=== PATIENT | male | born 1965 | race Caucasian/White ===

== ENCOUNTER → 2017-02-06 | Outpatient (CLI) | payer OTHER ==
--- NOTE | 2017-02-06 08:15 | US ---
EXAMINATION TYPE: US duplex aorta DATE OF EXAM: 02/06/2017 COMPARISON: 2016 ultrasound duplex aorta January 12, 2016. CT abdomen and pelvis June 12, 2016 CLINICAL HISTORY: I71.4 ABD aortic aneurysm without rupture. EXAM MEASUREMENTS: Abdominal Aorta: aneurysm, mid/distal length 8.7 x 2.3 x 4.1 cm calcification, septation, Proximal: 1.8 cm Mid: 2.1cm Distal: 1.2 cm Bifurcation: 1.3 cm shorty, 1.3 cm, carolee 0.9 cm Long segment abdominal aortic aneurysm mid to distal segments is redemonstrated. Aorta measures up to 4.1 cm transversely mid segment level with irregular and linear plaque redemonstrated. No iliac german rial extension is identified. . IMPRESSION: Continued long segment lobulated aneurysm mid to distal abdominal aorta measuring up to 4 .1 cm on this study. No significant change or progression from prior studies.
== END | disposition home or self-care (01) ==
LOC: RADUSWWP 06:55
PROVIDERS: ATTEND Internal Medicine Geriatric Medicine
DX: I71.4 Abdominal aortic aneurysm, without rupture (principal)
CPT/HCPCS: 93979

== ENCOUNTER 2017-03-13 13:59 | Inpatient (IN) | payer OTHER ==
--- NOTE | 2017-03-13 14:32 | ED ---
General Adult HPI - General Chief complaint: Psychiatric Symptoms Stated complaint: Mental Health Time Seen by Provider: 03/13/17 14:14 Source: patient, RN notes reviewed Mode of arrival: ambulatory Limitations: no limitations - History of Present Illness Initial comments: 52-year-old male presents to the emergency department with a chief complaint of suicidal ideation. Patient states that he has been suffering from depression for about 5 years now. Patient states that it's been getting worse over the last year or so and he started to develop some suicidal ideation. Patient states he had multiple different plans. Patient states he's also recovering alcoholic and states he is concerned that he may start drinking again. Patient states just feels as if he needs some help. Patient has been admitted about a year and a half ago for similar-like thoughts and complaints and he states it didn't really help him. Patient states he does not have insurance so he is unable to follow-up with the psychiatrist and he is not currently on any medications. Patient denies any recent fever, chills, shortness of breath, chest pain, back pain, abdominal pain, nausea vomiting, numbness or tingling, dysuria or hematuria, constipation or diarrhea, headaches or visual changes, or any other current symptoms. - Related Data Home Medications Medication Instructions Recorded Confirmed Lisinopril [Zestril] 20 mg PO BID 06/20/15 03/13/17 metFORMIN HCL [Glucophage] 500 mg PO BID 06/20/15 03/13/17 Atorvastatin [Lipitor] 20 mg PO DAILY 03/13/17 03/13/17 DULoxetine HCL [Cymbalta] 30 mg PO DAILY 03/13/17 03/13/17 Gabapentin [Neurontin] 300 mg PO BID 03/13/17 03/13/17 Hydrocodone/Acetaminophen [Catarina 1 tab PO Q6H PRN 03/13/17 03/13/17 7.5-325] LORazepam [Ativan] 1 mg PO TID 03/13/17 03/13/17 Omeprazole [PriLOSEC] 20 mg PO DAILY PRN 03/13/17 03/13/17 glipiZIDE [Glucotrol] 5 mg PO AC-BID 03/13/17 03/13/17 Previous Rx's Medication Instructions Recorded PARoxetine HCL [Paxil] 40 mg PO DAILY #30 tab 06/26/15 Allergies Allergy/AdvReac Type Severity Reaction Status Date / Time No Known Allergies Allergy Verified 03/13/17 14:38 Review of Systems ROS Statement: Those systems with pertinent positive or pertinent negative responses have been documented in the HPI. ROS Other: All systems not noted in ROS Statement are negative. Past Medical History Past Medical History: Diabetes Mellitus, GERD/Reflux, Hyperlipidemia, Hypertension, Sleep Apnea/CPAP/BIPAP Additional Past Medical History / Comment(s): Hiatel Hernia, Aortic aneurysm dx 5 yrs. ago (checked by Dr. Perera 3 mos. ago.) "grew but stable". Admits to using a CPAP machine but it broke 1-2 mos. ago and he hasn't replaced it due to no insurance. History of Any Multi-Drug Resistant Organisms: None Reported Past Surgical History: No Surgical Hx Reported Past Anesthesia/Blood Transfusion Reactions: No Reported Reaction Past Psychological History: Anxiety, Depression Smoking Status: Former smoker Past Alcohol Use History: Abuse Past Drug Use History: None Reported - Past Family History Mother Family Medical History: COPD, Diabetes Mellitus Additional Family Medical History / Comment(s): Mother is alive at age 79 with history of COPD and diabetes. Father Family Medical History: Dementia, Diabetes Mellitus Additional Family Medical History / Comment(s): Father is alive at age 81 with history of diabetes, osteoarthritis, dementia. Sister(s) Family Medical History: Cancer Additional Family Medical History / Comment(s): Patient has 3 sisters. One past 18 years ago from breast cancer, a second sister has recently been diagnosed with breast cancer. He has one sister with depression and anxiety and rheumatoid arthritis. Brother(s) Family Medical History: COPD Additional Family Medical History / Comment(s): Patient has one brother with COPD. General Exam - General Exam Comments Initial Comments: General: The patient is awake and alert, in no distress, and does not appear acutely ill. Eye: Pupils are equal, round and reactive to light, extra-ocular movements are intact; there is normal conjunctiva bilaterally. No signs of icterus. Ears, nose, mouth and throat: There are moist mucous membranes. Neck: The neck is supple, there is no tenderness. Cardiovascular: There is a regular rate and rhythm. No murmur, rub or gallop is appreciated. Respiratory: Lungs are clear to auscultation, respirations are non-labored, breath sounds are equal. No wheezes, stridor, rales, or rhonchi. Neurological: CN II-XII intact, There are no obvious motor or sensory deficits. Coordination appears grossly intact. Speech is normal. Skin: Skin is warm and dry and no rashes or lesions are noted. Psychiatric: Cooperative, depression, suicidal ideation Limitations: no limitations Course Vital Signs 03/13/17 14:10 Temperature 97.6 F Pulse Rate 115 H Respiratory 20 Rate Blood Pressure 138/67 O2 Sat by Pulse 97 Oximetry Medical Decision Making - Medical Decision Making 52-year-old male presents emergency department with a chief complaint of suicidal ideation. At this time the patient does not appear to be septic from acute medical emergencies. This time the patient is cleared to be evaluated by psychiatry.at this time the patient will be admitted for psychiatric inpatient. - Lab Data Lab Results 03/13/17 Range/Units 14:45 Urine Opiates Screen Detected H (NotDetected) Ur Oxycodone Screen Not Detected (NotDetected) Urine Methadone Screen Not Detected (NotDetected) Ur Propoxyphene Screen Not Detected (NotDetected) Ur Barbiturates Screen Not Detected (NotDetected) U Tricyclic Antidepress Not Detected (NotDetected) Ur Phencyclidine Scrn Not Detected (NotDetected) Ur Amphetamines Screen Not Detected (NotDetected) U Methamphetamines Scrn Not Detected (NotDetected) U Benzodiazepines Scrn Detected H (NotDetected) Urine Cocaine Screen Not Detected (NotDetected) U Marijuana (THC) Screen Not Detected (NotDetected) Disposition Clinical Impression: Suicidal ideation, Depression Disposition: TRANSFER TO PSYCH HOSP/UNIT Referrals: Gene Perera MD [Primary Care Provider] - 1-2 days
[2017-03-13 17:14] LABS: Glucose,Whole Blood 89 mg/dL (75-99)
[2017-03-13] MEDS ORDERED: MAGNESIUM HYDROXIDE 2,400 MG/10 ML CUP PO PRN (18:08)
[2017-03-13] MEDS ORDERED: ACETAMINOPHEN TAB 325 MG TAB PO PRN (18:08)
[2017-03-13] MEDS ORDERED: ZIPRASIDONE 20 MG VIAL IM PRN (18:08)
[2017-03-13] MEDS ORDERED: MAG HYDROX/AL HYDROX/SIMETH 30 ML CUP PO PRN (18:08)
[2017-03-13] MEDS ORDERED: LORazepam 2 MG/ML SYRINGE IM PRN (18:21)
[2017-03-13] MEDS ORDERED: PANTOPRAZOLE 40 MG TABLET PO PRN (19:40)
[2017-03-13 20:35] LABS: Glucose,Whole Blood 116 mg/dL (75-99)
[2017-03-13] MEDS: INSULIN LISPRO (humaLOG) 300 UNIT/3 ML VIAL SQ SCH (21:51)
[2017-03-13] MEDS: LISINOPRIL 20 MG TAB PO SCH (21:53)
[2017-03-13] MEDS: GABAPENTIN 300 MG CAP PO SCH (21:54)
[2017-03-13] MEDS: metFORMIN 500 MG TAB PO SCH (21:57)
[2017-03-13] MEDS: HYDROcodone/APAP 5-325MG 1 EACH TAB PO SCH (23:26)
[2017-03-14 07:39] LABS: Glucose,Whole Blood 137 mg/dL (75-99)
[2017-03-14 08:21] LABS: Basophils # (A) 0.1 k/uL (0-0.2); Basophils % (A) 1 %; CH 30.1; CHCM 33.7; Eosinophils # (A) 0.3 k/uL (0-0.7); Eosinophils % (A) 4 %; HCT 46.3 % (39.0-53.0); HDW 2.46; HGB 15.2 gm/dL (13.0-17.5); Luc # (Auto) 0.21; Luc % (Auto) 3; Lymphocytes % (A) 25 %; MCH 29.3 pg (25.0-35.0); MCHC 32.8 g/dL (31.0-37.0); MCV 89.5 fL (80.0-100.0); Mean Platelet Volume 7.3; Monocytes # (A) 0.4 k/uL (0-1.0); Monocytes % (A) 5 %; Neutrophils % (A) 62 %; RBC 5.17 m/uL (4.30-5.90); RDW 13.3 % (11.5-15.5); WBC (Perox) 8.09
[2017-03-14 08:31] LABS: ALT 44 U/L (21-72); AST 27 U/L (17-59); Alkaline Phosphatase 54 U/L (38-126); Anion Gap 11 mmol/L; Blood Urea Nitrogen 10 mg/dL (9-20); Carbon Dioxide 28 mmol/L (22-30); Chloride 100 mmol/L (98-107); Glucose 149 mg/dL (74-99); Non-African American GFR(MDRD) >60 (>60 ml/min/1.73 sqM); Potassium 4.7 mmol/L (3.5-5.1); Sodium 139 mmol/L (137-145); Total Bilirubin 0.7 mg/dL (0.2-1.3); Total Protein 7.8 g/dL (6.3-8.2)
[2017-03-14] MEDS ORDERED: PARoxetine 20 MG TAB PO SCH (09:00)
[2017-03-14] MEDS ORDERED: DULoxetine HCL 30 MG CAPSULE.DR PO SCH (09:00)
[2017-03-14] MEDS: INSULIN LISPRO (humaLOG) 300 UNIT/3 ML VIAL SQ SCH ×4 (09:32→21:15)
[2017-03-14] MEDS: NICOTINE 7MG/24HR PATCH TRANSDERM SCH (09:34)
[2017-03-14] MEDS: GABAPENTIN 300 MG CAP PO SCH ×2 (09:35→20:58)
[2017-03-14] MEDS: glipiZIDE 5 MG TAB PO SCH ×2 (09:36→18:28)
[2017-03-14] MEDS: HYDROcodone/APAP 5-325MG 1 EACH TAB PO SCH ×3 (09:36→21:04)
[2017-03-14] MEDS: ATORVASTATIN 20 MG TAB PO SCH (09:36)
[2017-03-14] MEDS: metFORMIN 500 MG TAB PO SCH ×2 (09:36→20:58)
[2017-03-14] MEDS: LISINOPRIL 20 MG TAB PO SCH ×2 (09:36→20:58)
[2017-03-14] MEDS: LORazepam 1 MG TAB PO PRN ×2 (09:39→21:01)
[2017-03-14 12:01] LABS: Glucose,Whole Blood 158 mg/dL (75-99)
[2017-03-14 12:01] LABS: Hemoglobin A1C 7.3 % (4.2-6.1)
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
[2017-03-14] MEDS: TRIAMCINOLONE 0.1% CREAM 80 GM TUBE TOPICAL SCH ×3 (14:31→21:50)
--- NOTE | 2017-03-14 15:33 | HP ---
DATE OF : 1965 IDENTIFYING DATA: This patient is a 52-year-old single male who was admitted to the mental health unit through the emergency room for acute suicidal ideation. HISTORY OF PRESENT ILLNESS: The patient states that he has been experiencing significant symptoms of depression for many months but worsened since January. He reports he is crying on a daily basis, sleep has been disturbed, energy is low, concentration is impaired. Appetite is decreased with subsequent reported weight loss. He continues to have suicidal thoughts and states "I don't want to live." He has considered overdosing on his insulin or asphyxiating himself with his vehicle in the garage. He reports intermittent symptoms of anxiety. He does have a history of panic attacks in the past but none recently. No hypomanic or manic episodes reported. No symptoms of psychosis reported. No specific delusions reported. He denies having any firearms at home. 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 He states he is also in trouble regarding back taxes. PAST PSYCHIATRIC HISTORY: This is his third inpatient psychiatric admission. His first was at age 12 after an overdose as a suicide attempt. His second admission was in 2014 under the care of Dr. Willis. He sees his primary care physician for management of his psychotropic medications. He states he is on Ativan 1 mg three times daily as needed, Cymbalta 30 mg daily, Paxil 20 mg daily. He states he is also on Neurontin 300 mg twice daily. He has previously tried Adderall, Ritalin, Prozac, Zoloft and Wellbutrin. Out of all of the medicines he has been on, Cymbalta has been the best he reports. PAST MEDICAL HISTORY: Insulin dependent diabetes, history of pancreatitis in the past, hypertension, hyperlipidemia, sleep apnea, chronic pain. He reports chronic pain involving his lower extremities, sacrum and low back. The patient reports a history of an aortic abdominal aneurysm. He states that it was recently measured at 4.1 and it had actually regressed. ALLERGIES: No known drug allergies. CHEMICAL DEPENDENCY HISTORY: He has a history of alcohol use disorder. He most recently has been sober for five years. He reports not use of alcohol, marijuana or other illicit drugs. FAMILY PSYCHIATRIC HISTORY: He reports a history of depression and anxiety on both sides of the family. LEGAL HISTORY: None reported. ABUSE HISTORY: None reported. SOCIAL HISTORY: The patient is 52 years old. He has never been . He has no children. He has three living siblings. He lost one due to breast cancer. He is born and raised from this area. He is currently residing with his parents still. No history of service. He has an 11th grade education. He reports having significant financial concern, issues with back taxes. 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 MENTAL STATUS EXAM: The patient is a male appearing his stated age. He has a disheveled appearance. He is dressed in hospital gowns. Eye contact is appropriate. Speech is fluent. He is verbose. I do need to interrupt him from time to time and he is able to tolerate that. He describes a depressed mood with suicidal ideation and hopeless thinking. He reports no homicidal ideation. He is endorsing no auditory or visual hallucinations. He endorses no specific delusions. There is no evidence of psychosis. He does not appear hypomanic or manic. He does not appear hypomanic or manic. He can be circumstantial at times but he demonstrates no tangential thinking, loose associations or flight of ideas. Insight and judgment limited. He is oriented to person, place and date. He is able to spell world forwards and backwards. He demonstrates no verbal or physical aggressiveness. Affect is constricted to dysphoric in appearance. STRENGTHS: Willingness to receive help, housing. WEAKNESSES: Employment and financial concerns. INTELLECT: Average. IMPRESSION: 1. Major depressive disorder, recurrent, severe without psychosis; anxiety unspecified, alcoholic use disorder in remission. 2. Medical comorbidities include chronic pain, aortic aneurysm, hypertension, hyperlipidemia, sleep apnea, diabetes. 3. Financial concerns. PLAN: The patient has been admitted to the mental health unit. He is here voluntarily. We reviewed his medication options in the context of his presenting symptoms. We decided to discontinue the Cymbalta and we will taper him off of Paxil. We will initiate Effexor XR 37.5 mg daily with the plan of titrating that medication further. He has felt that the Cymbalta was the most helpful so perhaps another SNRI would be beneficial as well. He will use Ativan as needed for acute anxiety symptoms. We will monitor him for safety. Social work will meet with the patient to complete a psychosocial assessment. The patient will be seen by his primary care physician for routine history and physical exam on the mental health unit. He is encouraged to participate in the milieu. NAMAN
[2017-03-14 17:27] LABS: Glucose,Whole Blood 75 mg/dL (75-99)
[2017-03-14 19:58] LABS: Glucose,Whole Blood 137 mg/dL (75-99)
[2017-03-14] MEDS: PARoxetine 10 MG TAB PO SCH (20:58)
[2017-03-15 07:11] LABS: Glucose,Whole Blood 142 mg/dL (75-99)
[2017-03-15] MEDS: INSULIN LISPRO (humaLOG) 300 UNIT/3 ML VIAL SQ SCH ×4 (07:55→20:18)
[2017-03-15] MEDS: NICOTINE 7MG/24HR PATCH TRANSDERM SCH (09:02)
[2017-03-15] MEDS: glipiZIDE 5 MG TAB PO SCH ×3 (09:03→18:59)
[2017-03-15] MEDS: VENLAFAXINE HCL ER 37.5 MG CAP PO SCH (09:03)
[2017-03-15] MEDS: ATORVASTATIN 20 MG TAB PO SCH (09:03)
[2017-03-15] MEDS: metFORMIN 500 MG TAB PO SCH ×2 (09:03→20:19)
[2017-03-15] MEDS: LISINOPRIL 20 MG TAB PO SCH ×2 (09:03→20:19)
[2017-03-15] MEDS: GABAPENTIN 300 MG CAP PO SCH ×2 (09:03→20:20)
[2017-03-15] MEDS: HYDROcodone/APAP 5-325MG 1 EACH TAB PO SCH ×3 (09:03→20:20)
[2017-03-15] MEDS: TRIAMCINOLONE 0.1% CREAM 80 GM TUBE TOPICAL SCH ×2 (09:04→20:22)
[2017-03-15] MEDS: LORazepam 1 MG TAB PO PRN ×3 (10:44→19:04)
[2017-03-15 12:30] LABS: Glucose,Whole Blood 86 mg/dL (75-99)
--- NOTE | 2017-03-15 15:24 | P.PN ---
Progress Note - Text Interval history: Patient is seen in cross coverage today for Dr. Gaona. He reports that his mood is doing better today. He's been initiated on Effexor and Paxil is being tapered. 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 He does not voice any adverse psychotropic medication side effects. Mental status exam: He is alert and cooperative with the interview. Speech is fluent, not rapid or pressured. Thought processes are organized. His mood overall is improved. He denies any thoughts of harm to self or others. He does not verbalize any hallucinations or delusional thoughts. He does not show any agitation. Plan: We'll continue to cover this patient for Dr. Gaona through the weekend. We'll monitor for any medication side effects and monitor his ongoing response.
[2017-03-15 16:41] LABS: Glucose,Whole Blood 94 mg/dL (75-99)
[2017-03-15 17:52] LABS: Glucose,Whole Blood 109 mg/dL (75-99)
[2017-03-15 20:16] LABS: Glucose,Whole Blood 228 mg/dL (75-99)
[2017-03-15] MEDS: PARoxetine 10 MG TAB PO SCH (20:19)
[2017-03-16 06:14] LABS: Glucose,Whole Blood 138 mg/dL (75-99)
[2017-03-16 06:52] VITALS: TEMP 97.5
[2017-03-16] MEDS: INSULIN LISPRO (humaLOG) 300 UNIT/3 ML VIAL SQ SCH ×5 (08:02→20:18)
[2017-03-16] MEDS: glipiZIDE 5 MG TAB PO SCH ×3 (08:03→18:05)
[2017-03-16] MEDS: ATORVASTATIN 20 MG TAB PO SCH (08:05)
[2017-03-16] MEDS: VENLAFAXINE HCL ER 37.5 MG CAP PO SCH (08:05)
[2017-03-16] MEDS: GABAPENTIN 300 MG CAP PO SCH ×2 (08:06→20:54)
[2017-03-16] MEDS: NICOTINE 7MG/24HR PATCH TRANSDERM SCH (08:06)
[2017-03-16] MEDS: metFORMIN 500 MG TAB PO SCH ×3 (08:06→20:19)
[2017-03-16] MEDS: TRIAMCINOLONE 0.1% CREAM 80 GM TUBE TOPICAL SCH ×2 (08:07→20:20)
[2017-03-16] MEDS: LISINOPRIL 20 MG TAB PO SCH ×2 (09:43→20:19)
[2017-03-16] MEDS: HYDROcodone/APAP 5-325MG 1 EACH TAB PO SCH ×3 (09:43→20:20)
[2017-03-16 12:52] LABS: Glucose,Whole Blood 154 mg/dL (75-99)
[2017-03-16] MEDS: LORazepam 1 MG TAB PO PRN ×2 (13:00→22:53)
[2017-03-16 16:14] VITALS: RESP 18
[2017-03-16 16:56] LABS: Glucose,Whole Blood 120 mg/dL (75-99)
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
[2017-03-16 20:01] LABS: Glucose,Whole Blood 148 mg/dL (75-99)
[2017-03-16] MEDS: PARoxetine 10 MG TAB PO SCH (20:19)
[2017-03-17 07:31] LABS: Glucose,Whole Blood 138 mg/dL (75-99)
--- NOTE | 2017-03-17 08:54 | P.PN ---
Progress Note - Text Interval history: The patient is found in the dining room he follows me to an interview room. He reports his mood is improving. He is feeling less hopeful. He is glad to report that his Medicaid has been restarted. We discussed the plan of tapering off of Paxil and titrating the Effexor XR further he is agreeable. We discussed the Neurontin at length regarding his progress and possible dosing. He continues to struggle with chronic pain. He reports having a supportive visit over the weekend. Mental status exam: The patient is alert he is dressed in his own clothing hygiene grooming adequate. He reports his mood is improving he is feeling less hopeless. He is feeling safe in the hospital and describes no acute suicidal or homicidal ideation intent or plan. He is endorsing no auditory or visual hallucinations no specific delusions. There is no evidence of psychosis. Insight and judgment grossly intact. He remains oriented to person place and date. He demonstrates no verbal or physical aggressiveness. Speech is fluent and spontaneous nonpressured. Affect is constricted. Plan: The patient's will continue on Effexor XR we will titrate the dose to 75 mg daily. Paxil will be discontinued. Neurontin will be increased to 300 mg 3 times daily. We will continue to monitor him for safety and encourage his full participation in the milieu. We will consider discharging him in the next 1-2 days if he demonstrates continued improvement and stability.
[2017-03-17] MEDS: NICOTINE 7MG/24HR PATCH TRANSDERM SCH (09:27)
[2017-03-17] MEDS: glipiZIDE 5 MG TAB PO SCH ×2 (09:28→18:08)
[2017-03-17] MEDS: LISINOPRIL 20 MG TAB PO SCH ×2 (09:28→21:49)
[2017-03-17] MEDS: GABAPENTIN 300 MG CAP PO SCH ×3 (09:28→21:49)
[2017-03-17] MEDS: ATORVASTATIN 20 MG TAB PO SCH (09:28)
[2017-03-17] MEDS: metFORMIN 500 MG TAB PO SCH ×2 (09:28→21:50)
[2017-03-17] MEDS: TRIAMCINOLONE 0.1% CREAM 80 GM TUBE TOPICAL SCH ×2 (09:29→21:51)
[2017-03-17] MEDS: HYDROcodone/APAP 5-325MG 1 EACH TAB PO SCH ×3 (09:29→21:50)
[2017-03-17] MEDS: INSULIN LISPRO (humaLOG) 300 UNIT/3 ML VIAL SQ SCH ×4 (09:31→20:29)
[2017-03-17] MEDS: VENLAFAXINE HCL ER 75 MG CAP PO SCH (09:34)
[2017-03-17] MEDS: LORazepam 1 MG TAB PO PRN ×2 (11:00→19:36)
[2017-03-17 12:38] LABS: Glucose,Whole Blood 75 mg/dL (75-99)
[2017-03-17 18:00] LABS: Glucose,Whole Blood 100 mg/dL (75-99)
[2017-03-17 20:38] LABS: Glucose,Whole Blood 137 mg/dL (75-99)
[2017-03-18 07:25] LABS: Glucose,Whole Blood 143 mg/dL (75-99)
[2017-03-18] MEDS: INSULIN LISPRO (humaLOG) 300 UNIT/3 ML VIAL SQ SCH ×3 (08:16→12:37)
[2017-03-18] MEDS: HYDROcodone/APAP 5-325MG 1 EACH TAB PO SCH (08:26)
[2017-03-18] MEDS: glipiZIDE 5 MG TAB PO SCH (08:26)
[2017-03-18] MEDS: VENLAFAXINE HCL ER 75 MG CAP PO SCH (08:27)
[2017-03-18] MEDS: LISINOPRIL 20 MG TAB PO SCH (08:27)
[2017-03-18] MEDS: ATORVASTATIN 20 MG TAB PO SCH (08:27)
[2017-03-18] MEDS: GABAPENTIN 300 MG CAP PO SCH (08:27)
[2017-03-18] MEDS: metFORMIN 500 MG TAB PO SCH (08:27)
[2017-03-18] MEDS: NICOTINE 7MG/24HR PATCH TRANSDERM SCH (08:28)
[2017-03-18 08:41] VITALS: BP 114/77; PULSE 71
[2017-03-18] MEDS: TRIAMCINOLONE 0.1% CREAM 80 GM TUBE TOPICAL SCH (09:13)
--- NOTE | 2017-03-18 09:55 | P.DS ---
Providers Date of admission: 03/13/17 18:00 Expected date of discharge: 03/18/17 Attending physician: Roberto Gaona Consults: 03/13/17 18:08 Consult Physician Routine Consulting Provider: Gene Perera Reason/Comments: H & P and medical management Do you want consulting provider notified?: Yes Primary care physician: Gene Perera - Discharge Diagnosis(es) (1) Major depressive disorder, recurrent severe without psychotic features Current Visit: Yes Status: Acute Priority: High (2) Anxiety Current Visit: Yes Status: Acute Priority: Medium (3) Alcohol use disorder, mild, in sustained remission Current Visit: Yes Status: Acute Priority: Low Hospital Course: Brief summary of admission note: This patient's is a 52-year-old single male who was admitted to the mental health unit through the emergency room for acute suicidal ideation. The patient noted experiencing significant symptoms of depression that seemed to worsen since January. He was experiencing daily tearfulness poor sleep low energy and impaired concentration. He presented with suicidal ideation. 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 Summary of hospital course: The patient was admitted to the mental health unit he signed in voluntarily. We reviewed his presenting symptoms and medication options. He had been taking Paxil and Cymbalta concurrently. We decided to discontinue those medications and initiate Effexor XR. He felt that out of all the medicines he's been on he did best with the Cymbalta or that was no longer working. We did learn that his sister has been on Effexor XR for 15 years with reported success. The patient was evaluated by internal medicine for routine history and physical exam. Social work met with the patient to complete a psychosocial assessment. He plans on residing with his parents again upon discharge. The patient was able to be tapered off of the Paxil and Cymbalta without incident he is endorsing no side effects from the Effexor XR so far. He states that his suicidal thoughts have resolved. 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 He feels supported in those endeavors. He demonstrated no agitated behavior. He has reported a progressive improvement of symptoms while here. Mental status exam: The patient is alert he is dressed in his own clothing hygiene grooming are good. Speech is fluent spontaneous nonpressured. He reports his mood is "better" affect is euthymic and appropriately expressive. He is reporting no suicidal ideation intent or plan no homicidal ideation intent or plan. Thought process is linear he demonstrates no tangential thinking loose associations or flight of ideas. He does not appear hypomanic or manic. He endorses no auditory or visual hallucinations or specific delusions there is no evidence of psychosis. Cognitively he remains grossly intact and is oriented to person place and date. He demonstrates no verbal or physical aggressiveness. Impressions 1. Major depressive disorder recurrent severe without psychosis, anxiety unspecified, alcohol use disorder in remission 2. Medical comorbidities including chronic pain, aortic aneurysm, hypertension , hyperlipidemia, sleep apnea, diabetes 3. Financial concerns Plan: The patient will be discharged from the mental health unit today to return home residing with his parents. He will continue on Effexor XR 75 mg daily this may need to be titrated further. Social work will arrange his outpatient mental health follow-up. He plans on attending AA to continue his sobriety from alcohol. He is reporting no acute suicidal ideation there is no imminent safety risk he is appropriate for transition to outpatient care. He is instructed to return to the hospital with any acute safety concerns. He is encouraged to follow-up with his primary care physician Dr. Perera regarding pain management. We did increase his Neurontin to 300 mg 3 times daily. Patient Condition at Discharge: Stable Plan - Discharge Summary New Discharge Prescriptions: New Gabapentin [Neurontin] 300 mg PO TID #45 cap Nicotine 7Mg/24Hr Patch [Habitrol] 1 patch TRANSDERM DAILY #12 patch Venlafaxine HCl ER [Effexor XR] 75 mg PO DAILY #30 cap Continue metFORMIN HCL [Glucophage] 500 mg PO BID Lisinopril [Zestril] 20 mg PO BID Omeprazole [PriLOSEC] 20 mg PO DAILY PRN PRN Reason: Heartburn glipiZIDE [Glucotrol] 5 mg PO AC-BID Hydrocodone/Acetaminophen [[place] 7.5-325] 1 tab PO Q6H PRN PRN Reason: Pain Atorvastatin [Lipitor] 20 mg PO DAILY Discontinued PARoxetine HCL [Paxil] 40 mg PO DAILY #30 tab Gabapentin [Neurontin] 300 mg PO BID DULoxetine HCL [Cymbalta] 30 mg PO DAILY LORazepam [Ativan] 1 mg PO TID Discharge Medication List Lisinopril [Zestril] 20 mg PO BID 06/20/15 [History] metFORMIN HCL [Glucophage] 500 mg PO BID 06/20/15 [History] Atorvastatin [Lipitor] 20 mg PO DAILY 03/13/17 [History] Hydrocodone/Acetaminophen [[place]non 7.5-325] 1 tab PO Q6H PRN 03/13/17 [History] Omeprazole [PriLOSEC] 20 mg PO DAILY PRN 03/13/17 [History] glipiZIDE [Glucotrol] 5 mg PO AC-BID 03/13/17 [History] Gabapentin [Neurontin] 300 mg PO TID #45 cap 03/18/17 [Rx] Nicotine 7Mg/24Hr Patch [Habitrol] 1 patch TRANSDERM DAILY #12 patch 03/18/17 [ Rx] Venlafaxine HCl ER [Effexor XR] 75 mg PO DAILY #30 cap 03/18/17 [Rx] Follow up Appointment(s)/Referral(s): [facility] [Outside] - 03/20/17 1:00 pm (03/20/17 at 1 [address] ) Gene Perera MD [Primary Care Provider] - 1-2 days
[2017-03-18] MEDS: LORazepam 1 MG TAB PO PRN (10:38)
[2017-03-18 12:36] LABS: Glucose,Whole Blood 121 mg/dL (75-99)
== END 2017-03-18 13:48 | disposition home or self-care (01) | DRG 885 ==
LOC: EC 13:59 → 3MHU 18:00
PROVIDERS: ADMIT Psychiatry & Neurology Psychiatry; ATTEND Psychiatry & Neurology Psychiatry
DX: F33.2 Major depressive disorder, recurrent severe without psychotic features (principal); R45.851 Suicidal ideations; E11.9 Type 2 diabetes mellitus without complications; F10.21 Alcohol dependence, in remission; F41.0 Panic disorder [episodic paroxysmal anxiety]; L25.9 Unspecified contact dermatitis, unspecified cause; I10 Essential (primary) hypertension; G89.29 Other chronic pain; E78.5 Hyperlipidemia, unspecified; G47.30 Sleep apnea, unspecified; K21.9 Gastro-esophageal reflux disease without esophagitis; M54.5 Low back pain; I71.4 Abdominal aortic aneurysm, without rupture; Z79.84 Long term (current) use of oral hypoglycemic drugs; Z79.899 Other long term (current) drug therapy; Z91.5 Personal history of self-harm; Z81.8 Family history of other mental and behavioral disorders; Z87.891 Personal history of nicotine dependence
CPT/HCPCS: 36415; 80053; 80306; 82075; 83036; 84443; 85025; 99285

== ENCOUNTER → 2017-08-25 | Outpatient (CLI) | payer OTHER ==
--- NOTE | 2017-08-25 14:45 | XR ---
EXAMINATION TYPE: XR lumbar spine 2 or 3V DATE OF EXAM: 08/25/2017 COMPARISON: NONE HISTORY: Back pain TECHNIQUE: Three-view lumbar spine FINDINGS: There is a 6.1 cm aneurysm on this examination in the distal abdominal aorta. This is trans verse dimension. The AP dimension on the sacral base view is 6.3 cm. There 5 lumbar-type vertebral bodies. The pedicles are intact. Vertebral body heights are preserved. There is narrowing of the L5-S1 disc height. IMPRESSION: 1. Abdominal aortic aneurysm with an AP diameter of 6.3 cm. 2. Degenerative disc change L5-S1.
== END | disposition home or self-care (01) ==
LOC: RADXRMAIN 12:31
PROVIDERS: ATTEND Internal Medicine Geriatric Medicine
DX: M51.37 Other intervertebral disc degeneration, lumbosacral region (principal)
CPT/HCPCS: 72100

== ENCOUNTER → 2017-08-28 | Outpatient (CLI) | payer OTHER ==
[2017-08-28 06:32] LABS: Blood Urea Nitrogen 14 mg/dL (9-20)
--- NOTE | 2017-08-28 07:53 | MR ---
"EXAMINATION TYPE: MR lumbar spine wo/w con DATE OF EXAM: 08/28/2017 COMPARISON: Lumbar spine x-ray August 25, 2017. CT abdomen and pelvis June 12, 2016. Ultrasound duplex aorta October 07, 2016 HISTORY: Dropped foot for 3 weeks with back pain going into both thighs and buttocks per patient. Ronaldo k pain (754.5) per order. TECHNIQUE: Multiplanar, multisequence images of the lumbar spine is performed without and with IV contrast, util izing 7.5 mL intravenous Gadavist FINDINGS: Sagittal images of the lumbar spine show vertebral body heights and alignment to appear sat isfactory. Multilevel disc desiccation is present. There is moderate disc space narrowing L5-S1 leve l. There are multilevel small posterior disc herniation seen on sagittal images The conus medullaris is normal in position and signal ending at mid L1 level. The bone marrow signal intensity is within normal limits. Mild multilevel anterior spurring is seen. No suspicious postcontrast enhancement is i dentified. Axial images show the T12-L1 level to appear within normal limits. Axial images at L1-L2 level show mild broad disc bulge minimally effacing anterior thecal sac, bilate ral neural foramina are patent. Axial images at L2-L3 level show mild broad disc bulge mildly effacing anterior thecal sac with mild facet degenerative changes bilaterally. Bilateral neural foramina are patent. Axial images at L3-L4 level show mild to moderate broad disc bulge effacing anterior thecal sac. Left -sided neural foramina shows mild inferior anterior narrowing. Right-sided neural foramen is patent. Axial images at L4-L5 level show mild facet degenerative changes bilaterally. There is broad-based po sterior disc protrusion mildly effacing anterior thecal sac. Bilateral neural foramina are patent. Axial images at L5-S1 level show mild facet degenerative changes bilaterally. There is broad disc bul ge minimally effacing anterior thecal sac. Bilateral neural foramina are patent. There is redemonstration of aneurysmal change to the infrarenal abdominal aorta this measures 4.6 x 5 .0 cm transversely axial image 14. This is more prominent than seen on prior CT. This correlates with recent radiograph and is also more prominent versus prior ultrasound. IMPRESSION: 1. Multilevel degenerative changes in lumbar spine as detailed above. 2. Enlarging abdominal aortic aneurysm from prior CT and ultrasound measuring up to 5.0 cm transverse ly on current study, likely not as large as suspected on recent x-ray. Advise endovascular and/or danna gical referral if has not been performed. A Yellow message has been communicated to Gene Perera MD via the [employer] | Critical Result sy stem on 08/28/2017 7:50 AM, Message ID [id number]."
== END | disposition home or self-care (01) ==
LOC: RADMRIMAIN 06:07
PROVIDERS: ATTEND Internal Medicine Geriatric Medicine
DX: M47.817 Spondylosis without myelopathy or radiculopathy, lumbosacral region (principal)
CPT/HCPCS: 82565; 84520; 72158; 36415; A9581

== ENCOUNTER → 2017-09-10 | Outpatient (CLI) | payer OTHER ==
[2017-09-10 18:28] LABS: Blood Urea Nitrogen 12 mg/dL (9-20)
--- NOTE | 2017-09-10 19:41 | CT ---
EXAMINATION TYPE: CT angio abdomen pelvis DATE OF EXAM: 09/10/2017 7:12 PM COMPARISON: 06/12/2016 HISTORY: Follow up AAA per patient CT DLP: 390.3 mGycm Automated exposure control for dose reduction was used. TECHNIQUE: Performed with IV Contrast, patient injected with 100 mL of Omnipaque 350. There are 3-D post processed images.. FINDINGS: There is some patchy fibrotic change and some pleural emphysema at the lung bases. There is no pleura l effusion. Liver spleen pancreas gallbladder appear normal. Bile ducts are not dilated. Kidneys show no hydronep hrosis. There is a fusiform lower abdominal aortic aneurysm. This measures up to 5.5 cm in diameter. There is thrombus in the wall at that measures up to 7 mm. There is no retroperitoneal adenopathy. There is bilateral arterial flow in the common internal and e xternal iliac arteries. There is no evidence of aortic dissection. I see no bony destructive process. There is wide patency of the celiac artery and the superior mesenteric artery. There is bilateral wid e patency of the renal arteries. IMPRESSION: THERE IS 5.5 CM FUSIFORM LOWER ABDOMINAL AORTIC ANEURYSM. THIS HAS INCREASED SLIGHTLY COMPARED TO OLD EXAM THE PREVIOUS MEASUREMENT IS 5.1 CM. FIBROTIC CHANGES NOTED AT THE LUNG BASES.
== END | disposition home or self-care (01) ==
LOC: RADCTMAIN 17:42
PROVIDERS: ATTEND Surgery Vascular Surgery
DX: I71.4 Abdominal aortic aneurysm, without rupture (principal)
CPT/HCPCS: 82565; 84520; 36415; 74174; Q9967

== ENCOUNTER 2018-04-27 11:28 | Emergency (ER) | payer OTHER ==
--- NOTE | 2018-04-27 12:20 | ED ---
General Adult HPI - General Chief complaint: Psychiatric Symptoms Stated complaint: EPS eval Source: patient, RN notes reviewed Mode of arrival: ambulatory Limitations: no limitations - History of Present Illness Initial comments: This is a 53-year-old male who presents to the emergency department complaining that he's been more depressed lately and has been having suicidal thoughts. Patient states these of been building up with all stresses in his life. 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 Patient denies any physical complaints today that are new. Patient states she has no chest pain difficulty breathing shortness of breath per patient denies abdominal pain patient denies nausea vomiting diarrhea. Patient denies any recent fever chills or cough. - Related Data Home Medications Medication Instructions Recorded Confirmed Hydrocodone/Acetaminophen [[place]ar 1 tab PO Q6H PRN 03/13/17 04/27/18 7.5-325] Methylphenidate HCl [Ritalin] 10 mg PO BID 05/11/17 04/27/18 ALPRAZolam [Xanax] 0.25 mg PO BID PRN 04/27/18 04/27/18 Aspirin 325 mg PO DAILY PRN 04/27/18 04/27/18 Baclofen [Lioresal] 5 mg PO BID 04/27/18 04/27/18 Omeprazole 40 mg PO DAILY 04/27/18 04/27/18 Tamsulosin [Flomax] 0.4 mg PO DAILY 04/27/18 04/27/18 Venlafaxine HCl [Effexor XR] 225 mg PO HS 04/27/18 04/27/18 glyBURIDE/METFORMIN HCL 1 tab PO AC-BID 04/27/18 04/27/18 [glyBURIDE/METFORMIN HCL 5-500 mg] Previous Rx's Medication Instructions Recorded Gabapentin [Neurontin] 300 mg PO TID #45 cap 03/18/17 Allergies Allergy/AdvReac Type Severity Reaction Status Date / Time No Known Allergies Allergy Verified 04/27/18 12:25 Review of Systems ROS Statement: Those systems with pertinent positive or pertinent negative responses have been documented in the HPI. ROS Other: All systems not noted in ROS Statement are negative. Past Medical History Past Medical History: Diabetes Mellitus, GERD/Reflux, Hyperlipidemia, Hypertension, Sleep Apnea/CPAP/BIPAP Additional Past Medical History / Comment(s): Hiatel Hernia, abdominal aortic aneurysm had two surgeries-and states he has a leak at this time , CPAP machine , alcoholic induced pancreatitis History of Any Multi-Drug Resistant Organisms: None Reported Past Surgical History: No Surgical Hx Reported Additional Past Surgical History / Comment(s): AAA repair 3-10-18 Past Anesthesia/Blood Transfusion Reactions: No Reported Reaction Past Psychological History: Anxiety, Depression Smoking Status: Current every day smoker Past Alcohol Use History: None Reported Past Drug Use History: None Reported - Past Family History Mother Family Medical History: COPD, Diabetes Mellitus Additional Family Medical History / Comment(s): Mother is alive at age 81 with history of COPD and diabetes. Father Family Medical History: Dementia, Diabetes Mellitus Additional Family Medical History / Comment(s): Father is alive at age 83 with history of diabetes, osteoarthritis, dementia. Sister(s) Family Medical History: Cancer Additional Family Medical History / Comment(s): Patient has 3 sisters. One past 18 years ago from breast cancer, a second sister has recently been diagnosed with breast cancer with history of depression and anxiety and his third sister has history of rheumatoid arthritis. Patient does not have any children. Brother(s) Family Medical History: COPD Additional Family Medical History / Comment(s): Patient has one brother with COPD. General Exam - General Exam Comments Initial Comments: GENERAL: Patient is well-developed and well-nourished. Patient is nontoxic and well- hydrated and is in no acute distress. ENT: Neck is soft and supple. No significant lymphadenopathy is noted. Oropharynx is clear. Moist mucous membranes. Neck has full range of motion without eliciting any pain. EYES: The sclera were anicteric and conjunctiva were pink and moist. Extraocular movements were intact and pupils were equal round and reactive to light. Eyelids were unremarkable. PULMONARY: Unlabored respirations. Good breath sounds bilaterally. No audible rales rhonchi or wheezing was noted. CARDIOVASCULAR: There is a regular rate and rhythm without any murmurs gallops or rubs. ABDOMEN: Soft and nontender with normal bowel sounds. No palpable organomegaly was noted. There is no palpable pulsatile mass. SKIN: Skin is clear with no lesions or rashes and otherwise unremarkable. NEUROLOGIC: Patient is alert and oriented x3. Cranial nerves II through XII are grossly intact. Motor and sensory are also intact. Normal speech, volume and content. Symmetrical smile. MUSCULOSKELETAL: Normal extremities with adequate strength and full range of motion. LYMPHATICS: No significant lymphadenopathy is noted PSYCHIATRIC: Patient states he is depressed and suicidal patient denies having made any attempt. Limitations: no limitations Course Vital Signs 04/27/18 11:33 Temperature 97.8 F Pulse Rate 89 Respiratory 18 Rate Blood Pressure 173/114 O2 Sat by Pulse 98 Oximetry Medical Decision Making - Medical Decision Making EPS evaluated the patient and came up with an outpatient plan that the patient and agreed upon and EPS felt comfortable with an discharge patient home. 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 Service Representative Teacher ID Gracie Gongora Urine Opiates Screen Detected H (NotDetected) Ur Oxycodone Screen Not Detected (NotDetected) Urine Methadone Screen Not Detected (NotDetected) Ur Propoxyphene Screen Not Detected (NotDetected) Ur Barbiturates Screen Not Detected (NotDetected) U Tricyclic Antidepress Not Detected (NotDetected) Ur Phencyclidine Scrn Not Detected (NotDetected) Ur Amphetamines Screen Not Detected (NotDetected) U Methamphetamines Scrn Not Detected (NotDetected) U Benzodiazepines Scrn Detected H (NotDetected) Urine Cocaine Screen Not Detected (NotDetected) U Marijuana (THC) Screen Not Detected (NotDetected) Disposition Clinical Impression: Depression Disposition: HOME SELF-CARE Condition: Good Instructions: Depression (ED) Is patient prescribed a controlled substance at d/c from ED?: No Referrals: Gene Perear MD [Primary Care Provider] - 1-2 days Time of Disposition: 15:30
[2018-04-27 13:06] LABS: Cocaine Screen,Urine Not Detected (NotDetected); Phencyclidine Screen,Urine Not Detected (NotDetected); Urn Cannabinoid Scrn Not Detected (NotDetected)
[2018-04-27 13:07] LABS: Amphetamine Screen,Urine Not Detected (NotDetected); Barbiturate Screen,Urine Not Detected (NotDetected); Benzodiazepines Screen,Urine Detected (NotDetected); Methadone Screen, Urine Not Detected (NotDetected); Opiate Screen,Urine Detected (NotDetected); Oxycodone Screen, Urine Not Detected (NotDetected); Tricyclic Antidepressant,Urine Not Detected (NotDetected)
[2018-04-27 13:17] LABS: Glucose,Whole Blood 100 mg/dL (75-99)
[2018-04-27 15:39] VITALS: BP 135/65; PULSE 72; RESP 20; TEMP 98.2
== END 2018-04-27 15:38 | disposition home or self-care (01) ==
LOC: EC 11:28
DX: F32.9 Major depressive disorder, single episode, unspecified (principal); R45.851 Suicidal ideations; F41.9 Anxiety disorder, unspecified; E11.9 Type 2 diabetes mellitus without complications; K21.9 Gastro-esophageal reflux disease without esophagitis; G47.30 Sleep apnea, unspecified; F17.200 Nicotine dependence, unspecified, uncomplicated; Z99.89 Dependence on other enabling machines and devices; Z79.84 Long term (current) use of oral hypoglycemic drugs; Z79.899 Other long term (current) drug therapy
CPT/HCPCS: 36415; 80306; 99285

== ENCOUNTER 2018-07-07 18:29 | Emergency (ER) | payer OTHER ==
--- NOTE | 2018-07-07 18:45 | ED ---
Back Pain HPI - General Chief Complaint: Headache Stated Complaint: Joint pain Time Seen by Provider: 07/07/18 18:44 Source: patient, RN notes reviewed, old records reviewed Limitations: no limitations - History of Present Illness Initial Comments: This is a 53-year-old male the ER for evaluation, patient presents for evaluation of acute on chronic back pain, chronic SI joint pain, arthritis. Patient is recent trauma, currently without any pain. He states he gets occasional headaches occasionally neurological pain and nerve pain and takes over the body numbness and tingling. Currently asymptomatic MD Complaint: back pain -: year(s) Similar Symptoms Previously: Yes Place: work Radiation: none Severity: mild Severity scale (1-10): 0 Quality: aching, tingling Consistency: constant, now resolved Improves With: none Worsens With: none Context: while lifting, turning/twisting Associated Symptoms: denies other symptoms Treatments Prior to Arrival: other medications - Related Data Home Medications Medication Instructions Recorded Confirmed Hydrocodone/Acetaminophen [[place] 1 tab PO BID PRN 03/13/17 07/07/18 7.5-325] Methylphenidate HCl [Ritalin] 10 mg PO BID 05/11/17 07/07/18 ALPRAZolam [Xanax] 0.25 mg PO BID PRN 04/27/18 07/07/18 Aspirin 325 mg PO DAILY PRN 04/27/18 07/07/18 Baclofen [Lioresal] 5 mg PO BID 04/27/18 07/07/18 Omeprazole 40 mg PO DAILY 04/27/18 07/07/18 Tamsulosin [Flomax] 0.4 mg PO DAILY 04/27/18 07/07/18 glyBURIDE/METFORMIN HCL 1 tab PO AC-BID 04/27/18 07/07/18 [glyBURIDE/METFORMIN HCL 5-500 mg] Gabapentin [Neurontin] 400 mg PO TID 07/07/18 07/07/18 Venlafaxine HCl ER [Effexor Xr] 75 mg PO HS 07/07/18 07/07/18 Venlafaxine HCl [Effexor XR] 150 mg PO HS 07/07/18 07/07/18 Allergies Allergy/AdvReac Type Severity Reaction Status Date / Time No Known Allergies Allergy Verified 07/07/18 19:21 Review of Systems ROS Statement: Those systems with pertinent positive or pertinent negative responses have been documented in the HPI. ROS Other: All systems not noted in ROS Statement are negative. Past Medical History Past Medical History: Diabetes Mellitus, GERD/Reflux, Hyperlipidemia, Hypertension, Sleep Apnea/CPAP/BIPAP Additional Past Medical History / Comment(s): Hiatel Hernia, abdominal aortic aneurysm had two surgeries-and states he has a leak at this time , CPAP machine , alcoholic induced pancreatitis History of Any Multi-Drug Resistant Organisms: None Reported Past Surgical History: No Surgical Hx Reported Additional Past Surgical History / Comment(s): AAA repair 3--18 Past Anesthesia/Blood Transfusion Reactions: No Reported Reaction Past Psychological History: Anxiety, Depression Smoking Status: Current every day smoker Past Alcohol Use History: None Reported Past Drug Use History: None Reported - Past Family History Mother Family Medical History: COPD, Diabetes Mellitus Additional Family Medical History / Comment(s): Mother is alive at age 81 with history of COPD and diabetes. Father Family Medical History: Dementia, Diabetes Mellitus Additional Family Medical History / Comment(s): Father is alive at age 83 with history of diabetes, osteoarthritis, dementia. Sister(s) Family Medical History: Cancer Additional Family Medical History / Comment(s): Patient has 3 sisters. One past 18 years ago from breast cancer, a second sister has recently been diagnosed with breast cancer with history of depression and anxiety and his third sister has history of rheumatoid arthritis. Patient does not have any children. Brother(s) Family Medical History: COPD Additional Family Medical History / Comment(s): Patient has one brother with COPD. General Exam - General Exam Comments Initial Comments: Patient asymptomatic currently Limitations: no limitations General appearance: alert, in no apparent distress Head exam: Present: atraumatic, normocephalic, normal inspection Eye exam: Present: normal appearance, PERRL, EOMI. Absent: scleral icterus, conjunctival injection, periorbital swelling ENT exam: Present: normal exam, mucous membranes moist Neck exam: Present: normal inspection. Absent: tenderness, meningismus, lymphadenopathy Respiratory exam: Present: normal lung sounds bilaterally. Absent: respiratory distress, wheezes, rales, rhonchi, stridor Cardiovascular Exam: Present: regular rate, normal rhythm, normal heart sounds. Absent: systolic murmur, diastolic murmur, rubs, gallop, clicks GI/Abdominal exam: Present: soft, normal bowel sounds. Absent: distended, tenderness, guarding, rebound, rigid Extremities exam: Present: normal inspection, full ROM, normal capillary refill. Absent: tenderness, pedal edema, joint swelling, calf tenderness Back exam: Present: normal inspection Neurological exam: Present: alert, oriented X3, CN II-XII intact Psychiatric exam: Present: normal affect, normal mood Skin exam: Present: warm, dry, intact, normal color. Absent: rash Course Vital Signs 07/07/18 07/07/18 18:33 19:41 Temperature 97.3 F L Pulse Rate 80 67 Respiratory 16 18 Rate Blood Pressure 180/103 168/105 O2 Sat by Pulse 99 98 Oximetry - Reevaluation(s) Reevaluation #1: 07/07/18 21:36 Clinical record is reviewed Reevaluation #2: 07/07/18 21:36 Patient is in no acute pain Medical Decision Making - Medical Decision Making 53 male the ER with acute on chronic back pain, patient's pain is improved currently. Patient's in no acute distress able to ambulate with no neurological deficit. Patient will be discharged home - Radiology Data Radiology results: report reviewed (CT abdomen pelvis is negative), image reviewed Disposition Clinical Impression: Chronic back pain, Chronic SI joint pain Disposition: HOME SELF-CARE Condition: Good Instructions: Low Back Strain (ED), Paresthesia (ED) Is patient prescribed a controlled substance at d/c from ED?: No Referrals: Gene Perera MD [Primary Care Provider] - 1-2 days
[2018-07-07] MEDS ORDERED: DEXAMETHASONE SOD PHOSPHATE 10 MG/ML 1 ML VIAL IM STA (19:13)
--- NOTE | 2018-07-07 20:40 | CT ---
EXAMINATION TYPE: CT abdomen pelvis wo con DATE OF EXAM: 07/07/2018 COMPARISON: 09/10/2017 HISTORY: nerve pain CT DLP: 487 mGycm. Automated exposure control for dose reduction was used. TECHNIQUE: Helical acquisition of images was performed from the lung bases through the pelvis. FINDINGS: Within the limitations of noncontrast CT, the following observations are made: LUNG BASES: The right hemidiaphragm is elevated when compared to the prior study. Coronary calcificat ions noted. LIVER/GB: No significant abnormality is appreciated. PANCREAS: No significant abnormality is seen. SPLEEN: No significant abnormality is seen. ADRENALS: No significant abnormality is seen. KIDNEYS: No significant abnormality is seen. PERITONEAL CAVITY: No pneumoperitoneum or fluid. RETROPERITONEAL ADENOPATHY: None visualized REPRODUCTIVE ORGANS: No significant abnormality is seen URINARY BLADDER: No significant abnormality is seen. PELVIC ADENOPATHY: None visualized. OSSEOUS STRUCTURES: No significant abnormality is seen. BOWEL: No significant abnormality is seen. AORTOILIAC NONCONTRAST ASSESSMENT: Since the prior study the patient has undergone aortoiliac stent g raft placement. There is no evidence of retroperitoneal hemorrhage. The infrarenal aortic diameter re aches 5.3 cm AP, similar to the 5.2 cm AP dimension seen on the 09/10/2017 CT. IMPRESSION: 1. NO DEFINITE ACUTE ABDOMINAL OR PELVIC PROCESS. 2. ELEVATED RIGHT HEMIDIAPHRAGM.
[2018-07-07 21:47] VITALS: PULSE 63; RESP 17; TEMP 98.3
[2018-07-07 22:05] VITALS: BP 167/104
== END 2018-07-07 22:12 | disposition home or self-care (01) ==
LOC: EC 18:29
DX: G89.29 Other chronic pain (principal); M54.9 Dorsalgia, unspecified; M53.3 Sacrococcygeal disorders, not elsewhere classified; E11.9 Type 2 diabetes mellitus without complications; K21.9 Gastro-esophageal reflux disease without esophagitis; F41.9 Anxiety disorder, unspecified; F32.9 Major depressive disorder, single episode, unspecified; F17.200 Nicotine dependence, unspecified, uncomplicated; G47.30 Sleep apnea, unspecified; Z99.89 Dependence on other enabling machines and devices; Z79.84 Long term (current) use of oral hypoglycemic drugs; Z79.899 Other long term (current) drug therapy
CPT/HCPCS: 74176; 99284; 96372; J1100

== ENCOUNTER → 2018-08-17 | Outpatient (CLI) | payer OTHER ==
[2018-08-13 15:12] VITALS: BMI 23.7
[2018-08-17 13:06] VITALS: BP 171/97; PULSE 69; RESP 18
--- NOTE | 2018-08-18 11:45 | P.PAINCN ---
History of Present Illness - Reason for Consult Consult date: 08/17/18 - History of Present Illness This is initial consultation visit for this 53 years old male with a chronic history of severe low back pain, symptoms started 11 years ago after water skiing accident, and from that time on he started complaining of severe low back pain, the pain is constant and increases with any activity and radiated to the lower extremity patient reported that 3 years ago he had severe weakness in his left lower extremity and he was diagnosed with left foot drop, symptoms improved after the surgery and chiropractors, and medical management, patient reported that he continued to have severe low back pain and the is currently on multiple pain medication [place] 7.5/325 every 12 hours and Neurontin 400 mg 3 times a day and baclofen 5 mg twice a day, he gets some relief from the current medication but he is not able to do full activity of daily livings, and he continued to limit his activity because of the pain, patient denies any fever or night sweats he denies any change in the bowel movement or urination and he denies any motor or sensory deficits. Past Medical History Past Medical History: Diabetes Mellitus, GERD/Reflux, Hyperlipidemia, Hypertension, Sleep Apnea/CPAP/BIPAP Additional Past Medical History / Comment(s): Hiatel Hernia, abdominal aortic aneurysm (has had two surgeries-and states he has a leak at this time), hx alcoholic induced pancreatitis, BP ok now. 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-"feels like nerves are vibrating"-vertigo History of Any Multi-Drug Resistant Organisms: None Reported Past Surgical History: No Surgical Hx Reported Additional Past Surgical History / Comment(s): AAA x 2 (09/30/2017, 11/04/17) Past Anesthesia/Blood Transfusion Reactions: Motion Sickness Additional Past Anesthesia/Blood Transfusion Reaction / Comm: vertigo, Aneurysm surgery 10/04/17- "cardiac arrest" at [facility] -pt not sure of cause Smoking Status: Former smoker - Past Family History Mother Family Medical History: COPD, Diabetes Mellitus Additional Family Medical History / Comment(s): diabetes. Father Family Medical History: Deep Vein Thrombosis (DVT) Additional Family Medical History / Comment(s): Father is alive at age 83 with history of diabetes, osteoarthritis, dementia. Sister(s) Family Medical History: Cancer Additional Family Medical History / Comment(s): 2 sisters-breast cancer Brother(s) Family Medical History: COPD Additional Family Medical History / Comment(s): Patient has one brother with COPD. Medications and Allergies Home Medications Medication Instructions Recorded Confirmed Type Hydrocodone/Acetaminophen [[place] 1 tab PO BID PRN 03/13/17 08/13/18 History 7.5-325] ALPRAZolam [Xanax] 0.25 mg PO BID PRN 04/27/18 08/13/18 History Baclofen [Lioresal] 5 mg PO BID 04/27/18 08/13/18 History Omeprazole 40 mg PO DAILY 04/27/18 08/13/18 History glyBURIDE/METFORMIN HCL 1 tab PO AC-BID PRN 04/27/18 08/13/18 History [glyBURIDE/METFORMIN HCL 5-500 mg] Gabapentin [Neurontin] 400 mg PO TID 07/07/18 08/13/18 History Venlafaxine HCl ER [Effexor Xr] 75 mg PO HS 07/07/18 08/13/18 History Venlafaxine HCl [Effexor XR] 150 mg PO HS 07/07/18 08/13/18 History Allergies Allergy/AdvReac Type Severity Reaction Status Date / Time No Known Allergies Allergy Verified 08/13/18 14:58 Physical Exam Vitals: Vital Signs Pulse Resp BP Pulse Ox 08/17/18 12:41 69 18 171/97 98 Social history : not smoker , NO ETOH , NO Illegal drugs use . Review of Systems : 1- Constitutional : no chills , no fever , no night sweats , 2- Ears : no ear discharge , no change in hearing 3-Nose, Mouth ,Throat ; no bleeding gums, no sore throat , no epistaxis , 4-Cardiovascular : Denies chest pain, , no orthopnea , no palpitation 5-Respiratory : Denies cough , no dyspnea , no hemoptysis 6-Gastrointestinal :, no change in bowel habits , no coffee- ground emesis . 7-Genitourinary : No hematuria , no discharge , no incontinence, 8-Musculoskeletal : No gait dysfunction , report low back pain , 9- Neurological : no ataxia , no tremor , no sezure , 10-Psychatric , no suicidal ideation no hallucination 11- Endocrine : no cold intolerence , no polyuria , no polydypsia , 12-Hematologic : no easy bleeding , no easy brusing , 13-Allergic / immunology : no angioedema , no wheezing ,no allergic rhinitis 14-Integumentary : no brttle nails , no change hair / nails , no foot/leg ulcers . Physical Examinations : 1-Constitutional : Cooperative , not in acute distress . 2-HEENT : nech ; supple , no Lymphadenopathy , no Thyromegaly , :eyes , no icterus, no photophobia . ENT : , normal oropharynx , no Thrush 3- Respiratory : Chest clear to auscultations Bilaterally , no wheezing . 4- Cardiovascular : regular rate and rhythem , S1 , S2 , no S3 , no S4. 5- Gastrointestinal: abdomen soft no tenderness , no organomegally . 6- Genitourinary : Defferred . 7-Integumentary : No cellulitis , no ulcers , normal skin turgor , no cyanotic . 8- neurologic : Cranial nerve II to XII intact , no focal neurological deffecit 9-psychatric : alert , oriented X 3 , appropriate affect , intact judgment and insight . 10-Lymphatic : no Lymphadenopathy.ensors normal right side , normal left side . motor stregnth in the triceps muscle . normal Right side , normal Left side deep tendon reflexes normal at the biceps , normal at Brachioradialis , normal at triceps. positive cervical facet loading test . 11- musculoskeltal: normal gait Cervical Spine motor stregnth in the deltoid and biceps, normal right side , normal Left side Lumber spine moter stegnth lower extremities ,thigh and legs 5/5 Right side , 5/5 Left side deep tendon reflexes : normal Knee Jerk , normal ankle Jerk positive lumber facet Loading Test Range of motion of the lumbar spine Flexion 30 degrees, extension 10 degrees strait leg raising test , positive at 30 degree on the right side and its possible to 60 on the left side Fabere test positive RT and positive LT . Sever tenderness over the Sacroiliac joint on the R and L sides Results Comments: MRI of the lumbar spine L3 4 lumbar degenerative disc disease and left-sided foraminal stenosis, L4 5 lumbar facet arthropathy and lumbar degenerative disc disease L5-S1 lumbar facet arthropathy and lumbar bulging disc disease Assessment and Plan Assessment: Assessment and plan assessment and plan severe low back pain secondary to lumbar degenerative disc disease and lumbar spondylosis with lumbar facet arthropathy , the patient currently using the Neurontin and he reported that he had side effects from it and he is planning to stop at a discussed with the patient that he cannot stop the Neurontin suddenly and he has to follow-up with to adjust the dose or possibly changing the Neurontin to a different medication like Lyrica . And patient reported that he will follow up with Dr. Cat regarding this issue. Patient could benefit from lumbar epidural steroid injection procedure risk and benefits discussed with the patient he agreed with proceeding, if patient continues to have severe low back pain after her epidural steroid injection and it will be warranted to talk in the facetogenic component by doing diagnostic medial branch block lumbar area, treatment plan discussed with the patient and he agreed Time with Patient: Greater than 30 PQRS Measure Charge Sheet Measure #130: Documentation of Current Meds in Medical Chart: Patient's medications documented in chart Measure #226: Tobacco Use: Screen & Cessation Intervention: Pt not a tobacco user Measure #111: Pneumonia Vaccination: Pneumococcal vaccine NOT administered or previously given Measure #47: Advance Care Plan: Advance care planning discussed & documented, pt chose/unable to give Measure #412: Opioid Treatment Agreement: No documentation of signed opioid treatment agreement Measure #408: Opioid Therapy Follow-up Evaluation: Patient had NO f/u eval minimum every 3 months during opioid therapy Measure #317: Preventitive Care & Scrn High Bld Press & F/U: Pre-hypertensive or hypertensive BP documented, pt will f/u with PCP Measure #128: Body Mass Index (BMI) Screening & Follow-up: BMI documented within normal parameters Measure #131: Pain Assessment & Follow-up: Pain positive & plan documented, Follow-up scheduled Measure #431: Unhealthy Alcohol Use Preventative Care & Scrn: Patient not identified as an unhealthy alcohol user PQRS Narrative: Smoking Status Former smoker Do You Want the Pneumonia No Vaccine AT THIS TIME? Blood Pressure 171/97 Pain Intensity [Generalized] 3 Scale Used Numeric (1 - 10) Hx Alcohol Use (MH) No Home Medications: Ambulatory Orders Hydrocodone/Acetaminophen [[place] 7.5-325] 1 tab PO BID PRN 03/13/17 ALPRAZolam [Xanax] 0.25 mg PO BID PRN 04/27/18 Baclofen [Lioresal] 5 mg PO BID 04/27/18 Omeprazole 40 mg PO DAILY 04/27/18 glyBURIDE/METFORMIN HCL [glyBURIDE/METFORMIN HCL 5-500 mg] 1 tab PO AC-BID PRN 04/27/18 Gabapentin [Neurontin] 400 mg PO TID 07/07/18 Venlafaxine HCl ER [Effexor Xr] 75 mg PO HS 07/07/18 Venlafaxine HCl [Effexor XR] 150 mg PO HS 07/07/18
== END ==
LOC: PNWHC3 12:34
PROVIDERS: ATTEND Specialist
DX: M51.36 Other intervertebral disc degeneration, lumbar region (principal); M47.816 Spondylosis without myelopathy or radiculopathy, lumbar region; M46.96 Unspecified inflammatory spondylopathy, lumbar region; Z79.891 Long term (current) use of opiate analgesic; Z87.891 Personal history of nicotine dependence; Z79.899 Other long term (current) drug therapy
CPT/HCPCS: 99211

== ENCOUNTER 2018-08-26 09:59 | Day surgery (SDC) | payer OTHER ==
[2018-08-25 10:33] VITALS: BMI 23.7
[~2018-08-26 09:59] MED LIST: SODIUM CHLORIDE 0.9% 500 ML 500 ML IV SCH
[2018-08-26 10:31] VITALS: TEMP 97
[2018-08-26] MEDS ORDERED: LACTATED RINGERS 1,000 ML IV ONE (10:31)
--- NOTE | 2018-08-26 11:21 | P.PCN ---
Date of Procedure: 08/26/18 Procedure(s) Performed: PREOPERATIVE DIAGNOSIS: 1- Lumbar Degenerative Disc Diseases 2-Lumbar spondylosis with Facet arthropathy without myelopathy POSTOPERATIVE DIAGNOSIS: 1-Lumber Degenerative Disc Diseases 2-Lumbar spondylosis with Facet arthropathy without myelopathy PROCEDURE 1. Lumbar epidural steroid injection under fluoroscopic guidance at the L5-S1 level. 2. Lumbar epidurogram. ANESTHESIA: Local with 1% lidocaine 3 ml and , moderate sedation with intravenous Versed 2 mg ,and fentanyle 50 Mcg EBL: Minimal PROCEDURE INDICATION: The patient with low back pain and radiculitis symptoms unresponsive to conservative treatment. Fluoroscopy was used to optimize visualization of the needle placement and to maximize safety. PROCEDURE DESCRIPTION / TECHNIQUE: The patient was seen and identified in the preoperative area. Risks, benefits , complications including but not limited to infections ,bleeding ,allergic reaction to the medications ,nerve damage and not complete pain releife , and alternatives were discussed with the patient. The patient agreed to proceed with the procedure and signed the consent. IV was started, and vital signs were stable. Patient was taken to the OR and time out was completed. The patient was placed in the prone position on procedure table and a pillow was placed under the abdomen to reduce lumbar lordosis. The lumbosacral area was prepped and draped in the usual sterile fashion.ere closely monitored during the procedure. Conscious sedation was used during the procedure to decrease patients anxiety. Vital signs was monitered during the entire procedure. Using anterior-posterior fluoroscopy, the L5-S1 interlaminar space was identified and the skin over this site was marked and then infiltrated with 1% lidocaine subcutaneously. Subsequently, a 20-gauge Tuohy epidural needle was inserted and advanced toward the epidural space using the ``Loss of resistance technique and guided by AP and lateral fluoroscopy. The correct needle position in the epidural space was verified with the injection of 2 mL of the water soluble contrast dye Isovue 200 contrast and observing an excellent epidurogram with the epidural spread of the dye, after negative aspiration for blood and CSF and in the absence of paresthesias. Again after negative aspiration, a 6 ml mixture containing 80 mg of Depo-medrol , and 2 ml of preservative free Normal Saline, and 2 ml of preservative free lidocaine 1% solution was injected and a washout of epidurogram was seen. Needle was withdrawn intact, skin was cleansed, and bandages were applied. COMPLICATIONS: None DISPOSITION / PLANS: The patient was placed in a supine position and transferred to the recovery area in a stable condition for observation. There was no evidence of lower extremity motor or sensory deficit after the procedure. Patient was discharged from the recovery room after meeting discharge criteria. Home discharge instructions were given to the patient by the staff. The patient was reexamined prior to discharge. The patient will schedule a follow up in the clinic in 2-4 weeks.
[2018-08-26 11:28] VITALS: RESP 16
[2018-08-26 11:44] VITALS: BP 169/93; PULSE 56
[2018-08-26] MEDS ORDERED: IV FLUID CONTINUATION 1,000 ML IV ONE (11:45)
--- NOTE | 2018-08-26 13:50 | FL ---
EXAMINATION TYPE: FL guided pain mgmt statistic DATE OF EXAM: 08/26/2018 FLUOROSCOPY Fluoroscopy time of 1 seconds was used during lumbar epidural injection. 1 image/s document/s the pr demian.
== END 2018-08-26 11:47 | disposition home or self-care (01) ==
LOC: ORPAIN 09:59
PROVIDERS: ATTEND Specialist
DX: M47.816 Spondylosis without myelopathy or radiculopathy, lumbar region (principal); E11.9 Type 2 diabetes mellitus without complications; K21.9 Gastro-esophageal reflux disease without esophagitis; E78.5 Hyperlipidemia, unspecified; I10 Essential (primary) hypertension; G47.30 Sleep apnea, unspecified; Z99.89 Dependence on other enabling machines and devices; Z87.891 Personal history of nicotine dependence; Z83.6 Family history of other diseases of the respiratory system; Z84.89 Family history of other specified conditions; Z80.3 Family history of malignant neoplasm of breast; Z79.891 Long term (current) use of opiate analgesic; Z79.899 Other long term (current) drug therapy
CPT/HCPCS: 62323; 99152; J2250; J1030; J3010; Q9966

== ENCOUNTER 2018-09-09 06:55 | Day surgery (SDC) | payer OTHER ==
[2018-09-08 08:20] VITALS: BMI 23.7
[2018-09-09 07:25] VITALS: TEMP 97.6
[2018-09-09 07:26] LABS: Glucose,Whole Blood 185 mg/dL (75-99)
[2018-09-09] MEDS ORDERED: LACTATED RINGERS 1,000 ML IV ONE (07:26)
[2018-09-09] MEDS ORDERED: LIDOCAINE 1% 20 ML VIAL (10MG/ML) FOR IV START SQ ONE (07:26)
--- NOTE | 2018-09-09 08:09 | P.PCN ---
Date of Procedure: 09/09/18 Procedure(s) Performed: PREOPERATIVE DIAGNOSIS: 1- Lumbar Degenerative Disc Diseases 2-Lumbar spondylosis with Facet arthropathy without myelopathy POSTOPERATIVE DIAGNOSIS: 1-Lumber Degenerative Disc Diseases 2-Lumbar spondylosis with Facet arthropathy without myelopathy PROCEDURE 1. Lumbar epidural steroid injection under fluoroscopic guidance at the L5-S1 level. 2. Lumbar epidurogram. ANESTHESIA: Local with 1% lidocaine 3 ml and , moderate sedation with intravenous Versed 2 mg ,and fentanyle 50 Mcg EBL: Minimal PROCEDURE INDICATION: The patient with low back pain and radiculitis symptoms unresponsive to conservative treatment. Fluoroscopy was used to optimize visualization of the needle placement and to maximize safety. PROCEDURE DESCRIPTION / TECHNIQUE: The patient was seen and identified in the preoperative area. Risks, benefits , complications including but not limited to infections ,bleeding ,allergic reaction to the medications ,nerve damage and not complete pain releife , and alternatives were discussed with the patient. The patient agreed to proceed with the procedure and signed the consent. IV was started, and vital signs were stable. Patient was taken to the OR and time out was completed. The patient was placed in the prone position on procedure table and a pillow was placed under the abdomen to reduce lumbar lordosis. The lumbosacral area was prepped and draped in the usual sterile fashion.ere closely monitored during the procedure. Conscious sedation was used during the procedure to decrease patients anxiety. Vital signs was monitered during the entire procedure. Using anterior-posterior fluoroscopy, the L5-S1 interlaminar space was identified and the skin over this site was marked and then infiltrated with 1% lidocaine subcutaneously. Subsequently, a 20-gauge Tuohy epidural needle was inserted and advanced toward the epidural space using the ``Loss of resistance technique and guided by AP and lateral fluoroscopy. The correct needle position in the epidural space was verified with the injection of 2 mL of the water soluble contrast dye Isovue 200 contrast and observing an excellent epidurogram with the epidural spread of the dye, after negative aspiration for blood and CSF and in the absence of paresthesias. Again after negative aspiration, a 6 ml mixture containing 40 mg of Depo-medrol , and 2 ml of preservative free Normal Saline, and 2 ml of preservative free lidocaine 1% solution was injected and a washout of epidurogram was seen. Needle was withdrawn intact, skin was cleansed, and bandages were applied. COMPLICATIONS: None DISPOSITION / PLANS: The patient was placed in a supine position and transferred to the recovery area in a stable condition for observation. There was no evidence of lower extremity motor or sensory deficit after the procedure. Patient was discharged from the recovery room after meeting discharge criteria. Home discharge instructions were given to the patient by the staff. The patient was reexamined prior to discharge. The patient will schedule a follow up in the clinic in 2-4 weeks.
[2018-09-09] MEDS ORDERED: IV FLUID CONTINUATION 1,000 ML IV ONE (08:14)
[2018-09-09 08:16] VITALS: RESP 18
--- NOTE | 2018-09-09 08:25 | FL ---
EXAMINATION TYPE: FL guided pain mgmt statistic DATE OF EXAM: 09/09/2018 HISTORY: Pain 1 sec fl time used during pain mgt. 1 image scanned into pacs
[2018-09-09 08:31] VITALS: BP 178/78; PULSE 67
== END 2018-09-09 08:50 | disposition home or self-care (01) ==
LOC: ORPAIN 06:55
PROVIDERS: ATTEND Specialist
DX: M51.36 Other intervertebral disc degeneration, lumbar region (principal); M47.816 Spondylosis without myelopathy or radiculopathy, lumbar region
CPT/HCPCS: 62323; J2250; J1030; J3010; Q9966; 99152

== ENCOUNTER → 2018-10-01 | Outpatient (CLI) | payer OTHER ==
[2018-10-01 14:11] VITALS: RESP 18
[2018-10-01 15:19] VITALS: BP 190/105; PULSE 77; TEMP 98
--- NOTE | 2018-10-01 15:26 | P.PAINPG ---
Subjective Progress Note Date: 10/01/18 Principal diagnosis: Low back pain This very pleasant 53-year-old gentleman who is undergone 2 previous lumbar epidural steroid injection. He reports significant relief his pain from these procedures. He presents today for reevaluation. He reports very little pain at this time. Objective - Vital Signs Vital signs: Vital Signs Temp 98 F 10/01/18 14:11 Pulse 77 10/01/18 14:11 Resp 18 10/01/18 14:11 BP 190/105 10/01/18 14:11 Pulse Ox 98 10/01/18 14:11 Intake & Output 09/30/18 10/01/18 10/01/18 18:59 06:59 18:59 Weight 79.832 kg - Exam General: The patient is alert and oriented. Patient is not sedated Patient answers all question appropriately. Cardiac: Heart is regular in rate and rhythm Respiratory: Clear to auscultation. No audible wheezes. Abdomen: Soft nontender nondistended. Musculoskeletal: Strength is normal bilaterally. Sensation is normal bilaterally. Straight leg raise is negative bilaterally. Neurological: Reflexes are preserved and symmetric bilaterally. PQRS Measure Charge Sheet Measure #130: Documentation of Current Meds in Medical Chart: Patient not eligible for medications to be documented Measure #226: Tobacco Use: Screen & Cessation Intervention: Pt not a tobacco user Measure #111: Pneumonia Vaccination: Pneumococcal vaccine administered or previously received Measure #47: Advance Care Plan: Advance care planning discussed & documented, pt chose/unable to give Measure #412: Opioid Treatment Agreement: No documentation of signed opioid treatment agreement Measure #408: Opioid Therapy Follow-up Evaluation: Patient had NO f/u eval minimum every 3 months during opioid therapy Measure #317: Preventitive Care & Scrn High Bld Press & F/U: Pre-hypertensive or hypertensive BP documented, pt will f/u with PCP Measure #128: Body Mass Index (BMI) Screening & Follow-up: BMI documented ABOVE normal parameters - f/u documented Measure #131: Pain Assessment & Follow-up: Pain positive & plan documented Measure #431: Unhealthy Alcohol Use Preventative Care & Scrn: Patient not identified as an unhealthy alcohol user (Patient's blood pressure was quite elevated today. He did reported mild headache. He does have blood pressure medications at home. I advised him to go home and take these immediately. I've also advised him to contact his primary care physician for a follow-up in the next couple of days.) PQRS Narrative: Smoking Status Former smoker Blood Pressure 190/105 Pain Intensity [Lower Back] 1 Hx Alcohol Use (MH) No Home Medications: Ambulatory Orders Hydrocodone/Acetaminophen [[place] 7.5-325] 1 tab PO BID PRN 03/13/17 ALPRAZolam [Xanax] 0.25 mg PO BID PRN 04/27/18 Baclofen [Lioresal] 5 mg PO BID 04/27/18 Omeprazole 40 mg PO DAILY 04/27/18 glyBURIDE/METFORMIN HCL [glyBURIDE/METFORMIN HCL 5-500 mg] 1 tab PO AC-BID PRN 04/27/18 Gabapentin [Neurontin] 400 mg PO TID 07/07/18 Venlafaxine HCl ER [Effexor Xr] 75 mg PO HS 07/07/18 Venlafaxine HCl [Effexor XR] 150 mg PO HS 07/07/18 Controlled Substance Measures - Controlled Substance Measures Is patient prescribed a controlled substance at discharge?: No
== END | disposition home or self-care (01) ==
LOC: PNWHC3 13:15
PROVIDERS: ATTEND Pain Medicine Pain Medicine
DX: Z53.9 Procedure and treatment not carried out, unspecified reason (principal)

== ENCOUNTER 2018-12-16 09:45 | Day surgery (SDC) | payer OTHER ==
[2018-12-16] MEDS ORDERED: LACTATED RINGERS 1,000 ML IV ONE ×2 (10:21)
[2018-12-16 10:27] VITALS: TEMP 98.2
[2018-12-16 10:29] LABS: Glucose,Whole Blood 161 mg/dL (75-99)
--- NOTE | 2018-12-16 10:52 | P.PCN ---
Date of Procedure: 12/16/18 Procedure(s) Performed: Currently the right PREOPERATIVE DIAGNOSIS: 1- Lumbar Degenerative Disc Diseases 2-Lumbar spondylosis with Facet arthropathy without myelopathy POSTOPERATIVE DIAGNOSIS: 1-Lumber Degenerative Disc Diseases 2-Lumbar spondylosis with Facet arthropathy without myelopathy PROCEDURE 1. Lumbar epidural steroid injection under fluoroscopic guidance at the L5-S1 level. 2. Lumbar epidurogram. ANESTHESIA: Local with 1% lidocaine 3 ml and , moderate sedation with intravenous Versed 2 mg ,and fentanyle 50 Mcg EBL: Minimal PROCEDURE INDICATION: The patient with low back pain and radiculitis symptoms unresponsive to conservative treatment. Fluoroscopy was used to optimize visualization of the needle placement and to maximize safety. PROCEDURE DESCRIPTION / TECHNIQUE: The patient was seen and identified in the preoperative area. Risks, benefits, complications including but not limited to infections ,bleeding ,allergic reaction to the medications ,nerve damage and not complete pain releife , and alternatives were discussed with the patient. The patient agreed to proceed with the procedure and signed the consent. IV was started, and vital signs were stable. Patient was taken to the OR and time out was completed. The patient was placed in the prone position on procedure table and a pillow was placed under the abdomen to reduce lumbar lordosis. The lumbosacral area was prepped and draped in the usual sterile fashion.ere closely monitored during the procedure. Conscious sedation was used during the procedure to decrease patients anxiety. Vital signs was monitered during the entire procedure. Using anterior-posterior fluoroscopy, the L5-S1 interlaminar space was identified and the skin over this site was marked and then infiltrated with 1% lidocaine subcutaneously. Subsequently, a 20-gauge Tuohy epidural needle was inserted and advanced toward the epidural space using the ``Loss of resistance technique and guided by AP and lateral fluoroscopy. The correct needle position in the epidural space was verified with the injection of 2 mL of the water soluble contrast dye Isovue 200 contrast and observing an excellent epidurogram with the epidural spread of the dye, after negative aspiration for blood and CSF and in the absence of paresthesias. Again after negative aspiration, a 6 ml mixture containing 40 mg of Depo-medrol , and 2 ml of preservative free Normal Saline, and 2 ml of preservative free lidocaine 1% solution was injected and a washout of epidurogram was seen. Needle was withdrawn intact, skin was cleansed, and bandages were applied. COMPLICATIONS: None DISPOSITION / PLANS: The patient was placed in a supine position and transferred to the recovery area in a stable condition for observation. There was no evidence of lower extremity motor or sensory deficit after the procedure. Patient was discharged from the recovery room after meeting discharge criteria. Home discharge instructions were given to the patient by the staff. The patient was reexamined prior to discharge. The patient will schedule a follow up in the clinic in 2-4 weeks.
[2018-12-16] MEDS ORDERED: IV FLUID CONTINUATION 1,000 ML IV ONE ×2 (10:57)
[2018-12-16 11:22] VITALS: BP 140/78; PULSE 74; RESP 18
--- NOTE | 2018-12-16 11:48 | FL ---
Fluoroscopy HISTORY: Pain 1 seconds fluoroscopy time supplied to the referring clinician. 1 intraoperative C-arm images docume nt the procedure. See dictated report from anesthesia.
== END 2018-12-16 11:30 | disposition home or self-care (01) ==
LOC: ORPAIN 09:45
PROVIDERS: ATTEND Specialist
DX: M47.26 Other spondylosis with radiculopathy, lumbar region (principal); M51.16 Intervertebral disc disorders with radiculopathy, lumbar region; E11.9 Type 2 diabetes mellitus without complications
CPT/HCPCS: 62323; J2250; J1030; J3010; Q9966

== ENCOUNTER 2019-07-24 17:14 | Emergency (ER) | payer OTHER ==
[2019-07-24] MEDS ORDERED: SODIUM CHLORIDE 0.9% 500 ML 500 ML IV STA (17:34)
[2019-07-24] MEDS ORDERED: diphenhydrAMINE 50 MG/ML 1 ML VIAL IVP STA (17:34)
[2019-07-24] MEDS ORDERED: DIAZEPAM 5 MG/ML 2 ML INJ IVP STA (17:36)
[2019-07-24] MEDS ORDERED: HYDROmorphone 1 MG/ML 1 ML SYRINGE IVP STA (17:37)
--- NOTE | 2019-07-24 17:55 | XR ---
EXAMINATION TYPE: XR chest 2V DATE OF EXAM: 07/24/2019 COMPARISON: July 31, 2013 HISTORY: Syncope TECHNIQUE: Single view FINDINGS: There is elevated right diaphragm. There is no heart failure. There is a mild infiltrate me dial right lung base. Heart size is normal. IMPRESSION: There is mild atelectasis right lung base that is new compared to old exam. There is dorian ring of the atelectasis left lung base compared to old exam. No heart failure.
[2019-07-24 17:57] LABS: Basophils % (A) 0 %; Eosinophils # (A) 0.2 k/uL (0-0.7); Eosinophils % (A) 3 %; HCT 42.7 % (39.0-53.0); HGB 14.5 gm/dL (13.0-17.5); Lymphocytes # (A) 1.5 k/uL (1.0-4.8); Lymphocytes % (A) 21 %; MCH 29.2 pg (25.0-35.0); MCHC 33.9 g/dL (31.0-37.0); MCV 86.1 fL (80.0-100.0); Mean Platelet Volume 7.6; Monocytes # (A) 0.5 k/uL (0-1.0); Monocytes % (A) 7 %; Neutrophils # (A) 4.8 k/uL (1.3-7.7); Neutrophils % (A) 67 %; Platelet Count 228 k/uL (150-450); RBC 4.96 m/uL (4.30-5.90); RDW 11.8 % (11.5-15.5); WBC 7.1 k/uL (3.8-10.6)
[2019-07-24 18:09] LABS: ALT 27 U/L (4-49); AST 33 U/L (17-59); African American GFR (CKD) >90 (>60 ml/min/1.73 sqM); Alkaline Phosphatase 53 U/L (38-126); Anion Gap 13 mmol/L; Blood Urea Nitrogen 8 mg/dL (9-20); Calcium 9.8 mg/dL (8.4-10.2); Carbon Dioxide 23 mmol/L (22-30); Chloride 98 mmol/L (98-107); Glucose 188 mg/dL (74-99); Magnesium 1.8 mg/dL (1.6-2.3); Non-African American GFR(CKD) >90 (>60 ml/min/1.73 sqM); Potassium 4.4 mmol/L (3.5-5.1); Sodium 134 mmol/L (137-145); Total Bilirubin 0.5 mg/dL (0.2-1.3); Total Protein 7.7 g/dL (6.3-8.2)
[2019-07-24 18:13] LABS: INR 0.9 (<1.2); Partial Thromboplastin Time 28.5 sec (22.0-30.0); Prothrombin Time 10.2 sec (9.0-12.0)
[2019-07-24 18:16] LABS: D-Dimer 1.3 mg/L FEU (<0.60)
[2019-07-24 19:16] VITALS: RESP 18
[2019-07-24 19:17] VITALS: TEMP 98.6
--- NOTE | 2019-07-24 19:17 | ED ---
General Adult HPI - General Chief complaint: Chest Pain Stated complaint: SOB/chest tightness Time Seen by Provider: 07/24/19 17:28 Source: patient, RN notes reviewed, old records reviewed Mode of arrival: ambulatory Limitations: no limitations - History of Present Illness Initial comments: 54-year-old male presents for evaluation of inability to sleep and electrical sensation up and down his spine. He states that he's had this symptom for approximately 10 days and has had multiple times in the past. He states that he has not slept in the past 30 hours secondary to this shooting pain up and down his spine and into his back of his head. He also reports a vague chest discomfort associated with these symptoms. No central chest pain. He reports some mild dyspnea. He had an injury in the remote past by waterskiing that has left him with these chronic issues. He has previous history of abdominal aortic aneurysm status post repair. No history of CAD. He is a diabetic. - Related Data Home Medications Medication Instructions Recorded Confirmed Hydrocodone/Acetaminophen [[place] 1 tab PO BID PRN 03/13/17 12/16/18 7.5-325] ALPRAZolam [Xanax] 0.25 mg PO BID PRN 04/27/18 12/16/18 Baclofen [Lioresal] 5 mg PO BID 04/27/18 12/16/18 Omeprazole 40 mg PO DAILY 04/27/18 12/16/18 glyBURIDE/METFORMIN HCL 1 tab PO AC-BID PRN 04/27/18 12/16/18 [glyBURIDE/METFORMIN HCL 5-500 mg] Gabapentin [Neurontin] 400 mg PO TID 07/07/18 12/16/18 Venlafaxine HCl ER [Effexor Xr] 75 mg PO HS 07/07/18 12/16/18 Venlafaxine HCl [Effexor XR] 150 mg PO HS 07/07/18 12/16/18 Allergies Allergy/AdvReac Type Severity Reaction Status Date / Time No Known Allergies Allergy Verified 07/24/19 17:18 Review of Systems ROS Statement: Those systems with pertinent positive or pertinent negative responses have been documented in the HPI. ROS Other: All systems not noted in ROS Statement are negative. Past Medical History Past Medical History: Diabetes Mellitus, GERD/Reflux, Hyperlipidemia, Hypertension, Sleep Apnea/CPAP/BIPAP Additional Past Medical History / Comment(s): Hiatel Hernia, abdominal aortic aneurysm (has had two surgeries-and states he has a leak at this time), hx alcoholic induced pancreatitis, BP ok now. 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-"feels like nerves are vibrating"-vertigo History of Any Multi-Drug Resistant Organisms: None Reported Past Surgical History: No Surgical Hx Reported Additional Past Surgical History / Comment(s): AAA x 2 (09/30/2017, 11/04/17), pain clinic procedure, colonoscopy Past Anesthesia/Blood Transfusion Reactions: Previous Problems w/ Anesthesia, Motion Sickness Additional Past Anesthesia/Blood Transfusion Reaction / Comment(s): vertigo, Aneurysm surgery 10/04/17- "cardiac arrest" at [facility] -pt not sure of cause Past Psychological History: Anxiety, Depression Smoking Status: Former smoker Past Alcohol Use History: None Reported Past Drug Use History: None Reported - Past Family History Mother Family Medical History: COPD, Diabetes Mellitus Additional Family Medical History / Comment(s): diabetes. Father Family Medical History: Deep Vein Thrombosis (DVT) Additional Family Medical History / Comment(s): Father is alive at age 83 with history of diabetes, osteoarthritis, dementia. Sister(s) Family Medical History: Cancer Additional Family Medical History / Comment(s): 2 sisters-breast cancer Brother(s) Family Medical History: COPD Additional Family Medical History / Comment(s): Patient has one brother with COPD. General Exam Limitations: no limitations General appearance: alert, in no apparent distress Head exam: Present: atraumatic, normocephalic Eye exam: Present: normal appearance, PERRL, EOMI ENT exam: Present: normal exam Neck exam: Present: normal inspection, full ROM. Absent: tenderness, menin gismus Respiratory exam: Present: normal lung sounds bilaterally. Absent: respiratory distress, wheezes, rales Cardiovascular Exam: Present: regular rate, normal rhythm GI/Abdominal exam: Present: soft. Absent: distended, tenderness, guarding, rebound Extremities exam: Present: normal inspection, normal capillary refill, other (Normal pulse exam, 2+ bilaterally). Absent: pedal edema Neurological exam: Present: alert, oriented X3, CN II-XII intact. Absent: motor sensory deficit Psychiatric exam: Present: normal affect, normal mood Skin exam: Present: warm, dry, intact. Absent: cyanosis, diaphoretic Course Vital Signs 07/24/19 07/24/19 07/24/19 17:18 17:35 18:00 Temperature 97.4 F L Pulse Rate 80 88 101 H Respiratory 16 15 20 Rate Blood Pressure 167/89 O2 Sat by Pulse 100 98 95 Oximetry 07/24/19 07/24/19 19:14 19:15 Temperature 98.6 F Pulse Rate 74 74 Respiratory 18 18 Rate Blood Pressure 156/105 O2 Sat by Pulse 99 100 Oximetry EKG Findings - EKG Comments: EKG Findings:: EKG: Normal sinus rhythm, left axis deviation possible anterior and inferior infarction age undetermined, rate is 76, VA interval 148, QRS duration 104, QTC 398. Medical Decision Making - Medical Decision Making 54 male presenting with acute exacerbation of chronic pain. Patient does have pain throughout the torso and he has previous history of stent graft in the abdominal aorta. Workup reveals nonischemic EKG with no ST segment elevation. Chest x-ray negative for acute Marcus pulmonary disease. Normal CBC, normal CMP with the exception of a mildly elevated glucose of 188. Troponin negative. Patient's chest pain complaints are vague and have been present for at least [address] angiography was performed which shows concern for infarction of the right kidney with a patent graft and abdominal aortic aneurysm. I discussed the CT findings with the vascular surgeon Dr. Fairbanks, felt that the decrease contrast flow to the right kidney is likely chronic and does not require any further treatment at this time. Patient can continue his outpatient follow-up with vascular surgery. I did discuss possibility of observation for patient's chest pain complaint. He declines. He is feeling much better. He is eager for discharge. - Lab Data Result diagrams: 07/24/19 17:32 07/24/19 17:32 Lab Results 07/24/19 07/24/19 07/24/19 Range/Units 17:32 17:32 17:32 WBC 7.1 (3.8-10.6) k/uL RBC 4.96 (4.30-5.90) m/uL Hgb 14.5 (13.0-17.5) gm/dL Hct 42.7 (39.0-53.0) % MCV 86.1 (80.0-100.0) fL MCH 29.2 (25.0-35.0) pg MCHC 33.9 (31.0-37.0) g/dL RDW 11.8 (11.5-15.5) % Plt Count 228 (150-450) k/uL Neutrophils % 67 % Lymphocytes % 21 % Monocytes % 7 % Eosinophils % 3 % Basophils % 0 % Neutrophils # 4.8 (1.3-7.7) k/uL Lymphocytes # 1.5 (1.0-4.8) k/uL Monocytes # 0.5 (0-1.0) k/uL Eosinophils # 0.2 (0-0.7) k/uL Basophils # 0.0 (0-0.2) k/uL PT 10.2 (9.0-12.0) sec INR 0.9 (<1.2) APTT 28.5 (22.0-30.0) sec D-Dimer 1.30 H (<0.60) mg/L FEU Sodium 134 L (137-145) mmol/L Potassium 4.4 (3.5-5.1) mmol/L Chloride 98 (98-107) mmol/L Carbon Dioxide 23 (22-30) mmol/L Anion Gap 13 mmol/L BUN 8 L (9-20) mg/dL Creatinine 0.73 (0.66-1.25) mg/dL Est GFR (CKD-EPI)AfAm >90 (>60 ml/min/1.73 sqM) Est GFR (CKD-EPI)NonAf >90 (>60 ml/min/1.73 sqM) Glucose 188 H (74-99) mg/dL Calcium 9.8 (8.4-10.2) mg/dL Magnesium 1.8 (1.6-2.3) mg/dL Total Bilirubin 0.5 (0.2-1.3) mg/dL AST 33 (17-59) U/L ALT 27 (4-49) U/L Alkaline Phosphatase 53 (38-126) U/L Troponin I (0.000-0.034) ng/mL Total Protein 7.7 (6.3-8.2) g/dL Albumin 5.0 (3.5-5.0) g/dL 07/24/19 Range/Units 17:32 WBC (3.8-10.6) k/uL RBC (4.30-5.90) m/uL Hgb (13.0-17.5) gm/dL Hct (39.0-53.0) % MCV (80.0-100.0) fL MCH (25.0-35.0) pg MCHC (31.0-37.0) g/dL RDW (11.5-15.5) % Plt Count (150-450) k/uL Neutrophils % % Lymphocytes % % Monocytes % % Eosinophils % % Basophils % % Neutrophils # (1.3-7.7) k/uL Lymphocytes # (1.0-4.8) k/uL Monocytes # (0-1.0) k/uL Eosinophils # (0-0.7) k/uL Basophils # (0-0.2) k/uL PT (9.0-12.0) sec INR (<1.2) APTT (22.0-30.0) sec D-Dimer (<0.60) mg/L FEU Sodium (137-145) mmol/L Potassium (3.5-5.1) mmol/L Chloride (98-107) mmol/L Carbon Dioxide (22-30) mmol/L Anion Gap mmol/L BUN (9-20) mg/dL Creatinine (0.66-1.25) mg/dL Est GFR (CKD-EPI)AfAm (>60 ml/min/1.73 sqM) Est GFR (CKD-EPI)NonAf (>60 ml/min/1.73 sqM) Glucose (74-99) mg/dL Calcium (8.4-10.2) mg/dL Magnesium (1.6-2.3) mg/dL Total Bilirubin (0.2-1.3) mg/dL AST (17-59) U/L ALT (4-49) U/L Alkaline Phosphatase (38-126) U/L Troponin I <0.012 (0.000-0.034) ng/mL Total Protein (6.3-8.2) g/dL Albumin (3.5-5.0) g/dL Disposition Clinical Impression: Abdominal aortic aneurysm, Chronic pain Disposition: HOME SELF-CARE Condition: Fair Instructions (If sedation given, give patient instructions): Chronic Pain (ED), Chest Pain (ED) Is patient prescribed a controlled substance at d/c from ED?: No Referrals: Gene Perera MD [Primary Care Provider] - 1-2 days Time of Disposition: 20:30
--- NOTE | 2019-07-24 19:40 | CT ---
EXAMINATION TYPE: CT angio thor/abd pel aorta DATE OF EXAM: 07/24/2019 COMPARISON: 09/10/2017 HISTORY: chest pain and tightness. hx of AAA. CT DLP: 1904 mGycm Automated exposure control for dose reduction was used. CONTRAST: Performed with IV Contrast, patient injected with 100 mL of Isovue 370. Exam performed from the thoracic inlet to the floor the pelvis without and with IV contrast. There ar e 3-D post processed images. There is subpleural cystic changes in the posterior right lung. There is pulmonary emphysema. There i s no evidence of a pulmonary mass. There is normal contrast opacification of the thoracic aorta. Ther e is normal contrast opacification of the pulmonary arteries. There are no filling defects. There is no mediastinal adenopathy. There are no hilar masses. Heart size is normal. Liver shows no focal defect. Spleen stomach gallbladder pancreas appear intact. Bile ducts are not di lated. There is no adrenal mass. There is decreased contrast opacification of the lower pole right kidney. Abdominal aorta is atheromatous. There is aneurysm of the lower abdominal aorta. There is stent in th e lower abdominal aorta and common iliac arteries. Aorta measures up to 5.7 cm. There is patency of t he iliac artery stent. Bladder distends smoothly. There is arterial flow in the iliac and femoral art eries bilaterally. There is no free fluid in the pelvis. There is patency of the celiac artery and the superior mesenteric artery. There is arterial flow in b oth renal arteries. There is no retroperitoneal adenopathy. There is no mesenteric edema. There is no ascites or free air . There is no sign of a bowel obstruction. Thoracic and lumbar spine are intact. Bony pelvis is intact. IMPRESSION: 5.7 cm aneurysm of the lower abdominal aorta is increased from 5.2 cm compared to old exam. There is decreased opacification lower pole right kidney consistent with acute ischemia that is a change ana red to old exam. There is apparent decreased arterial flow in the accessory renal artery at the lower pole right kidney compared to old exam. There is bilateral patency of the aortoiliac stent. There is no evidence of pulmonary embolism. Pulmonary emphysema.
[2019-07-24 20:42] VITALS: BP 158/101; PULSE 72
== END 2019-07-24 20:41 | disposition home or self-care (01) ==
LOC: EC 17:14
DX: I71.4 Abdominal aortic aneurysm, without rupture (principal); G89.29 Other chronic pain; R07.89 Other chest pain; R06.02 Shortness of breath; E11.9 Type 2 diabetes mellitus without complications; K21.9 Gastro-esophageal reflux disease without esophagitis; F41.9 Anxiety disorder, unspecified; F32.9 Major depressive disorder, single episode, unspecified; G47.30 Sleep apnea, unspecified; Z99.89 Dependence on other enabling machines and devices; Z98.890 Other specified postprocedural states; Z95.828 Presence of other vascular implants and grafts; Z87.891 Personal history of nicotine dependence; Z83.6 Family history of other diseases of the respiratory system; Z79.84 Long term (current) use of oral hypoglycemic drugs; Z79.899 Other long term (current) drug therapy
CPT/HCPCS: 36415; 93005; 85379; 80053; 83735; 84484; 85025; 85610; 85730; 71046; 71275; 74174; 99285; 96374; 96375 ×2; 96361; J1200; J3360; J1170; Q9967

== ENCOUNTER → 2020-01-25 | Outpatient (CLI) | payer OTHER ==
--- NOTE | 2020-01-25 09:49 | US ---
EXAMINATION TYPE: US duplex aorta DATE OF EXAM: 01/25/2020 COMPARISON: NONE CLINICAL HISTORY: Abdominal Aortic Aneurysm w/o rupture I71.4. Patient has known endoleak. EXAM MEASUREMENTS: Abdominal Aorta: Proximal: 2.4cm Mid: 4.1 (Sac) Distal: 4.5cm (Sac) Bifurcation: 5.0cm (Sac) Length of sac 8.2cm Stent appears patent throughout. IMPRESSION: Abdominal aortic aneurysm as noted above. Patent stents.
== END | disposition home or self-care (01) ==
LOC: RADUSWWP 08:57
PROVIDERS: ATTEND Internal Medicine Geriatric Medicine
DX: I71.4 Abdominal aortic aneurysm, without rupture (principal)
CPT/HCPCS: 93979

== ENCOUNTER 2020-03-12 09:25 | Emergency (ER) | payer OTHER ==
[2020-03-12 09:30] VITALS: RESP 18; TEMP 98
[2020-03-12] MEDS ORDERED: ORPHENADRINE 30 MG/ML 2 ML VIAL IVP STA (09:44)
[2020-03-12] MEDS ORDERED: MORPHINE SULFATE 2 MG/ML SYRINGE IVP STA (09:44)
[2020-03-12] MEDS ORDERED: LABETALOL 5 MG/ML VIAL MDV IVP STA (09:44)
--- NOTE | 2020-03-12 09:47 | ED ---
Back Pain HPI - General Chief Complaint: Back Pain/Injury Stated Complaint: Lower Back Pain Time Seen by Provider: 03/12/20 09:32 Source: patient, RN notes reviewed, old records reviewed Limitations: no limitations - History of Present Illness Initial Comments: Patient is a 55-year-old male who presents for intermittent today with 5 days of lower back spasm, stating that his body feels like it is "vibrating". Patient states he has had a history of chronic lower back pain was exacerbated after riding his bike 5 days ago. Patient reports that he has no abdominal pain. Denies any saddle anesthesias. He states that he has no "pain". He states it just feels like nerve pain and neuropathy from the lower back into the upper buttocks and legs. Patient states that he is taking his gabapentin for pain relief and took a pain pill yesterday. Patient has a known history of AAA with repair and endoleak. He states that he does not take his blood pressure medication because his blood pressure was well controlled. He was found in the next hypertensive upon arrival to the emergency department of 187/118. Did not take his blood pressure medications for many weeks. - Related Data Home Medications Medication Instructions Recorded Confirmed Hydrocodone/Acetaminophen [[place] 1 tab PO BID PRN 03/13/17 12/16/18 7.5-325] ALPRAZolam [Xanax] 0.25 mg PO BID PRN 04/27/18 12/16/18 Baclofen [Lioresal] 5 mg PO BID 04/27/18 12/16/18 Omeprazole 40 mg PO DAILY 04/27/18 12/16/18 glyBURIDE/METFORMIN HCL 1 tab PO AC-BID PRN 04/27/18 12/16/18 [glyBURIDE/METFORMIN HCL 5-500 mg] Gabapentin [Neurontin] 400 mg PO TID 07/07/18 12/16/18 Venlafaxine HCl ER [Effexor Xr] 75 mg PO HS 07/07/18 12/16/18 Venlafaxine HCl [Effexor XR] 150 mg PO HS 07/07/18 12/16/18 Previous Rx's Medication Instructions Recorded dexAMETHasone [Dexamethasone] 0.75 mg PO DAILY #12 tab 03/12/20 Allergies Allergy/AdvReac Type Severity Reaction Status Date / Time No Known Allergies Allergy Verified 03/12/20 09:30 Review of Systems ROS Statement: Those systems with pertinent positive or pertinent negative responses have been documented in the HPI. ROS Other: All systems not noted in ROS Statement are negative. 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-"feels like nerves are vibrating"-vertigo History of Any Multi-Drug Resistant Organisms: None Reported Past Surgical History: No Surgical Hx Reported Additional Past Surgical History / Comment(s): AAA x 2 (09/30/2017, 11/04/17), pain clinic procedure, colonoscopy Past Anesthesia/Blood Transfusion Reactions: Previous Problems w/ Anesthesia, Motion Sickness Additional Past Anesthesia/Blood Transfusion Reaction / Comment(s): vertigo, Aneurysm surgery 10/04/17- "cardiac arrest" at [facility] -pt not sure of cause Past Psychological History: Anxiety, Depression Smoking Status: Vaper Past Alcohol Use History: None Reported Past Drug Use History: None Reported - Past Family History Mother Family Medical History: COPD, Diabetes Mellitus Additional Family Medical History / Comment(s): diabetes. Father Family Medical History: Deep Vein Thrombosis (DVT) Additional Family Medical History / Comment(s): Father is alive at age 83 with history of diabetes, osteoarthritis, dementia. Sister(s) Family Medical History: Cancer Additional Family Medical History / Comment(s): 2 sisters-breast cancer Brother(s) Family Medical History: COPD Additional Family Medical History / Comment(s): Patient has one brother with COPD. General Exam - General Exam Comments Initial Comments: Is a 5-year-old male. Alert and oriented. No distress. Limitations: no limitations General appearance: alert, in no apparent distress Head exam: Present: atraumatic, normocephalic, normal inspection Eye exam: Present: normal appearance, PERRL, EOMI. Absent: scleral icterus, conjunctival injection, periorbital swelling ENT exam: Present: normal exam, mucous membranes moist Neck exam: Present: normal inspection. Absent: tenderness, meningismus, lymphadenopathy Respiratory exam: Present: normal lung sounds bilaterally. Absent: respiratory distress, wheezes, rales, rhonchi, stridor Cardiovascular Exam: Present: regular rate, normal rhythm, normal heart sounds. Absent: systolic murmur, diastolic murmur, rubs, gallop, clicks GI/Abdominal exam: Present: soft, normal bowel sounds. Absent: distended, tenderness, guarding, rebound, rigid Extremities exam: Present: normal inspection, full ROM, normal capillary refill. Absent: tenderness, pedal edema, joint swelling, calf tenderness Back exam: Present: normal inspection Neurological exam: Present: alert, oriented X3, CN II-XII intact Psychiatric exam: Present: normal affect, normal mood Skin exam: Present: warm, dry, intact, normal color. Absent: rash Course Vital Signs 03/12/20 03/12/20 03/12/20 09:27 10:00 11:17 Temperature 98 F Pulse Rate 76 65 Respiratory 18 18 Rate Blood Pressure 187/118 165/96 172/96 O2 Sat by Pulse 99 98 Oximetry Medical Decision Making - Medical Decision Making Patient is a 55-year-old male presents to ED today for concern for tingling sensation in his back and legs. He states he has chronic neuropathy. Patient's pain seems muscle skeletal nature and related to nerve impingement. Patient reports it was after riding a bike 5 days ago. At this time is given IV medication and reports he is feeling better at this time. He is also given Decadron help with information. Patient's lumbar spine x-ray was reviewed to show some degenerative changes. The aortic bypass appears stable and no significant changes as her previous imaging. His blood pressure came down and after lisinopril. He has been noncompliant with his blood pressure medications. Discussed resuming these at this time. - Radiology Data Radiology results: report reviewed Moderate disease L5-S1 with a threatened greatest in lumbar spine. Trace grade retrolisthesis L3 L2 and L3-L4. No vertebral compression class. Aorta and iliac endovascular stent graft. Calcified sac she's when she was 6.4 cm to some ice 6.3 on prior to stenting on 08/25/2017. Disposition Clinical Impression: Neuropathy Disposition: HOME SELF-CARE Condition: Good Instructions (If sedation given, give patient instructions): Acute Low Back Pain (ED) Additional Instructions: Use your at home pain medication and anxiety medication. Have close follow up with PCP and orthopedic back specialist. Prescriptions: dexAMETHasone [Dexamethasone] 0.75 mg PO DAILY #12 tab Is patient prescribed a controlled substance at d/c from ED?: No Referrals: Gene Perera MD [Primary Care Provider] - 1-2 days Time of Disposition: 11:53
[2020-03-12] MEDS ORDERED: DEXAMETHASONE SOD PHOSPHATE 10 MG/ML 1 ML VIAL IV STA (09:48)
[2020-03-12] MEDS ORDERED: HYDROmorphone 1 MG/ML 1 ML SYRINGE IVP STA (09:50)
[2020-03-12] MEDS ORDERED: lisinopriL 10 MG TAB PO STA (09:57)
[2020-03-12] MEDS ORDERED: DIAZEPAM 5 MG/ML 2 ML INJ IVP STA (09:57)
--- NOTE | 2020-03-12 11:06 | XR ---
EXAMINATION TYPE: XR lumbar spine 2 or 3V DATE OF EXAM: 03/12/2020 Comparison: 08/25/2017 Clinical History: 55 year-old male lower back pain Findings: Endovascular aortobiiliac stent graft is present. The calcified [place] sac is measured at 6.2 cm wide and 6.4 cm AP, not significantly changed from 08/25/2017 where it is measured at 6.1 x 6.3 cm prior t o stenting. Correlate with routine CT surveillance. 5 lumbar type vertebral bodies. Moderate degenerative disc disease L5-S1 and mild endplate spondylosi s throughout the remainder of the lumbar spine. Hypertrophic facet arthropathy especially lower lumba r spine. Grade 1 retrolisthesis at L2-L3 and L3-L4. Vertebral body heights are preserved. Impression: 1. Moderate degenerative disc disease L5-S1 with facet arthropathy greatest in the lower lumbar spine . 2. Trace grade 1 retrolisthesis at L2-L3 and L3-L4. 3. No vertebral compression collapse. 4. Aortobiiliac endovascular stent graft. The calcified [place] sac measures 6.2 x 6.4 cm (versus 6.1 x 6.3 cm prior to stenting on 08/25/2017). Correlate with routine CT surveillance.
[2020-03-12 12:02] VITALS: BP 156/96; PULSE 62
== END 2020-03-12 12:02 | disposition home or self-care (01) ==
LOC: EC 09:25
DX: E11.40 Type 2 diabetes mellitus with diabetic neuropathy, unspecified (principal); M47.816 Spondylosis without myelopathy or radiculopathy, lumbar region; I10 Essential (primary) hypertension; K21.9 Gastro-esophageal reflux disease without esophagitis; F41.9 Anxiety disorder, unspecified; F32.9 Major depressive disorder, single episode, unspecified; G47.30 Sleep apnea, unspecified; F17.290 Nicotine dependence, other tobacco product, uncomplicated; Z99.89 Dependence on other enabling machines and devices; Z79.899 Other long term (current) drug therapy; Z91.14 Patient's other noncompliance with medication regimen
CPT/HCPCS: 72100; 99284; 96374; 96375 ×2; J1100; J3360; J1170

== ENCOUNTER → 2021-02-23 | Outpatient (CLI) | payer OTHER ==
--- NOTE | 2021-02-23 10:36 | CT ---
EXAMINATION TYPE: CT lumbar spine wo con DATE OF EXAM: 02/23/2021 COMPARISON: CT angiography 07/24/2019 HISTORY: 56-year-old male Low back pain, DDD TECHNIQUE: Contiguous axial scanning of the lumbar spine without IV contrast. Coronal and sagittal re constructions performed. CT DLP: 487.9 mGycm Automated exposure control for dose reduction was used. FINDINGS: Status post abdominal aortobiiliac endovascular stent graft. This extends from just above the level o f the renal arteries. Just below the renal arteries, [place] sac caliber is 4.4 cm versus 4.0 cm, previously. At the level of the biiliac components, caliber is 4.8 x 4.0 cm versus 4.6 x 3.9 cm, previously. Distally, the bulb is [place] sac dilatation measures 5.7 x 5.7 cm versus 5.3 x 5.2 cm, previously. Partially visualized sigmoid diverticulosis. Vertebral body heights are preserved. Trace degenerative grade 1 retrolisthesis L2-L3 and L3-L4. Mild facet arthropathy. Moderate degenerative disc disease L5-S1 with narrowed and bulging disc. Small posterior disc bulges at additional levels. No large focal disc herniation or significant spinal canal stenosis. On the left, changes result in moderate neuroforaminal stenosis at L5-S1 and mild at L3-L4 and L4-L5. On the right, changes within the greater degree of moderate neuroforaminal stenosis at L5-S1, mild to moderate at L4-L5, and mild at L3-L4. IMPRESSION: 1. STATUS POST ABDOMINAL AORTOBIILIAC ENDOVASCULAR STENT GRAFT. WE NOTE A PREVIOUS ENDOLEAK ON 2018. THE BULBOUS DISTAL [place] SAC HAS SLIGHTLY INCREASED IN SIZE CURRENTLY MEASURING 5.7 CM VERSUS 5.3 CM, PREVIOUSLY. THE MIDPORTION IS SLIGHTLY INCREASED WELL MEASURING UP TO 4.8 CM VERSUS 4.6 CM , PREVIOUSLY. RECOMMEND ONGOING VASCULAR SURGERY FOLLOW-UP AND SURVEILLANCE. 2. MODERATE DEGENERATIVE DISC DISEASE L5-S1. SCATTERED MILD FACET ARTHROPATHY. DEGENERATIVE TRACE GRA DE 1 RETROLISTHESIS L2-L3 AND L3-L4. 3. MODERATE, RIGHT GREATER THAN LEFT NEUROFORAMINAL STENOSIS AT L5-S1. MILD ON BOTH SIDES AT L3-L4 AN D L4-L5. 4. BY CT, NO LARGE FOCAL DISC HERNIATION OR SIGNIFICANT SPINAL CANAL STENOSIS.
== END | disposition home or self-care (01) ==
LOC: RADCTMAIN 06:54
PROVIDERS: ATTEND Physician Assistant
DX: M51.26 Other intervertebral disc displacement, lumbar region (principal); M47.896 Other spondylosis, lumbar region
CPT/HCPCS: 72131

== ENCOUNTER 2021-03-25 09:04 | Emergency (ER) | payer OTHER ==
[2021-03-25 09:10] VITALS: BP 159/96; PULSE 112; RESP 18; TEMP 98.2
[2021-03-25] MEDS ORDERED: KETOROLAC 15 MG/ML 1 ML VIAL IM STA (09:54)
[2021-03-25] MEDS ORDERED: MORPHINE SULFATE 4 MG/ML SYRINGE IM STA (09:54)
--- NOTE | 2021-03-25 10:33 | ED ---
General Adult HPI - General Chief complaint: Back Pain/Injury Stated complaint: Pinch nerve Time Seen by Provider: 03/25/21 09:16 Source: patient, RN notes reviewed Mode of arrival: ambulatory Limitations: no limitations - History of Present Illness Initial comments: 56-year-old male with a past medical history of diabetes mellitus, hyperlipidemia, hypertension, abdominal aortic aneurysms presents to the emergency room for a chief complaint of chronic back pain. Patient reports that his back pain is causing him all over pain. States he is in pain from his head to his toes because of his nerves. Patient states that the pain is making him suicidal. He reports he does have a plan of suicide but does not wish to disclose his plan.Patient has no other complaints at this time including shortness of breath, chest pain, abdominal pain, nausea or vomiting, headache, or visual changes. - Related Data Home Medications Medication Instructions Recorded Confirmed Hydrocodone/Acetaminophen [[place] 1 tab PO BID PRN 03/13/17 12/16/18 7.5-325] ALPRAZolam [Xanax] 0.25 mg PO BID PRN 04/27/18 12/16/18 Baclofen [Lioresal] 5 mg PO BID 04/27/18 12/16/18 Omeprazole 40 mg PO DAILY 04/27/18 12/16/18 glyBURIDE/METFORMIN HCL 1 tab PO AC-BID PRN 04/27/18 12/16/18 [glyBURIDE/METFORMIN HCL 5-500 mg] Gabapentin [Neurontin] 400 mg PO TID 07/07/18 12/16/18 Venlafaxine HCl ER [Effexor Xr] 75 mg PO HS 07/07/18 12/16/18 Venlafaxine HCl [Effexor XR] 150 mg PO HS 07/07/18 12/16/18 Previous Rx's Medication Instructions Recorded dexAMETHasone 0.75 mg PO DAILY #12 tab 03/12/20 Allergies Allergy/AdvReac Type Severity Reaction Status Date / Time No Known Allergies Allergy Verified 03/25/21 09:10 Review of Systems ROS Statement: Those systems with pertinent positive or pertinent negative responses have been documented in the HPI. ROS Other: All systems not noted in ROS Statement are negative. 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-"feels like nerves are vibrating"-vertigo History of Any Multi-Drug Resistant Organisms: None Reported Past Surgical History: No Surgical Hx Reported Additional Past Surgical History / Comment(s): AAA x 2 (09/30/2017, 11/04/17), pain clinic procedure, colonoscopy Past Anesthesia/Blood Transfusion Reactions: Previous Problems w/ Anesthesia, Motion Sickness Additional Past Anesthesia/Blood Transfusion Reaction / Comment(s): vertigo, Aneurysm surgery 10/04/17- "cardiac arrest" at [facility] -pt not sure of cause Past Psychological History: Anxiety, Depression Smoking Status: Vaper Past Alcohol Use History: None Reported Past Drug Use History: None Reported - Past Family History Mother Family Medical History: COPD, Diabetes Mellitus Additional Family Medical History / Comment(s): diabetes. Father Family Medical History: Deep Vein Thrombosis (DVT) Additional Family Medical History / Comment(s): Father is alive at age 83 with history of diabetes, osteoarthritis, dementia. Sister(s) Family Medical History: Cancer Additional Family Medical History / Comment(s): 2 sisters-breast cancer Brother(s) Family Medical History: COPD Additional Family Medical History / Comment(s): Patient has one brother with COPD. General Exam Limitations: no limitations General appearance: alert, in no apparent distress Head exam: Present: atraumatic Eye exam: Present: normal appearance, PERRL, EOMI. Absent: scleral icterus ENT exam: Present: normal exam, mucous membranes moist Neck exam: Present: normal inspection, full ROM. Absent: tenderness Respiratory exam: Present: normal lung sounds bilaterally. Absent: respiratory distress, wheezes Cardiovascular Exam: Present: regular rate, normal rhythm, normal heart sounds Back exam: Present: full ROM. Absent: CVA tenderness (R), CVA tenderness (L), vertebral tenderness Course Vital Signs 03/25/21 09:06 Temperature 98.2 F Pulse Rate 112 H Respiratory 18 Rate Blood Pressure 159/96 O2 Sat by Pulse 99 Oximetry Medical Decision Making - Medical Decision Making pt was given pain medication which did help significantly with his symptoms. However he continued to complain of suicidal thoughts because of pain. he was evaluated by EPS and deemed safe for outpatient follow up. Disposition Clinical Impression: Chronic pain Disposition: HOME SELF-CARE Condition: Good Instructions (If sedation given, give patient instructions): Acute Low Back Pain (ED) Additional Instructions: Please follow up with your doctor in1-2 days. Return to the ER for any worsening symptoms. Is patient prescribed a controlled substance at d/c from ED?: No Referrals: Gene Perera MD [Primary Care Provider] - 1-2 days Time of Disposition: 12:28
[2021-03-25] MEDS ORDERED: HYDROmorphone 0.5 MG/0.5 ML SYRINGE IM STA (12:43)
[2021-03-25] MEDS ORDERED: diazePAM 5 MG TAB PO STA (12:43)
[2021-03-25] MEDS ORDERED: DIAZEPAM 5 MG/ML 2 ML INJ IM STA (12:44)
== END 2021-03-25 13:26 | disposition home or self-care (01) ==
LOC: EC 09:04
DX: G89.29 Other chronic pain (principal); M54.9 Dorsalgia, unspecified; E11.9 Type 2 diabetes mellitus without complications; I10 Essential (primary) hypertension; F17.290 Nicotine dependence, other tobacco product, uncomplicated; K21.9 Gastro-esophageal reflux disease without esophagitis; Z79.84 Long term (current) use of oral hypoglycemic drugs; Z79.899 Other long term (current) drug therapy
CPT/HCPCS: 99283; 96372; J2270; J3360; J1885; J1170

== ENCOUNTER 2021-06-19 10:27 | Emergency (ER) | payer OTHER ==
[2021-06-19 11:06] VITALS: RESP 18; TEMP 97.8
[2021-06-19 12:14] LABS: Glucose,Whole Blood 131 mg/dL (75-99)
[2021-06-19] MEDS ORDERED: HYDROcodone/APAP 7.5-325MG 1 EACH TAB PO ONE (12:18)
[2021-06-19] MEDS ORDERED: SODIUM CHLORIDE 0.9% 1,000 ML IV STA (12:18)
[2021-06-19] MEDS ORDERED: KETOROLAC 30 MG/ML 1 ML VIAL IM STA (12:18)
[2021-06-19 13:00] LABS: Basophils % (A) 0 %; Eosinophils % (A) 1 %; HCT 38.1 % (39.0-53.0); HGB 13.5 gm/dL (13.0-17.5); Lymphocytes # (A) 0.5 k/uL (1.0-4.8); Lymphocytes % (A) 12 %; MCHC 35.4 g/dL (31.0-37.0); MCV 84.9 fL (80.0-100.0); Monocytes # (A) 0.3 k/uL (0-1.0); Monocytes % (A) 7 %; Neutrophils # (A) 3.3 k/uL (1.3-7.7); Neutrophils % (A) 78 %; Platelet Count 159 k/uL (150-450); RBC 4.49 m/uL (4.30-5.90); RDW 11.5 % (11.5-15.5); WBC 4.2 k/uL (3.8-10.6)
[2021-06-19 13:17] LABS: ALT 56 U/L (4-49); AST 90 U/L (17-59); African American GFR (CKD) >90 (>60 ml/min/1.73 sqM); Albumin 3.8 g/dL (3.5-5.0); Alkaline Phosphatase 62 U/L (38-126); Anion Gap 9 mmol/L; Blood Urea Nitrogen 9 mg/dL (9-20); Calcium 8.5 mg/dL (8.4-10.2); Carbon Dioxide 27 mmol/L (22-30); Chloride 91 mmol/L (98-107); Glucose 122 mg/dL (74-99); Non-African American GFR(CKD) >90 (>60 ml/min/1.73 sqM); Potassium 4.3 mmol/L (3.5-5.1); Sodium 127 mmol/L (137-145); Total Bilirubin 0.4 mg/dL (0.2-1.3); Total Protein 6.4 g/dL (6.3-8.2)
--- NOTE | 2021-06-19 14:02 | ED ---
URI HPI - General Chief Complaint: Upper Respiratory Infection Stated Complaint: Covid+ Time Seen by Provider: 06/19/21 12:09 Source: patient, RN notes reviewed Mode of arrival: ambulatory Limitations: no limitations - History of Present Illness Initial Comments: Patient is a 56-year-old male with history of diabetes, hypertension, sleep apnea, presenting to the emergency department with concerns of having Covid. Patient states his parents are both diagnosis: In the last couple days. Since has been having symptoms for the past 7-8 days. He is complaining of extreme fatigue, chest discomfort, shortness of breath, cough and fevers and chills. He states his appetite has been low he has not been able to drink a lot of water because he just does not feel good. He not take any Tylenol or Motrin today. He does have chronic pain and takes [place]away for these, he states he did not take an Gallaway today. He denies any chest pain at this time. He denies any vomiting. He did have a couple days of diarrhea but that is since improved. Patient has no further complaints. Vital signs are stable upon arrival. - Related Data Home Medications Medication Instructions Recorded Confirmed Hydrocodone/Acetaminophen [[place] 1 tab PO TID PRN 03/13/17 06/19/21 7.5-325] Baclofen [Lioresal] 10 mg PO DAILY PRN 04/27/18 06/19/21 Omeprazole 40 mg PO DAILY PRN 04/27/18 06/19/21 glyBURIDE/METFORMIN HCL 1 tab PO BID-W/MEALS 04/27/18 06/19/21 [glyBURIDE/METFORMIN HCL 5-500 mg] Venlafaxine HCl ER [Effexor Xr] 75 mg PO HS 07/07/18 06/19/21 ALPRAZolam [Xanax] 0.5 mg PO BID PRN 06/19/21 06/19/21 Albuterol Sulfate [Ventolin HFA] 2 puff INHALATION RT-Q4H PRN 06/19/21 06/19/21 Butalb/APAP/Caff 50-325-40Mg 1 - 2 tab PO Q6H PRN 06/19/21 06/19/21 [Fioricet 50-325-40] Gabapentin 600 mg PO TID 06/19/21 06/19/21 Allergies Allergy/AdvReac Type Severity Reaction Status Date / Time No Known Allergies Allergy Verified 06/19/21 14:38 Review of Systems ROS Statement: Those systems with pertinent positive or pertinent negative responses have been documented in the HPI. ROS Other: All systems not noted in ROS Statement are negative. 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-"feels like nerves are vibrating"-vertigo History of Any Multi-Drug Resistant Organisms: None Reported Past Surgical History: No Surgical Hx Reported Additional Past Surgical History / Comment(s): AAA x 2 (09/30/2017, 11/04/17), pain clinic procedure, colonoscopy Past Anesthesia/Blood Transfusion Reactions: Previous Problems w/ Anesthesia, Motion Sickness Additional Past Anesthesia/Blood Transfusion Reaction / Comment(s): vertigo, Aneurysm surgery 10/04/17- "cardiac arrest" at [facility] -pt not sure of cause Past Psychological History: Anxiety, Depression Smoking Status: Vaper Past Alcohol Use History: None Reported Past Drug Use History: None Reported - Past Family History Mother Family Medical History: COPD, Diabetes Mellitus Additional Family Medical History / Comment(s): diabetes. Father Family Medical History: Deep Vein Thrombosis (DVT) Additional Family Medical History / Comment(s): Father is alive at age 83 with history of diabetes, osteoarthritis, dementia. Sister(s) Family Medical History: Cancer Additional Family Medical History / Comment(s): 2 sisters-breast cancer Brother(s) Family Medical History: COPD Additional Family Medical History / Comment(s): Patient has one brother with COPD. General Exam - General Exam Comments Initial Comments: GENERAL: Patient is well-developed and well-nourished. Patient is nontoxic and in no acute distress. HEAD: Atraumatic, normocephalic. EYES: Pupils equal round and reactive to light, extraocular movements intact, sclera anicteric, conjunctiva are normal. Eyelids were unremarkable. ENT: Oropharynx clear without exudates. Moist mucous membranes. NECK: Normal range of motion, supple without lymphadenopathy or JVD. LUNGS: Unlabored respirations. Breath sounds clear to auscultation bilaterally and equal. No wheezes rales or rhonchi. HEART: Regular rate and rhythm without murmurs, rubs or gallops. ABDOMEN: Soft, nontender, normoactive bowel sounds. No guarding, no rebound. No masses appreciated. MUSCULOSKELETAL: Normal extremities with adequate strength and normal range of motion, no pitting or edema. No clubbing or cyanosis. NEUROLOGICAL: Patient is alert and oriented x 3. SKIN: Warm, Dry, normal turgor, no rashes or lesions noted. Limitations: no limitations Course Vital Signs 06/19/21 06/19/21 06/19/21 11:02 12:50 15:08 Temperature 97.8 F Pulse Rate 78 70 Respiratory 18 18 18 Rate Blood Pressure 158/83 152/72 O2 Sat by Pulse 95 95 Oximetry Medical Decision Making - Medical Decision Making patient is a 56-year-old male presenting with cold like symptoms over the past week. His parents recently tested positive. His rapid test is positive today. EKG showed no acute process. Labs reveals some dehydration with sodium at 127, negative troponin. Patient received a liter and half of fluids, did qualify for medical antibodies which she did receive, no adverse side effects. He is feeling improvement in his symptoms. patient will follow up with his primary care. Return parameters were discussed with him and he verbalized understanding. - Lab Data Result diagrams: 06/19/21 12:39 06/19/21 12:39 Lab Results 06/19/21 06/19/21 06/19/21 Range/Units 12:13 12:39 12:39 WBC 4.2 (3.8-10.6) k/uL RBC 4.49 (4.30-5.90) m/uL Hgb 13.5 (13.0-17.5) gm/dL Hct 38.1 L (39.0-53.0) % MCV 84.9 (80.0-100.0) fL MCH 30.0 (25.0-35.0) pg MCHC 35.4 (31.0-37.0) g/dL RDW 11.5 (11.5-15.5) % Plt Count 159 (150-450) k/uL MPV 8.0 Neutrophils % 78 % Lymphocytes % 12 % Monocytes % 7 % Eosinophils % 1 % Basophils % 0 % Neutrophils # 3.3 (1.3-7.7) k/uL Lymphocytes # 0.5 L (1.0-4.8) k/uL Monocytes # 0.3 (0-1.0) k/uL Eosinophils # 0.0 (0-0.7) k/uL Basophils # 0.0 (0-0.2) k/uL Sodium (137-145) mmol/L Potassium (3.5-5.1) mmol/L Chloride (98-107) mmol/L Carbon Dioxide (22-30) mmol/L Anion Gap mmol/L BUN (9-20) mg/dL Creatinine (0.66-1.25) mg/dL Est GFR (CKD-EPI)AfAm (>60 ml/min/1.73 sqM) Est GFR (CKD-EPI)NonAf (>60 ml/min/1.73 sqM) Glucose (74-99) mg/dL POC Glucose (mg/dL) 131 H (75-99) mg/dL POC Glu [employer] Clerk ID Ela Johnsonn Calcium (8.4-10.2) mg/dL Total Bilirubin (0.2-1.3) mg/dL AST (17-59) U/L ALT (4-49) U/L Alkaline Phosphatase (38-126) U/L Troponin I (0.000-0.034) ng/mL Total Protein (6.3-8.2) g/dL Albumin (3.5-5.0) g/dL Coronavirus (PCR) Detected A (Not Detectd) 06/19/21 06/19/21 Range/Units 12:39 12:39 WBC (3.8-10.6) k/uL RBC (4.30-5.90) m/uL Hgb (13.0-17.5) gm/dL Hct (39.0-53.0) % MCV (80.0-100.0) fL MCH (25.0-35.0) pg MCHC (31.0-37.0) g/dL RDW (11.5-15.5) % Plt Count (150-450) k/uL MPV Neutrophils % % Lymphocytes % % Monocytes % % Eosinophils % % Basophils % % Neutrophils # (1.3-7.7) k/uL Lymphocytes # (1.0-4.8) k/uL Monocytes # (0-1.0) k/uL Eosinophils # (0-0.7) k/uL Basophils # (0-0.2) k/uL Sodium 127 L (137-145) mmol/L Potassium 4.3 (3.5-5.1) mmol/L Chloride 91 L (98-107) mmol/L Carbon Dioxide 27 (22-30) mmol/L Anion Gap 9 mmol/L BUN 9 (9-20) mg/dL Creatinine 0.63 L (0.66-1.25) mg/dL Est GFR (CKD-EPI)AfAm >90 (>60 ml/min/1.73 sqM) Est GFR (CKD-EPI)NonAf >90 (>60 ml/min/1.73 sqM) Glucose 122 H (74-99) mg/dL POC Glucose (mg/dL) (75-99) mg/dL POC Glu Departmental Shipping Clerk ID Calcium 8.5 (8.4-10.2) mg/dL Total Bilirubin 0.4 (0.2-1.3) mg/dL AST 90 H (17-59) U/L ALT 56 H (4-49) U/L Alkaline Phosphatase 62 (38-126) U/L Troponin I <0.012 (0.000-0.034) ng/mL Total Protein 6.4 (6.3-8.2) g/dL Albumin 3.8 (3.5-5.0) g/dL Coronavirus (PCR) (Not Detectd) - EKG Data EKG Comments: normal sinus rhythm, left axis deviation, no signs of acute ST segment elevation. Ventricular rate 72, MI interval 146, QT 374. similar to previous on 07/24/2019. Disposition Clinical Impression: COVID-19, Dehydration Disposition: HOME SELF-CARE Condition: Stable Instructions (If sedation given, give patient instructions): Coronavirus Disease 2019 (COVID-19) Additional Instructions: Please return to the Emergency Department if symptoms worsen or any other concerns. Continue to increase your fluid intake. May take Tylenol Motrin for his symptoms. Follow-up with your primary care. Is patient prescribed a controlled substance at d/c from ED?: No Referrals: Gene Perera MD [Primary Care Provider] - 1-2 days Time of Disposition: 16:16
[2021-06-19] MEDS ORDERED: SODIUM CHLORIDE 0.9% 50 ML IVPB ONE (14:30)
[2021-06-19] MEDS ORDERED: BAMLANIVIMAB (EUA) 700 MG, ETESEVIMAB (EUA) 1,400 MG in SODIUM CHLORIDE 0.9% 50 ML IVPB ONE (14:30)
[2021-06-19] MEDS ORDERED: SODIUM CHLORIDE 0.9% 500 ML 500 ML IV STA (14:35)
[2021-06-19 16:28] VITALS: BP 133/70; PULSE 78
== END 2021-06-19 16:28 | disposition home or self-care (01) ==
LOC: EC 10:27
DX: U07.1 COVID-19 (principal); E86.0 Dehydration; E11.9 Type 2 diabetes mellitus without complications; I10 Essential (primary) hypertension; F17.290 Nicotine dependence, other tobacco product, uncomplicated; Z79.84 Long term (current) use of oral hypoglycemic drugs
CPT/HCPCS: 36415; 93005; 80053; 84484; 85025; 87635; 99285; 96374; 96372; J1885; J3490

== ENCOUNTER 2021-12-29 17:45 | Emergency (ER) | payer OTHER ==
[2021-12-29 17:52] VITALS: RESP 20; TEMP 98.2
[2021-12-29] MEDS ORDERED: MORPHINE SULFATE 4 MG/ML SYRINGE IVP STA (19:40)
[2021-12-29 20:02] LABS: Basophils # (A) 0.1 k/uL (0-0.2); Basophils % (A) 1 %; Eosinophils # (A) 0.2 k/uL (0-0.7); Eosinophils % (A) 2 %; HCT 45.1 % (39.0-53.0); HGB 14.8 gm/dL (13.0-17.5); Lymphocytes % (A) 22 %; MCH 29.4 pg (25.0-35.0); MCHC 32.8 g/dL (31.0-37.0); MCV 89.7 fL (80.0-100.0); Mean Platelet Volume 7.4; Monocytes # (A) 0.6 k/uL (0-1.0); Monocytes % (A) 7 %; Neutrophils # (A) 5.8 k/uL (1.3-7.7); Neutrophils % (A) 67 %; Platelet Count 218 k/uL (150-450); RBC 5.03 m/uL (4.30-5.90); RDW 11.7 % (11.5-15.5); WBC 8.8 k/uL (3.8-10.6)
[2021-12-29 20:11] LABS: ALT 26 U/L (4-49); AST 32 U/L (17-59); African American GFR (CKD) >90 (>60 ml/min/1.73 sqM); Albumin 5.2 g/dL (3.5-5.0); Alkaline Phosphatase 57 U/L (38-126); Anion Gap 10 mmol/L; Blood Urea Nitrogen 15 mg/dL (9-20); Calcium 9.8 mg/dL (8.4-10.2); Carbon Dioxide 30 mmol/L (22-30); Chloride 96 mmol/L (98-107); Glucose 104 mg/dL (74-99); Non-African American GFR(CKD) 88 (>60 ml/min/1.73 sqM); Potassium 4.1 mmol/L (3.5-5.1); Sodium 136 mmol/L (137-145); Total Bilirubin 0.3 mg/dL (0.2-1.3); Total Protein 8.2 g/dL (6.3-8.2)
--- NOTE | 2021-12-29 20:31 | US ---
EXAMINATION TYPE: US duplex aorta DATE OF EXAM: 12/29/2021 COMPARISON: 01/25/2020 CLINICAL HISTORY: aaa. known AAA with endoleak type 2, pending 3rd surgery due to AAA enlarging, extr carlo nerve pain EXAM MEASUREMENTS: Abdominal Aorta: Proximal: 2.6 x 2.2cm Mid: 3.9 x 4.2cm Distal: 5.6 x 5.9cm Bifurcation: Rt 1.3cm, Lt 1.4cm Patent stent seen, distal AAA is over 5cm in size IMPRESSION: There is large lower abdominal aortic aneurysm measuring up to 5.9 cm. Aneurysm increased compared to the old exam.
[2021-12-29] MEDS ORDERED: HYDROmorphone 1 MG/ML 1 ML SYRINGE IVP STA (21:06)
--- NOTE | 2021-12-29 21:10 | ED ---
General Adult HPI - General Chief complaint: Recheck/Abnormal Lab/Rx Stated complaint: aortic aneurysm Time Seen by Provider: 12/29/21 19:00 Source: patient Mode of arrival: ambulatory Limitations: no limitations - History of Present Illness Initial comments: 56-year-old male with past history of AAA status post repair 2 who presents emergency Department with back pain. States that he has a known AAA, endoleak type II which is to be repaired by Dr. Briones. Surgery was to be performed last Friday however he needed a stress test prior to his surgery. This was unable to be obtained and therefore the surgery had to be canceled. He was able to get the stress test completed on through [facility]. He has yet to have his surgery rescheduled. He is concerned as she has had some increasing back pain and thought there may be something new or different going on with his aneurysm. Patient is nervous that he has to wait longer for his surgery. Because of this he came into the emergency department for evaluation. He does take pain medications at home and is in a pain management contract. Denies any new numbness or tingling into his lower extremities. He has been ambulatory without difficulty. No chest pain or difficulty breathing. Denies any abdominal pain. No other alleviating, precipitating or modifying factors - Related Data Home Medications Medication Instructions Recorded Confirmed Hydrocodone/Acetaminophen [[place] 1 tab PO TID PRN 03/13/17 06/19/21 7.5-325] Baclofen [Lioresal] 10 mg PO DAILY PRN 04/27/18 06/19/21 Omeprazole 40 mg PO DAILY PRN 04/27/18 06/19/21 glyBURIDE/METFORMIN HCL 1 tab PO BID-W/MEALS 04/27/18 06/19/21 [glyBURIDE/METFORMIN HCL 5-500 mg] Venlafaxine HCl ER [Effexor Xr] 75 mg PO HS 07/07/18 06/19/21 ALPRAZolam [Xanax] 0.5 mg PO BID PRN 06/19/21 06/19/21 Albuterol Sulfate [Ventolin HFA] 2 puff INHALATION RT-Q4H PRN 06/19/21 06/19/21 Butalb/APAP/Caff 50-325-40Mg 1 - 2 tab PO Q6H PRN 06/19/21 06/19/21 [Fioricet 50-325-40] Gabapentin 600 mg PO TID 06/19/21 06/19/21 Allergies Allergy/AdvReac Type Severity Reaction Status Date / Time No Known Allergies Allergy Verified 12/29/21 17:52 Review of Systems ROS Statement: Those systems with pertinent positive or pertinent negative responses have been documented in the HPI. ROS Other: All systems not noted in ROS Statement are negative. 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-"feels like nerves are vibrating"-vertigo History of Any Multi-Drug Resistant Organisms: None Reported Past Surgical History: No Surgical Hx Reported Additional Past Surgical History / Comment(s): AAA x 2 (09/30/2017, 11/04/17), pain clinic procedure, colonoscopy Past Anesthesia/Blood Transfusion Reactions: Previous Problems w/ Anesthesia, Motion Sickness Additional Past Anesthesia/Blood Transfusion Reaction / Comment(s): vertigo, Aneurysm surgery 10/04/17- "cardiac arrest" at [facility] -pt not sure of cause Past Psychological History: Anxiety, Depression Smoking Status: Vaper Past Alcohol Use History: None Reported Past Drug Use History: None Reported - Past Family History Mother Family Medical History: COPD, Diabetes Mellitus Additional Family Medical History / Comment(s): diabetes. Father Family Medical History: Deep Vein Thrombosis (DVT) Additional Family Medical History / Comment(s): Father is alive at age 83 with history of diabetes, osteoarthritis, dementia. Sister(s) Family Medical History: Cancer Additional Family Medical History / Comment(s): 2 sisters-breast cancer Brother(s) Family Medical History: COPD Additional Family Medical History / Comment(s): Patient has one brother with C OPD. General Exam Limitations: no limitations General appearance: alert, in no apparent distress Head exam: Present: atraumatic, normocephalic, normal inspection Eye exam: Present: normal appearance, PERRL, EOMI. Absent: scleral icterus, conjunctival injection, periorbital swelling ENT exam: Present: normal exam, mucous membranes moist Neck exam: Present: normal inspection. Absent: tenderness, meningismus, lymphadenopathy Respiratory exam: Present: normal lung sounds bilaterally. Absent: respiratory distress, wheezes, rales, rhonchi, stridor Cardiovascular Exam: Present: regular rate, normal rhythm, normal heart sounds. Absent: systolic murmur, diastolic murmur, rubs, gallop, clicks GI/Abdominal exam: Present: soft, normal bowel sounds. Absent: distended, tenderness, guarding, rebound, rigid, pulsatile mass, hernia Extremities exam: Present: normal inspection, full ROM, normal capillary refill. Absent: tenderness, pedal edema, joint swelling, calf tenderness Back exam: Present: normal inspection Neurological exam: Present: alert, oriented X3, CN II-XII intact Psychiatric exam: Present: normal affect, normal mood Skin exam: Present: warm, dry, intact, normal color. Absent: rash Course Vital Signs 12/29/21 12/29/21 12/29/21 17:48 19:51 21:32 Temperature 98.2 F Pulse Rate 113 H 74 87 Respiratory 20 20 20 Rate Blood Pressure 147/93 132/88 133/73 O2 Sat by Pulse 98 97 97 Oximetry Medical Decision Making - Medical Decision Making Upon arrival the patient is placed into room 5. A thorough history and physical exam was performed. Patient does appear to be comfortable in the exam room. He has 2+ palpable pulses with good capillary refill in lower extremities. No pulsatile mass. No abdominal pain. I did ultrasound the patient's aorta which does demonstrate a known aortic aneurysm however no signs of rupture at this time. No free fluid. Patient was given a dose of pain medications. Admits to improvement in his pain. He'll be discharged home and needs to call Dr. Briones on Friday to reschedule his surgery. Return for any new or worsening symptoms. He is in a pain contract and therefore does have pain medications at home. He agreed to the treatment plan was discharged home in stable condition - Lab Data Result diagrams: 12/29/21 19:41 12/29/21 19:41 Lab Results 12/29/21 12/29/21 Range/Units 19:41 19:41 WBC 8.8 (3.8-10.6) k/uL RBC 5.03 (4.30-5.90) m/uL Hgb 14.8 (13.0-17.5) gm/dL Hct 45.1 (39.0-53.0) % MCV 89.7 (80.0-100.0) fL MCH 29.4 (25.0-35.0) pg MCHC 32.8 (31.0-37.0) g/dL RDW 11.7 (11.5-15.5) % Plt Count 218 (150-450) k/uL MPV 7.4 Neutrophils % 67 % Lymphocytes % 22 % Monocytes % 7 % Eosinophils % 2 % Basophils % 1 % Neutrophils # 5.8 (1.3-7.7) k/uL Lymphocytes # 2.0 (1.0-4.8) k/uL Monocytes # 0.6 (0-1.0) k/uL Eosinophils # 0.2 (0-0.7) k/uL Basophils # 0.1 (0-0.2) k/uL Sodium 136 L (137-145) mmol/L Potassium 4.1 (3.5-5.1) mmol/L Chloride 96 L (98-107) mmol/L Carbon Dioxide 30 (22-30) mmol/L Anion Gap 10 mmol/L BUN 15 (9-20) mg/dL Creatinine 0.95 (0.66-1.25) mg/dL Est GFR (CKD-EPI)AfAm >90 (>60 ml/min/1.73 sqM) Est GFR (CKD-EPI)NonAf 88 (>60 ml/min/1.73 sqM) Glucose 104 H (74-99) mg/dL Calcium 9.8 (8.4-10.2) mg/dL Total Bilirubin 0.3 (0.2-1.3) mg/dL AST 32 (17-59) U/L ALT 26 (4-49) U/L Alkaline Phosphatase 57 (38-126) U/L Total Protein 8.2 (6.3-8.2) g/dL Albumin 5.2 H (3.5-5.0) g/dL Disposition Clinical Impression: Back pain, History of AAA (abdominal aortic aneurysm) repair, Type II endoleak of aortic graft Disposition: HOME SELF-CARE Condition: Stable Instructions (If sedation given, give patient instructions): Back Pain (ED) Additional Instructions: Please call Dr. Briones on Friday to schedule your surgery. Return to the emergency department for any new or worsening symptoms Is patient prescribed a controlled substance at d/c from ED?: No Referrals: Gene Perera MD [Primary Care Provider] - 1-2 days Michael Briones DO [STAFF PHYSICIAN] - 1-2 days Time of Disposition: 21:10
[2021-12-29 21:33] VITALS: BP 133/73; PULSE 87
== END 2021-12-29 21:43 | disposition home or self-care (01) ==
LOC: EC 17:45
DX: Z86.79 Personal history of other diseases of the circulatory system (principal); I97.89 Other postprocedural complications and disorders of the circulatory system, not elsewhere classified; F17.209 Nicotine dependence, unspecified, with unspecified nicotine-induced disorders; E11.9 Type 2 diabetes mellitus without complications; E78.5 Hyperlipidemia, unspecified; I10 Essential (primary) hypertension; K21.9 Gastro-esophageal reflux disease without esophagitis; Z79.83 Long term (current) use of bisphosphonates
CPT/HCPCS: 36415; 80053; 85025; 93979; 99284; 96374; 96375; J2270; J1170

== ENCOUNTER 2022-02-11 07:30 | Inpatient (IN) | payer OTHER ==
[~2022-02-11 07:30] MED LIST changes: +DEXAMETHASONE SOD PHOSPHATE 4 MG/ML 1 ML VIAL IV ONE; +HYDROmorphone 0.5 MG/0.5 ML SYRINGE IVP PRN; +LACTATED RINGERS 1,000 ML IV SCH; +LIDOCAINE 1% (10MG/ML) FOR IV START INTRADERMA PRN; +METOCLOPRAMIDE 5 MG/ML 2 ML VIAL IVP PRN; +ONDANSETRON 4 MG/2 ML VIAL IVP ONE; +SODIUM CHLORIDE 0.9% 1,000 ML in EMPTY BAG 1 BAG IV ONE; -SODIUM CHLORIDE 0.9% 500 ML 500 ML IV SCH
[2022-02-11] MEDS ORDERED: SODIUM CHLORIDE 0.9% 1,000 ML IV ONE (08:18)
[2022-02-11 08:33] LABS: Basophils % (A) 0 %; Eosinophils # (A) 0.2 k/uL (0-0.7); Eosinophils % (A) 4 %; HCT 41.6 % (39.0-53.0); HGB 13.7 gm/dL (13.0-17.5); Lymphocytes # (A) 1.3 k/uL (1.0-4.8); Lymphocytes % (A) 24 %; MCH 29.3 pg (25.0-35.0); MCHC 33.1 g/dL (31.0-37.0); MCV 88.6 fL (80.0-100.0); Mean Platelet Volume 7.5; Monocytes # (A) 0.4 k/uL (0-1.0); Monocytes % (A) 7 %; Neutrophils # (A) 3.4 k/uL (1.3-7.7); Neutrophils % (A) 63 %; Platelet Count 227 k/uL (150-450); RBC 4.69 m/uL (4.30-5.90); RDW 11.9 % (11.5-15.5); WBC 5.4 k/uL (3.8-10.6)
[2022-02-11 08:36] LABS: Glucose,Whole Blood 144 mg/dL (70-110)
[2022-02-11 08:37] VITALS: RESP 16; TEMP 98.1
[2022-02-11] MEDS ORDERED: fentaNYL (PF) 50 MCG/ML 2 ML AMP ONE ×2 (08:43→10:53)
[2022-02-11 08:44] LABS: African American GFR (CKD) >90 (>60 ml/min/1.73 sqM); Anion Gap 7 mmol/L; Blood Urea Nitrogen 14 mg/dL (9-20); Calcium 9.4 mg/dL (8.4-10.2); Carbon Dioxide 28 mmol/L (22-30); Chloride 101 mmol/L (98-107); Glucose 139 mg/dL (74-99); Non-African American GFR(CKD) >90 (>60 ml/min/1.73 sqM); Potassium 5.1 mmol/L (3.5-5.1); Sodium 136 mmol/L (137-145)
[2022-02-11] MEDS ORDERED: MIDAZOLAM 2 MG/2 ML VIAL IVP ONE (09:12)
[2022-02-11] MEDS ORDERED: fentaNYL (PF) 50 MCG/ML 2 ML AMP IVP ONE (09:13)
--- NOTE | 2022-02-11 09:55 | P.ANPRN ---
Procedure Note - Anesthesia - Invasive Line Right Arterial Line Time Out Performed: Yes Date of Procedure: 02/11/22 Time of Procedure: 08:55 Location of Patient: [facility] Preparation: Sterile Prep, Sterile Dressing Arterial Line Location: Radial Ultrasound Used: Yes Purpose - Visualization and Identification of Vasculature: Yes Image Stored and Saved: Yes Narrative: Central line placement per sterile protocol utilized.
[2022-02-11] MEDS ORDERED: HEPARIN SODIUM 1,000 UN/ML (10ML VL) ONE (10:26)
[2022-02-11] MEDS ORDERED: LIDOCAINE 1% INJ 10MG/ML (30 ML VIAL-PF) SQ ONE (10:52)
[2022-02-11] MEDS ORDERED: VERAPAMIL 2.5 MG/ML 2 ML AMP ONE (10:53)
[2022-02-11] MEDS: fentaNYL (PF) 50 MCG/ML 2 ML AMP IV ONE ×2 (11:03→12:13)
[2022-02-11] MEDS: MIDAZOLAM 2 MG/2 ML VIAL IV ONE ×2 (11:13→12:42)
[2022-02-11] MEDS ORDERED: HEPARIN SODIUM 1,000 UN/ML (10ML VL) IV ONE (12:35)
[2022-02-11] MEDS ORDERED: IV FLUID CONTINUATION 1,000 ML IV ONE (13:00)
[2022-02-11] MEDS ORDERED: IOPAMIDOL-250 100ML BTL INTRAARTER ONE (14:05)
[2022-02-11] MEDS ORDERED: IOPAMIDOL-370 50ML BTL INJ ONE (14:06)
--- NOTE | 2022-02-11 14:25 | P.OP ---
Date of Procedure: 02/11/22 Preoperative Diagnosis: AAA with type II endoleak x 2 Postoperative Diagnosis: AAA with type II endoleak x 3 Procedure(s) Performed: 1. Ultrasound left brachial artery access 2. Aortogram with selective right internal iliac artery angiogram 3. Coil embolization of the bilateral lumbar arteries and accessory renal artery 4. Conscious sedation x 298 mins Anesthesia: local Surgeon: Michael Briones Estimated Blood Loss (ml): 10 Pathology: none sent Condition: stable Disposition: PACU Indications for Procedure: 56 year old male with history of AAA with EVAR in 2018 who developed a worsening type II endoleak with increase size of his AAA presents today for angiogram and embolization of feeder vessels for endoleak repair. Operative Findings: Patent lumbar and assessed renal artery noted upon aortogram with endoleak noted from all 3 areas. Once collateralization was performed there was no evidence of type II endoleak Description of Procedure: After written informed consent was obtained the patient all risks benefits competitions were described the patient is brought to the [facility] Manager and laid in a supine position with left arm outstretched on an armboard. The area of the left arm was prepped and draped in the usual sterile fashion. Local anesthesia with moderate sedation was performed with continuous pulse ox monitoring and EKG monitoring. Utilizing ultrasound the left brachial artery was visualized and sh own to be patent without any significant plaque. Utilizing a multipurpose needle under ultrasound guidance the artery was accessed. Guidewire was placed followed by 5-Setswana sheath. 035 Glidewire was then placed into the aorta followed by an angled glide catheter. [place] catheter was then directed into the right iliac limb and selective iliac angiogram was obtained demonstrating good takeoff of the internal iliac artery with a type II endoleak noted from a branch from the internal iliac artery extending to the lumbar as well as the accessory renal artery. 035 Glidewire advantage wire was then placed followed by a 5/6F 95 cm sheath which was placed into the right common iliac stent graft. 035 Glidewire was then placed within the internal iliac artery directed with an angled glide catheter. Selective angiogram of the internal iliac artery was obtained demonstrating multiple branches with one branch leading to the aorta and lumbar vessels. Utilizing the guidewire and angled glide catheter a wire was placed into the aorta and across into the lumbar vessels. Micro-sheath was then placed across into the left lumbar artery and Azur 6x20mm coils were placed x 2 with good embolization of the left lumbar artery. Once embolized attention was then placed to the accessory renal artery and utilizing multiple wires and catheters the associated renal artery was accessed through the aorta in a retrograde fashion. Due to the highly tortuous vasculature area was difficult to place a large catheter and therefore through series of 035 catheters and guiding micro-catheters ultimately a microcatheter was placed into the sensory renal artery. Multiple Estee coils measuring 8x20mm and 8x60mm were placed with good thrombosis noted of the sensory renal artery. Attention was then placed to the right lumbar artery and catheters were withdrawn to the orifice of the right lumbar artery. Multiple angiograms were obtained throughout the procedure demonstrating the type II endoleak's. Final collateralization was performed of the right lumbar artery with 2 6x20mm Azur coils. Final angiograms were obtained demonstrating thrombosed lumbar artery and accessory renal artery with no evidence of a type II endoleak. All guidewires and catheters were then removed sheath was removed and pressure was placed for hemostasis. Patient tolerated procedure well was sent to PACU for recovery
--- NOTE | 2022-02-11 15:56 | IR ---
EXAMINATION TYPE: IR embolization any method DATE OF EXAM: 02/11/2022 COMPARISON: NONE HISTORY: Fluoroscopy time. Fluoroscopy was provided to the referring clinician.
[2022-02-11 20:05] VITALS: PULSE 55
[2022-02-11 20:07] VITALS: BP 157/78
== END 2022-02-11 18:31 | disposition home or self-care (01) | DRG 272 ==
LOC: 2ORMAIN 07:41
PROVIDERS: ADMIT Surgery; ATTEND Surgery
PROC: 04VA3DZ Restriction of Left Renal Artery with Intraluminal Device, Percutaneous Approach (ICD-10-PCS; 2022-02-11)
PROC: 04VY3DZ Restriction of Lower Artery with Intraluminal Device, Percutaneous Approach (ICD-10-PCS; 2022-02-11)
PROC: B34JZZZ Ultrasonography of Left Upper Extremity Arteries (ICD-10-PCS; 2022-02-11)
PROC: B41C1ZZ Fluoroscopy of Pelvic Arteries using Low Osmolar Contrast (ICD-10-PCS; 2022-02-11)
PROC: B4101ZZ Fluoroscopy of Abdominal Aorta using Low Osmolar Contrast (ICD-10-PCS; 2022-02-11)
PROC: 4A133B1 Monitoring of Arterial Pressure, Peripheral, Percutaneous Approach (ICD-10-PCS; 2022-02-11)
PROC: 4A133J1 Monitoring of Arterial Pulse, Peripheral, Percutaneous Approach (ICD-10-PCS; 2022-02-11)
PROC: 04V93DZ Restriction of Right Renal Artery with Intraluminal Device, Percutaneous Approach (ICD-10-PCS; principal; 2022-02-11 09:45)
DX: I97.89 Other postprocedural complications and disorders of the circulatory system, not elsewhere classified (principal); Q27.2 Other congenital malformations of renal artery; Y83.2 Surgical operation with anastomosis, bypass or graft as the cause of abnormal reaction of the patient, or of later complication, without mention of misadventure at the time of the procedure; F90.9 Attention-deficit hyperactivity disorder, unspecified type; F41.9 Anxiety disorder, unspecified; J44.9 Chronic obstructive pulmonary disease, unspecified; N40.0 Benign prostatic hyperplasia without lower urinary tract symptoms; D45 Polycythemia vera; I10 Essential (primary) hypertension; E78.00 Pure hypercholesterolemia, unspecified; E11.42 Type 2 diabetes mellitus with diabetic polyneuropathy; Z86.79 Personal history of other diseases of the circulatory system; Z79.84 Long term (current) use of oral hypoglycemic drugs; Z87.19 Personal history of other diseases of the digestive system; Y84.8 Other medical procedures as the cause of abnormal reaction of the patient, or of later complication, without mention of misadventure at the time of the procedure; Z79.899 Other long term (current) drug therapy
CPT/HCPCS: 37242; 80048; 85025; 86850; 86900; 86901

== ENCOUNTER 2022-03-25 21:53 | Emergency (ER) | payer OTHER ==
[2022-03-25] MEDS ORDERED: SODIUM CHLORIDE 0.9% 1,000 ML IV STA (23:18)
--- NOTE | 2022-03-25 23:25 | ED ---
Abdominal Pain HPI - General Chief Complaint: Abdominal Pain Stated Complaint: abdominal pain Time Seen by Provider: 03/25/22 23:07 Source: patient, RN notes reviewed Mode of arrival: ambulatory Limitations: no limitations - History of Present Illness Initial Comments: This is a pleasant 57-year-old male comes ER complaining of abdominal pain which has been ongoing for the past 2 weeks. Patient states he feels like he is having discomfort, pressure, and pain across lower abdomen which does radiate into the groin area. Patient also feels like he is having problems urinating. Patient states she is going frequently. Having some burning. Denies any back pain. Denies any vomiting. Patient has also had constipation since having surgery for a type II endothelial leak from the aorta in mid January. Patient denying any fevers or chills but states he has had some sweats. Patient has had 2 negative colonoscopies previously. No headache, no fever or chills, no changes in vision or hearing, no sore throat or difficulty with speech, no neck pain, no chest pain or shortness of breath, no nausea or vomiting, DIFFICULTIES with urination and constipation., no numbness or tingling, no extremity pain, no skin rashes or lesions. Past medical, surgical, social, and family history reviewed. - Related Data Home Medications Medication Instructions Recorded Confirmed Hydrocodone/Acetaminophen [[place] 1 tab PO TID PRN 03/13/17 02/11/22 7.5-325] Baclofen [Lioresal] 10 mg PO DAILY PRN 04/27/18 02/07/22 glyBURIDE/METFORMIN HCL 1 tab PO BID-W/MEALS 04/27/18 02/11/22 [glyBURIDE/METFORMIN HCL 5-500 mg] Venlafaxine HCl ER [Effexor Xr] 75 mg PO HS 07/07/18 02/11/22 ALPRAZolam [Xanax] 0.5 mg PO BID PRN 06/19/21 02/11/22 Butalb/APAP/Caff 50-325-40Mg 1 - 2 tab PO Q6H PRN 06/19/21 02/11/22 [Fioricet 50-325-40] Gabapentin 600 mg PO TID 06/19/21 02/11/22 lisinopriL [Zestril] 15 mg PO BID 02/07/22 02/11/22 Ascorbic Acid [Vitamin C] 500 mg PO DAILY 02/08/22 02/11/22 Cholecalciferol [Vitamin D3 (25 25 mcg PO DAILY 02/08/22 02/11/22 Mcg = 1000 Iu)] Magnesium 250 mg PO DAILY 02/08/22 02/11/22 Zinc 50 mg PO DAILY 02/08/22 02/11/22 Allergies Allergy/AdvReac Type Severity Reaction Status Date / Time No Known Allergies Allergy Verified 03/25/22 22:03 Review of Systems ROS Statement: Those systems with pertinent positive or pertinent negative responses have been documented in the HPI. ROS Other: All systems not noted in ROS Statement are negative. 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 Past Anesthesia/Blood Transfusion Reactions: Previous Problems w/ Anesthesia, Motion Sickness Additional Past Anesthesia/Blood Transfusion Reaction / Comment(s): Aneurysm surgery 10/04/17- "cardiac arrest" at [facility] -pt not sure of cause Past Psychological History: Anxiety, Depression Smoking Status: Former smoker, Vaper Past Alcohol Use History: None Reported Past Drug Use History: None Reported - Past Family History Father Family Medical History: Deep Vein Thrombosis (DVT) Additional Family Medical History / Comment(s): Father is alive at age 83 with history of diabetes, osteoarthritis, dementia. Sister(s) Family Medical History: Cancer Additional Family Medical History / Comment(s): 2 sisters-breast cancer Brother(s) Family Medical History: COPD Additional Family Medical History / Comment(s): Patient has one brother with COPD. General Exam - General Exam Comments Initial Comments: Nontoxic appearing male in no acute distress. Patient vital signs are stable, patient is afebrile. Patient appears to be adequately hydrated. Patient drinking water in triage when I initially see him. Cranial nerves II through XII grossly intact. No mottling, cap refill less than 2 seconds Limitations: no limitations General appearance: alert, in no apparent distress Head exam: Present: atraumatic, normocephalic, normal inspection Eye exam: Present: normal appearance, PERRL, EOMI. Absent: scleral icterus, conjunctival injection, periorbital swelling ENT exam: Present: normal exam, mucous membranes moist Neck exam: Present: normal inspection. Absent: tenderness, meningismus, lymphadenopathy Respiratory exam: Present: normal lung sounds bilaterally. Absent: respiratory distress, wheezes, rales, rhonchi, stridor Cardiovascular Exam: Present: regular rate, normal rhythm, normal heart sounds. Absent: systolic murmur, diastolic murmur, rubs, gallop, clicks GI/Abdominal exam: Present: soft, tenderness (Minimal tenderness across lower abdomen to palpation. No rebound or guarding), normal bowel sounds. Absent: distended, guarding, rebound, rigid, bruit, pulsatile mass, hernia Rectal exam: Present: normal inspection, normal rectal tone, normal prostate. Absent: black stool, bloody stool, fecal impaction, hemorrhoids, mass, tenderness, prostate tenderness, prostate enlargement exam: Present: normal inspection. Absent: testicular tenderness, urethral discharge, scrotal swelling External exam: Present: normal external exam. Absent: erythema, swelling, lesions, lacerations, ecchymosis Extremities exam: Present: normal inspection, full ROM, normal capillary refill. Absent: tenderness, pedal edema, joint swelling, calf tenderness Back exam: Present: normal inspection Neurological exam: Present: alert, oriented X3, CN II-XII intact Psychiatric exam: Present: normal affect, normal mood Skin exam: Present: warm, dry, intact, normal color. Absent: rash Course Vital Signs 03/25/22 03/25/22 03/25/22 22:03 22:06 23:06 Temperature 98.7 F 98.4 F Pulse Rate 82 91 Respiratory 18 17 Rate Blood Pressure 130/84 158/84 O2 Sat by Pulse 99 99 Oximetry 03/26/22 01:00 Temperature 97.9 F Pulse Rate 90 Respiratory Rate Blood Pressure 131/78 O2 Sat by Pulse Oximetry - Reevaluation(s) Reevaluation #1: 03/26/22 02:16 Medical record is reviewed Symptoms are unchanged. Patient still complaining of lower abdominal pelvic pain. Patient is informed of results and questions answered Patient in no distress The case was discussed in detail with ED attending physician. Presentation, findings, treatment plan discussed in detail. Reevaluation #2: 03/26/22 03:50 Medical record is reviewed Symptoms are improved here in the emergency department Patient is informed of results and questions answered Patient in no distress Vital signs stable, patient afebrile, alert, no distress Medical Decision Making - Medical Decision Making Patient comes with nonspecific lower abdominal pain. Differential includes diverticulitis, constipation, constipation with urinary retention, this is less likely be infectious processes patient has not had a fever and shaking chills. Does not appear to be consistent with kidney stone. Patient has no upper abdominal pain. Not consistent with cardiopulmonary disease. There is no pulsatile mass. Patient did have an endothelial leak from an aortic graft was repaired in January. Patient symptoms been present for 2 weeks and a relatively mild. Unlikely to be aortic in etiology. Patient had minimal elevation of potassium. Patient given 1 dose of Kayexalate here, one dose of Lasix, and magnesium oxide. While the patient continue his magnesium supplementation at home. We'll have the patient contact his regular physician tomorrow at 8 AM without fail to schedule recheck within the next 48 hours. Magnesium citrate for constipation Patient was told to return to the ER for any signs or symptoms worsen. Told to return immediately if any other problems arise. All questions answered. Treatment plan discussed. Patient in agreement Every effort has been made to ensure accuracy of this dictation. However, due to the limitations of electronic medical records and dictation devices, errors in charting still occur. The case was discussed in detail with ED attending physician. Presentation, findings, treatment plan discussed in detail. Fusing Line Inspector Dr. Chaney - Lab Data Result diagrams: 03/26/22 00:30 03/26/22 00:30 Lab Results 03/26/22 03/26/22 03/26/22 Range/Units 00:30 00:30 00:30 WBC 10.6 (3.8-10.6) k/uL RBC 3.83 L (4.30-5.90) m/uL Hgb 11.3 L (13.0-17.5) gm/dL Hct 34.0 L (39.0-53.0) % MCV 88.9 (80.0-100.0) fL MCH 29.6 (25.0-35.0) pg MCHC 33.3 (31.0-37.0) g/dL RDW 12.2 (11.5-15.5) % Plt Count 543 H D (150-450) k/uL MPV 6.7 Neutrophils % 79 % Lymphocytes % 12 % Monocytes % 6 % Eosinophils % 1 % Basophils % 0 % Neutrophils # 8.4 H (1.3-7.7) k/uL Lymphocytes # 1.3 (1.0-4.8) k/uL Monocytes # 0.7 (0-1.0) k/uL Eosinophils # 0.1 (0-0.7) k/uL Basophils # 0.0 (0-0.2) k/uL Sodium 130 L (137-145) mmol/L Potassium 5.3 H (3.5-5.1) mmol/L Chloride 90 L (98-107) mmol/L Carbon Dioxide 23 (22-30) mmol/L Anion Gap 17 mmol/L BUN 14 (9-20) mg/dL Creatinine 0.72 (0.66-1.25) mg/dL Est GFR (CKD-EPI)AfAm >90 (>60 ml/min/1.73 sqM) Est GFR (CKD-EPI)NonAf >90 (>60 ml/min/1.73 sqM) Glucose 196 H (74-99) mg/dL Plasma Lactic Acid Gadiel 1.0 (0.7-2.0) mmol/L Calcium 9.7 (8.4-10.2) mg/dL Total Bilirubin 0.5 (0.2-1.3) mg/dL AST 48 (17-59) U/L ALT 99 H (4-49) U/L Alkaline Phosphatase 165 H (38-126) U/L Total Protein 7.8 (6.3-8.2) g/dL Albumin 4.4 (3.5-5.0) g/dL Lipase 144 (23-300) U/L Urine Color Urine Appearance (Clear) Urine pH (5.0-8.0) Ur Specific [place] (1.001-1.035) Urine Protein (Negative) Urine Glucose (UA) (Negative) Urine Ketones (Negative) Urine Blood (Negative) Urine Nitrite (Negative) Urine Bilirubin (Negative) Urine Urobilinogen (<2.0) mg/dL Ur Leukocyte Esterase (Negative) Urine RBC (0-5) /hpf Urine WBC (0-5) /hpf Urine Mucus (None) /hpf 03/26/22 Range/Units 01:43 WBC (3.8-10.6) k/uL RBC (4.30-5.90) m/uL Hgb (13.0-17.5) gm/dL Hct (39.0-53.0) % MCV (80.0-100.0) fL MCH (25.0-35.0) pg MCHC (31.0-37.0) g/dL RDW (11.5-15.5) % Plt Count (150-450) k/uL MPV Neutrophils % % Lymphocytes % % Monocytes % % Eosinophils % % Basophils % % Neutrophils # (1.3-7.7) k/uL Lymphocytes # (1.0-4.8) k/uL Monocytes # (0-1.0) k/uL Eosinophils # (0-0.7) k/uL Basophils # (0-0.2) k/uL Sodium (137-145) mmol/L Potassium (3.5-5.1) mmol/L Chloride (98-107) mmol/L Carbon Dioxide (22-30) mmol/L Anion Gap mmol/L BUN (9-20) mg/dL Creatinine (0.66-1.25) mg/dL Est GFR (CKD-EPI)AfAm (>60 ml/min/1.73 sqM) Est GFR (CKD-EPI)NonAf (>60 ml/min/1.73 sqM) Glucose (74-99) mg/dL Plasma Lactic Acid Gadiel (0.7-2.0) mmol/L Calcium (8.4-10.2) mg/dL Total Bilirubin (0.2-1.3) mg/dL AST (17-59) U/L ALT (4-49) U/L Alkaline Phosphatase (38-126) U/L Total Protein (6.3-8.2) g/dL Albumin (3.5-5.0) g/dL Lipase (23-300) U/L Urine Color Yellow Urine Appearance Clear (Clear) Urine pH 6.5 (5.0-8.0) Ur Specific [place] 1.023 (1.001-1.035) Urine Protein 1+ H (Negative) Urine Glucose (UA) Negative (Negative) Urine Ketones 1+ H (Negative) Urine Blood Negative (Negative) Urine Nitrite Negative (Negative) Urine Bilirubin Negative (Negative) Urine Urobilinogen <2.0 (<2.0) mg/dL Ur Leukocyte Esterase Negative (Negative) Urine RBC 1 (0-5) /hpf Urine WBC 3 (0-5) /hpf Urine Mucus Rare H (None) /hpf - Radiology Data Radiology results: report reviewed, image reviewed No evidence of acute changes on CT angiogram of the abdomen. Graft in place. No evidence of leakage. Mild bilateral iliac aneurysms. Disposition Clinical Impression: Lower abdominal pain, Pelvic pain in male, Constipation, Hyperkalemia Disposition: HOME SELF-CARE Condition: Stable Instructions (If sedation given, give patient instructions): Abdominal Pain (ED) Additional Instructions: Follow-up with your regular physician as directed. Return to the ER immediately if any symptoms worsen, new symptoms arise, or any other problems develop. Try MiraLAX, [id number], for 2-3 days for constipation. Follow-up with your regular physician and your vascular surgeon as planned. Your primary care physician will need to monitor your electrolytes, liver function, and abdominal pain. Call Dr. Perera at 8AM to schedule a follow-up appointment within the next 48 hours. Touch base with your vascular surgeon as well. Is patient prescribed a controlled substance at d/c from ED?: No Referrals: Gene Perera MD [Primary Care Provider] - 03/26/22 8:00 am Michael Briones DO [STAFF PHYSICIAN] - 1-2 days Time of Disposition: 03:52
--- NOTE | 2022-03-25 23:46 | XR ---
EXAMINATION TYPE: XR abdomen acute w cxr DATE OF EXAM: 03/25/2022 COMPARISON: 05/11/2017 HISTORY: Abdominal pain TECHNIQUE: 4 views FINDINGS: There is no heart failure or confluent pneumonic infiltrate. There is slight elevated right diaphragm. There is slight blunting right costophrenic angle. There is an endograft in the abdominal aorta. There is no sign of intestinal obstruction or pneumoperitoneum. Fecal pattern is normal. No p athologic calcification seen over the kidneys. No evidence of abdominal mass. IMPRESSION: There is some pleural reaction and atelectasis right lung base which is new compared to o ld exam. Normal heart. No pulmonary consolidation or heart failure. Nonacute abdomen.
[2022-03-26 01:29] LABS: Basophils % (A) 0 %; Eosinophils # (A) 0.1 k/uL (0-0.7); Eosinophils % (A) 1 %; HGB 11.3 gm/dL (13.0-17.5); Lymphocytes # (A) 1.3 k/uL (1.0-4.8); Lymphocytes % (A) 12 %; MCH 29.6 pg (25.0-35.0); MCHC 33.3 g/dL (31.0-37.0); MCV 88.9 fL (80.0-100.0); Mean Platelet Volume 6.7; Monocytes # (A) 0.7 k/uL (0-1.0); Monocytes % (A) 6 %; Neutrophils # (A) 8.4 k/uL (1.3-7.7); Neutrophils % (A) 79 %; RBC 3.83 m/uL (4.30-5.90); RDW 12.2 % (11.5-15.5); WBC 10.6 k/uL (3.8-10.6)
[2022-03-26 01:39] LABS: Platelet Count 543 k/uL (150-450)
[2022-03-26 01:40] LABS: ALT 99 U/L (4-49); AST 48 U/L (17-59); African American GFR (CKD) >90 (>60 ml/min/1.73 sqM); Albumin 4.4 g/dL (3.5-5.0); Alkaline Phosphatase 165 U/L (38-126); Anion Gap 17 mmol/L; Blood Urea Nitrogen 14 mg/dL (9-20); Calcium 9.7 mg/dL (8.4-10.2); Carbon Dioxide 23 mmol/L (22-30); Chloride 90 mmol/L (98-107); Glucose 196 mg/dL (74-99); Lipase 144 U/L (23-300); Non-African American GFR(CKD) >90 (>60 ml/min/1.73 sqM); Potassium 5.3 mmol/L (3.5-5.1); Sodium 130 mmol/L (137-145); Total Bilirubin 0.5 mg/dL (0.2-1.3); Total Protein 7.8 g/dL (6.3-8.2)
[2022-03-26 01:46] VITALS: PULSE 90
[2022-03-26] MEDS ORDERED: MORPHINE SULFATE 4 MG/ML SYRINGE IV STA ×2 (02:08→04:09)
[2022-03-26] MEDS ORDERED: ONDANSETRON 4 MG/2 ML VIAL IVP STA (02:08)
[2022-03-26 02:09] LABS: Appearance,Urine Clear (Clear); Bilirubin,Urine Negative (Negative); Blood,Urine Negative (Negative); Color,Urine Yellow; Glucose,Urine (UA) Negative (Negative); Ketones,Urine 1+ (Negative); Leukocyte Esterase,Urine Negative (Negative); Mucus,Urine Rare /hpf; Nitrite,Urine Negative (Negative); PH, Urine 6.5 (5.0-8.0); Protein,Urine 1+ (Negative); RBC,Urine 1 /hpf (0-5); Specific Gravity,Urine 1.023 (1.001-1.035); Urobilinogen,Urine <2.0 mg/dL (<2.0); WBC,Urine 3 /hpf (0-5)
--- NOTE | 2022-03-26 03:26 | CT ---
EXAMINATION TYPE: CT angio abdomen pelvis DATE OF EXAM: 03/26/2022 COMPARISON: 10/26/2021 HISTORY: PT HAS HX OF TYPE 2 ENDOLEAK AND AAA REPAIR X2. CT DLP: 1288.8 mGycm Automated exposure control for dose reduction was used. CONTRAST: Performed with IV Contrast, patient injected with 100ml mL of Isovue 370. Images obtained from the diaphragm to the floor the pelvis without and subsequently with the IV contr ast. There are 3-D post processed images. There is elevated right diaphragm. There is some atelectasis and infiltrate right lung base. There is dense coronary artery calcification. Heart size is fairly normal. Liver spleen stomach pancreas appe ar intact. The bile ducts are not dilated. There is no adrenal mass. Kidneys of normal size. No hydro nephrosis. No retroperitoneal adenopathy. Ureters are nondilated. Bladder distends smoothly. No ingui nal hernia. No evidence of a pelvic mass. There is no ascites or free air. No bowel obstruction. The lumbar vertebrae have normal alignment. No compression fracture. Bony pelvis is intact. The hip j oints are intact. There is lower abdominal aortic aneurysm that measures up to 6.2 cm. There is an endograft with shawanda l opacification of the endograft from the aorta below the renal arteries to the common iliac arteries . There is bilateral common iliac artery aneurysms measuring up to 1.8 cm No evidence of contrast extravasation. There is arterial flow in the celiac artery and superior mesen teric artery without stenosis. Arterial flow in both renal arteries. No significant hemodynamic steno sis. There is arterial flow in the iliac and femoral arteries. IMPRESSION: Large lower abdominal aortic aneurysm with aortoiliac endograft in good position. No evidence of a le ak. Aneurysm is increased slightly compared to old exam. Previous exam measures 6 cm and now measures 6.2 cm. No evidence of hemodynamic stenosis. Mild aneurysm of the common iliac arteries.
[2022-03-26] MEDS ORDERED: MAGNESIUM CITRATE 296 ML BOTTLE PO ONE (03:54)
[2022-03-26] MEDS ORDERED: FUROSEMIDE 10 MG/ML 2 ML VIAL IV STA (03:59)
[2022-03-26] MEDS ORDERED: MAGNESIUM OXIDE 400 MG TAB PO STA (03:59)
[2022-03-26] MEDS ORDERED: SODIUM POLYSTYRENE SULFONATE 15 GM/60 ML BOTTLE PO STA (04:00)
[2022-03-26] MEDS ORDERED: KETOROLAC 15 MG/ML 1 ML VIAL IVP STA (04:09)
[2022-03-26] MEDS ORDERED: polyethylene glycoL 3350 17 GM POWD.PACK PO STA (04:18)
[2022-03-26 04:52] VITALS: BP 135/70; RESP 16; TEMP 97.8
== END 2022-03-26 04:54 | disposition home or self-care (01) ==
LOC: EC 21:53
DX: R10.2 Pelvic and perineal pain (principal); K59.00 Constipation, unspecified; E87.5 Hyperkalemia; E11.9 Type 2 diabetes mellitus without complications; K21.9 Gastro-esophageal reflux disease without esophagitis; E78.5 Hyperlipidemia, unspecified; I10 Essential (primary) hypertension; F41.9 Anxiety disorder, unspecified; F32.A Depression, unspecified; F17.290 Nicotine dependence, other tobacco product, uncomplicated; Z79.899 Other long term (current) drug therapy
CPT/HCPCS: 36415; 51798; 74022; 74174; 80053; 81001; 83605; 83690; 85025; 96361; 96374; 96375; 96376; 99284

== ENCOUNTER 2022-03-30 09:38 | Inpatient (IN) | payer OTHER ==
[2022-03-30] MEDS ORDERED: SODIUM CHLORIDE 0.9% 500 ML 500 ML IV STA (10:05)
[2022-03-30] MEDS ORDERED: HYDROmorphone 1 MG/ML 1 ML SYRINGE IVP STA ×2 (10:06→21:59)
[2022-03-30] MEDS ORDERED: ONDANSETRON 4 MG/2 ML VIAL IVP STA (10:10)
--- NOTE | 2022-03-30 10:10 | ED ---
General Adult HPI - General Chief complaint: Abdominal Pain Stated complaint: ABD Pain Time Seen by Provider: 03/30/22 09:50 Source: patient, RN notes reviewed, old records reviewed Mode of arrival: ambulatory Limitations: no limitations - History of Present Illness Initial comments: This is a 57-year-old male who presents emergency Department stating he has had pain for a week in his abdomen he describes in the lower abdomen area. Patient states she was here week ago and had a CAT scan with IV contrast and they did not find anything and he was sent home. Patient states she's not followed up with anybody this whole week. Patient states he woke up this morning the pain continued so he came in to be seen. Patient states she's been nauseated but has only vomited once per patient states he did have some diarrhea but that was after taking some mag citrate. Patient state after he had bowel movements he stated he did feel little better but the pain is back. Patient denies any fever chills. Patient states he did have an aortic aneurysm repair in January. - Related Data Home Medications Medication Instructions Recorded Confirmed Hydrocodone/Acetaminophen [[place] 1 tab PO TID PRN 03/13/17 02/11/22 7.5-325] Baclofen [Lioresal] 10 mg PO DAILY PRN 04/27/18 02/07/22 glyBURIDE/METFORMIN HCL 1 tab PO BID-W/MEALS 04/27/18 02/11/22 [glyBURIDE/METFORMIN HCL 5-500 mg] Venlafaxine HCl ER [Effexor Xr] 75 mg PO HS 07/07/18 02/11/22 ALPRAZolam [Xanax] 0.5 mg PO BID PRN 06/19/21 02/11/22 Butalb/APAP/Caff 50-325-40Mg 1 - 2 tab PO Q6H PRN 06/19/21 02/11/22 [Fioricet 50-325-40] Gabapentin 600 mg PO TID 06/19/21 02/11/22 lisinopriL [Zestril] 15 mg PO BID 02/07/22 02/11/22 Ascorbic Acid [Vitamin C] 500 mg PO DAILY 02/08/22 02/11/22 Cholecalciferol [Vitamin D3 (25 25 mcg PO DAILY 02/08/22 02/11/22 Mcg = 1000 Iu)] Magnesium 250 mg PO DAILY 02/08/22 02/11/22 Zinc 50 mg PO DAILY 02/08/22 02/11/22 Allergies Allergy/AdvReac Type Severity Reaction Status Date / Time No Known Allergies Allergy Verified 03/30/22 09:53 Review of Systems ROS Statement: Those systems with pertinent positive or pertinent negative responses have been documented in the HPI. ROS Other: All systems not noted in ROS Statement are negative. 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 Past Anesthesia/Blood Transfusion Reactions: Previous Problems w/ Anesthesia, Motion Sickness Additional Past Anesthesia/Blood Transfusion Reaction / Comment(s): Aneurysm surgery 10/04/17- "cardiac arrest" at [facility] -pt not sure of cause Past Psychological History: Anxiety, Depression Smoking Status: Former smoker, Vaper Past Alcohol Use History: None Reported Past Drug Use History: None Reported - Past Family History Father Family Medical History: Deep Vein Thrombosis (DVT) Additional Family Medical History / Comment(s): Father is alive at age 83 with history of diabetes, osteoarthritis, dementia. Sister(s) Family Medical History: Cancer Additional Family Medical History / Comment(s): 2 sisters-breast cancer Brother(s) Family Medical History: COPD Additional Family Medical History / Comment(s): Patient has one brother with TECHNICAL SALES ENGINEER D. General Exam - General Exam Comments Initial Comments: GENERAL: Patient is well-developed and well-nourished. Patient is nontoxic and well- hydrated and is in mild distress. ENT: Neck is soft and supple. No significant lymphadenopathy is noted. Oropharynx is clear. Moist mucous membranes. Neck has full range of motion without eliciting any pain. EYES: The sclera were anicteric and conjunctiva were pink and moist. Extraocular movements were intact and pupils were equal round and reactive to light. Eyelids were unremarkable. PULMONARY: Unlabored respirations. Good breath sounds bilaterally. No audible rales rho nchi or wheezing was noted. CARDIOVASCULAR: There is a regular rate and rhythm without any murmurs gallops or rubs. ABDOMEN: There is no point tenderness the lower abdomen is mildly diffusely tender but there is no rebound or guarding.. SKIN: Skin is clear with no lesions or rashes and otherwise unremarkable. NEUROLOGIC: Patient is alert and oriented x3. Cranial nerves II through XII are grossly intact. Motor and sensory are also intact. Normal speech, volume and content. Symmetrical smile. MUSCULOSKELETAL: Normal extremities with adequate strength and full range of motion. LYMPHATICS: No significant lymphadenopathy is noted PSYCHIATRIC: Normal psychiatric evaluation. Limitations: no limitations Course Vital Signs 03/30/22 03/30/22 03/30/22 09:50 10:43 13:06 Temperature 98.3 F Pulse Rate 74 70 67 Respiratory 16 18 18 Rate Blood Pressure 148/91 118/77 133/83 O2 Sat by Pulse 100 98 98 Oximetry Medical Decision Making - Medical Decision Making I review the old CAT scan from his previous ER visit it did not show anything acute. I went back and reevaluate the patient patient stated that he was unable to go home because he had not been pain medications to keep his pain at bay. I spoke with Dr. Radha Ragsdale agreed to admit the patient and admit the patient and consulted vascular surgery. - Lab Data Result diagrams: 03/30/22 10:38 03/30/22 10:38 Lab Results 03/30/22 03/30/22 Range/Units 10:38 10:38 WBC 10.7 H (3.8-10.6) k/uL RBC 3.81 L (4.30-5.90) m/uL Hgb 10.6 L (13.0-17.5) gm/dL Hct 33.3 L (39.0-53.0) % MCV 87.3 (80.0-100.0) fL MCH 27.8 (25.0-35.0) pg MCHC 31.9 (31.0-37.0) g/dL RDW 12.3 (11.5-15.5) % Plt Count 525 H (150-450) k/uL MPV 6.7 Neutrophils % 86 % Lymphocytes % 6 % Monocytes % 6 % Eosinophils % 0 % Basophils % 0 % Neutrophils # 9.3 H (1.3-7.7) k/uL Lymphocytes # 0.7 L (1.0-4.8) k/uL Monocytes # 0.6 (0-1.0) k/uL Eosinophils # 0.0 (0-0.7) k/uL Basophils # 0.0 (0-0.2) k/uL Sodium 127 L (137-145) mmol/L Potassium 4.5 (3.5-5.1) mmol/L Chloride 86 L (98-107) mmol/L Carbon Dioxide 27 (22-30) mmol/L Anion Gap 14 mmol/L BUN 11 (9-20) mg/dL Creatinine 0.66 (0.66-1.25) mg/dL Est GFR (CKD-EPI)AfAm >90 (>60 ml/min/1.73 sqM) Est GFR (CKD-EPI)NonAf >90 (>60 ml/min/1.73 sqM) Glucose 217 H (74-99) mg/dL Calcium 8.9 (8.4-10.2) mg/dL Total Bilirubin 0.3 (0.2-1.3) mg/dL AST 30 (17-59) U/L ALT 64 H (4-49) U/L Alkaline Phosphatase 143 H (38-126) U/L Total Protein 7.1 (6.3-8.2) g/dL Albumin 3.9 (3.5-5.0) g/dL Amylase 38 (30-110) U/L Lipase 29 (23-300) U/L Disposition Clinical Impression: Intractable abdominal pain Disposition: ADMITTED IP TO THIS [facility] Referrals: Gene Perera MD [Primary Care Provider] - 1-2 days Time of Disposition: 13:28
[2022-03-30 10:50] LABS: Basophils % (A) 0 %; Eosinophils % (A) 0 %; HCT 33.3 % (39.0-53.0); HGB 10.6 gm/dL (13.0-17.5); Lymphocytes # (A) 0.7 k/uL (1.0-4.8); Lymphocytes % (A) 6 %; MCH 27.8 pg (25.0-35.0); MCHC 31.9 g/dL (31.0-37.0); MCV 87.3 fL (80.0-100.0); Mean Platelet Volume 6.7; Monocytes # (A) 0.6 k/uL (0-1.0); Monocytes % (A) 6 %; Neutrophils # (A) 9.3 k/uL (1.3-7.7); Neutrophils % (A) 86 %; Platelet Count 525 k/uL (150-450); RBC 3.81 m/uL (4.30-5.90); RDW 12.3 % (11.5-15.5); WBC 10.7 k/uL (3.8-10.6)
[2022-03-30 11:00] LABS: ALT 64 U/L (4-49); AST 30 U/L (17-59); African American GFR (CKD) >90 (>60 ml/min/1.73 sqM); Albumin 3.9 g/dL (3.5-5.0); Alkaline Phosphatase 143 U/L (38-126); Amylase 38 U/L (30-110); Anion Gap 14 mmol/L; Blood Urea Nitrogen 11 mg/dL (9-20); Calcium 8.9 mg/dL (8.4-10.2); Carbon Dioxide 27 mmol/L (22-30); Chloride 86 mmol/L (98-107); Glucose 217 mg/dL (74-99); Lipase 29 U/L (23-300); Non-African American GFR(CKD) >90 (>60 ml/min/1.73 sqM); Potassium 4.5 mmol/L (3.5-5.1); Sodium 127 mmol/L (137-145); Total Bilirubin 0.3 mg/dL (0.2-1.3); Total Protein 7.1 g/dL (6.3-8.2)
[2022-03-30] MEDS ORDERED: SODIUM CHLORIDE 0.9% 1,000 ML IV ONE (13:28)
[2022-03-30] MEDS: HYDROmorphone 0.5 MG/0.5 ML SYRINGE IVP PRN ×3 (14:10→20:50)
[2022-03-30 17:19] LABS: Glucose,Whole Blood 108 mg/dL (70-110)
[2022-03-30 20:58] LABS: Glucose,Whole Blood 125 mg/dL (70-110)
[2022-03-31] MEDS: HYDROmorphone 0.5 MG/0.5 ML SYRINGE IVP PRN ×2 (05:28→09:28)
[2022-03-31 07:03] LABS: Glucose,Whole Blood 157 mg/dL (70-110)
--- NOTE | 2022-03-31 10:08 | P.GSCN ---
History of Present Illness Consult date: 03/31/22 Reason for Consult: Abdominal pain History of present illness: 57-year-old male comes in the hospital complaining of abdominal pain. Says he w as seen in the ER a few days ago. CAT scan was noted on 03/26. This was a CTA since the patient has had a history of previous abdominal aneurysms. There were checking partly for an endoleak. This appeared free of any definite abnormalities. He has had persistent discomfort. Pain is across the abdomen. Says he has difficulties urination. He feels bloated. He has had decreased bowel movements and decreased flatus. Patient says he does have a history of chronic pain is on [place] at home. Says he takes to [place] also for his back pain. Looking through the notes from the ER looks like they were going to consult vascular surgery. I do not see a vascular surgery consult place. CAT scan was performed with IV contrast and without oral contrast. 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 Past Anesthesia/Blood Transfusion Reactions: Previous Problems w/ Anesthesia, M otion Sickness Additional Past Anesthesia/Blood Transfusion Reaction / Comm: Aneurysm surgery 10/04/17- "cardiac arrest" at [facility] -pt not sure of cause Past Psychological History: Anxiety, Depression Smoking Status: Former smoker, Vaper Past Alcohol Use History: None Reported Past Drug Use History: None Reported - Past Family History Father Family Medical History: Deep Vein Thrombosis (DVT) Additional Family Medical History / Comment(s): Father is alive at age 83 with h istory of diabetes, osteoarthritis, dementia. Sister(s) Family Medical History: Cancer Additional Family Medical History / Comment(s): 2 sisters-breast cancer Brother(s) Family Medical History: COPD Additional Family Medical History / Comment(s): Patient has one brother with COPD. Medications and Allergies Home Medications Medication Instructions Recorded Confirmed Type Baclofen [Lioresal] 5 mg PO BID 04/27/18 03/30/22 History glyBURIDE/METFORMIN HCL 1 tab PO BID-W/MEALS 04/27/18 03/30/22 History [glyBURIDE/METFORMIN HCL 5-500 mg] Venlafaxine HCl ER [Effexor Xr] 75 mg PO HS 07/07/18 03/30/22 History ALPRAZolam [Xanax] 0.5 mg PO BID PRN 06/19/21 03/30/22 History Butalb/APAP/Caff 50-325-40Mg 1 - 2 tab PO Q6H PRN 06/19/21 03/30/22 History [Fioricet 50-325-40] Gabapentin 600 mg PO TID 06/19/21 03/30/22 History lisinopriL [Zestril] 30 mg PO DAILY 02/07/22 03/30/22 History Omeprazole 40 mg PO DAILY 03/30/22 03/30/22 History Pregabalin [Lyrica] 150 mg PO BID 03/30/22 03/30/22 History oxyCODONE HCL/ACETAMINOPHEN 1 tab PO TID PRN 03/30/22 03/30/22 History [Percocet 7.5-325 mg] Allergies Allergy/AdvReac Type Severity Reaction Status Date / Time No Known Allergies Allergy Verified 03/30/22 13:51 Surgical - Exam Vital Signs Temp Pulse Resp BP Pulse Ox 98.3 F 74 16 148/91 100 03/30/22 09:50 03/30/22 09:50 03/30/22 09:50 03/30/22 09:50 03/30/22 09:50 Physical exam: General: Well-developed, well-nourished HEENT: Normocephalic, sclerae nonicteric Abdomen: Mild distention, mild diffuse tenderness Extremities: No edema Neuro: Alert and oriented Results - Labs 03/30/22 10:38 03/30/22 10:38 Abnormal Lab Results - Last 24 Hours (Table) 03/30/22 03/30/22 03/30/22 Range/Units 10:38 10:38 20:56 WBC 10.7 H (3.8-10.6) k/uL RBC 3.81 L (4.30-5.90) m/uL Hgb 10.6 L (13.0-17.5) gm/dL Hct 33.3 L (39.0-53.0) % Plt Count 525 H (150-450) k/uL Neutrophils # 9.3 H (1.3-7.7) k/uL Lymphocytes # 0.7 L (1.0-4.8) k/uL Sodium 127 L (137-145) mmol/L Chloride 86 L (98-107) mmol/L Glucose 217 H (74-99) mg/dL POC Glucose (mg/dL) 125 H (70-110) mg/dL ALT 64 H (4-49) U/L Alkaline Phosphatase 143 H (38-126) U/L 03/31/22 Range/Units 06:57 WBC (3.8-10.6) k/uL RBC (4.30-5.90) m/uL Hgb (13.0-17.5) gm/dL Hct (39.0-53.0) % Plt Count (150-450) k/uL Neutrophils # (1.3-7.7) k/uL Lymphocytes # (1.0-4.8) k/uL Sodium (137-145) mmol/L Chloride (98-107) mmol/L Glucose (74-99) mg/dL POC Glucose (mg/dL) 157 H (70-110) mg/dL ALT (4-49) U/L Alkaline Phosphatase (38-126) U/L Diabetes panel 03/30/22 Range/Units 10:38 Sodium 127 L (137-145) mmol/L Potassium 4.5 (3.5-5.1) mmol/L Chloride 86 L (98-107) mmol/L Carbon Dioxide 27 (22-30) mmol/L BUN 11 (9-20) mg/dL Creatinine 0.66 (0.66-1.25) mg/dL Glucose 217 H (74-99) mg/dL Calcium 8.9 (8.4-10.2) mg/dL AST 30 (17-59) U/L ALT 64 H (4-49) U/L Alkaline Phosphatase 143 H (38-126) U/L Total Protein 7.1 (6.3-8.2) g/dL Albumin 3.9 (3.5-5.0) g/dL Calcium panel 03/30/22 Range/Units 10:38 Calcium 8.9 (8.4-10.2) mg/dL Albumin 3.9 (3.5-5.0) g/dL Pituitary panel 03/30/22 Range/Units 10:38 Sodium 127 L (137-145) mmol/L Potassium 4.5 (3.5-5.1) mmol/L Chloride 86 L (98-107) mmol/L Carbon Dioxide 27 (22-30) mmol/L BUN 11 (9-20) mg/dL Creatinine 0.66 (0.66-1.25) mg/dL Glucose 217 H (74-99) mg/dL Calcium 8.9 (8.4-10.2) mg/dL Adrenal panel 03/30/22 Range/Units 10:38 Sodium 127 L (137-145) mmol/L Potassium 4.5 (3.5-5.1) mmol/L Chloride 86 L (98-107) mmol/L Carbon Dioxide 27 (22-30) mmol/L BUN 11 (9-20) mg/dL Creatinine 0.66 (0.66-1.25) mg/dL Glucose 217 H (74-99) mg/dL Calcium 8.9 (8.4-10.2) mg/dL Total Bilirubin 0.3 (0.2-1.3) mg/dL AST 30 (17-59) U/L ALT 64 H (4-49) U/L Alkaline Phosphatase 143 H (38-126) U/L Total Protein 7.1 (6.3-8.2) g/dL Albumin 3.9 (3.5-5.0) g/dL Assessment and Plan (1) Intractable abdominal pain Narrative/Plan: 57-year-old male with persistent diffuse abdominal pain. Etiology unclear. Check morning labs. Will check abdominal x-rays today. His symptoms persist we'll order CT abdomen and pelvis with oral and IV contrast. Decision regarding vascular surgery consultation per primary service. Current Visit: Yes Status: Acute Code(s): R10.9 - UNSPECIFIED ABDOMINAL PAIN SNOMED Code(s): 55444553
[2022-03-31] MEDS: HYDROcodone/APAP 5-325MG 1 EACH TAB PO PRN ×2 (11:36→21:01)
--- NOTE | 2022-03-31 11:46 | XR ---
EXAMINATION TYPE: XR abdomen 2V DATE OF EXAM: 03/31/2022 HISTORY: Abdominal pain. Technique: Upright and supine views of the abdomen are submitted. Comparison: CTA abdomen pelvis 03/26/2022. Findings: There is no convincing evidence of pneumoperitoneum. Gaseous distention of the large bowel most prominently within the transverse descending colon. Gas is demonstrated within the ascending colon. Paucity of small bowel gas. Postsurgical changes with aortobiiliac stent graft identified. Postsurgical changes with endovascular clips overlying the lower central abdomen. Vascular sclerosis. Enlarged heart. IMPRESSION: Gaseous distention of the large bowel most prominent within the proximal colon. Gas is identified wit hin the descending colon. Findings suggest colonic ileus.
[2022-03-31 11:50] LABS: Lipase 15 U/L (14-60)
[2022-03-31 12:10] LABS: Glucose,Whole Blood 141 mg/dL (70-110)
[2022-03-31 12:18] LABS: ALT 65 U/L (10-49); AST 24 U/L (14-35); Albumin 3.7 g/dL (3.8-4.9); Albumin/Globulin Ratio 1.19 (1.60-3.17); Alkaline Phosphatase 125 U/L (41-126); Bilirubin, Conjugated <0.20 mg/dL (0.20-0.40); Globulin 3.1 g/dL (1.6-3.3); Total Protein 6.8 g/dL (6.2-8.2)
[2022-03-31] MEDS ORDERED: bisacodyL 10 MG SUPP RECTAL STA (12:40)
[2022-03-31] MEDS: GABAPENTIN 300 MG CAP PO SCH ×2 (15:29→21:01)
[2022-03-31 17:17] LABS: Glucose,Whole Blood 178 mg/dL (70-110)
[2022-03-31] MEDS: oxyCODONE-APAP 7.5-325MG 1 EACH TAB PO PRN (17:27)
--- NOTE | 2022-03-31 18:05 | P.HPIM ---
History of Present Illness H&P Date: 03/30/22 Chief Complaint: Abdominal pain 57-year-old male who presents emergency Department stating he has had pain for a week in his abdomen he describes in the lower abdomen area. Patient states she was here week ago and had a CAT scan with IV contrast and they did not find anything and he was sent home. Patient states she's not followed up with anybody this whole week. Patient states he woke up this morning the pain continued so he came in to be seen. Patient states she's been nauseated but has only vomited once per patient states he did have some diarrhea but that was a fter taking some mag citrate. Patient state after he had bowel movements he stated he did feel little better but the pain is back. Patient denies any fever chills. Patient states he did have an aortic aneurysm repair in January. Workup in ED includes blood work with a WBC of 10.7, hemoglobin of 10.6 and platelet count of 525, sodium 127, potassium 4.5, BUN/creatinine of 11/0.66 and blood glucose of 217 CT of the abdomen completed on previous visit to ED did not show anything acute Given recent history of surgery for type II and repeat urine leak from the aorta in mid-January, patient was admitted to the hospital for further evaluation by vascular surgery Review of Systems REVIEW OF SYSTEMS: CONSTITUTIONAL: No fever, no malaise, no fatigue. HEENT: No recent visual problems or hearing problems. Denied any sore throat. CARDIOVASCULAR: No chest pain, orthopnea, PND, no palpitations, no syncope. PULMONARY: No shortness of breath, no cough, no hemoptysis. GASTROINTESTINAL: No diarrhea, no nausea, no vomiting, no abdominal pain. NEUROLOGICAL: No headaches, no weakness, no numbness. HEMATOLOGICAL: Denies any bleeding or petechiae. GENITOURINARY: Denies any burning micturition, frequency, or urgency. MUSCULOSKELETAL/RHEUMATOLOGICAL: Denies any joint pain, swelling, or any muscle pain. ENDOCRINE: Denies any polyuria or polydipsia. The rest of the 14-point review of systems is negative. 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 Past Anesthesia/Blood Transfusion Reactions: Previous Problems w/ Anesthesia, Motion Sickness Additional Past Anesthesia/Blood Transfusion Reaction / Comment(s): Aneurysm surgery 10/04/17- "cardiac arrest" at [facility] -pt not sure of cause Past Psychological History: Anxiety, Depression Smoking Status: Former smoker, Vaper Past Alcohol Use History: None Reported Past Drug Use History: None Reported - Past Family History Father Family Medical History: Deep Vein Thrombosis (DVT) Additional Family Medical History / Comment(s): Father is alive at age 83 with history of diabetes, osteoarthritis, dementia. Sister(s) Family Medical History: Cancer Additional Family Medical History / Comment(s): 2 sisters-breast cancer Brother(s) Family Medical History: COPD Additional Family Medical History / Comment(s): Patient has one brother with COPD. Medications and Allergies Home Medications Medication Instructions Recorded Confirmed Type Baclofen [Lioresal] 5 mg PO BID 04/27/18 03/30/22 History glyBURIDE/METFORMIN HCL 1 tab PO BID-W/MEALS 04/27/18 03/30/22 History [glyBURIDE/METFORMIN HCL 5-500 mg] Venlafaxine HCl ER [Effexor Xr] 75 mg PO HS 07/07/18 03/30/22 History ALPRAZolam [Xanax] 0.5 mg PO BID PRN 06/19/21 03/30/22 History Butalb/APAP/Caff 50-325-40Mg 1 - 2 tab PO Q6H PRN 06/19/21 03/30/22 History [Fioricet 50-325-40] Gabapentin 600 mg PO TID 06/19/21 03/30/22 History lisinopriL [Zestril] 30 mg PO DAILY 02/07/22 03/30/22 History Omeprazole 40 mg PO DAILY 03/30/22 03/30/22 History Pregabalin [Lyrica] 150 mg PO BID 03/30/22 03/30/22 History oxyCODONE HCL/ACETAMINOPHEN 1 tab PO TID PRN 03/30/22 03/30/22 History [Percocet 7.5-325 mg] Allergies Allergy/AdvReac Type Severity Reaction Status Date / Time No Known Allergies Allergy Verified 03/30/22 13:51 Physical Exam Vitals: Vital Signs Temp Pulse Pulse Resp BP BP Pulse Ox 03/30/22 14:31 98.4 F 62 16 132/71 96 03/30/22 14:12 69 18 148/78 99 03/30/22 13:06 67 18 133/83 98 03/30/22 10:43 70 18 118/77 98 03/30/22 09:50 98.3 F 74 16 148/91 100 Intake and Output 03/30/22 03/30/22 03/30/22 06:59 14:59 22:59 Other: # Voids 0 Weight 79.379 kg GENERAL:Patient is well-developed and well-nourished. Patient is nontoxic and well-hydrated and is in mild distress. ENT: Neck is soft and supple. No significant lymphadenopathy is noted. Oropharynx is clear. Moist mucous membranes. Neck has full range of motion without eliciting any pain. EYES: The sclera were anicteric and conjunctiva were pink and moist. Extraocular movements were intact and pupils were equal round and reactive to light. Eyelids were unremarkable. PULMONARY: Unlabored respirations. Good breath sounds bilaterally. No audible rales rhonchi or wheezing was noted. CARDIOVASCULAR: There is a regular rate and rhythm without any murmurs gallops or rubs. ABDOMEN: There is no point tenderness the lower abdomen is mildly diffusely tender but there is no rebound or guarding.. SKIN: Skin is clear with no lesions or rashes and otherwise unremarkable. NEUROLOGIC: Patient is alert and oriented x3. Cranial nerves II through XII are grossly intact. Motor and sensory are also intact. Normal speech, volume and content. Symmetrical smile. MUSCULOSKELETAL: Normal extremities with adequate strength and full range of motion. LYMPHATICS: No significant lymphadenopathy is noted PSYCHIATRIC: Normal psychiatric evaluation. Results CBC & Chem 7: 03/30/22 10:38 03/30/22 10:38 Labs: Abnormal Lab Results - Last 24 Hours (Table) 03/30/22 03/30/22 Range/Units 10:38 10:38 WBC 10.7 H (3.8-10.6) k/uL RBC 3.81 L (4.30-5.90) m/uL Hgb 10.6 L (13.0-17.5) gm/dL Hct 33.3 L (39.0-53.0) % Plt Count 525 H (150-450) k/uL Neutrophils # 9.3 H (1.3-7.7) k/uL Lymphocytes # 0.7 L (1.0-4.8) k/uL Sodium 127 L (137-145) mmol/L Chloride 86 L (98-107) mmol/L Glucose 217 H (74-99) mg/dL ALT 64 H (4-49) U/L Alkaline Phosphatase 143 H (38-126) U/L Assessment and Plan Assessment: 1. 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 Hyponatremia; place patient on IV fluids in form of normal saline at 75 mL an hour; we will monitor electrolytes closely and make further adjustments 3. Mild leukocytosis; no evidence of any ongoing infection; likely reactive; monitor CBC 4. Anemia; hemoglobin is 10.6 down from 11.3 from ER visit on 03/25/2022; we will monitor H&H closely; CT angiography the abdomen was negative on 03/25/2022 5. Diabetes mellitus/diabetic neuropathy; patient takes Glucovance at home; we will hold off on oral hypoglycemic agents 5 patient is nothing by mouth; monitor Accu-Cheks before meals and at bedtime with insulin sliding scale - Reorder home dose of Neurontin 600 mg by mouth 3 times a day 6. Hypertension; lisinopril 30 mg daily 7. Depression/anxiety; patient takes Effexor 75 mg daily at bedtime and Xanax 0.5 mg twice a day DVT prophylaxis; SCDs CODE STATUS; full code
--- NOTE | 2022-03-31 18:23 | P.PN ---
Subjective Progress Note Date: 03/31/22 Principal diagnosis: Intractable abdominal pain Abdominal ileus Constipation 57-year-old male who presents emergency Department stating he has had pain for a week in his abdomen he describes in the lower abdomen area. Patient states she was here week ago and had a CAT scan with IV contrast and they did not find anything and he was sent home. Patient states she's not followed up with anybody this whole week. Patient states he woke up this morning the pain continued so he came in to be seen. Patient states she's been nauseated but has only vomited once per patient states he did have some diarrhea but that was after taking some mag citrate. Patient state after he had bowel movements he stated he did feel little better but the pain is back. Patient denies any fever chills. Patient states he did have an aortic aneurysm repair in January. Workup in ED includes blood work with a WBC of 10.7, hemoglobin of 10.6 and platelet count of 525, sodium 127, potassium 4.5, BUN/creatinine of 11/0.66 and blood glucose of 217 CT of the abdomen completed on previous visit to ED did not show anything acute Given recent history of surgery for type II and repeat urine leak from the aorta in mid-January, patient was admitted to the hospital for further evaluation by vascular surgery 03/31/2022 Patient is seen and evaluated in room at bedside with nursing staff present in the room; patient is quite agitated reporting he is not getting optimal pain control; per nursing staff "patient's commercial sales representative, Thelma" called with quite di sruptive conversation with case management when she was yelling and became hostile; she had to be escorted by security and is not permitted on the floor; this represented was demanding better pain control for patient and was demanding patient to be transferred to [facility] for pain management -- CT of the abdomen and pelvis was ordered yesterday which patient refused -- Vascular surgery spoke with RN and reviewed CT of the abdomen and did not think they had any further input - Gen. surgery was consulted; abdominal x-ray was done which showed gaseous distention of large bowel likely colonic ileus; surgery has recommended Dulcolax suppository - Patient has been requesting to increase Dilaudid up to 2 mg and has been taking Dilaudid and Cory around the clock; I did detailed discussion with patient indicating that ileus might be related to overuse off narcotics; did recommend CT of the abdomen instead of just relying on narcotics; CT abdomen with oral contrast has been suggested by surgery also if symptoms fail to resolve with relief and constipation; patient remains very irritable and states he needs extra dose of Dilaudid to help with pain - We will discontinue Dilaudid and place patient on home dose of Percocet; I did suggest palliative care for pain control Objective - Vital Signs Vital signs: Vital Signs Temp 99.6 F 03/31/22 07:00 Pulse 60 03/31/22 08:00 Resp 18 03/31/22 08:00 BP 170/76 03/31/22 07:00 Pulse Ox 96 03/31/22 07:00 FiO2 Intake & Output 03/30/22 03/31/22 03/31/22 18:59 06:59 18:59 Weight 79.379 kg Other: Voiding Method Toilet Toilet # Voids 0 2 - Exam GENERAL:Patient is well-developed and well-nourished. Patient is nontoxic and well-hydrated and is in mild distress. ENT: Neck is soft and supple. No significant lymphadenopathy is noted. Oropharynx is clear. Moist mucous membranes. Neck has full range of motion without eliciting any pain. EYES: The sclera were anicteric and conjunctiva were pink and moist. Extraocular movements were intact and pupils were equal round and reactive to light. Eyelids were unremarkable. PULMONARY: Unlabored respirations. Good breath sounds bilaterally. No audible rales rhonchi or wheezing was noted. CARDIOVASCULAR: There is a regular rate and rhythm without any murmurs gallops or rubs. ABDOMEN: There is no point tenderness the lower abdomen is mildly diffusely tender but there is no rebound or guarding.. SKIN: Skin is clear with no lesions or rashes and otherwise unremarkable. NEUROLOGIC: Patient is alert and oriented x3. Cranial nerves II through XII are grossly intact. Motor and sensory are also intact. Normal speech, volume and content. Symmetrical smile. MUSCULOSKELETAL: Normal extremities with adequate strength and full range of motion. LYMPHATICS: No significant lymphadenopathy is noted PSYCHIATRIC: Normal psychiatric evaluation. - Labs CBC & Chem 7: 03/30/22 10:38 03/30/22 10:38 Labs: Abnormal Lab Results - Last 24 Hours (Table) 03/30/22 03/30/22 03/31/22 Range/Units 20:11 20:56 06:57 POC Glucose (mg/dL) 125 H 157 H (70-110) mg/dL Total Bilirubin 0.20 L (0.30-1.20) mg/dL Conjugated Bilirubin <0.20 L (0.20-0.40) mg/dL ALT 65 H (10-49) U/L Albumin 3.7 L (3.8-4.9) g/dL Albumin/Globulin Ratio 1.19 L (1.60-3.17) g/dL 03/31/22 Range/Units 12:09 POC Glucose (mg/dL) 141 H (70-110) mg/dL Total Bilirubin (0.30-1.20) mg/dL Conjugated Bilirubin (0.20-0.40) mg/dL ALT (10-49) U/L Albumin (3.8-4.9) g/dL Albumin/Globulin Ratio (1.60-3.17) g/dL Assessment and Plan Assessment: 1. 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 Hyponatremia; place patient on IV fluids in form of normal saline at 75 mL an hour; we will monitor electrolytes closely and make further adjustments 3. Mild leukocytosis; no evidence of any ongoing infection; likely reactive; monitor CBC 4. Anemia; hemoglobin is 10.6 down from 11.3 from ER visit on 03/25/2022; we will monitor H&H closely; CT angiography the abdomen was negative on 03/25/2022 5. Diabetes mellitus/diabetic neuropathy; patient takes Glucovance at home; we will hold off on oral hypoglycemic agents 5 patient is nothing by mouth; monitor Accu-Cheks before meals and at bedtime with insulin sliding scale - Reorder home dose of Neurontin 600 mg by mouth 3 times a day 6. Hypertension; lisinopril 30 mg daily 7. Depression/anxiety; patient takes Effexor 75 mg daily at bedtime and Xanax 0.5 mg twice a day DVT prophylaxis; SCDs CODE STATUS; full code
[2022-03-31] MEDS: BACLOFEN 10 MG TAB PO SCH (21:01)
[2022-03-31] MEDS: VENLAFAXINE HCL ER 75 MG CAP PO SCH (21:02)
[2022-03-31 21:04] LABS: Glucose,Whole Blood 141 mg/dL (70-110)
[2022-03-31] MEDS ORDERED: NON FORMULARY DRUG (Gabapentin [Gabapentin] 600 MG Tablet) PO SCH (22:00)
[2022-04-01] MEDS: oxyCODONE-APAP 7.5-325MG 1 EACH TAB PO PRN ×4 (02:23→23:47)
[2022-04-01 07:02] LABS: Glucose,Whole Blood 157 mg/dL (70-110)
[2022-04-01] MEDS: GABAPENTIN 300 MG CAP PO SCH ×3 (08:25→21:02)
[2022-04-01] MEDS: HYDROcodone/APAP 5-325MG 1 EACH TAB PO PRN ×3 (08:25→21:08)
[2022-04-01] MEDS: BACLOFEN 10 MG TAB PO SCH ×2 (08:26→21:02)
[2022-04-01] MEDS: lisinopriL 10 MG TAB PO SCH (08:26)
[2022-04-01 09:12] LABS: Basophils # (A) 0.02 X 10*3/uL (0.00-0.10); Basophils % (A) 0.2 %; Eosinophils # (A) 0.02 X 10*3/uL (0.04-0.35); Eosinophils % (A) 0.2 %; HCT 30.2 % (39.6-50.0); Immature Grans, Automated 0.6 %; Lymphocytes # (A) 1.18 X 10*3/uL (0.90-5.00); Lymphocytes % (A) 9.3 %; MCH 28.4 pg (27.0-32.0); MCHC 33.1 g/dL (32.0-37.0); MCV 85.8 fL (80.0-97.0); Mean Platelet Volume 8.9 fL (9.5-12.2); Monocytes # (A) 1.08 X 10*3/uL (0.20-1.00); Monocytes % (A) 8.5 %; NRBC Per 100 WBC 0 /100 WBCS (0.0-0.0); Neutrophils # (A) 10.31 X 10*3/uL (1.80-7.70); Neutrophils % (A) 81.2 %; Platelet Count 435 X 10*3/uL (140-440); RBC 3.52 X 10*6/uL (4.40-5.60); WBC 12.69 X 10*3/uL (4.50-10.00)
[2022-04-01 10:20] LABS: African American GFR (CKD) 127.6 (60.0-200.0); Albumin 3.5 g/dL (3.8-4.9); Albumin/Globulin Ratio 1.13 (1.60-3.17); Anion Gap 13.8 mmol/L (10.00-18.00); BUN/Creat Ratio 18.83 Ratio (12.00-20.00); Blood Urea Nitrogen 11.3 mg/dL (9.0-27.0); Calcium 9.4 mg/dL (8.7-10.3); Carbon Dioxide 24.2 mmol/L (20.0-27.5); Globulin 3.1 g/dL (1.6-3.3); Non-African American GFR(CKD) 110.1 (60.0-200.0); Potassium 4.8 mmol/L (3.5-5.5); Total Bilirubin 0.2 mg/dL (0.30-1.20); Total Protein 6.6 g/dL (6.2-8.2)
[2022-04-01] MEDS ORDERED: MAGNESIUM CITRATE 296 ML BOTTLE PO ONE (10:28)
--- NOTE | 2022-04-01 10:30 | P.PN ---
Subjective Progress Note Date: 04/01/22 Principal diagnosis: Abdominal pain Patient appears comfortable today. Says his pain is slightly better but still present. He did have a bowel movement yesterday. Asking for more to eat. He is tolerating clear liquids. Says he still feels bloated. Objective - Vital Signs Vital signs: Vital Signs Temp 98 F 04/01/22 07:00 Pulse 54 L 04/01/22 08:00 Resp 18 04/01/22 08:00 BP 150/75 04/01/22 07:00 Pulse Ox 97 04/01/22 07:00 FiO2 Intake & Output 03/31/22 04/01/22 04/01/22 18:59 06:59 18:59 Intake Total 118 Balance 118 Intake: Oral 118 Other: Voiding Method Toilet Toilet Toilet # Voids 2 1 - Exam Abdomen: Soft, mild distention, mild diffuse tenderness - Labs CBC & Chem 7: 04/01/22 05:58 04/01/22 05:58 Labs: Abnormal Lab Results - Last 24 Hours (Table) 03/30/22 03/31/22 03/31/22 Range/Units 20:11 12:09 17:16 WBC (4.50-10.00) X 10*3/uL RBC (4.40-5.60) X 10*6/uL Hgb (13.0-17.0) g/dL Hct (39.6-50.0) % MPV (9.5-12.2) fL Immature Gran # (0.00-0.04) X 10*3/uL Neutrophils # (1.80-7.70) X 10*3/uL Monocytes # (0.20-1.00) X 10*3/uL Eosinophils # (0.04-0.35) X 10*3/uL Sodium (135-145) mmol/L Chloride (96-109) mmol/L Glucose (70-110) mg/dL POC Glucose (mg/dL) 141 H 178 H (70-110) mg/dL Total Bilirubin 0.20 L (0.30-1.20) mg/dL Conjugated Bilirubin <0.20 L (0.20-0.40) mg/dL AST (14-35) U/L ALT 65 H (10-49) U/L Albumin 3.7 L (3.8-4.9) g/dL Albumin/Globulin Ratio 1.19 L (1.60-3.17) g/dL 03/31/22 04/01/22 04/01/22 Range/Units 21:03 05:58 05:58 WBC 12.69 H (4.50-10.00) X 10*3/uL RBC 3.52 L (4.40-5.60) X 10*6/uL Hgb 10.0 L (13.0-17.0) g/dL Hct 30.2 L (39.6-50.0) % MPV 8.9 L (9.5-12.2) fL Immature Gran # 0.08 H (0.00-0.04) X 10*3/uL Neutrophils # 10.31 H (1.80-7.70) X 10*3/uL Monocytes # 1.08 H (0.20-1.00) X 10*3/uL Eosinophils # 0.02 L (0.04-0.35) X 10*3/uL Sodium 128 L (135-145) mmol/L Chloride 90 L (96-109) mmol/L Glucose 156 H (70-110) mg/dL POC Glucose (mg/dL) 141 H (70-110) mg/dL Total Bilirubin 0.20 L (0.30-1.20) mg/dL Conjugated Bilirubin (0.20-0.40) mg/dL AST 37 H (14-35) U/L ALT 75 H (10-49) U/L Albumin 3.5 L (3.8-4.9) g/dL Albumin/Globulin Ratio 1.13 L (1.60-3.17) g/dL 04/01/22 Range/Units 07:00 WBC (4.50-10.00) X 10*3/uL RBC (4.40-5.60) X 10*6/uL Hgb (13.0-17.0) g/dL Hct (39.6-50.0) % MPV (9.5-12.2) fL Immature Gran # (0.00-0.04) X 10*3/uL Neutrophils # (1.80-7.70) X 10*3/uL Monocytes # (0.20-1.00) X 10*3/uL Eosinophils # (0.04-0.35) X 10*3/uL Sodium (135-145) mmol/L Chloride (96-109) mmol/L Glucose (70-110) mg/dL POC Glucose (mg/dL) 157 H (70-110) mg/dL Total Bilirubin (0.30-1.20) mg/dL Conjugated Bilirubin (0.20-0.40) mg/dL AST (14-35) U/L ALT (10-49) U/L Albumin (3.8-4.9) g/dL Albumin/Globulin Ratio (1.60-3.17) g/dL Assessment and Plan (1) Intractable abdominal pain Narrative/Plan: Patient with persistent abdominal pain. Previous study not performed with oral contrast. Patient with some constipation on his plain films. Will order magnesium citrate today. We'll also repeat CAT scan and pelvis with oral and IV contrast. Current Visit: Yes Status: Acute Code(s): R10.9 - UNSPECIFIED ABDOMINAL PAIN SNOMED Code(s): 69804785
[2022-04-01] MEDS: IOPAMIDOL CONTRAST (ORAL USE) VIAL PO PRN ×2 (10:56→12:07)
[2022-04-01] MEDS: PANTOPRAZOLE 40 MG/10 ML VIAL IVP SCH (11:04)
[2022-04-01 12:10] LABS: Glucose,Whole Blood 186 mg/dL (70-110)
--- NOTE | 2022-04-01 13:17 | CT ---
EXAMINATION TYPE: CT abdomen pelvis w con CT DLP: 758.70 mGycm, Automated exposure control for dose reduction was used. DATE OF EXAM: 04/01/2022 12:51 PM COMPARISON: CTA abdomen pelvis 03/26/2022. CLINICAL INDICATION:Male, 57 years old with history of Persistent abdominal pain; Persistent abdomina l pain. Hx of AAA TECHNIQUE: Standard CT of the abdomen and pelvis following the administration of 100 cc of Isovue 3 00 IV contrast material and oral contrast. Coronal and sagittal reformats were performed. FINDINGS: LOWER CHEST: Bibasilar subpleural cystic emphysematous changes noted. Coronary arterial calcification s. ABDOMEN LIVER: Unremarkable GALLBLADDER AND BILE DUCTS: Unremarkable. PANCREAS: Unremarkable. SPLEEN: Unremarkable. ADRENAL GLANDS: Unremarkable. KIDNEYS AND URETERS: No evidence of hydronephrosis or renal calculus. The kidneys enhance symmetrical ly. Stable cyst within superior pole the right kidney. PELVIS BLADDER: Unremarkable REPRODUCTIVE: Unremarkable. ABDOMEN & PELVIS STOMACH AND BOWEL: Stomach and duodenum are unremarkable.Gas-filled dilated transverse colon measurin g up to 6.6 cm without focal transition point. Enteric contrast reaches the mid small bowel. Small alan wel is normal caliber. Colonic diverticulosis of the sigmoid colon without evidence for acute diverti culitis. No pneumatosis or portal venous gas. PERITONEUM: No evidence of pneumoperitoneum or free fluid. VASCULATURE: Stable lower abdominal aortic aneurysm that measures up to 6.0 cm, previously 6.2 cm. Re demonstration endograft with normal opacification of the endograft from the aorta below the renal art eries to the common iliac arteries. Bilateral common and arteries measuring up to 1.7 cm, previously 1.8 cm. No evidence for contrast extravasation. The celiac artery and SMA are patent. MUSCULOSKELETAL: No acute osseous abnormalities. Mild disc degeneration changes are present throughou t the thoracolumbar spine. LYMPH NODES: No gross evidence for lymphadenopathy. SOFT TISSUE/ABDOMINAL WALL: Unremarkable IMPRESSION: 1. Gaseous distention of the transverse colon without focal transition point suggestive of colonic i leus. 2. Stable lower large abdominal aortic aneurysm with aortobiiliac endograft measuring up to 6.0 cm. S table bilateral common iliac artery aneurysm measuring up to 1.7 cm.
--- NOTE | 2022-04-01 13:58 | P.PN ---
Subjective Progress Note Date: 04/01/22 57-year-old male who presents emergency Department stating he has had pain for a week in his abdomen he describes in the lower abdomen area. Patient states she was here week ago and had a CAT scan with IV contrast and they did not find anything and he was sent home. Patient states she's not followed up with anybody this whole week. Patient states he woke up this morning the pain continued so he came in to be seen. Patient states she's been nauseated but has only vomited once per patient states he did have some diarrhea but that was after taking some mag citrate. Patient state after he had bowel movements he stated he did feel little better but the pain is back. Patient denies any fever chills. Patient states he did have an aortic aneurysm repair in January. Workup in ED includes blood work with a WBC of 10.7, hemoglobin of 10.6 and platelet count of 525, sodium 127, potassium 4.5, BUN/creatinine of 11/0.66 and blood glucose of 217 CT of the abdomen completed on previous visit to ED did not show anything acute Given recent history of surgery for type II and repeat urine leak from the aorta in mid-January, patient was admitted to the hospital for further evaluation by vascular surgery 03/31/2022 Patient is seen and evaluated in room at bedside with nursing staff present in the room; patient is quite agitated reporting he is not getting optimal pain control; per nursing staff "patient's care support representative, Thelma" called with quite disruptive conversation with case management when she was yelling and became hostile; she had to be escorted by security and is not permitted on the floor; this represented was demanding better pain control for patient and was demanding patient to be transferred to [facility] for pain management -- CT of the abdomen and pelvis was ordered yesterday which patient refused -- Vascular surgery spoke with RN and reviewed CT of the abdomen and did not think they had any further input - Gen. surgery was consulted; abdominal x-ray was done which showed gaseous distention of large bowel likely colonic ileus; surgery has recommended Dulcolax suppository - Patient has been requesting to increase Dilaudid up to 2 mg and has been taking Dilaudid and [place] around the clock; I did detailed discussion with patient indicating that ileus might be related to overuse off narcotics; did recommend CT of the abdomen instead of just relying on narcotics; CT abdomen with oral contrast has been suggested by surgery also if symptoms fail to resolve with relief and constipation; patient remains very irritable and states he needs extra dose of Dilaudid to help with pain - We will discontinue Dilaudid and place patient on home dose of Percocet; I did suggest palliative care for pain control 04/01/2022 Patient is resting in bed reports abdominal pain rating 8/10 to his lower abdomen he states he is unable to describe. Reports having this pain and also urinary frequency with decreased amount and dysuria over the last week as well. He sates he has not had a normal BM for the last week also. He had initially refused repeat CT but agreed to having done today. Abdominal pelvis CT w con showing possible colonic ileus, stable aaa with graft and also stable bilat common iliac artery aneurysm. He is being followed by general surgery. Continues on norco for pain management. White count today 12.69, hgb 10.0, sodium 128, chloride 90. Blood glucose in the 180s his oral diabetic medications are currently on hold. ALT remains stable, AST is now 37. Blood pressure 123/70. Review of Systems Constitutional: Denied any fatigue denied any fever. Cardio vascular: denied any chest pain, palpitations Gastrointestinal: denied any nausea, vomiting, diarrhea. Reports constipation and abdominal pain. Pulmonary: Denied any shortness of breath cough Neurologic denied any new focal deficits All inpatient medications were reviewed and appropriate changes in these medications as dictated in the interval history and assessment and plan. PHYSICAL EXAMINATION: GENERAL: The patient is alert and oriented x3, not in any acute distress. Well developed, well nourished. HEENT: Pupils are round and equally reacting to light. EOMI. No scleral icterus. No conjunctival pallor. Normocephalic, atraumatic. No pharyngeal erythema. No thyromegaly. CARDIOVASCULAR: S1 and S2 present. No murmurs, rubs, or gallops. PULMONARY: Chest is clear to auscultation, no wheezing or crackles. ABDOMEN: Soft, nontender, distended, Hypoactive bowel sounds. No palpable organomegaly. MUSCULOSKELETAL: No joint swelling or deformity. EXTREMITIES: No cyanosis, clubbing, or pedal edema. NEUROLOGICAL: Gross neurological examination did not reveal any focal deficits. SKIN: No rashes. Assessment and plan Assessment Intractable abdominal pain most likely from ilues Hyponatremia, hypovolemic with poor oral intake Mild leukocytosis Anemia Diabetes mellitus Diabetic neuropathy Hypertension Depression/anxiety Former tobacco use Former EtOH use History of pancreatitis alcohol-induced History of abdominal aortic aneurysm post grafting stable 1.7 cm bilateral common iliac aortic aneurysm GI prophylaxis DVT prophylaxis Plan Pain management with oral pain meds Diet per surgery Monitor labs Monitor blood glucose Continue IV fluids Continue holding oral diabetic agents The impression and plan of care has been dictated by Dalia Love, Nurse Practitioner as directed. Dr. Giuliana MD I have performed a history and physical examination and medical decision making of this patient, discussed the same with the dictator, and agree with the dictators assessment and plan as written, documented as a scribe. Based on total visit time, I have performed more than 50% of this visit. Objective - Vital Signs Vital signs: Vital Signs Temp 98 F 04/01/22 07:00 Pulse 54 L 04/01/22 07:00 Resp 18 04/01/22 07:00 BP 150/75 04/01/22 07:00 Pulse Ox 97 04/01/22 07:00 FiO2 Intake & Output 03/31/22 04/01/22 04/01/22 18:59 06:59 18:59 Intake Total 118 Balance 118 Intake: Oral 118 Other: Voiding Method Toilet Toilet # Voids 2 1 - Labs CBC & Chem 7: 04/01/22 05:58 04/01/22 05:58 Labs: Abnormal Lab Results - Last 24 Hours (Table) 03/30/22 03/31/22 03/31/22 Range/Units 20:11 12:09 17:16 WBC (4.50-10.00) X 10*3/uL RBC (4.40-5.60) X 10*6/uL Hgb (13.0-17.0) g/dL Hct (39.6-50.0) % MPV (9.5-12.2) fL Immature Gran # (0.00-0.04) X 10*3/uL Neutrophils # (1.80-7.70) X 10*3/uL Monocytes # (0.20-1.00) X 10*3/uL Eosinophils # (0.04-0.35) X 10*3/uL POC Glucose (mg/dL) 141 H 178 H (70-110) mg/dL Total Bilirubin 0.20 L (0.30-1.20) mg/dL Conjugated Bilirubin <0.20 L (0.20-0.40) mg/dL ALT 65 H (10-49) U/L Albumin 3.7 L (3.8-4.9) g/dL Albumin/Globulin Ratio 1.19 L (1.60-3.17) g/dL 03/31/22 04/01/22 04/01/22 Range/Units 21:03 05:58 07:00 WBC 12.69 H (4.50-10.00) X 10*3/uL RBC 3.52 L (4.40-5.60) X 10*6/uL Hgb 10.0 L (13.0-17.0) g/dL Hct 30.2 L (39.6-50.0) % MPV 8.9 L (9.5-12.2) fL Immature Gran # 0.08 H (0.00-0.04) X 10*3/uL Neutrophils # 10.31 H (1.80-7.70) X 10*3/uL Monocytes # 1.08 H (0.20-1.00) X 10*3/uL Eosinophils # 0.02 L (0.04-0.35) X 10*3/uL POC Glucose (mg/dL) 141 H 157 H (70-110) mg/dL Total Bilirubin (0.30-1.20) mg/dL Conjugated Bilirubin (0.20-0.40) mg/dL ALT (10-49) U/L Albumin (3.8-4.9) g/dL Albumin/Globulin Ratio (1.60-3.17) g/dL Assessment and Plan Time with Patient: Less than 30
[2022-04-01] MEDS: SODIUM CHLORIDE 0.9% 1,000 ML IV SCH (16:42)
[2022-04-01 16:44] LABS: Glucose,Whole Blood 220 mg/dL (70-110)
[2022-04-01] MEDS ORDERED: bisacodyL 10 MG SUPP RECTAL STA (17:23)
[2022-04-01] MEDS ORDERED: MAGNESIUM HYDROXIDE 2,400 MG/10 ML CUP PO PRN (17:24)
[2022-04-01 20:18] LABS: Glucose,Whole Blood 253 mg/dL (70-110)
[2022-04-01] MEDS: VENLAFAXINE HCL ER 75 MG CAP PO SCH (21:02)
[2022-04-02] MEDS: HYDROcodone/APAP 5-325MG 1 EACH TAB PO PRN ×3 (03:04→21:14)
[2022-04-02] MEDS: SODIUM CHLORIDE 0.9% 1,000 ML IV SCH ×2 (04:08→09:07)
[2022-04-02] MEDS: oxyCODONE-APAP 7.5-325MG 1 EACH TAB PO PRN ×2 (05:54→12:25)
[2022-04-02 07:16] LABS: Glucose,Whole Blood 181 mg/dL (70-110)
[2022-04-02] MEDS: lisinopriL 10 MG TAB PO SCH ×2 (08:50→08:59)
[2022-04-02] MEDS: BACLOFEN 10 MG TAB PO SCH ×2 (08:51→21:14)
[2022-04-02] MEDS: GABAPENTIN 300 MG CAP PO SCH ×3 (08:51→21:14)
[2022-04-02] MEDS: PANTOPRAZOLE 40 MG/10 ML VIAL IVP SCH (08:52)
[2022-04-02 10:09] LABS: Basophils % (A) 0 %; Eosinophils % (A) 0 %; HCT 32.8 % (39.0-53.0); HGB 10.3 gm/dL (13.0-17.5); Hypochromasia Slight; Lymphocytes # (A) 0.8 k/uL (1.0-4.8); Lymphocytes % (A) 8 %; MCH 27.9 pg (25.0-35.0); MCHC 31.6 g/dL (31.0-37.0); MCV 88.4 fL (80.0-100.0); Mean Platelet Volume 7.3; Monocytes # (A) 0.5 k/uL (0-1.0); Monocytes % (A) 5 %; Neutrophils # (A) 8.7 k/uL (1.3-7.7); Neutrophils % (A) 86 %; Platelet Count 480 k/uL (150-450); RBC 3.71 m/uL (4.30-5.90); RDW 12.4 % (11.5-15.5); WBC 10.2 k/uL (3.8-10.6)
[2022-04-02 10:19] LABS: ALT 59 U/L (4-49); AST 27 U/L (17-59); African American GFR (CKD) >90 (>60 ml/min/1.73 sqM); Albumin 3.5 g/dL (3.5-5.0); Albumin/Globulin Ratio 1.2; Alkaline Phosphatase 117 U/L (38-126); Anion Gap 15 mmol/L; Blood Urea Nitrogen 9 mg/dL (9-20); Calcium 8.8 mg/dL (8.4-10.2); Carbon Dioxide 25 mmol/L (22-30); Chloride 90 mmol/L (98-107); Glucose 213 mg/dL (74-99); Non-African American GFR(CKD) >90 (>60 ml/min/1.73 sqM); Potassium 3.8 mmol/L (3.5-5.1); Sodium 130 mmol/L (137-145); Total Bilirubin 0.2 mg/dL (0.2-1.3); Total Protein 6.5 g/dL (6.3-8.2)
[2022-04-02 12:02] LABS: Glucose,Whole Blood 240 mg/dL (70-110)
[2022-04-02] MEDS ORDERED: HYDROcodone/APAP 5-325MG 1 EACH TAB ONE (15:00)
[2022-04-02] MEDS ORDERED: oxyCODONE-APAP 7.5-325MG 1 EACH TAB ONE (15:00)
[2022-04-02] MEDS ORDERED: GABAPENTIN 300 MG CAP ONE (15:00)
[2022-04-02] MEDS ORDERED: PEG 3350 (420 GM/BTL) + LYTES 4,000 ML BOTTLE PO ONE (15:00)
[2022-04-02 19:11] LABS: Glucose,Whole Blood 159 mg/dL (70-110)
[2022-04-02 20:29] LABS: Glucose,Whole Blood 201 mg/dL (70-110)
[2022-04-02] MEDS: VENLAFAXINE HCL ER 75 MG CAP PO SCH (21:14)
--- NOTE | 2022-04-02 21:36 | P.PN ---
Subjective Progress Note Date: 04/02/22 Principal diagnosis: Abdominal pain Patient had his CAT scan performed. Some proximal colonic dilation appreciated. Patient says he had a small amount of flatus and 2 bowel movements yesterday. Last colonoscopy 2017. CAT scan shows CAT scan shows Colonic dilation without definite obstruction. Objective - Vital Signs Vital signs: Vital Signs Temp 98.2 F 04/02/22 20:00 Pulse 72 04/02/22 20:00 Resp 18 04/02/22 20:00 BP 145/97 04/02/22 20:00 Pulse Ox 97 04/02/22 20:00 FiO2 Intake & Output 04/02/22 04/02/22 04/03/22 06:59 18:59 06:59 Other: Voiding Method Toilet Toilet Toilet # Voids 2 - Exam Abdomen: Soft, mild distention, mild diffuse tenderness - Labs CBC & Chem 7: 04/02/22 09:53 04/02/22 09:53 Labs: Abnormal Lab Results - Last 24 Hours (Table) 04/02/22 04/02/22 04/02/22 Range/Units 07:15 09:53 09:53 RBC 3.71 L (4.30-5.90) m/uL Hgb 10.3 L (13.0-17.5) gm/dL Hct 32.8 L (39.0-53.0) % Plt Count 480 H (150-450) k/uL Neutrophils # 8.7 H (1.3-7.7) k/uL Lymphocytes # 0.8 L (1.0-4.8) k/uL Sodium 130 L (137-145) mmol/L Chloride 90 L (98-107) mmol/L Creatinine 0.57 L (0.66-1.25) mg/dL Glucose 213 H (74-99) mg/dL POC Glucose (mg/dL) 181 H (70-110) mg/dL ALT 59 H (4-49) U/L 04/02/22 04/02/22 04/02/22 Range/Units 11:51 16:57 20:28 RBC (4.30-5.90) m/uL Hgb (13.0-17.5) gm/dL Hct (39.0-53.0) % Plt Count (150-450) k/uL Neutrophils # (1.3-7.7) k/uL Lymphocytes # (1.0-4.8) k/uL Sodium (137-145) mmol/L Chloride (98-107) mmol/L Creatinine (0.66-1.25) mg/dL Glucose (74-99) mg/dL POC Glucose (mg/dL) 240 H 159 H 201 H (70-110) mg/dL ALT (4-49) U/L Assessment and Plan (1) Intractable abdominal pain Narrative/Plan: patient with ongoing abdominal pain and some change in bowel habits. patient with ongoing abdominal pain and some Change in bowel habits. We will proceed with colonoscopy . Current Visit: Yes Status: Acute Code(s): R10.9 - UNSPECIFIED ABDOMINAL PAIN SNOMED Code(s): 48414834
[2022-04-03] MEDS: oxyCODONE-APAP 7.5-325MG 1 EACH TAB PO PRN ×4 (00:09→19:40)
[2022-04-03] MEDS: HYDROcodone/APAP 5-325MG 1 EACH TAB PO PRN ×4 (03:21→22:57)
[2022-04-03 07:19] LABS: Glucose,Whole Blood 161 mg/dL (70-110)
[2022-04-03 09:14] LABS: Basophils % (A) 0 %; Eosinophils % (A) 0 %; HCT 30.9 % (39.0-53.0); HGB 9.9 gm/dL (13.0-17.5); Lymphocytes # (A) 0.9 k/uL (1.0-4.8); Lymphocytes % (A) 8 %; MCHC 32.1 g/dL (31.0-37.0); MCV 87.3 fL (80.0-100.0); Mean Platelet Volume 6.7; Monocytes # (A) 0.7 k/uL (0-1.0); Monocytes % (A) 6 %; Neutrophils # (A) 9.7 k/uL (1.3-7.7); Neutrophils % (A) 85 %; Platelet Count 438 k/uL (150-450); RBC 3.54 m/uL (4.30-5.90); RDW 12.3 % (11.5-15.5); WBC 11.5 k/uL (3.8-10.6)
[2022-04-03 09:37] LABS: African American GFR (CKD) >90 (>60 ml/min/1.73 sqM); Anion Gap 12 mmol/L; Blood Urea Nitrogen 7 mg/dL (9-20); Calcium 8.8 mg/dL (8.4-10.2); Carbon Dioxide 25 mmol/L (22-30); Chloride 93 mmol/L (98-107); Glucose 150 mg/dL (74-99); Non-African American GFR(CKD) >90 (>60 ml/min/1.73 sqM); Potassium 4.2 mmol/L (3.5-5.1); Sodium 130 mmol/L (137-145)
[2022-04-03] MEDS: SODIUM CHLORIDE 0.9% 1,000 ML IV SCH ×2 (09:37→22:58)
[2022-04-03] MEDS: BACLOFEN 10 MG TAB PO SCH ×2 (09:38→19:40)
[2022-04-03] MEDS: PANTOPRAZOLE 40 MG/10 ML VIAL IVP SCH (09:39)
[2022-04-03] MEDS: GABAPENTIN 300 MG CAP PO SCH ×3 (09:39→22:20)
[2022-04-03] MEDS: lisinopriL 10 MG TAB PO SCH ×2 (09:40→09:43)
[2022-04-03 12:33] LABS: Glucose,Whole Blood 168 mg/dL (70-110)
--- NOTE | 2022-04-03 14:10 | P.PN ---
Subjective Progress Note Date: 04/03/22 CHIEF COMPLAINT: Abdominal pain HISTORY OF PRESENT ILLNESS: Patient continues to have abdominal pain on the right side the abdomen as well as abdominal distention. He denies any nausea or vomiting. He has been having flatus. Last bowel movement yesterday. Patient is starting the GoLYTELY prep this morning. Afebrile. WBC is 11.5 Hgb 9.9 platelets 438 sodium 1:30 creatinine 0.48 PHYSICAL EXAM: VITAL SIGNS: Reviewed. GENERAL: Well-developed in no acute distress. HEENT: No sclera icterus. Extraocular movements grossly intact. Moist buccal mucosa. Head is atraumatic, normocephalic. ABDOMEN: Soft. Mild distention and right-sided tenderness NEUROLOGIC: Alert and oriented. Cranial nerves II through XII grossly intact. ASSESSMENT: 1. Abdominal pain with change in bowel habits 2. Colonic distention PLAN: -Patient scheduled for colonoscopy tomorrow, 04/04/[address] Garcia -GoLYTELY prep today -Clear liquid diet today -Nothing by mouth after midnight Physician Shirt Sewer note has been reviewed by physician. Signing provider agrees with the documented findings, assessment, and plan of care. Objective - Vital Signs Vital signs: Vital Signs Temp 99.6 F 04/03/22 07:00 Pulse 66 04/03/22 07:00 Resp 18 04/03/22 09:39 BP 168/85 04/03/22 07:00 Pulse Ox 98 04/03/22 07:00 FiO2 Intake & Output 04/02/22 04/03/22 04/03/22 18:59 06:59 18:59 Intake Total 500 Balance 500 Intake: Oral 500 Other: Voiding Method Toilet Toilet Toilet # Voids 1 - Labs CBC & Chem 7: 04/03/22 08:03 04/03/22 08:03 Labs: Abnormal Lab Results - Last 24 Hours (Table) 04/02/22 04/02/22 04/03/22 Range/Units 16:57 20:28 06:47 WBC (3.8-10.6) k/uL RBC (4.30-5.90) m/uL Hgb (13.0-17.5) gm/dL Hct (39.0-53.0) % Neutrophils # (1.3-7.7) k/uL Lymphocytes # (1.0-4.8) k/uL Sodium (137-145) mmol/L Chloride (98-107) mmol/L BUN (9-20) mg/dL Creatinine (0.66-1.25) mg/dL Glucose (74-99) mg/dL POC Glucose (mg/dL) 159 H 201 H 161 H (70-110) mg/dL 04/03/22 04/03/22 04/03/22 Range/Units 08:03 08:03 12:01 WBC 11.5 H (3.8-10.6) k/uL RBC 3.54 L (4.30-5.90) m/uL Hgb 9.9 L (13.0-17.5) gm/dL Hct 30.9 L (39.0-53.0) % Neutrophils # 9.7 H (1.3-7.7) k/uL Lymphocytes # 0.9 L (1.0-4.8) k/uL Sodium 130 L (137-145) mmol/L Chloride 93 L (98-107) mmol/L BUN 7 L (9-20) mg/dL Creatinine 0.48 L (0.66-1.25) mg/dL Glucose 150 H (74-99) mg/dL POC Glucose (mg/dL) 168 H (70-110) mg/dL
[2022-04-03 17:30] LABS: Glucose,Whole Blood 155 mg/dL (70-110)
[2022-04-03] MEDS: HEPARIN SODIUM,PORCINE/PF 5,000 UNIT/0.5 ML SYRINGE SQ SCH ×2 (18:10→22:57)
[2022-04-03 19:31] LABS: Glucose,Whole Blood 179 mg/dL (70-110)
[2022-04-03] MEDS: VENLAFAXINE HCL ER 75 MG CAP PO SCH (19:40)
--- NOTE | 2022-04-03 22:55 | P.PN ---
Subjective Progress Note Date: 04/02/22 57-year-old male who presents emergency Department stating he has had pain for a week in his abdomen he describes in the lower abdomen area. Patient states she was here week ago and had a CAT scan with IV contrast and they did not find anything and he was sent home. Patient states she's not followed up with anybody this whole week. Patient states he woke up this morning the pain continued so he came in to be seen. Patient states she's been nauseated but has only vomited once per patient states he did have some diarrhea but that was after taking some mag citrate. Patient state after he had bowel movements he stated he did feel little better but the pain is back. Patient denies any fever chills. Patient states he did have an aortic aneurysm repair in January. Workup in ED includes blood work with a WBC of 10.7, hemoglobin of 10.6 and platelet count of 525, sodium 127, potassium 4.5, BUN/creatinine of 11/0.66 and blood glucose of 217 CT of the abdomen completed on previous visit to ED did not show anything acute Given recent history of surgery for type II and repeat urine leak from the aorta in mid-January, patient was admitted to the hospital for further evaluation by vascular surgery 03/31/2022 Patient is seen and evaluated in room at bedside with nursing staff present in the room; patient is quite agitated reporting he is not getting optimal pain control; per nursing staff "patient's outbound telemarketing representative, Thelma" called with quite disruptive conversation with case management when she was yelling and became hostile; she had to be escorted by security and is not permitted on the floor; this represented was demanding better pain control for patient and was demanding patient to be transferred to [facility] for pain management -- CT of the abdomen and pelvis was ordered yesterday which patient refused -- Vascular surgery spoke with RN and reviewed CT of the abdomen and did not think they had any further input - Gen. surgery was consulted; abdominal x-ray was done which showed gaseous distention of large bowel likely colonic ileus; surgery has recommended Dulcolax suppository - Patient has been requesting to increase Dilaudid up to 2 mg and has been taking Dilaudid and [place] around the clock; I did detailed discussion with patient indicating that ileus might be related to overuse off narcotics; did recommend CT of the abdomen instead of just relying on narcotics; CT abdomen with oral contrast has been suggested by surgery also if symptoms fail to resolve with relief and constipation; patient remains very irritable and states he needs extra dose of Dilaudid to help with pain - We will discontinue Dilaudid and place patient on home dose of Percocet; I did suggest palliative care for pain control 04/01/2022 Patient is resting in bed reports abdominal pain rating 8/10 to his lower abdomen he states he is unable to describe. Reports having this pain and also urinary frequency with decreased amount and dysuria over the last week as well. He sates he has not had a normal BM for the last week also. He had initially refused repeat CT but agreed to having done today. Abdominal pelvis CT w con showing possible colonic ileus, stable aaa with graft and also stable bilat common iliac artery aneurysm. He is being followed by general surgery. Continues on norco for pain management. White count today 12.69, hgb 10.0, sodium 128, chloride 90. Blood glucose in the 180s his oral diabetic medications are currently on hold. ALT remains stable, AST is now 37. Blood pressure 123/70. Review of Systems Constitutional: Denied any fatigue denied any fever. Cardio vascular: denied any chest pain, palpitations Gastrointestinal: denied any nausea, vomiting, diarrhea. Reports constipation and abdominal pain. Pulmonary: Denied any shortness of breath cough Neurologic denied any new focal deficits All inpatient medications were reviewed and appropriate changes in these medications as dictated in the interval history and assessment and plan. PHYSICAL EXAMINATION: GENERAL: The patient is alert and oriented x3, not in any acute distress. Well developed, well nourished. HEENT: Pupils are round and equally reacting to light. EOMI. No scleral icterus. No conjunctival pallor. Normocephalic, atraumatic. No pharyngeal erythema. No thyromegaly. CARDIOVASCULAR: S1 and S2 present. No murmurs, rubs, or gallops. PULMONARY: Chest is clear to auscultation, no wheezing or crackles. ABDOMEN: Soft, nontender, distended, Hypoactive bowel sounds. No palpable organomegaly. MUSCULOSKELETAL: No joint swelling or deformity. EXTREMITIES: No cyanosis, clubbing, or pedal edema. NEUROLOGICAL: Gross neurological examination did not reveal any focal deficits. SKIN: No rashes. Assessment and plan Assessment Intractable abdominal pain most likely from ilues Hyponatremia, hypovolemic with poor oral intake Mild leukocytosis Anemia Diabetes mellitus Diabetic neuropathy Hypertension Depression/anxiety Former tobacco use Former EtOH use History of pancreatitis alcohol-induced History of abdominal aortic aneurysm post grafting stable 1.7 cm bilateral common iliac aortic aneurysm GI prophylaxis DVT prophylaxis Plan Pain management with oral pain meds Diet per surgery Monitor labs Monitor blood glucose Continue IV fluids Continue holding oral diabetic agents Objective - Vital Signs Vital signs: Vital Signs Temp 98.2 F 04/02/22 20:00 Pulse 72 04/02/22 20:00 Resp 18 04/02/22 20:00 BP 145/97 04/02/22 20:00 Pulse Ox 97 04/02/22 20:00 FiO2 Intake & Output 04/02/22 04/02/22 04/03/22 06:59 18:59 06:59 Other: Voiding Method Toilet Toilet Toilet # Voids 2 1 - Labs CBC & Chem 7: 04/03/22 08:03 04/03/22 08:03 Labs: Abnormal Lab Results - Last 24 Hours (Table) 04/02/22 04/02/22 04/02/22 Range/Units 07:15 09:53 09:53 RBC 3.71 L (4.30-5.90) m/uL Hgb 10.3 L (13.0-17.5) gm/dL Hct 32.8 L (39.0-53.0) % Plt Count 480 H (150-450) k/uL Neutrophils # 8.7 H (1.3-7.7) k/uL Lymphocytes # 0.8 L (1.0-4.8) k/uL Sodium 130 L (137-145) mmol/L Chloride 90 L (98-107) mmol/L Creatinine 0.57 L (0.66-1.25) mg/dL Glucose 213 H (74-99) mg/dL POC Glucose (mg/dL) 181 H (70-110) mg/dL ALT 59 H (4-49) U/L 04/02/22 04/02/22 04/02/22 Range/Units 11:51 16:57 20:28 RBC (4.30-5.90) m/uL Hgb (13.0-17.5) gm/dL Hct (39.0-53.0) % Plt Count (150-450) k/uL Neutrophils # (1.3-7.7) k/uL Lymphocytes # (1.0-4.8) k/uL Sodium (137-145) mmol/L Chloride (98-107) mmol/L Creatinine (0.66-1.25) mg/dL Glucose (74-99) mg/dL POC Glucose (mg/dL) 240 H 159 H 201 H (70-110) mg/dL ALT (4-49) U/L
[2022-04-04] MEDS: oxyCODONE-APAP 7.5-325MG 1 EACH TAB PO PRN ×3 (02:36→18:42)
[2022-04-04 07:07] LABS: Glucose,Whole Blood 145 mg/dL (70-110)
[2022-04-04] MEDS: BACLOFEN 10 MG TAB PO SCH ×2 (08:14→22:27)
[2022-04-04] MEDS: GABAPENTIN 300 MG CAP PO SCH ×3 (08:14→22:27)
[2022-04-04] MEDS: PANTOPRAZOLE 40 MG/10 ML VIAL IVP SCH (08:15)
[2022-04-04] MEDS: HYDROcodone/APAP 5-325MG 1 EACH TAB PO PRN ×3 (08:15→22:30)
[2022-04-04] MEDS: lisinopriL 10 MG TAB PO SCH (08:15)
[2022-04-04] MEDS: HEPARIN SODIUM,PORCINE/PF 5,000 UNIT/0.5 ML SYRINGE SQ SCH ×3 (08:15→23:14)
[2022-04-04 08:59] LABS: Basophils # (A) 0.01 X 10*3/uL (0.00-0.10); Basophils % (A) 0.1 %; Eosinophils # (A) 0.06 X 10*3/uL (0.04-0.35); Eosinophils % (A) 0.5 %; HCT 27.7 % (39.6-50.0); Immature Grans, Automated 0.5 %; Lymphocytes # (A) 1.05 X 10*3/uL (0.90-5.00); Lymphocytes % (A) 9.6 %; MCHC 32.5 g/dL (32.0-37.0); MCV 86.3 fL (80.0-97.0); Mean Platelet Volume 8.8 fL (9.5-12.2); Monocytes # (A) 0.93 X 10*3/uL (0.20-1.00); Monocytes % (A) 8.5 %; NRBC Per 100 WBC 0 /100 WBCS (0.0-0.0); Neutrophils # (A) 8.87 X 10*3/uL (1.80-7.70); Neutrophils % (A) 80.8 %; Platelet Count 413 X 10*3/uL (140-440); RBC 3.21 X 10*6/uL (4.40-5.60); RDW 12.3 % (11.5-14.5); WBC 10.97 X 10*3/uL (4.50-10.00)
[2022-04-04 09:08] LABS: African American GFR (CKD) 124.6 (60.0-200.0); Anion Gap 11.8 mmol/L (10.00-18.00); BUN/Creat Ratio 10.44 Ratio (12.00-20.00); Blood Urea Nitrogen 6.6 mg/dL (9.0-27.0); Calcium 8.8 mg/dL (8.7-10.3); Carbon Dioxide 26.9 mmol/L (20.0-27.5); Non-African American GFR(CKD) 107.5 (60.0-200.0)
[2022-04-04] MEDS: SODIUM CHLORIDE 0.9% 1,000 ML IV SCH ×3 (09:32→23:14)
[2022-04-04 12:11] LABS: Glucose,Whole Blood 135 mg/dL (70-110)
--- NOTE | 2022-04-04 12:51 | FL ---
EXAMINATION TYPE: FL barium enema DATE OF EXAM: 04/04/2022 COMPARISON: CT abdomen and pelvis 3 days ago and older CT March 26, 2022 HISTORY: Failed colonoscopy. Most recent colonoscopy 2018 was negative per patient. History of AAA repair with abdominal pain and constipation. TECHNIQUE: A single contrast Gastrografin enema study is performed. A total of 1 minute 58 seconds of fluoroscopic time was utilized during procedure and 22 images obtained. FINDINGS: Brim Greaser Operator view of the abdomen show gas prominent right and transverse colon likely from recent attempted colonoscopy. Some residual contrast from CT is passed into nondistended sigmoid colon and rectum. Question of transition point recent CT near splenic flexure does not reproduce on CT February 27 0. Extensive surgical change from the aortobiiliac stent graft redemonstrated along with aneurysm coi ls overlying the mid lumbar spine again seen. There is retrograde enema filling up to the level of the hepatic flexure without delay. Due to incomp lete prep Limited study for presumed cleansing is ordered and performed. No obstructing or constricti ng lesion throughout the colon up to proximal transverse colon level. Unable to pass contrast Appendi x was filled and appeared normal. The terminal ileum was refluxed and appears within normal limits f urther as there is significant gaseous distended proximal colon causing airlock blocking more proxima l passage. IMPRESSION: Suboptimal study. No obstructing or constricting lesion from the proximal one third colo n through the rectum. Further details as discussed above.
--- NOTE | 2022-04-04 13:29 | P.PN ---
Subjective Progress Note Date: 04/04/22 CHIEF COMPLAINT: Abdominal pain HISTORY OF PRESENT ILLNESS: Patient only drank half of his GoLYTELY prep. He still has not had any bowel movements. He is having flatus. He reports decreased abdominal pain and decrease abdominal bloating. Colonoscopy canceled for today. Patient had Gastrografin enema study which was suboptimal. No obstructing or constricting lesion from the proximal one third: Throughout the rectum. Afebrile. WBC 10.97 Hgb 9.0 platelets 413 sodium 132 potassium 4.0 creatinine 0.6 PHYSICAL EXAM: VITAL SIGNS: Reviewed. GENERAL: Well-developed in no acute distress. HEENT: No sclera icterus. Extraocular movements grossly intact. Moist buccal mucosa. Head is atraumatic, normocephalic. ABDOMEN: Soft. Nondistended. Nontender NEUROLOGIC: Alert and oriented. Cranial nerves II through XII grossly intact. ASSESSMENT: 1. Abdominal pain with change in bowel habits 2. Colonic distention PLAN: -Colonoscopy canceled for today. Patient has not had any bowel movements. -Gastrografin enema study completed today -Further recommendations forthcoming per surgeon Physician Lab Systems Analyst note has been reviewed by physician. Signing provider agrees with the documented findings, assessment, and plan of care. I have personally seen and examined the patient, reviewed the MULTIPLE SLIDE OPERATOR /PAs history, exam and MDM and agree with the assessment and plan as written. Based on total visit time, I have performed more than 50% of the visit. As above: Patient says his abdominal pain is improved today. He did pass liquid and air after the Gastrografin enema. Films reviewed. No definite obstruction seen in the area that we were concerned about near the splenic flexure. Gradually advance diet as tolerated. The pain improved tomorrow could be discharged with outpatient follow-up for possible outpatient colonoscopy in the future. Etiology of the patient's abdominal pain remains unclear at this time. Objective - Vital Signs Vital signs: Vital Signs Temp 97.8 F 04/04/22 11:45 Pulse 88 04/04/22 11:45 Resp 18 04/04/22 11:45 BP 160/91 04/04/22 11:45 Pulse Ox 99 04/04/22 11:45 FiO2 Intake & Output 04/03/22 04/04/22 04/04/22 18:59 06:59 18:59 Intake Total 90 250 Output Total 400 Balance -310 250 Intake: Oral 90 250 Output: Urine 400 Other: Voiding Method Toilet Toilet # Voids 2 1 - Labs CBC & Chem 7: 04/04/22 05:43 04/04/22 05:43 Labs: Abnormal Lab Results - Last 24 Hours (Table) 04/03/22 04/03/22 04/03/22 Range/Units 12:01 17:24 19:30 WBC (4.50-10.00) X 10*3/uL RBC (4.40-5.60) X 10*6/uL Hgb (13.0-17.0) g/dL Hct (39.6-50.0) % MPV (9.5-12.2) fL Immature Gran # (0.00-0.04) X 10*3/uL Neutrophils # (1.80-7.70) X 10*3/uL Sodium (135-145) mmol/L Chloride (96-109) mmol/L BUN (9.0-27.0) mg/dL BUN/Creatinine Ratio (12.00-20.00) Ratio Glucose (70-110) mg/dL POC Glucose (mg/dL) 168 H 155 H 179 H (70-110) mg/dL 04/04/22 04/04/22 04/04/22 Range/Units 05:43 05:43 06:54 WBC 10.97 H (4.50-10.00) X 10*3/uL RBC 3.21 L (4.40-5.60) X 10*6/uL Hgb 9.0 L (13.0-17.0) g/dL Hct 27.7 L (39.6-50.0) % MPV 8.8 L (9.5-12.2) fL Immature Gran # 0.05 H (0.00-0.04) X 10*3/uL Neutrophils # 8.87 H (1.80-7.70) X 10*3/uL Sodium 132 L (135-145) mmol/L Chloride 94 L (96-109) mmol/L BUN 6.6 L (9.0-27.0) mg/dL BUN/Creatinine Ratio 10.44 L (12.00-20.00) Ratio Glucose 160 H (70-110) mg/dL POC Glucose (mg/dL) 145 H (70-110) mg/dL
[2022-04-04 16:58] LABS: Glucose,Whole Blood 164 mg/dL (70-110)
[2022-04-04 20:34] LABS: Glucose,Whole Blood 234 mg/dL (70-110)
[2022-04-04] MEDS: VENLAFAXINE HCL ER 75 MG CAP PO SCH (22:27)
[2022-04-05] MEDS: oxyCODONE-APAP 7.5-325MG 1 EACH TAB PO PRN ×3 (03:09→17:59)
[2022-04-05 07:25] LABS: Glucose,Whole Blood 159 mg/dL (70-110)
[2022-04-05] MEDS: HYDROcodone/APAP 5-325MG 1 EACH TAB PO PRN ×3 (07:35→21:38)
[2022-04-05] MEDS: GABAPENTIN 300 MG CAP PO SCH ×3 (10:08→21:28)
[2022-04-05] MEDS: lisinopriL 10 MG TAB PO SCH (10:08)
[2022-04-05] MEDS: PANTOPRAZOLE 40 MG/10 ML VIAL IVP SCH (10:09)
[2022-04-05] MEDS: BACLOFEN 10 MG TAB PO SCH ×2 (10:09→21:27)
[2022-04-05] MEDS: HEPARIN SODIUM,PORCINE/PF 5,000 UNIT/0.5 ML SYRINGE SQ SCH ×2 (10:09→15:36)
[2022-04-05 11:58] LABS: Glucose,Whole Blood 209 mg/dL (70-110)
--- NOTE | 2022-04-05 12:36 | P.PN ---
Subjective Progress Note Date: 04/05/22 CHIEF COMPLAINT: Abdominal pain HISTORY OF PRESENT ILLNESS: Patient reports that he did have large bowel movements and flatus. He reports that his abdomen is less distended. He does have abdominal pain. Reports that his pain is not getting worse. He did tolerate clear liquids last night as well as some regular food. Patient is unhappy that he received another clear liquid tray this morning. He wants regular food. Afebrile. Glucose 209 PHYSICAL EXAM: VITAL SIGNS: Reviewed. GENERAL: Well-developed in no acute distress. HEENT: No sclera icterus. Extraocular movements grossly intact. Moist buccal mucosa. Head is atraumatic, normocephalic. ABDOMEN: Soft. Nondistended. NEUROLOGIC: Alert and oriented. Cranial nerves II through XII grossly intact. ASSESSMENT: 1. Abdominal pain with change in bowel habits 2. Colonic distention. No evidence of obstruction noted on the Gastrografin enema study. PLAN: -Patient can be discharged from surgical standpoint if he tolerates regular diet for lunch and pain is controlled -Recommend outpatient colonoscopy Physician Telecommunication Tower Technician note has been reviewed by physician. Signing provider agrees with the documented findings, assessment, and plan of care. I have personally seen and examined the patient, reviewed the METEOROLOGICAL TECHNICIAN /PAs history, exam and MDM and agree with the assessment and plan as written. Based on total visit time, I have performed more than 50% of the visit. As above: Patient says his pain is improved. He is asking for regular food today. Abdominal exam definitely shows improvement in tenderness. No significant distention at this time. Etiology for patient's pain remains unclear but may be related to ileus that is improved. We'll see how patient tolerates regular diet. Objective - Vital Signs Vital signs: Vital Signs Temp 98.9 F 04/05/22 08:00 Pulse 72 04/05/22 08:00 Resp 18 04/05/22 08:00 BP 146/77 04/05/22 08:00 Pulse Ox 97 04/05/22 08:00 FiO2 Intake & Output 04/04/22 04/05/22 04/05/22 18:59 06:59 18:59 Intake Total 120 500 473 Balance 120 500 473 Intake: Oral 120 500 473 Other: Voiding Method Toilet # Voids 1 - Labs CBC & Chem 7: 04/04/22 05:43 04/04/22 05:43 Labs: Abnormal Lab Results - Last 24 Hours (Table) 04/04/22 04/04/22 04/05/22 Range/Units 16:52 20:33 07:23 POC Glucose (mg/dL) 164 H 234 H 159 H (70-110) mg/dL 04/05/22 Range/Units 11:56 POC Glucose (mg/dL) 209 H (70-110) mg/dL
[2022-04-05] MEDS: SODIUM CHLORIDE 0.9% 1,000 ML IV SCH (15:36)
[2022-04-05 17:18] LABS: Glucose,Whole Blood 188 mg/dL (70-110)
--- NOTE | 2022-04-05 18:30 | P.PN ---
Subjective Progress Note Date: 04/05/22 57-year-old male who presents emergency Department stating he has had pain for a week in his abdomen he describes in the lower abdomen area. Patient states she was here week ago and had a CAT scan with IV contrast and they did not find anything and he was sent home. Patient states she's not followed up with anybody this whole week. Patient states he woke up this morning the pain continued so he came in to be seen. Patient states she's been nauseated but has only vomited once per patient states he did have some diarrhea but that was after taking some mag citrate. Patient state after he had bowel movements he stated he did feel little better but the pain is back. Patient denies any fever chills. Patient states he did have an aortic aneurysm repair in January. Workup in ED includes blood work with a WBC of 10.7, hemoglobin of 10.6 and platelet count of 525, sodium 127, potassium 4.5, BUN/creatinine of 11/0.66 and blood glucose of 217 CT of the abdomen completed on previous visit to ED did not show anything acute Given recent history of surgery for type II and repeat urine leak from the aorta in mid-January, patient was admitted to the hospital for further evaluation by vascular surgery 03/31/2022 Patient is seen and evaluated in room at bedside with nursing staff present in the room; patient is quite agitated reporting he is not getting optimal pain control; per nursing staff "patient's printing supplies sales representative, Thelma" called with quite disruptive conversation with case management when she was yelling and became hostile; she had to be escorted by security and is not permitted on the floor; this represented was demanding better pain control for patient and was demanding patient to be transferred to [facility] for pain management -- CT of the abdomen and pelvis was ordered yesterday which patient refused -- Vascular surgery spoke with RN and reviewed CT of the abdomen and did not think they had any further input - Gen. surgery was consulted; abdominal x-ray was done which showed gaseous distention of large bowel likely colonic ileus; surgery has recommended Dulcolax suppository - Patient has been requesting to increase Dilaudid up to 2 mg and has been taking Dilaudid and [place] around the clock; I did detailed discussion with patient indicating that ileus might be related to overuse off narcotics; did recommend CT of the abdomen instead of just relying on narcotics; CT abdomen with oral contrast has been suggested by surgery also if symptoms fail to resolve with relief and constipation; patient remains very irritable and states he needs extra dose of Dilaudid to help with pain - We will discontinue Dilaudid and place patient on home dose of Percocet; I did suggest palliative care for pain control 04/01/2022 Patient is resting in bed reports abdominal pain rating 8/10 to his lower abdomen he states he is unable to describe. Reports having this pain and also u rinary frequency with decreased amount and dysuria over the last week as well. He sates he has not had a normal BM for the last week also. He had initially refused repeat CT but agreed to having done today. Abdominal pelvis CT w con showing possible colonic ileus, stable aaa with graft and also stable bilat common iliac artery aneurysm. He is being followed by general surgery. Continues on norco for pain management. White count today 12.69, hgb 10.0, sodium 128, chloride 90. Blood glucose in the 180s his oral diabetic medications are currently on hold. ALT remains stable, AST is now 37. Blood pressure 123/70. 04/05/2022 Patient seen this morning in follow up and has been cleared by surgery Dr. Garcia for discharge and outpatient follow up with colonoscopy. Patient was unable to complete the prep and colonoscopy was cancelled. Patient underwent barium enema eval with no signs of obstruction and patient is having bowel movements. Patient was scheduled for discharge and reports he tolerated breakfast and then later reported he was not feeling well enough to go home, continues with abdominal pain and reports his feet and legs have pain and are "puffy". Will hold the discharge for now, decrease the diet, and order LS spine ct. Review of Systems Constitutional: Denied any fatigue denied any fever. Cardio vascular: denied any chest pain, palpitations Gastrointestinal: denied any nausea, vomiting, diarrhea. Reports intolerance of diet and abdominal pain. Pulmonary: Denied any shortness of breath cough Neurologic denied any new focal deficits All inpatient medications were reviewed and appropriate changes in these medications as dictated in the interval history and assessment and plan. PHYSICAL EXAMINATION: GENERAL: The patient is alert and oriented x3, not in any acute distress. Well developed, well nourished. HEENT: Pupils are round and equally reacting to light. EOMI. No scleral icterus. No conjunctival pallor. Normocephalic, atraumatic. No pharyngeal erythema. No t hyromegaly. CARDIOVASCULAR: S1 and S2 present. No murmurs, rubs, or gallops. PULMONARY: Chest is clear to auscultation, no wheezing or crackles. ABDOMEN: Soft, nontender, non-distended, Hypoactive bowel sounds. No palpable organomegaly. MUSCULOSKELETAL: No joint swelling or deformity. EXTREMITIES: No cyanosis, clubbing, no pedal edema. NEUROLOGICAL: Gross neurological examination did not reveal any focal deficits. SKIN: No rashes. Assessment: Intractable abdominal pain most likely from ileus Hyponatremia, hypovolemic with poor oral intake Mild leukocytosis Anemia Diabetes mellitus Diabetic neuropathy Hypertension Depression/anxiety Former tobacco use Former EtOH use History of pancreatitis alcohol-induced History of abdominal aortic aneurysm post grafting stable 1.7 cm bilateral common iliac aortic aneurysm GI prophylaxis DVT prophylaxis Plan: Pain management with oral pain meds Diet was advanced to regular per surgery although reports he did not tolerate and will decrease to low fiber Monitor labs Monitor blood glucose Continue IV fluids Continue holding oral diabetic agents and continue with sliding scale for now Ordered LS spine CT and will await report Recommend to elevate lower extremities while at rest. Possible discharge in 24 hours. The impression and plan of care has been dictated by Aliya Quijano, Nurse Practitioner as directed. Dr. Lori MD I have performed a history and examination and MDM of this patient, discussed the same with the dictator, and agree with the dictator's assessment and plan as written ,documented as a scribe. Based on total visit time, I have performed more than 50% of the visit. Objective - Vital Signs Vital signs: Vital Signs Temp 98.9 F 04/05/22 08:00 Pulse 72 04/05/22 08:00 Resp 18 04/05/22 08:00 BP 146/77 04/05/22 08:00 Pulse Ox 97 04/05/22 08:00 FiO2 Intake & Output 04/04/22 04/05/22 04/05/22 18:59 06:59 18:59 Intake Total 120 500 653 Balance 120 500 653 Intake: Oral 120 500 653 Other: Voiding Method Toilet # Voids 1 - Labs CBC & Chem 7: 04/04/22 05:43 04/04/22 05:43 Labs: Abnormal Lab Results - Last 24 Hours (Table) 04/04/22 04/04/22 04/05/22 Range/Units 16:52 20:33 07:23 POC Glucose (mg/dL) 164 H 234 H 159 H (70-110) mg/dL 04/05/22 Range/Units 11:56 POC Glucose (mg/dL) 209 H (70-110) mg/dL
--- NOTE | 2022-04-05 18:39 | CT ---
EXAMINATION TYPE: CT lumbar spine wo con CT DLP: 980 mGycm, Automated exposure control for dose reduction was used. DATE OF EXAM: 04/05/2022 6:01 PM COMPARISON: THIS EXAM WAS READ DURING PACS DOWNTIME, NO PRIORS AVAILABLE. CLINICAL INDICATION:Male, 57 years old with history of back pain, extremity swelling, Chronic back pa in. Lower extremity swelling TECHNIQUE: Multiple axial images were obtained from the midportion of T11 through the sacroiliac bora nts. Soft tissue and bone windows in coronal and sagittal planes were obtained and reviewed. FINDINGS: Alignment: There are 5 lumbar type vertebral bodies. Mild DEXA scoliosis apex L3. Bone: No evidence of fracture is identified. Mild multilevel disc degeneration changes and facet bora nt arthropathy. Discs: T12-L1: No spinal canal or neural foraminal stenosis is identified. L1-L2: Disc bulge with facet joint arthropathy with mild spinal canal stenosis. There is mild bilater al neural foraminal stenosis. L2-L3: Disc bulge with facet joint arthropathy with mild spinal canal stenosis. There is mild bilater al neural foraminal stenosis. L3-L4: Disc bulge with facet joint arthropathy with mild spinal canal stenosis. There is mild bilater al neural foraminal stenosis. L4-L5: Disc bulge with facet joint arthropathy without significant spinal canal stenosis. There is m ild bilateral neural foraminal stenosis. L5-S1: Facet joint arthropathy with mild to moderate bilateral neural foraminal stenosis. Other: There is an aortobiiliac stent graft present. Fusiform dilation of the aorta is noted. Partial ly visualized sigmoid colon demonstrates suggestion of wall thickening up to 5 mm. IMPRESSION: 1. No evidence of fracture of the lumbar spine. 2. Mild multilevel disc degeneration changes with multilevel mild spinal canal stenosis. 3. Aortobiiliac stent graft in place with aneurysmal dilation of the havasupai aorta. 4. Circumferential sigmoid colon is partially visualized and demonstrates wall thickening correlate f or colitis.
[2022-04-05 20:39] LABS: Glucose,Whole Blood 221 mg/dL (70-110)
[2022-04-05] MEDS ORDERED: DEXTROSE 50% SYRINGE 50 ML IVP PRN ×2 (20:56)
[2022-04-05] MEDS: VENLAFAXINE HCL ER 75 MG CAP PO SCH ×2 (21:27→21:28)
[2022-04-05] MEDS: INSULIN ASPART (NovoLOG) 100 UNIT/ML VIAL SQ SCH (21:29)
[2022-04-06] MEDS: oxyCODONE-APAP 7.5-325MG 1 EACH TAB PO PRN ×3 (00:24→20:33)
[2022-04-06] MEDS: HEPARIN SODIUM,PORCINE/PF 5,000 UNIT/0.5 ML SYRINGE SQ SCH ×4 (00:24→23:11)
[2022-04-06] MEDS: HYDROcodone/APAP 5-325MG 1 EACH TAB PO PRN (06:00)
[2022-04-06 06:54] LABS: Glucose,Whole Blood 152 mg/dL (70-110)
[2022-04-06] MEDS: PANTOPRAZOLE 40 MG/10 ML VIAL IVP SCH (08:02)
[2022-04-06] MEDS: INSULIN ASPART (NovoLOG) 100 UNIT/ML VIAL SQ SCH ×4 (08:02→21:33)
[2022-04-06] MEDS: GABAPENTIN 300 MG CAP PO SCH ×3 (08:02→21:33)
[2022-04-06] MEDS: lisinopriL 10 MG TAB PO SCH (08:03)
[2022-04-06] MEDS: BACLOFEN 10 MG TAB PO SCH ×2 (08:03→20:32)
--- NOTE | 2022-04-06 09:13 | P.PN ---
Progress Note - Text Progress Note Date: 04/06/22 Patient denies any significant abdominal pain this morning. He states he has a severe headache. He is requesting Morty. On exam vital signs are stable. Abdomen soft. History of abdominal pain. Currently patient is relatively pain-free. He'll have his diet advanced
[2022-04-06 12:23] LABS: Glucose,Whole Blood 172 mg/dL (70-110)
[2022-04-06] MEDS: SODIUM CHLORIDE 0.9% 1,000 ML IV SCH ×2 (14:17→20:31)
[2022-04-06] MEDS: TAMSULOSIN 0.4 MG CAP.ER.24H PO SCH (14:53)
[2022-04-06 16:57] LABS: Glucose,Whole Blood 186 mg/dL (70-110)
[2022-04-06] MEDS ORDERED: ACETAMINOPHEN TAB 325 MG TAB PO PRN (19:41)
[2022-04-06] MEDS ORDERED: ACETAMINOPHEN TAB 325 MG TAB PO STA (19:42)
[2022-04-06] MEDS ORDERED: PIPERACILLIN-TAZOBACTAM 3.375 GM in SODIUM CHLORIDE 0.9% 100 ML IVPB SCH (19:45)
[2022-04-06] MEDS: amLODIPine 5 MG TAB PO SCH (20:34)
[2022-04-06 20:35] LABS: Appearance,Urine Clear (Clear); Bilirubin,Urine Negative (Negative); Blood,Urine Negative (Negative); Color,Urine Light Yellow; Glucose,Urine (UA) 1+ (Negative); Ketones,Urine Negative (Negative); Leukocyte Esterase,Urine Negative (Negative); Nitrite,Urine Negative (Negative); PH, Urine 7.5 (5.0-8.0); Protein,Urine Negative (Negative); Specific Gravity,Urine 1.011 (1.001-1.035)
--- NOTE | 2022-04-06 21:08 | XR ---
EXAMINATION TYPE: XR chest 1V DATE OF EXAM: 04/06/2022 COMPARISON: 03/25/2022 HISTORY: Fever TECHNIQUE: FINDINGS: There is elevated right diaphragm. There is no heart failure nor confluent pneumonic infilt rate. Heart size is normal. There are no hilar masses. IMPRESSION: Mild chronic elevation of the right diaphragm slightly worse than recent exam. There is p robably some atelectasis right lung base. Normal heart
[2022-04-06 21:19] LABS: Glucose,Whole Blood 237 mg/dL (70-110)
[2022-04-06 21:20] LABS: Basophils % (A) 0 %; Eosinophils % (A) 0 %; HCT 29.5 % (39.0-53.0); HGB 9.2 gm/dL (13.0-17.5); Hypochromasia Slight; Lymphocytes # (A) 0.8 k/uL (1.0-4.8); Lymphocytes % (A) 9 %; MCH 27.4 pg (25.0-35.0); MCHC 31.4 g/dL (31.0-37.0); MCV 87.3 fL (80.0-100.0); Mean Platelet Volume 6.8; Monocytes # (A) 0.6 k/uL (0-1.0); Monocytes % (A) 6 %; Neutrophils # (A) 8.2 k/uL (1.3-7.7); Neutrophils % (A) 84 %; Platelet Count 364 k/uL (150-450); RBC 3.38 m/uL (4.30-5.90); RDW 12.8 % (11.5-15.5); WBC 9.8 k/uL (3.8-10.6)
[2022-04-07] MEDS: oxyCODONE-APAP 7.5-325MG 1 EACH TAB PO PRN ×4 (02:51→22:46)
[2022-04-07] MEDS: PIPERACILLIN-TAZOBACTAM 3.375 GM in SODIUM CHLORIDE 0.9% 100 ML IVPB SCH ×3 (05:38→21:29)
[2022-04-07 06:52] LABS: Glucose,Whole Blood 160 mg/dL (70-110)
[2022-04-07] MEDS: GABAPENTIN 300 MG CAP PO SCH ×3 (09:01→21:29)
[2022-04-07] MEDS: TAMSULOSIN 0.4 MG CAP.ER.24H PO SCH (09:01)
[2022-04-07] MEDS: amLODIPine 5 MG TAB PO SCH (09:02)
[2022-04-07] MEDS: lisinopriL 10 MG TAB PO SCH (09:02)
[2022-04-07] MEDS: INSULIN ASPART (NovoLOG) 100 UNIT/ML VIAL SQ SCH ×4 (09:02→21:29)
[2022-04-07] MEDS: HEPARIN SODIUM,PORCINE/PF 5,000 UNIT/0.5 ML SYRINGE SQ SCH ×3 (09:02→22:47)
[2022-04-07] MEDS: PANTOPRAZOLE 40 MG/10 ML VIAL IVP SCH (09:02)
[2022-04-07] MEDS: BACLOFEN 10 MG TAB PO SCH ×2 (09:02→21:28)
[2022-04-07 09:05] LABS: Basophils # (A) 0.01 X 10*3/uL (0.00-0.10); Basophils % (A) 0.1 %; Eosinophils # (A) 0.02 X 10*3/uL (0.04-0.35); Eosinophils % (A) 0.2 %; HCT 28.8 % (39.6-50.0); HGB 9.5 g/dL (13.0-17.0); Immature Grans, Automated 0.4 %; Lymphocytes # (A) 1.14 X 10*3/uL (0.90-5.00); Lymphocytes % (A) 9.9 %; Monocytes # (A) 0.87 X 10*3/uL (0.20-1.00); Monocytes % (A) 7.6 %; NRBC Per 100 WBC 0 /100 WBCS (0.0-0.0); Neutrophils # (A) 9.42 X 10*3/uL (1.80-7.70); Neutrophils % (A) 81.8 %; Platelet Count 391 X 10*3/uL (140-440); RBC 3.39 X 10*6/uL (4.40-5.60); RDW 12.6 % (11.5-14.5); WBC 11.51 X 10*3/uL (4.50-10.00)
[2022-04-07 09:16] LABS: African American GFR (CKD) 130.4 (60.0-200.0); Anion Gap 13.7 mmol/L (10.00-18.00); BUN/Creat Ratio 8.58 Ratio (12.00-20.00); Blood Urea Nitrogen 4.9 mg/dL (9.0-27.0); Calcium 8.8 mg/dL (8.7-10.3); Carbon Dioxide 26.7 mmol/L (20.0-27.5); Non-African American GFR(CKD) 112.5 (60.0-200.0); Potassium 3.6 mmol/L (3.5-5.5)
--- NOTE | 2022-04-07 10:27 | P.PN ---
Subjective Progress Note Date: 04/06/22 57-year-old male who presents emergency Department stating he has had pain for a week in his abdomen he describes in the lower abdomen area. Patient states she was here week ago and had a CAT scan with IV contrast and they did not find anything and he was sent home. Patient states she's not followed up with anybody this whole week. Patient states he woke up this morning the pain continued so he came in to be seen. Patient states she's been nauseated but has only vomited once per patient states he did have some diarrhea but that was after taking some mag citrate. Patient state after he had bowel movements he stated he did feel little better but the pain is back. Patient denies any fever chills. Patient states he did have an aortic aneurysm repair in January. Workup in ED includes blood work with a WBC of 10.7, hemoglobin of 10.6 and platelet count of 525, sodium 127, potassium 4.5, BUN/creatinine of 11/0.66 and blood glucose of 217 CT of the abdomen completed on previous visit to ED did not show anything acute Given recent history of surgery for type II and repeat urine leak from the aorta in mid-January, patient was admitted to the hospital for further evaluation by vascular surgery 03/31/2022 Patient is seen and evaluated in room at bedside with nursing staff present in the room; patient is quite agitated reporting he is not getting optimal pain control; per nursing staff "patient's sales representative uniforms, Thelma" called with quite disruptive conversation with case management when she was yelling and became hostile; she had to be escorted by security and is not permitted on the floor; this represented was demanding better pain control for patient and was demanding patient to be transferred to [facility] for pain management -- CT of the abdomen and pelvis was ordered yesterday which patient refused -- Vascular surgery spoke with RN and reviewed CT of the abdomen and did not think they had any further input - Gen. surgery was consulted; abdominal x-ray was done which showed gaseous distention of large bowel likely colonic ileus; surgery has recommended Dulcolax suppository - Patient has been requesting to increase Dilaudid up to 2 mg and has been taking Dilaudid and [place] around the clock; I did detailed discussion with patient indicating that ileus might be related to overuse off narcotics; did recommend CT of the abdomen instead of just relying on narcotics; CT abdomen with oral contrast has been suggested by surgery also if symptoms fail to resolve with relief and constipation; patient remains very irritable and states he needs extra dose of Dilaudid to help with pain - We will discontinue Dilaudid and place patient on home dose of Percocet; I did suggest palliative care for pain control 04/01/2022 Patient is resting in bed reports abdominal pain rating 8/10 to his lower abdomen he states he is unable to describe. Reports having this pain and also u rinary frequency with decreased amount and dysuria over the last week as well. He sates he has not had a normal BM for the last week also. He had initially refused repeat CT but agreed to having done today. Abdominal pelvis CT w con showing possible colonic ileus, stable aaa with graft and also stable bilat common iliac artery aneurysm. He is being followed by general surgery. Continues on norco for pain management. White count today 12.69, hgb 10.0, sodium 128, chloride 90. Blood glucose in the 180s his oral diabetic medications are currently on hold. ALT remains stable, AST is now 37. Blood pressure 123/70. 04/05/2022 Patient seen this morning in follow up and has been cleared by surgery Dr. Garcia for discharge and outpatient follow up with colonoscopy. Patient was unable to complete the prep and colonoscopy was cancelled. Patient underwent barium enema eval with no signs of obstruction and patient is having bowel movements. Patient was scheduled for discharge and reports he tolerated breakfast and then later reported he was not feeling well enough to go home, continues with abdominal pain and reports his feet and legs have pain and are "puffy". Will hold the discharge for now, decrease the diet, and order LS spine ct. 04/06/2022 Patient was seen and continues to report abdominal pain. General surgery following and reports stable for discharge. LS spine ct was done showing m ultilevel disc degenerative joint changes and some spinal canal stenosis with some of the colon noted to have some evidence of colitis and will initiate IV zosyn. Patient reports to having temps and increase in blood pressure. Blood sugars elevated and have added sliding scale. Recommend to decrease the diet if not tolerating. Review of Systems Constitutional: Denied any fatigue, reports fever. Cardio vascular: denied any chest pain, palpitations Gastrointestinal: denied any nausea, vomiting, diarrhea. Reports intolerance of diet and abdominal pain. Pulmonary: Denied any shortness of breath cough Neurologic denied any new focal deficits All inpatient medications were reviewed and appropriate changes in these medications as dictated in the interval history and assessment and plan. PHYSICAL EXAMINATION: GENERAL: The patient is alert and oriented x3, not in any acute distress. Well d eveloped, well nourished. HEENT: Pupils are round and equally reacting to light. EOMI. No scleral icterus. No conjunctival pallor. Normocephalic, atraumatic. No pharyngeal erythema. No thyromegaly. CARDIOVASCULAR: S1 and S2 present. No murmurs, rubs, or gallops. PULMONARY: Chest is clear to auscultation, no wheezing or crackles. ABDOMEN: Soft, tender, non-distended, Hypoactive bowel sounds. No palpable organomegaly. MUSCULOSKELETAL: No joint swelling or deformity. EXTREMITIES: No cyanosis, clubbing, no pedal edema. NEUROLOGICAL: Gross neurological examination did not reveal any focal deficits. SKIN: No rashes. Assessment: Intractable abdominal pain most likely from ileus sigmoid colon wall thickening, possible colitis as noted on ct Fevers possibly secondary to above Hyponatremia, hypovolemic with poor oral intake Mild leukocytosis Anemia Diabetes mellitus Diabetic neuropathy Hypertension Depression/anxiety Former tobacco use Former EtOH use History of pancreatitis alcohol-induced History of abdominal aortic aneurysm post grafting stable 1.7 cm bilateral common iliac aortic aneurysm GI prophylaxis DVT prophylaxis Plan: Pain management with oral pain meds Diet was advanced to regular per surgery although reports he did not tolerate and will decrease again to clear or full liquids Monitor labs Monitor blood glucose Continue IV fluids Continue holding oral diabetic agents and continue with sliding scale for now CT report of the LS spine suggestive of possible colitis with sigmoid colon wall thickening and have started zosyn and now with fevers will obtain chest xray, blood cultures, urinalysis, and consult ID Patient requesting transfer to [place] and was denied. Will monitor closely. Prognosis is guarded The impression and plan of care has been dictated as a elioibe Aliya Quijano Nurse Practitioner as directed. Dr. Lori MD I have performed a history and examination and MDM of this patient, discussed the same with the dictator, and agree with the dictator's assessment and plan as written ,documented as a scribe. Based on total visit time, I have performed more than 50% of the visit. Objective - Vital Signs Vital signs: Vital Signs Temp 99.5 F 04/07/22 07:52 Pulse 95 04/07/22 07:52 Resp 16 04/07/22 07:52 BP 153/86 04/07/22 07:52 Pulse Ox 98 04/07/22 07:52 FiO2 Intake & Output 04/06/22 04/07/22 04/07/22 18:59 06:59 18:59 Intake Total 476 850 240 Balance 476 850 240 Intake: Intake, IV Titration 350 Amount Piperacillin-Tazobactam 3 100 .375 gm In Sodium Chloride 0.9% 100 ml @ 25 mls/hr IVPB Q8H MICHAEL Rx#: [id number] Sodium Chloride 0.9% 1, 250 000 ml @ 15 mls/hr IV . Q24H MICHAEL Rx#:[id number] Oral 476 500 240 Other: Voiding Method Toilet # Voids 2 - Labs CBC & Chem 7: 04/07/22 05:36 04/07/22 05:36 Labs: Abnormal Lab Results - Last 24 Hours (Table) 04/06/22 04/06/22 04/06/22 Range/Units 12:22 16:55 20:32 WBC (4.50-10.00) X 10*3/uL RBC (4.30-5.90) m/uL Hgb (13.0-17.5) gm/dL Hct (39.0-53.0) % MPV (9.5-12.2) fL Immature Gran # (0.00-0.04) X 10*3/uL Neutrophils # (1.3-7.7) k/uL Lymphocytes # (1.0-4.8) k/uL Eosinophils # (0.04-0.35) X 10*3/uL Chloride (96-109) mmol/L BUN (9.0-27.0) mg/dL BUN/Creatinine Ratio (12.00-20.00) Ratio Glucose (70-110) mg/dL POC Glucose (mg/dL) 172 H 186 H (70-110) mg/dL C-Reactive Protein (<1.0) mg/dL Urine Glucose (UA) 1+ H (Negative) 04/06/22 04/06/22 04/06/22 Range/Units 20:47 20:47 21:17 WBC (4.50-10.00) X 10*3/uL RBC 3.38 L (4.30-5.90) m/uL Hgb 9.2 L (13.0-17.5) gm/dL Hct 29.5 L (39.0-53.0) % MPV (9.5-12.2) fL Immature Gran # (0.00-0.04) X 10*3/uL Neutrophils # 8.2 H (1.3-7.7) k/uL Lymphocytes # 0.8 L (1.0-4.8) k/uL Eosinophils # (0.04-0.35) X 10*3/uL Chloride (96-109) mmol/L BUN (9.0-27.0) mg/dL BUN/Creatinine Ratio (12.00-20.00) Ratio Glucose (70-110) mg/dL POC Glucose (mg/dL) 237 H (70-110) mg/dL C-Reactive Protein 22.4 H (<1.0) mg/dL Urine Glucose (UA) (Negative) 04/07/22 04/07/22 04/07/22 Range/Units 05:36 05:36 06:50 WBC 11.51 H (4.50-10.00) X 10*3/uL RBC 3.39 L (4.30-5.90) m/uL Hgb 9.5 L (13.0-17.5) gm/dL Hct 28.8 L (39.0-53.0) % MPV 9.0 L (9.5-12.2) fL Immature Gran # 0.05 H (0.00-0.04) X 10*3/uL Neutrophils # 9.42 H (1.3-7.7) k/uL Lymphocytes # (1.0-4.8) k/uL Eosinophils # 0.02 L (0.04-0.35) X 10*3/uL Chloride 95 L (96-109) mmol/L BUN 4.9 L (9.0-27.0) mg/dL BUN/Creatinine Ratio 8.58 L (12.00-20.00) Ratio Glucose 178 H (70-110) mg/dL POC Glucose (mg/dL) 160 H (70-110) mg/dL C-Reactive Protein (<1.0) mg/dL Urine Glucose (UA) (Negative)
--- NOTE | 2022-04-07 10:38 | P.PN ---
Subjective Progress Note Date: 04/07/22 57-year-old male who presents emergency Department stating he has had pain for a week in his abdomen he describes in the lower abdomen area. Patient states she was here week ago and had a CAT scan with IV contrast and they did not find anything and he was sent home. Patient states she's not followed up with anybody this whole week. Patient states he woke up this morning the pain continued so he came in to be seen. Patient states she's been nauseated but has only vomited once per patient states he did have some diarrhea but that was after taking some mag citrate. Patient state after he had bowel movements he stated he did feel little better but the pain is back. Patient denies any fever chills. Patient states he did have an aortic aneurysm repair in January. Workup in ED includes blood work with a WBC of 10.7, hemoglobin of 10.6 and platelet count of 525, sodium 127, potassium 4.5, BUN/creatinine of 11/0.66 and blood glucose of 217 CT of the abdomen completed on previous visit to ED did not show anything acute Given recent history of surgery for type II and repeat urine leak from the aorta in mid-January, patient was admitted to the hospital for further evaluation by vascular surgery 03/31/2022 Patient is seen and evaluated in room at bedside with nursing staff present in the room; patient is quite agitated reporting he is not getting optimal pain control; per nursing staff "patient's clearance representative, Thelma" called with quite disruptive conversation with case management when she was yelling and became hostile; she had to be escorted by security and is not permitted on the floor; this represented was demanding better pain control for patient and was demanding patient to be transferred to [facility] for pain management -- CT of the abdomen and pelvis was ordered yesterday which patient refused -- Vascular surgery spoke with RN and reviewed CT of the abdomen and did not think they had any further input - Gen. surgery was consulted; abdominal x-ray was done which showed gaseous distention of large bowel likely colonic ileus; surgery has recommended Dulcolax suppository - Patient has been requesting to increase Dilaudid up to 2 mg and has been taking Dilaudid and [place] around the clock; I did detailed discussion with patient indicating that ileus might be related to overuse off narcotics; did recommend CT of the abdomen instead of just relying on narcotics; CT abdomen with oral contrast has been suggested by surgery also if symptoms fail to resolve with relief and constipation; patient remains very irritable and states he needs extra dose of Dilaudid to help with pain - We will discontinue Dilaudid and place patient on home dose of Percocet; I did suggest palliative care for pain control 04/01/2022 Patient is resting in bed reports abdominal pain rating 8/10 to his lower abdomen he states he is unable to describe. Reports having this pain and also u rinary frequency with decreased amount and dysuria over the last week as well. He sates he has not had a normal BM for the last week also. He had initially refused repeat CT but agreed to having done today. Abdominal pelvis CT w con showing possible colonic ileus, stable aaa with graft and also stable bilat common iliac artery aneurysm. He is being followed by general surgery. Continues on norco for pain management. White count today 12.69, hgb 10.0, sodium 128, chloride 90. Blood glucose in the 180s his oral diabetic medications are currently on hold. ALT remains stable, AST is now 37. Blood pressure 123/70. 04/05/2022 Patient seen this morning in follow up and has been cleared by surgery Dr. Garcia for discharge and outpatient follow up with colonoscopy. Patient was unable to complete the prep and colonoscopy was cancelled. Patient underwent barium enema eval with no signs of obstruction and patient is having bowel movements. Patient was scheduled for discharge and reports he tolerated breakfast and then later reported he was not feeling well enough to go home, continues with abdominal pain and reports his feet and legs have pain and are "puffy". Will hold the discharge for now, decrease the diet, and order LS spine ct. 04/06/2022 Patient was seen and continues to report abdominal pain. General surgery following and reports stable for discharge. LS spine ct was done showing m ultilevel disc degenerative joint changes and some spinal canal stenosis with some of the colon noted to have some evidence of colitis and will initiate IV zosyn. Patient reports to having temps and increase in blood pressure. Blood sugars elevated and have added sliding scale. Recommend to decrease the diet if not tolerating. 04/07/2022 Patient is seen today and per nursing staff, ate all of breakfast with no reports of intolerance. Patient is continuing to have abdominal pain and suggest clear liquid or full liquid diet although patient was upset of not having real fool. Patient is continued on IV zosyn for colitis and no further fevers since last night. ID consulted and pending and will consult GI in the am for further recommendations. WBC is mildly increased at 11 and recommend repeat labs. BP is slightly elevated and recommend to continue with norvasc. Review of Systems Constitutional: Denied any fatigue, reports fever. Cardio vascular: denied any chest pain, palpitations Gastrointestinal: denied any nausea, vomiting, diarrhea. Reports intolerance of diet and abdominal pain. Pulmonary: Denied any shortness of breath cough Neurologic denied any new focal deficits All inpatient medications were reviewed and appropriate changes in these medications as dictated in the interval history and assessment and plan. PHYSICAL EXAMINATION: GENERAL: The patient is alert and oriented x3, not in any acute distress. Well developed, well nourished. HEENT: Pupils are round and equally reacting to light. EOMI. No scleral icterus. No conjunctival pallor. Normocephalic, atraumatic. No pharyngeal erythema. No thyromegaly. CARDIOVASCULAR: S1 and S2 present. No murmurs, rubs, or gallops. PULMONARY: Chest is clear to auscultation, no wheezing or crackles. ABDOMEN: Soft, tender, non-distended, Hypoactive bowel sounds. No palpable organomegaly. MUSCULOSKELETAL: No joint swelling or deformity. EXTREMITIES: No cyanosis, clubbing, no pedal edema. NEUROLOGICAL: Gross neurological examination did not reveal any focal deficits. SKIN: No rashes. Assessment: Intractable abdominal pain most likely from ileus sigmoid colon wall thickening, possible colitis as noted on ct Fevers possibly secondary to above Hyponatremia, hypovolemic with poor oral intake Mild leukocytosis Anemia Diabetes mellitus Diabetic neuropathy Hypertension Depression/anxiety Former tobacco use Former EtOH use History of pancreatitis alcohol-induced History of abdominal aortic aneurysm post grafting stable 1.7 cm bilateral common iliac aortic aneurysm GI prophylaxis DVT prophylaxis Plan: Pain management with oral pain meds, patient continues to report 10/10 pain in abdomen Diet was advanced to regular per surgery although with possible colitis recommend clear or full liquids and patient per nursing staff ate all of regular breakfast and tolerated, still recommend clear or full liquid although patient complained of not having real food Monitor labs, wBC is mildly elevated and no further fever since last palliative senior np blood glucose Continue IV fluids, gentle and continue Zosyn, ID has been consulted, CRP was elevated. Continue holding oral diabetic agents and continue with sliding scale for now Treating for possible colitis as noted on the ct scan and will consult GI in the am and appreciate input and recommendations. Prognosis is guarded The impression and plan of care has been dictated as a scribe Aliya Quijano, Nurse Practitioner as directed. Dr. Lori MD I have performed a history and examination and MDM of this patient, discussed the same with the dictator, and agree with the dictator's assessment and plan as written ,documented as a scribe. Based on total visit time, I have performed more than 50% of the visit. Objective - Vital Signs Vital signs: Vital Signs Temp 99.5 F 04/07/22 07:52 Pulse 95 04/07/22 09:01 Resp 16 04/07/22 07:52 BP 153/86 04/07/22 07:52 Pulse Ox 98 04/07/22 07:52 FiO2 Intake & Output 04/06/22 04/07/22 04/07/22 18:59 06:59 18:59 Intake Total 476 850 240 Balance 476 850 240 Intake: Intake, IV Titration 350 Amount Piperacillin-Tazobactam 3 100 .375 gm In Sodium Chloride 0.9% 100 ml @ 25 mls/hr IVPB Q8H MICHAEL Rx#: [id number] Sodium Chloride 0.9% 1, 250 000 ml @ 15 mls/hr IV . Q24H MICHAEL Rx#:[id number] Oral 476 500 240 Other: Voiding Method Toilet Toilet # Voids 2 - Labs CBC & Chem 7: 04/07/22 05:36 04/07/22 05:36 Labs: Abnormal Lab Results - Last 24 Hours (Table) 04/06/22 04/06/22 04/06/22 Range/Units 12:22 16:55 20:32 WBC (4.50-10.00) X 10*3/uL RBC (4.30-5.90) m/uL Hgb (13.0-17.5) gm/dL Hct (39.0-53.0) % MPV (9.5-12.2) fL Immature Gran # (0.00-0.04) X 10*3/uL Neutrophils # (1.3-7.7) k/uL Lymphocytes # (1.0-4.8) k/uL Eosinophils # (0.04-0.35) X 10*3/uL Chloride (96-109) mmol/L BUN (9.0-27.0) mg/dL BUN/Creatinine Ratio (12.00-20.00) Ratio Glucose (70-110) mg/dL POC Glucose (mg/dL) 172 H 186 H (70-110) mg/dL C-Reactive Protein (<1.0) mg/dL Procalcitonin (0.02-0.09) ng/mL Urine Glucose (UA) 1+ H (Negative) 04/06/22 04/06/22 04/06/22 Range/Units 20:47 20:47 20:47 WBC (4.50-10.00) X 10*3/uL RBC 3.38 L (4.30-5.90) m/uL Hgb 9.2 L (13.0-17.5) gm/dL Hct 29.5 L (39.0-53.0) % MPV (9.5-12.2) fL Immature Gran # (0.00-0.04) X 10*3/uL Neutrophils # 8.2 H (1.3-7.7) k/uL Lymphocytes # 0.8 L (1.0-4.8) k/uL Eosinophils # (0.04-0.35) X 10*3/uL Chloride (96-109) mmol/L BUN (9.0-27.0) mg/dL BUN/Creatinine Ratio (12.00-20.00) Ratio Glucose (70-110) mg/dL POC Glucose (mg/dL) (70-110) mg/dL C-Reactive Protein 22.4 H (<1.0) mg/dL Procalcitonin 0.14 H (0.02-0.09) ng/mL Urine Glucose (UA) (Negative) 04/06/22 04/07/22 04/07/22 Range/Units 21:17 05:36 05:36 WBC 11.51 H (4.50-10.00) X 10*3/uL RBC 3.39 L (4.30-5.90) m/uL Hgb 9.5 L (13.0-17.5) gm/dL Hct 28.8 L (39.0-53.0) % MPV 9.0 L (9.5-12.2) fL Immature Gran # 0.05 H (0.00-0.04) X 10*3/uL Neutrophils # 9.42 H (1.3-7.7) k/uL Lymphocytes # (1.0-4.8) k/uL Eosinophils # 0.02 L (0.04-0.35) X 10*3/uL Chloride 95 L (96-109) mmol/L BUN 4.9 L (9.0-27.0) mg/dL BUN/Creatinine Ratio 8.58 L (12.00-20.00) Ratio Glucose 178 H (70-110) mg/dL POC Glucose (mg/dL) 237 H (70-110) mg/dL C-Reactive Protein (<1.0) mg/dL Procalcitonin (0.02-0.09) ng/mL Urine Glucose (UA) (Negative) 04/07/22 Range/Units 06:50 WBC (4.50-10.00) X 10*3/uL RBC (4.30-5.90) m/uL Hgb (13.0-17.5) gm/dL Hct (39.0-53.0) % MPV (9.5-12.2) fL Immature Gran # (0.00-0.04) X 10*3/uL Neutrophils # (1.3-7.7) k/uL Lymphocytes # (1.0-4.8) k/uL Eosinophils # (0.04-0.35) X 10*3/uL Chloride (96-109) mmol/L BUN (9.0-27.0) mg/dL BUN/Creatinine Ratio (12.00-20.00) Ratio Glucose (70-110) mg/dL POC Glucose (mg/dL) 160 H (70-110) mg/dL C-Reactive Protein (<1.0) mg/dL Procalcitonin (0.02-0.09) ng/mL Urine Glucose (UA) (Negative)
--- NOTE | 2022-04-07 10:44 | P.PN ---
Progress Note - Text Progress Note Date: 04/07/22 Patient's resting his bed. He currently has some pain in the left lower quadrant. On exam vital signs are stable. Abdomen soft. There is some mild tenderness. Chronic history abdominal pain. Patient is being evaluated by the vascular surgeons due to his recent aortic stent graft. His lumbar CT shows some evidence of some sigmoid colon thickening. This could be related to colitis. Patient will be observed currently.
[2022-04-07 12:10] LABS: Glucose,Whole Blood 198 mg/dL (70-110)
[2022-04-07] MEDS ORDERED: DAPTOmycin 500 MG VIAL IV SCH (15:15)
[2022-04-07 16:30] LABS: Glucose,Whole Blood 254 mg/dL (70-110)
[2022-04-07] MEDS: ALPRAZolam 0.5 MG TAB PO PRN (16:34)
[2022-04-07] MEDS: DAPTOmycin 500 MG in SODIUM CHLORIDE 0.9% 50 ML IVPB SCH (17:20)
[2022-04-07 19:31] LABS: Glucose,Whole Blood 237 mg/dL (70-110)
[2022-04-07] MEDS: VENLAFAXINE HCL ER 75 MG CAP PO SCH (21:29)
[2022-04-07] MEDS: SODIUM CHLORIDE 0.9% 1,000 ML IV SCH (21:30)
--- NOTE | 2022-04-07 23:00 | P.CONS ---
History of Present Illness - Reason for Consult Consult date: 04/07/22 Fever with suspected sepsis. Requesting physician: Mahesh E Sheet - Chief Complaint Lower abdominal pain x few days - History of Present Illness Patient is a 57-year male presenting to the hospital more than a week ago on 03/30/2022 complaining of lower abdominal pain patient pain has been mostly lower abdominal area describing it to be dull aching to sharp, 7-8 out of 10 no radiation patient be nauseated and did have an episode of vomiting also complaining of constipation patient on presentation to the hospital was afebrile initially patient did have a general surgery evaluation and a CT abdominal pelvis was completed on 04/01/2022 gaseous distention of the transverse colon without focal transition point suggestive of ileus patient was a complaining of lower back pain and the patient did have a lumbar spine CT completed on 04/05/2022 no evidence of fracture of the lumbar spine, circumferential sigmoid colon partially visualized wall thickening correlate for colitis patient did spike a fever of 100.4 degrees following height on 04/06/2022 patient did have blood cultures drawn he was started on Zosyn infectious disease was consulted for further management of antibiotic therapy patient did have a normal creatinine Pro-Watson's was mild elevated 0.14 urine has been negative, no other blood cultures coming back positive with gram-positive cocci Review of Systems Positive point has been mentioned in the HPI rest of the systems are negative Past Medical History Past Medical History: Diabetes Mellitus, GERD/Reflux, Hyperlipidemia, Hypertension, Sleep Apnea/CPAP/BIPAP Additional Past Medical History / Comment(s): Hiatal Hernia, abdominal aortic aneurysm (has had two surgeries-and states he has a leak at this time), hx alcoholic induced pancreatitis, 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 Past Anesthesia/Blood Transfusion Reactions: Previous Problems w/ Anesthesia, Motion Sickness Additional Past Anesthesia/Blood Transfusion Reaction / Comm: Aneurysm surgery 10/04/17- "cardiac arrest" at [facility] -pt not sure of cause Past Psychological History: Anxiety, Depression Smoking Status: Former smoker, Vaper Past Alcohol Use History: None Reported Past Drug Use History: None Reported - Past Family History Father Family Medical History: Deep Vein Thrombosis (DVT) Additional Family Medical History / Comment(s): Father is alive at age 83 with history of diabetes, osteoarthritis, dementia. Sister(s) Family Medical History: Cancer Additional Family Medical History / Comment(s): 2 sisters-breast cancer Brother(s) Family Medical History: COPD Additional Family Medical History / Comment(s): Patient has one brother with COPD. Medications and Allergies Home Medications Medication Instructions Recorded Confirmed Type Baclofen [Lioresal] 5 mg PO BID 04/27/18 03/30/22 History Venlafaxine HCl ER [Effexor XR] 75 mg PO HS 07/07/18 03/30/22 History ALPRAZolam [Xanax] 0.5 mg PO BID PRN 06/19/21 03/30/22 History Butalb/APAP/Caff 50-325-40Mg 1 - 2 tab PO Q6H PRN 06/19/21 03/30/22 History [Fioricet 50-325-40] Gabapentin 600 mg PO TID 06/19/21 03/30/22 History lisinopriL [Zestril] 30 mg PO DAILY 02/07/22 03/30/22 History Omeprazole 40 mg PO DAILY 03/30/22 03/30/22 History Pregabalin [Lyrica] 150 mg PO BID 03/30/22 03/30/22 History Magnesium Hydroxide [Milk of 2,400 mg PO ONCE PRN ml 04/05/22 Rx Magnesia Concentrate] INSULIN ASPART (NovoLOG) [NovoLOG 0 unit SQ ACHS each 04/10/22 Rx (formulary)] Piperacillin-Tazobactam [Zosyn] 3.375 gm IVPB Q8H each 04/10/22 Rx Tamsulosin [Flomax] 0.4 mg PO PC-BRKFST cap 04/10/22 Rx amLODIPine [Norvasc] 5 mg PO DAILY tab 04/10/22 Rx oxyCODONE ER [OxyCONTIN] 10 mg PO Q12HR PRN tab 04/10/22 Rx polyethylene glycoL 3350 [Miralax] 17 gm PO DAILY packet 04/10/22 Rx Allergies Allergy/AdvReac Type Severity Reaction Status Date / Time No Known Allergies Allergy Verified 03/30/22 13:51 Physical Exam Vitals: Vital Signs Temp Pulse Resp BP Pulse Ox 04/07/22 13:31 99.1 F 106 H 16 147/78 99 04/07/22 09:01 95 04/07/22 07:52 99.5 F 95 16 153/86 98 04/07/22 02:50 98.6 F 100 18 145/78 96 04/06/22 23:08 97.9 F 95 18 142/77 96 04/06/22 21:38 98.9 F 112 H 18 136/74 93 L 04/06/22 20:29 100.4 F H 131 H 20 176/86 95 04/06/22 20:00 112 H 18 04/06/22 19:04 100.1 F H 127 H 20 180/94 93 L 04/06/22 19:01 100.1 F H 127 H 18 180/94 93 L Intake and Output 04/06/22 04/07/22 04/07/22 22:59 06:59 14:59 Intake Total 118 850 240 Balance 118 850 240 Intake: Intake, IV Titration 350 Amount Piperacillin-Tazobactam 3 100 .375 gm In Sodium Chloride 0.9% 100 ml @ 25 mls/hr IVPB Q8H [facility] Rx#: [id number] Sodium Chloride 0.9% 1, 250 000 ml @ 15 mls/hr IV . Q24H [facility] Rx#:[id number] Oral 118 500 240 Other: Voiding Method Toilet Toilet # Voids 2 GENERAL DESCRIPTION: Middle-aged male lying in bed, no distress. No tachypnea or accessory muscle of respiration use. HEENT: Shows Pallor , no scleral icterus. Oral mucous membrane is dry. No pharyngeal erythema or thrush NECK: Trachea central, no thyromegaly. LUNGS: Unlabored breathing. Clear to auscultation anteriorly. No wheeze or crackle. HEART: S1, S2, regular rate and rhythm. No loud murmur ABDOMEN: Soft, no tenderness , guarding or rigidity, no organomegaly EXTREMITIES: No edema of feet. SKIN: No rash, no masses palpable. NEUROLOGICAL: The patient is awake, alert, oriented x3, mood and affect normal. Results CBC & Chem 7: 04/10/22 18:16 04/10/22 06:42 Labs: Abnormal Lab Results - Last 24 Hours (Table) 04/06/22 04/06/22 04/06/22 Range/Units 16:55 20:32 20:47 WBC (4.50-10.00) X 10*3/uL RBC 3.38 L (4.30-5.90) m/uL Hgb 9.2 L (13.0-17.5) gm/dL Hct 29.5 L (39.0-53.0) % MPV (9.5-12.2) fL Immature Gran # (0.00-0.04) X 10*3/uL Neutrophils # 8.2 H (1.3-7.7) k/uL Lymphocytes # 0.8 L (1.0-4.8) k/uL Eosinophils # (0.04-0.35) X 10*3/uL Chloride (96-109) mmol/L BUN (9.0-27.0) mg/dL BUN/Creatinine Ratio (12.00-20.00) Ratio Glucose (70-110) mg/dL POC Glucose (mg/dL) 186 H (70-110) mg/dL C-Reactive Protein (<1.0) mg/dL Procalcitonin (0.02-0.09) ng/mL Urine Glucose (UA) 1+ H (Negative) 04/06/22 04/06/22 04/06/22 Range/Units 20:47 20:47 21:17 WBC (4.50-10.00) X 10*3/uL RBC (4.30-5.90) m/uL Hgb (13.0-17.5) gm/dL Hct (39.0-53.0) % MPV (9.5-12.2) fL Immature Gran # (0.00-0.04) X 10*3/uL Neutrophils # (1.3-7.7) k/uL Lymphocytes # (1.0-4.8) k/uL Eosinophils # (0.04-0.35) X 10*3/uL Chloride (96-109) mmol/L BUN (9.0-27.0) mg/dL BUN/Creatinine Ratio (12.00-20.00) Ratio Glucose (70-110) mg/dL POC Glucose (mg/dL) 237 H (70-110) mg/dL C-Reactive Protein 22.4 H (<1.0) mg/dL Procalcitonin 0.14 H (0.02-0.09) ng/mL Urine Glucose (UA) (Negative) 04/07/22 04/07/22 04/07/22 Range/Units 05:36 05:36 06:50 WBC 11.51 H (4.50-10.00) X 10*3/uL RBC 3.39 L (4.30-5.90) m/uL Hgb 9.5 L (13.0-17.5) gm/dL Hct 28.8 L (39.0-53.0) % MPV 9.0 L (9.5-12.2) fL Immature Gran # 0.05 H (0.00-0.04) X 10*3/uL Neutrophils # 9.42 H (1.3-7.7) k/uL Lymphocytes # (1.0-4.8) k/uL Eosinophils # 0.02 L (0.04-0.35) X 10*3/uL Chloride 95 L (96-109) mmol/L BUN 4.9 L (9.0-27.0) mg/dL BUN/Creatinine Ratio 8.58 L (12.00-20.00) Ratio Glucose 178 H (70-110) mg/dL POC Glucose (mg/dL) 160 H (70-110) mg/dL C-Reactive Protein (<1.0) mg/dL Procalcitonin (0.02-0.09) ng/mL Urine Glucose (UA) (Negative) 04/07/22 Range/Units 12:08 WBC (4.50-10.00) X 10*3/uL RBC (4.30-5.90) m/uL Hgb (13.0-17.5) gm/dL Hct (39.0-53.0) % MPV (9.5-12.2) fL Immature Gran # (0.00-0.04) X 10*3/uL Neutrophils # (1.3-7.7) k/uL Lymphocytes # (1.0-4.8) k/uL Eosinophils # (0.04-0.35) X 10*3/uL Chloride (96-109) mmol/L BUN (9.0-27.0) mg/dL BUN/Creatinine Ratio (12.00-20.00) Ratio Glucose (70-110) mg/dL POC Glucose (mg/dL) 198 H (70-110) mg/dL C-Reactive Protein (<1.0) mg/dL Procalcitonin (0.02-0.09) ng/mL Urine Glucose (UA) (Negative) Assessment and Plan (1) Bacteremia Status: Acute Code(s): R78.81 - BACTEREMIA SNOMED Code(s): 7778849 (2) Fever Status: Acute Code(s): R50.9 - FEVER, UNSPECIFIED SNOMED Code(s): 872250730 Plan: 1patient with sepsis in this patient who did have a fever elevated white count has been complaining of lower abdominal pain also with constipation and CT suggestive of colitis possible diverticulitis and will need to cover for the enteric gram-negative both aerobes and anaerobes. 2patient with a positive blood culture with gram-positive cocci waiting for ID to be sure not dealing with staph epi which could be likely skin contaminant. 3patient to continue with Zosyn 3.375 g every 8 hours and will add daptomycin to cover for the positive blood culture while waiting for ID sensitivity. Blood cultures will be repeated document clearance of bacteremia. We will follow on clinical condition and cultures to further adjust medication if needed Thank you for this consultation will follow this patient along with you Time with Patient: Greater than 30
[2022-04-08] MEDS: ALPRAZolam 0.5 MG TAB PO PRN ×2 (03:05→21:28)
[2022-04-08] MEDS: PIPERACILLIN-TAZOBACTAM 3.375 GM in SODIUM CHLORIDE 0.9% 100 ML IVPB SCH ×3 (05:14→20:42)
[2022-04-08] MEDS: oxyCODONE-APAP 7.5-325MG 1 EACH TAB PO PRN ×2 (05:14→11:18)
[2022-04-08 06:57] LABS: Glucose,Whole Blood 192 mg/dL (70-110)
[2022-04-08] MEDS: PANTOPRAZOLE 40 MG/10 ML VIAL IVP SCH ×2 (08:25→08:34)
[2022-04-08] MEDS: amLODIPine 5 MG TAB PO SCH (08:26)
[2022-04-08] MEDS: HEPARIN SODIUM,PORCINE/PF 5,000 UNIT/0.5 ML SYRINGE SQ SCH ×3 (08:26→20:52)
[2022-04-08] MEDS: INSULIN ASPART (NovoLOG) 100 UNIT/ML VIAL SQ SCH ×4 (08:26→20:43)
[2022-04-08] MEDS: lisinopriL 10 MG TAB PO SCH (08:27)
[2022-04-08] MEDS: BACLOFEN 10 MG TAB PO SCH ×2 (08:27→20:43)
[2022-04-08] MEDS: GABAPENTIN 300 MG CAP PO SCH ×3 (08:27→20:43)
[2022-04-08] MEDS: TAMSULOSIN 0.4 MG CAP.ER.24H PO SCH (08:27)
--- NOTE | 2022-04-08 11:44 | P.PN ---
Subjective Progress Note Date: 04/08/22 CHIEF COMPLAINT: Abdominal pain HISTORY OF PRESENT ILLNESS: Patient continues to report diffuse abdominal pain. He does report his pain is worse in the left lower quadrant. He denies any nausea or vomiting. He is having bowel movements. Reports that the bowel movements are smaller than his normal size. He is currently on a regular diet. Patient did have fevers noted on 04/06/2022. Currently afebrile. Also noted to have some mild tachycardia. Patient does have 1 positive blood culture with co agulase negative staph which is possible contaminant. Case was discussed with infectious disease. Lumbar spine x-ray had showed circumferential sigmoid colon is partially visualized demonstrates wall thickening correlate for colitis. WBC from 911 was 11.51 PHYSICAL EXAM: VITAL SIGNS: Reviewed. GENERAL: Well-developed in no acute distress. HEENT: No sclera icterus. Extraocular movements grossly intact. Moist buccal mucosa. Head is atraumatic, normocephalic. ABDOMEN: Soft. Nondistended. Diffuse tenderness NEUROLOGIC: Alert and oriented. Cranial nerves II through XII grossly intact. ASSESSMENT: 1. Abdominal pain 2. Colitis PLAN: -Further recommendations forthcoming per surgeon -Continue supportive care -Continue regular diet -Continue antibiotics -Patient will eventually need colonoscopy Physician Kindergarten Teacher note has been reviewed by physician. Signing provider agrees with the documented findings, assessment, and plan of care. I have personally seen and examined the patient, reviewed the PRECISION HONER /PAs history, exam and MDM and agree with the assessment and plan as written. Based on total visit time, I have performed more than 50% of the visit. As above: Patient had a CT of the back showing some thickening of the sigmoid colon. Films were reviewed. This thickening is subtle and involves a long section of the sigmoid colon. This is likely related to peristalsis and decompression. Diverticulitis seems to be much less likely. We discussed the options of repeating CT abdomen and pelvis but the patient and I both agree that further radiation is not likely going to benefit this patient. Continue antibiotic coverage. Continue diet for now. Will follow. Objective - Vital Signs Vital signs: Vital Signs Temp 98.6 F 04/08/22 07:35 Pulse 70 04/08/22 08:23 Resp 18 04/08/22 08:23 BP 139/75 04/08/22 07:35 Pulse Ox 97 04/08/22 07:35 FiO2 Intake & Output 04/07/22 04/08/22 04/08/22 18:59 06:59 18:59 Intake Total 480 600 118 Balance 480 600 118 Intake: Intake, IV Titration 100 Amount Piperacillin-Tazobactam 3 100 .375 gm In Sodium Chloride 0.9% 100 ml @ 25 mls/hr IVPB Q8H [facility] Rx#: [id number] Oral 480 500 118 Other: Voiding Method Toilet Toilet Toilet # Voids 1 - Labs CBC & Chem 7: 04/07/22 05:36 04/07/22 05:36 Labs: Abnormal Lab Results - Last 24 Hours (Table) 04/07/22 04/07/22 04/07/22 Range/Units 12:08 16:28 19:29 POC Glucose (mg/dL) 198 H 254 H 237 H (70-110) mg/dL 04/08/22 Range/Units 06:54 POC Glucose (mg/dL) 192 H (70-110) mg/dL Microbiology - Last 24 Hours (Table) 04/07/22 14:19 Blood Culture Gram Stain - Preliminary Blood Blood Culture - Preliminary Coagulase Negative Staph 04/06/22 20:47 Blood Culture - Preliminary Blood No Growth after 24 hours 04/06/22 21:03 Blood Culture - Final Blood
[2022-04-08 12:23] LABS: Glucose,Whole Blood 294 mg/dL (70-110)
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
--- NOTE | 2022-04-08 16:16 | P.PAINPG ---
Objective - Vital Signs Vital signs: Vital Signs Temp 98.6 F 04/08/22 07:35 Pulse 70 04/08/22 08:23 Resp 18 04/08/22 08:23 BP 139/75 04/08/22 07:35 Pulse Ox 97 04/08/22 07:35 FiO2 Intake & Output 04/07/22 04/08/22 04/08/22 18:59 06:59 18:59 Intake Total 480 600 236 Balance 480 600 236 Intake: Intake, IV Titration 100 Amount Piperacillin-Tazobactam 3 100 .375 gm In Sodium Chloride 0.9% 100 ml @ 25 mls/hr IVPB Q8H [facility] Rx#: [id number] Oral 480 500 236 Other: Voiding Method Toilet Toilet Toilet # Voids 1 1 - Labs CBC & Chem 7: 04/07/22 05:36 04/07/22 05:36 Labs: Abnormal Lab Results - Last 24 Hours (Table) 04/07/22 04/07/22 04/08/22 Range/Units 16:28 19:29 06:54 POC Glucose (mg/dL) 254 H 237 H 192 H (70-110) mg/dL 04/08/22 Range/Units 12:22 POC Glucose (mg/dL) 294 H (70-110) mg/dL Microbiology - Last 24 Hours (Table) 04/07/22 14:19 Blood Culture Gram Stain - Preliminary Blood Blood Culture - Preliminary Coagulase Negative Staph 04/06/22 20:47 Blood Culture - Preliminary Blood No Growth after 24 hours 04/06/22 21:03 Blood Culture - Final Blood PQRS Measure Charge Sheet Comment: HISTORY OF PRESENT ILLNESS: 57 yr old inpatient male as a referral from Dr. Quijano presents today w severe and chronic abdominal pain secondary to AAA stent grafting. Pt states the Percocet 7.5/325mg he's been prescribed alleviates the pain from a 9/10 to a 6/10. Pain is dull/ achy/gnawing and mostly localized in the LLQ but also extends all over his abdomen. He states he does not know what pain medication he's taken in the past will work because he's never been in this much pain before. KUB imaging shows enlarged sigmoid colon, likely ileus from narcotic overuse. He was scheduled to have a colonoscopy but was cancelled when he didn't complete taking GoLyt[place] as directed. He admits to taking [place] at home for lumbar pain. He is examined laying supine on his R side with his LUE cradding his abdomen. He also states he's been having issues with constipation "for the past few weeks." Medication adjustments are made and stool softener (Miralax) on file given to patient today. PMH: Diabetes Mellitus, GERD, Hyperlipidemia, HTN, Sleep Apnea, MDD/ Anxiety PSH: AAA x 2 (09/30/2017, 11/04/17), LESIs, Colonoscopy, Type 2 Endoleak Repair, Hiatal Hernia, Hx of ETOH induced Pancreatitis, SI joint dysfunction SH: Former tobacco user. Use of Vape occasionally. No ETOH abuse. No illicit drug use. FH: Fa- DVT/DM/OA/Dementia at age 83. Sister(s)- Breast CA. Brother- COPD. All: NKDA Meds: See list REVIEW OF ORGAN SYSTEMS: CONSTITUTIONAL: No fevers or chills. No recent weight loss. NEUROLOGICAL: + numbness and tingling along the distal extremities. No seizure disorders or headaches. MUSCULOSKELETAL: + pain PSYCHIATRIC: Denies current depression or suicidal thoughts. Physical Examinations : Constitutional : Cooperative , not in acute distress . Neurologic : Cranial nerve II to XII intact. No focal neurological deficits. Psychiatric : alert & oriented x 3. Matching mood & appropriate affect. Judgment & insight intact. Abdomen: Well -healing incisional scars. Edema and diffuse TTP in a 4 quadrants. No pus, erythema noted. Musculoskeletal : Cervical Spine Motor strength in the deltoid and biceps: Normal right side. Normal Left side Motor strength biceps and the wrist extensors: Normal right side . Normal left side Motor strength in the triceps muscle: Normal right side. Normal left side Deep tendon reflexes: Normal at the biceps. Normal at Brachioradialis. Normal at triceps Vertebral body tenderness to deep palpation over Cervical facet loading test: positive bilaterally Spurling test: positive bilaterally Neck distraction test: positive bilaterally Shadia sign: positive bilaterally Lumbar spine Motor strength lower extremities ,thigh and legs 5/5 Right side , 5/5 Left side Deep tendon reflexes : Normal Knee Jerk. Normal Ankle Jerk Vertebral body tenderness over Lumbar facet Loading Test: positive Right / positive Left Range of motion of the lumbar spine Fl exion 30 degrees, extension 10 degrees Straight Leg Raise test: Left/ Right positive at degree Milena test: positive right / positive left. Severe tenderness over the Sacroiliac joint on the Right / Left sides Gaenslen test: positive bilaterally Seated flexion test: positive bi laterally. Sacral spine : Severe tenderness over the Sacroiliac joint: right side / left side Range of motion: Flexion of the lumbar spine <60 degrees Range of motion: Extension of the lumbar spine <20 degrees Gaenslen's Test positive Sony's Test positive Milena test: positive right side / left side Thigh Thrust Test Sacral Thrust Test Assessment/ Plan : Abdominal pain secondary to AAA repair, Ileus likely secondary to narcotic overuse, Failed oral pain management Discontinue Percocet 7.5/325mg. Start Oxycodone 10mg Q12 hr prn pain. Notified pt to ask for medication as it is not "around the clock." Agree w Pretty NPC and notified nurse to provide pt w Miralax today as listed in his medication log. All questions answered. I have spent greater than 30 minutes on patient care today. Dr Rayo was available by phone for the evaluation of this patient. The time was used to review the medical records including relevant urine studies and Prescription history (MAPs), review of the available imaging, evaluation and examination of the patient, coordination of care with the medical staff and if applicable referring physicians, as well as creation of the medical record - Pain Location Abdomen Non-Pharmacological Interventions: Distraction, Heat Pharmacological Interventions: PRN Medication Pain Comment: see MAR documentation PQRS Narrative: Smoking Status Former smoker Do You Want the Pneumonia No Vaccine AT THIS TIME? Blood Pressure [Left Arm] 139/75 Blood Pressure [Right Arm 123/70 Sitting] Blood Pressure [Right Arm] 146/85 Blood Pressure 148/78 Pain Intensity [Abdomen] 5 Pain Intensity 5 Pain Scale Used Numeric (1 - 10) Scale Used Numeric (1 - 10) Hx Alcohol Use (MH) No Home Medications: Ambulatory Orders Baclofen [Lioresal] 5 mg PO BID 04/27/18 glyBURIDE/METFORMIN HCL [Glucovance 5-500 mg] 1 tab PO BID-W/MEALS 04/27/18 Venlafaxine HCl ER [Effexor XR] 75 mg PO HS 07/07/18 ALPRAZolam [Xanax] 0.5 mg PO BID PRN 06/19/21 Butalb/APAP/Caff 50-325-40Mg [Fioricet 50-325-40] 1 - 2 tab PO Q6H PRN 06/19/21 Gabapentin 600 mg PO TID 06/19/21 lisinopriL [Zestril] 30 mg PO DAILY 02/07/22 Omeprazole 40 mg PO DAILY 03/30/22 Pregabalin [Lyrica] 150 mg PO BID 03/30/22 oxyCODONE HCL/ACETAMINOPHEN [Percocet 7.5-325 mg] 1 tab PO TID PRN 03/30/22 Magnesium Hydroxide [Milk of Magnesia Concentrate] 2,400 mg PO ONCE PRN ml Controlled Substance Measures - Controlled Substance Measures Is patient prescribed a controlled substance at discharge?: No
--- NOTE | 2022-04-08 16:18 | US ---
EXAMINATION TYPE: US kidneys/renal and bladder DATE OF EXAM: 04/08/2022 COMPARISON: NONE CLINICAL HISTORY: difficulty in urination. EXAM MEASUREMENTS: Right Kidney: 12.0 x 4.2 x 4.8 cm Left Kidney: 12.8 x 5.0 x 5.4 cm Right Kidney: superior pole cyst measuring 1.3 x 1.1 x 1.3cm Left Kidney: mild hydronephrosis , measures large Bladder: wnl There is no evidence for hydronephrosis at this point in time. No nephrolithiasis is seen. No ramiro s are identified. The urinary bladder is anechoic. Bilateral ureteral jets are seen. IMPRESSION: No evidence of obstructive uropathy.
[2022-04-08 17:21] LABS: Glucose,Whole Blood 158 mg/dL (70-110)
[2022-04-08] MEDS: DAPTOmycin 500 MG in SODIUM CHLORIDE 0.9% 50 ML IVPB SCH (17:28)
[2022-04-08] MEDS: oxyCODONE ER 10 MG TAB.ER.12H PO PRN (18:05)
[2022-04-08 19:31] LABS: Glucose,Whole Blood 226 mg/dL (70-110)
[2022-04-08] MEDS: SODIUM CHLORIDE 0.9% 1,000 ML IV SCH (19:41)
[2022-04-08] MEDS: VENLAFAXINE HCL ER 75 MG CAP PO SCH (20:44)
--- NOTE | 2022-04-09 00:54 | P.PN ---
Subjective Progress Note Date: 04/08/22 57-year-old male who presents emergency Department stating he has had pain for a week in his abdomen he describes in the lower abdomen area. Patient states she was here week ago and had a CAT scan with IV contrast and they did not find anything and he was sent home. Patient states she's not followed up with anybody this whole week. Patient states he woke up this morning the pain continued so he came in to be seen. Patient states she's been nauseated but has only vomited once per patient states he did have some diarrhea but that was after taking some mag citrate. Patient state after he had bowel movements he stated he did feel little better but the pain is back. Patient denies any fever chills. Patient states he did have an aortic aneurysm repair in January. Workup in ED includes blood work with a WBC of 10.7, hemoglobin of 10.6 and platelet count of 525, sodium 127, potassium 4.5, BUN/creatinine of 11/0.66 and blood glucose of 217 CT of the abdomen completed on previous visit to ED did not show anything acute Given recent history of surgery for type II and repeat urine leak from the aorta in mid-January, patient was admitted to the hospital for further evaluation by vascular surgery 03/31/2022 Patient is seen and evaluated in room at bedside with nursing staff present in the room; patient is quite agitated reporting he is not getting optimal pain control; per nursing staff "patient's customer relations representative, Thelma" called with quite disruptive conversation with case management when she was yelling and became hostile; she had to be escorted by security and is not permitted on the floor; this represented was demanding better pain control for patient and was demanding patient to be transferred to [facility] for pain management -- CT of the abdomen and pelvis was ordered yesterday which patient refused -- Vascular surgery spoke with RN and reviewed CT of the abdomen and did not think they had any further input - Gen. surgery was consulted; abdominal x-ray was done which showed gaseous distention of large bowel likely colonic ileus; surgery has recommended Dulcolax suppository - Patient has been requesting to increase Dilaudid up to 2 mg and has been taking Dilaudid and [place] around the clock; I did detailed discussion with patient indicating that ileus might be related to overuse off narcotics; did recommend CT of the abdomen instead of just relying on narcotics; CT abdomen with oral contrast has been suggested by surgery also if symptoms fail to resolve with relief and constipation; patient remains very irritable and states he needs extra dose of Dilaudid to help with pain - We will discontinue Dilaudid and place patient on home dose of Percocet; I did suggest palliative care for pain control 04/01/2022 Patient is resting in bed reports abdominal pain rating 8/10 to his lower abdomen he states he is unable to describe. Reports having this pain and also u rinary frequency with decreased amount and dysuria over the last week as well. He sates he has not had a normal BM for the last week also. He had initially refused repeat CT but agreed to having done today. Abdominal pelvis CT w con showing possible colonic ileus, stable aaa with graft and also stable bilat common iliac artery aneurysm. He is being followed by general surgery. Continues on norco for pain management. White count today 12.69, hgb 10.0, sodium 128, chloride 90. Blood glucose in the 180s his oral diabetic medications are currently on hold. ALT remains stable, AST is now 37. Blood pressure 123/70. 04/05/2022 Patient seen this morning in follow up and has been cleared by surgery Dr. Garcia for discharge and outpatient follow up with colonoscopy. Patient was unable to complete the prep and colonoscopy was cancelled. Patient underwent barium enema eval with no signs of obstruction and patient is having bowel movements. Patient was scheduled for discharge and reports he tolerated breakfast and then later reported he was not feeling well enough to go home, continues with abdominal pain and reports his feet and legs have pain and are "puffy". Will hold the discharge for now, decrease the diet, and order LS spine ct. 04/06/2022 Patient was seen and continues to report abdominal pain. General surgery following and reports stable for discharge. LS spine ct was done showing m ultilevel disc degenerative joint changes and some spinal canal stenosis with some of the colon noted to have some evidence of colitis and will initiate IV zosyn. Patient reports to having temps and increase in blood pressure. Blood sugars elevated and have added sliding scale. Recommend to decrease the diet if not tolerating. 04/07/2022 Patient is seen today and per nursing staff, ate all of breakfast with no reports of intolerance. Patient is continuing to have abdominal pain and suggest clear liquid or full liquid diet although patient was upset of not having real fool. Patient is continued on IV zosyn for colitis and no further fevers since last night. ID consulted and pending and will consult GI in the am for further recommendations. WBC is mildly increased at 11 and recommend repeat labs. BP is slightly elevated and recommend to continue with norvasc. 04/08/2022 Patient is seen in follow up today with multiple medical consultations following including surgery, now GI, pain management, and ID and is continuing to report uncontrolled pain. Patient is currently on unasyn and daptomycin with ID following and treating for possible colitis as well as positive blood cultures which are showing coag neg staph likely contaminant and will discuss further with ID about abx and discharge planning. Patient is being placed on scheduled miralax per GI with no plans for surgical interventions. Patient will need outpatient colonoscopy. Recommend to await pain management consult and will need pain management outpatient due to heavy use of narcotics. Patient reports decrease in urine output due to not maintaining a steady stream and is continued of flomax. Will obtain US kidneys and await reports. Patient is afebrile. Review of Systems Constitutional: Denied any fatigue, reports fever. Cardio vascular: denied any chest pain, palpitations Gastrointestinal: denied any nausea, vomiting, diarrhea. Reports continued abdominal pain. Pulmonary: Denied any shortness of breath cough Neurologic denied any new focal deficits All inpatient medications were reviewed and appropriate changes in these medications as dictated in the interval history and assessment and plan. PHYSICAL EXAMINATION: GENERAL: The patient is alert and oriented x3, not in any acute distress. Well developed, well nourished. HEENT: Pupils are round and equally reacting to light. EOMI. No scleral icterus. No conjunctival pallor. Normocephalic, atraumatic. No pharyngeal erythema. No thyromegaly. CARDIOVASCULAR: S1 and S2 present. No murmurs, rubs, or gallops. PULMONARY: Chest is clear to auscultation, no wheezing or crackles. ABDOMEN: Soft, tender, non-distended, Hypoactive bowel sounds. No palpable organomegaly. MUSCULOSKELETAL: No joint swelling or deformity. EXTREMITIES: No cyanosis, clubbing, no pedal edema. NEUROLOGICAL: Gross neurological examination did not reveal any focal deficits. SKIN: No rashes. Assessment: Intractable abdominal pain most likely from ileus sigmoid colon wall thickening, possible colitis as noted on ct Fevers possibly secondary to above Hyponatremia, hypovolemic with poor oral intake Mild leukocytosis Anemia Diabetes mellitus Diabetic neuropathy Hypertension Depression/anxiety Former tobacco use Former EtOH use History of pancreatitis alcohol-induced History of abdominal aortic aneurysm post grafting stable 1.7 cm bilateral common iliac aortic aneurysm GI prophylaxis DVT prophylaxis Plan: Pain management with oral pain meds, patient continues to report 10/10 pain in abdomen, pain management consulted Diet was advanced to regular per surgery although with possible colitis recommend clear or full liquids and patient per nursing staff ate all of regular breakfast and tolerated, still recommend clear or full liquid although patient complained of not having real food GI consulted with no plans for surgical intervention and recommending miralax scheduled due to heavy narcotic use Monitor labs, wBC is mildly elevated and no further fever since last development architect blood glucose Continue IV fluids, gentle and continue Zosyn and daptomycin for positive blood cultures and colitis, ID following, CRP was elevated. cultures showing coag neg staph Continue holding oral diabetic agents and continue with sliding scale for now Treating for possible colitis as noted on the ct scan Patient with difficulty in urination, maintaining a stream and is continued on flomax and US of the kidneys bladder done with no evidence of obstructive uropathy and will continue flomax and have patient follow up outpatient with urology. likely a component of chronic narcotic use and constipation. Prognosis is guarded Possible discharge in 24-48 hours Will need pain management follow up outpatient The impression and plan of care has been dictated by Aliya Quijano, Nurse Practitioner as directed. Dr. Lori MD I have performed a history and examination and MDM of this patient, discussed the same with the dictator, and agree with the dictator's assessment and plan as written ,documented as a scribe. Based on total visit time, I have performed more than 50% of the visit. Objective - Vital Signs Vital signs: Vital Signs Temp 98.6 F 04/08/22 07:35 Pulse 72 04/08/22 07:35 Resp 17 04/08/22 07:35 BP 139/75 04/08/22 07:35 Pulse Ox 97 04/08/22 07:35 FiO2 Intake & Output 04/07/22 04/08/22 04/08/22 18:59 06:59 18:59 Intake Total 480 600 118 Balance 480 600 118 Intake: Intake, IV Titration 100 Amount Piperacillin-Tazobactam 3 100 .375 gm In Sodium Chloride 0.9% 100 ml @ 25 mls/hr IVPB Q8H [facility] Rx#: [id number] Oral 480 500 118 Other: Voiding Method Toilet Toilet # Voids 1 - Labs CBC & Chem 7: 04/07/22 05:36 04/07/22 05:36 Labs: Abnormal Lab Results - Last 24 Hours (Table) 04/07/22 04/07/22 04/07/22 Range/Units 12:08 16:28 19:29 POC Glucose (mg/dL) 198 H 254 H 237 H (70-110) mg/dL 04/08/22 Range/Units 06:54 POC Glucose (mg/dL) 192 H (70-110) mg/dL Microbiology - Last 24 Hours (Table) 04/07/22 14:19 Blood Culture Gram Stain - Preliminary Blood Blood Culture - Preliminary Coagulase Negative Staph 04/06/22 20:47 Blood Culture - Preliminary Blood No Growth after 24 hours 04/06/22 21:03 Blood Culture - Final Blood
[2022-04-09] MEDS: PIPERACILLIN-TAZOBACTAM 3.375 GM in SODIUM CHLORIDE 0.9% 100 ML IVPB SCH ×3 (04:05→20:28)
[2022-04-09 07:14] LABS: Glucose,Whole Blood 178 mg/dL (70-110)
[2022-04-09] MEDS: INSULIN ASPART (NovoLOG) 100 UNIT/ML VIAL SQ SCH ×4 (08:13→20:52)
[2022-04-09] MEDS: oxyCODONE ER 10 MG TAB.ER.12H PO PRN ×2 (08:15→20:27)
[2022-04-09] MEDS: TAMSULOSIN 0.4 MG CAP.ER.24H PO SCH (08:17)
[2022-04-09] MEDS: HEPARIN SODIUM,PORCINE/PF 5,000 UNIT/0.5 ML SYRINGE SQ SCH ×3 (08:18→21:24)
[2022-04-09 08:58] LABS: Basophils # (A) 0.02 X 10*3/uL (0.00-0.10); Basophils % (A) 0.2 %; Eosinophils # (A) 0.04 X 10*3/uL (0.04-0.35); Eosinophils % (A) 0.4 %; HCT 28.7 % (39.6-50.0); HGB 9.3 g/dL (13.0-17.0); Immature Grans, Automated 0.4 %; Lymphocytes # (A) 1.11 X 10*3/uL (0.90-5.00); Lymphocytes % (A) 9.9 %; MCH 27.7 pg (27.0-32.0); MCHC 32.4 g/dL (32.0-37.0); MCV 85.4 fL (80.0-97.0); Mean Platelet Volume 8.8 fL (9.5-12.2); Monocytes # (A) 0.91 X 10*3/uL (0.20-1.00); Monocytes % (A) 8.1 %; NRBC Per 100 WBC 0 /100 WBCS (0.0-0.0); Neutrophils # (A) 9.12 X 10*3/uL (1.80-7.70); Platelet Count 341 X 10*3/uL (140-440); RBC 3.36 X 10*6/uL (4.40-5.60); RDW 12.8 % (11.5-14.5); WBC 11.25 X 10*3/uL (4.50-10.00)
[2022-04-09 09:23] LABS: African American GFR (CKD) 119.7 (60.0-200.0); Anion Gap 13.5 mmol/L (10.00-18.00); BUN/Creat Ratio 9.14 Ratio (12.00-20.00); Blood Urea Nitrogen 6.4 mg/dL (9.0-27.0); Calcium 8.9 mg/dL (8.7-10.3); Carbon Dioxide 26.5 mmol/L (20.0-27.5); Non-African American GFR(CKD) 103.3 (60.0-200.0); Potassium 3.6 mmol/L (3.5-5.5)
[2022-04-09] MEDS: BACLOFEN 10 MG TAB PO SCH ×2 (10:29→20:28)
[2022-04-09] MEDS: GABAPENTIN 300 MG CAP PO SCH ×3 (10:29→20:28)
[2022-04-09] MEDS: lisinopriL 10 MG TAB PO SCH (10:29)
[2022-04-09] MEDS: amLODIPine 5 MG TAB PO SCH (10:32)
[2022-04-09] MEDS: PANTOPRAZOLE 40 MG/10 ML VIAL IVP SCH (10:32)
[2022-04-09] MEDS: polyethylene glycoL 3350 17 GM POWD.PACK PO SCH (10:34)
--- NOTE | 2022-04-09 11:25 | P.PN ---
Subjective Progress Note Date: 04/09/22 CHIEF COMPLAINT: Abdominal pain HISTORY OF PRESENT ILLNESS: Patient continues to report diffuse abdominal pain and pain in the left lower quadrant. He bowel movement yesterday. No bowel movement today. Denies any nausea or vomiting. Afebrile. Repeat blood culture negative. Afebrile. WBC 11.25 Hgb 9.3 platelets 341 sodium 131 potassium 3.6 creatinine 0.7 Medicine service has been downgraded diet to clear liquids. Patient seen by GI service yesterday they have ordered MiraLAX. Seen by pain service they have discontinued the Percocet and added oxycodone. PHYSICAL EXAM: VITAL SIGNS: Reviewed. GENERAL: Well-developed in no acute distress. HEENT: No sclera icterus. Extraocular movements grossly intact. Moist buccal mucosa. Head is atraumatic, normocephalic. ABDOMEN: Soft. Nondistended. Diffuse tenderness NEUROLOGIC: Alert and oriented. Cranial nerves II through XII grossly intact. ASSESSMENT: 1. Abdominal pain 2. Thickening of the sigmoid colon likely related to peristalsis and decompression. Diverticulitis seems to be much less likely per Dr. Garcia PLAN: -Further recommendations forthcoming per surgeon -Continue supportive care -Continue clear liquids -Continue antibiotics -Recommend colonoscopy outpatient Physician Operations Controller note has been reviewed by physician. Signing provider agrees with the documented findings, assessment, and plan of care. I have personally seen and examined the patient, reviewed the FREEDOM OF INFORMATION OFFICER /PAs history, exam and MDM and agree with the assessment and plan as written. Based on total visit time, I have performed more than 50% of the visit. As above: Patient had 2 Perez was today. The second bowel movement was moderate sized and soft. Still having back pain that radiates to his abdomen and into his legs. On exam the patient has no significant distention. Minimal lower abdominal tenderness. Despite the patient's extensive workup no clear etiology to explain his pain. GI was consulted for the patient's colitis seen on CAT scan. No surgical intervention planned. We'll sign off. Please call if needed. Objective - Vital Signs Vital signs: Vital Signs Temp 98.3 F 04/09/22 07:34 Pulse 87 04/09/22 07:34 Resp 16 04/09/22 08:00 BP 158/83 04/09/22 07:34 Pulse Ox 96 04/09/22 07:34 FiO2 Intake & Output 04/08/22 04/09/22 04/09/22 18:59 06:59 18:59 Intake Total 236 300 Output Total 500 Balance -264 300 Intake: Oral 236 300 Output: Urine 500 Other: Voiding Method Toilet Toilet Toilet # Voids 1 2 1 - Labs CBC & Chem 7: 04/09/22 05:57 04/09/22 05:57 Labs: Abnormal Lab Results - Last 24 Hours (Table) 04/08/22 04/08/22 04/08/22 Range/Units 12: 17:19 19:30 WBC (4.50-10.00) X 10*3/uL RBC (4.40-5.60) X 10*6/uL Hgb (13.0-17.0) g/dL Hct (39.6-50.0) % MPV (9.5-12.2) fL Immature Gran # (0.00-0.04) X 10*3/uL Neutrophils # (1.80-7.70) X 10*3/uL Sodium (135-145) mmol/L Chloride (96-109) mmol/L BUN (9.0-27.0) mg/dL BUN/Creatinine Ratio (12.00-20.00) Ratio Glucose (70-110) mg/dL POC Glucose (mg/dL) 294 H 158 H 226 H (70-110) mg/dL 04/09/22 04/09/22 04/09/22 Range/Units 05:57 05:57 07:12 WBC 11.25 H (4.50-10.00) X 10*3/uL RBC 3.36 L (4.40-5.60) X 10*6/uL Hgb 9.3 L (13.0-17.0) g/dL Hct 28.7 L (39.6-50.0) % MPV 8.8 L (9.5-12.2) fL Immature Gran # 0.05 H (0.00-0.04) X 10*3/uL Neutrophils # 9.12 H (1.80-7.70) X 10*3/uL Sodium 131 L (135-145) mmol/L Chloride 91 L (96-109) mmol/L BUN 6.4 L (9.0-27.0) mg/dL BUN/Creatinine Ratio 9.14 L (12.00-20.00) Ratio Glucose 184 H (70-110) mg/dL POC Glucose (mg/dL) 178 H (70-110) mg/dL Microbiology - Last 24 Hours (Table) 04/08/22 04:58 Blood Culture - Preliminary Blood No Growth after 24 hours 04/06/22 20:47 Blood Culture - Preliminary Blood No Growth after 48 hours
[2022-04-09 11:41] LABS: Glucose,Whole Blood 161 mg/dL (70-110)
[2022-04-09 12:59] VITALS: BMI 23.7
[2022-04-09] MEDS ORDERED: IOPAMIDOL CONTRAST (ORAL USE) VIAL PO PRN (13:05)
--- NOTE | 2022-04-09 14:12 | XR ---
EXAMINATION TYPE: XR KUB DATE OF EXAM: 04/09/2022 COMPARISON: 04/04/2022 HISTORY: Pain TECHNIQUE: Single supine KUB image of the abdomen is obtained FINDINGS: Redemonstrated is distended transverse colon as well as right hemicolon slightly improved from prior study. There is contrast seen within the left hemicolon as well as the sigmoid colon which appears to be decompressed. Small bowel appears of normal caliber at this time. No convincing evidence for pneumoperitoneum. No unusual calcifications. The lung bases are clear. The osseous structures are intact. Postoperative changes of aortic stent graft. IMPRESSION: 1. Redemonstrated is distended transverse colon as well as right hemicolon slightly improved from pr ior study.
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
[2022-04-09 17:26] LABS: Glucose,Whole Blood 196 mg/dL (70-110)
[2022-04-09] MEDS: SODIUM CHLORIDE 0.9% 1,000 ML IV SCH (20:27)
[2022-04-09] MEDS: VENLAFAXINE HCL ER 75 MG CAP PO SCH (20:28)
[2022-04-09 20:37] LABS: Glucose,Whole Blood 191 mg/dL (70-110)
[2022-04-09] MEDS: ALPRAZolam 0.5 MG TAB PO PRN (20:53)
--- NOTE | 2022-04-09 22:57 | P.PN ---
Subjective Progress Note Date: 04/08/22 Principal diagnosis: Diverticulitis and bacteremia Patient is a 57 year old male presenting to the hospital admission with lower abdominal pain with initial concern for possible ileus subsequently he did have a CT of the lumbar spine with concern for possible colitis and the patient did spike a fever. On today's evaluation and that is 04/08/2022, the patient is afebrile he still complaining of lower abdominal pain and constipation however no nausea no vomiting no chest pain shortness of breath or cough and no urinary symptoms Objective - Vital Signs Vital signs: Vital Signs Temp 98.6 F 04/08/22 07:35 Pulse 70 04/08/22 08:23 Resp 18 04/08/22 08:23 BP 139/75 04/08/22 07:35 Pulse Ox 97 04/08/22 07:35 FiO2 Intake & Output 04/07/22 04/08/22 04/08/22 18:59 06:59 18:59 Intake Total 480 600 118 Balance 480 600 118 Intake: Intake, IV Titration 100 Amount Piperacillin-Tazobactam 3 100 .375 gm In Sodium Chloride 0.9% 100 ml @ 25 mls/hr IVPB Q8H [facility] Rx#: [id number] Oral 480 500 118 Other: Voiding Method Toilet Toilet Toilet # Voids 1 - Exam GENERAL DESCRIPTION: Middle-age male lying in bed in no distress RESPIRATORY SYSTEM: Unlabored breathing , decreased breath sounds at bases HEART: S1 S2 regular rate and rhythm , ABDOMEN: Soft , no tenderness EXTREMITIES: No edema feet - Labs CBC & Chem 7: 04/09/22 05:57 04/09/22 05:57 Labs: Abnormal Lab Results - Last 24 Hours (Table) 04/07/22 04/07/22 04/07/22 Range/Units 12:08 16:28 19:29 POC Glucose (mg/dL) 198 H 254 H 237 H (70-110) mg/dL 04/08/22 Range/Units 06:54 POC Glucose (mg/dL) 192 H (70-110) mg/dL Microbiology - Last 24 Hours (Table) 04/07/22 14:19 Blood Culture Gram Stain - Preliminary Blood Blood Culture - Preliminary Coagulase Negative Staph 04/06/22 20:47 Blood Culture - Preliminary Blood No Growth after 24 hours 04/06/22 21:03 Blood Culture - Final Blood Assessment and Plan (1) Bacteremia Current Visit: Yes Status: Acute Code(s): R78.81 - BACTEREMIA SNOMED Code(s): 1331287 (2) Fever Current Visit: Yes Status: Acute Code(s): R50.9 - FEVER, UNSPECIFIED SNOMED Code(s): 186544540 Plan: 1patient with sepsis in this patient who did have a fever elevated white count has been complaining of lower abdominal pain also with constipation and CT suggestive of colitis possible diverticulitis and will need to cover for the enteric gram-negative both aerobes and anaerobes. 2patient with a positive blood culture with gram-positive cocci waiting for ID to be sure not dealing with staph epi which could be likely skin contaminant.B lood cultures has been repeated document clearance of bacteremia. 3patient to continue with Zosyn 3.375 g every 8 hours and daptomycin while waiting for the cultures to finalize Time with Patient: Less than 30
--- NOTE | 2022-04-09 23:00 | P.PN ---
Subjective Progress Note Date: 04/09/22 Principal diagnosis: Diverticulitis and bacteremia Patient is a 57 year old male presenting to the hospital admission with lower abdominal pain with initial concern for possible ileus subsequently he did have a CT of the lumbar spine with concern for possible colitis and the patient did spike a fever. On today's evaluation and that is 04/09/2022, the patient remains to be afebrile, the patient is still complaining of lower abdominal pain and constipation however no nausea no vomiting, the patient denies chest pain shortness of breath or cough and no urinary symptoms Objective - Vital Signs Vital signs: Vital Signs Temp 98.3 F 04/09/22 07:34 Pulse 87 04/09/22 07:34 Resp 16 04/09/22 08:00 BP 158/83 04/09/22 07:34 Pulse Ox 96 04/09/22 07:34 FiO2 Intake & Output 04/08/22 04/09/22 04/09/22 18:59 06:59 18:59 Intake Total 236 300 Output Total 500 Balance -264 300 Intake: Oral 236 300 Output: Urine 500 Other: Voiding Method Toilet Toilet Toilet # Voids 1 2 1 - Exam GENERAL DESCRIPTION: Middle-age male lying in bed in no distress RESPIRATORY SYSTEM: Unlabored breathing , decreased breath sounds at bases HEART: S1 S2 regular rate and rhythm , ABDOMEN: Soft , no tenderness EXTREMITIES: No edema feet - Labs CBC & Chem 7: 04/09/22 05:57 04/09/22 05:57 Labs: Abnormal Lab Results - Last 24 Hours (Table) 04/08/22 04/08/22 04/08/22 Range/Units 12:22 17:19 19:30 WBC (4.50-10.00) X 10*3/uL RBC (4.40-5.60) X 10*6/uL Hgb (13.0-17.0) g/dL Hct (39.6-50.0) % MPV (9.5-12.2) fL Immature Gran # (0.00-0.04) X 10*3/uL Neutrophils # (1.80-7.70) X 10*3/uL Sodium (135-145) mmol/L Chloride (96-109) mmol/L BUN (9.0-27.0) mg/dL BUN/Creatinine Ratio (12.00-20.00) Ratio Glucose (70-110) mg/dL POC Glucose (mg/dL) 294 H 158 H 226 H (70-110) mg/dL 04/09/22 04/09/22 04/09/22 Range/Units 05:57 05:57 07:12 WBC 11.25 H (4.50-10.00) X 10*3/uL RBC 3.36 L (4.40-5.60) X 10*6/uL Hgb 9.3 L (13.0-17.0) g/dL Hct 28.7 L (39.6-50.0) % MPV 8.8 L (9.5-12.2) fL Immature Gran # 0.05 H (0.00-0.04) X 10*3/uL Neutrophils # 9.12 H (1.80-7.70) X 10*3/uL Sodium 131 L (135-145) mmol/L Chloride 91 L (96-109) mmol/L BUN 6.4 L (9.0-27.0) mg/dL BUN/Creatinine Ratio 9.14 L (12.00-20.00) Ratio Glucose 184 H (70-110) mg/dL POC Glucose (mg/dL) 178 H (70-110) mg/dL Microbiology - Last 24 Hours (Table) 04/08/22 04:58 Blood Culture - Preliminary Blood No Growth after 24 hours 04/06/22 20:47 Blood Culture - Preliminary Blood No Growth after 48 hours Assessment and Plan (1) Bacteremia Current Visit: Yes Status: Acute Code(s): R78.81 - BACTEREMIA SNOMED Code(s): 2129063 (2) Fever Current Visit: Yes Status: Acute Code(s): R50.9 - FEVER, UNSPECIFIED SNOMED Code(s): 493594382 Plan: 1patient with sepsis in this patient who did have a fever elevated white count has been complaining of lower abdominal pain also with constipation and CT suggestive of colitis possible diverticulitis and will need to cover for the enteric gram-negative both aerobes and anaerobes. 2patient with a positive blood culture with with staph epi which could be likely skin contaminant, repeat blood culture has been negative discontinue daptomycin 3patient will benefit from CT abdomen and pelvis with contrast to better define extent of diverticulitis that we'll determine his discharge antibiotics for now continue with Zosyn 3.375 g every 8 hours , plan of care was discussed with [facility] for admitting team Time with Patient: Less than 30
--- NOTE | 2022-04-10 06:04 | P.PN ---
Subjective Progress Note Date: 04/09/22 57-year-old male who presents emergency Department stating he has had pain for a week in his abdomen he describes in the lower abdomen area. Patient states she was here week ago and had a CAT scan with IV contrast and they did not find anything and he was sent home. Patient states she's not followed up with anybody this whole week. Patient states he woke up this morning the pain continued so he came in to be seen. Patient states she's been nauseated but has only vomited once per patient states he did have some diarrhea but that was after taking some mag citrate. Patient state after he had bowel movements he stated he did feel little better but the pain is back. Patient denies any fever chills. Patient states he did have an aortic aneurysm repair in January. Workup in ED includes blood work with a WBC of 10.7, hemoglobin of 10.6 and platelet count of 525, sodium 127, potassium 4.5, BUN/creatinine of 11/0.66 and blood glucose of 217 CT of the abdomen completed on previous visit to ED did not show anything acute Given recent history of surgery for type II and repeat urine leak from the aorta in mid-January, patient was admitted to the hospital for further evaluation by vascular surgery 03/31/2022 Patient is seen and evaluated in room at bedside with nursing staff present in the room; patient is quite agitated reporting he is not getting optimal pain control; per nursing staff "patient's hospital sales representative, Thelma" called with quite disruptive conversation with case management when she was yelling and became hostile; she had to be escorted by security and is not permitted on the floor; this represented was demanding better pain control for patient and was demanding patient to be transferred to for pain management -- CT of the abdomen and pelvis was ordered yesterday which patient refused -- Vascular surgery spoke with RN and reviewed CT of the abdomen and did not think they had any further input - Gen. surgery was consulted; abdominal x-ray was done which showed gaseous distention of large bowel likely colonic ileus; surgery has recommended Dulcolax suppository - Patient has been requesting to increase Dilaudid up to 2 mg and has been taking Dilaudid and Emmons around the clock; I did detailed discussion with patient indicating that ileus might be related to overuse off narcotics; did recommend CT of the abdomen instead of just relying on narcotics; CT abdomen with oral contrast has been suggested by surgery also if symptoms fail to resolve with relief and constipation; patient remains very irritable and states he needs extra dose of Dilaudid to help with pain - We will discontinue Dilaudid and place patient on home dose of Percocet; I did suggest palliative care for pain control 04/01/2022 Patient is resting in bed reports abdominal pain rating 8/10 to his lower abdomen he states he is unable to describe. Reports having this pain and also u rinary frequency with decreased amount and dysuria over the last week as well. He sates he has not had a normal BM for the last week also. He had initially refused repeat CT but agreed to having done today. Abdominal pelvis CT w con showing possible colonic ileus, stable aaa with graft and also stable bilat common iliac artery aneurysm. He is being followed by general surgery. Continues on norco for pain management. White count today 12.69, hgb 10.0, sodium 128, chloride 90. Blood glucose in the 180s his oral diabetic medications are currently on hold. ALT remains stable, AST is now 37. Blood pressure 123/70. 04/05/2022 Patient seen this morning in follow up and has been cleared by surgery Dr. Garcia for discharge and outpatient follow up with colonoscopy. Patient was unable to complete the prep and colonoscopy was cancelled. Patient underwent barium enema eval with no signs of obstruction and patient is having bowel movements. Patient was scheduled for discharge and reports he tolerated breakfast and then later reported he was not feeling well enough to go home, continues with abdominal pain and reports his feet and legs have pain and are "puffy". Will hold the discharge for now, decrease the diet, and order LS spine ct. 04/06/2022 Patient was seen and continues to report abdominal pain. General surgery following and reports stable for discharge. LS spine ct was done showing m ultilevel disc degenerative joint changes and some spinal canal stenosis with some of the colon noted to have some evidence of colitis and will initiate IV zosyn. Patient reports to having temps and increase in blood pressure. Blood sugars elevated and have added sliding scale. Recommend to decrease the diet if not tolerating. 04/07/2022 Patient is seen today and per nursing staff, ate all of breakfast with no reports of intolerance. Patient is continuing to have abdominal pain and suggest clear liquid or full liquid diet although patient was upset of not having real fool. Patient is continued on IV zosyn for colitis and no further fevers since last night. ID consulted and pending and will consult GI in the am for further recommendations. WBC is mildly increased at 11 and recommend repeat labs. BP is slightly elevated and recommend to continue with norvasc. 04/08/2022 Patient is seen in follow up today with multiple medical consultations following including surgery, now GI, pain management, and ID and is continuing to report uncontrolled pain. Patient is currently on unasyn and daptomycin with ID following and treating for possible colitis as well as positive blood cultures which are showing coag neg staph likely contaminant and will discuss further with ID about abx and discharge planning. Patient is being placed on scheduled miralax per GI with no plans for surgical interventions. Patient will need outpatient colonoscopy. Recommend to await pain management consult and will need pain management outpatient due to heavy use of narcotics. Patient reports decrease in urine output due to not maintaining a steady stream and is continued of flomax. Will obtain US kidneys and await reports. Patient is afebrile. 04/09/2022 Patient is seen in follow up and extremely irritated and agitated as he feels his pain is unmanaged and feels worse than when he came in. Patient continues to report severe abdominal pain. Patient is being maintained on Zosyn with ID following and has requested ct abdomen to assess for diverticulitis/colitis. Surgery and GI following recommending miralax and outpatient colonoscopy. Patient is afebrile and denies chest pain or shortness of breath. Patient is on clears for now and will consider advancing. phlebotomy support tech requested KUB to assess for prexisting barium prior to ct abdomen with contrast which does show barium retained in the end of the colon and will perform CT tomorrow. Possible discharge in 24 hours. Review of Systems Constitutional: Denied any fatigue, reports fever. Cardio vascular: denied any chest pain, palpitations Gastrointestinal: denied any nausea, vomiting, diarrhea. Reports continued abdominal pain. Pulmonary: Denied any shortness of breath cough Neurologic denied any new focal deficits All inpatient medications were reviewed and appropriate changes in these medications as dictated in the interval history and assessment and plan. PHYSICAL EXAMINATION: GENERAL: The patient is alert and oriented x3, not in any acute distress. Well developed, well nourished. HEENT: Pupils are round and equally reacting to light. EOMI. No scleral icterus. No conjunctival pallor. Normocephalic, atraumatic. No pharyngeal erythema. No thyromegaly. CARDIOVASCULAR: S1 and S2 present. No murmurs, rubs, or gallops. PULMONARY: Chest is clear to auscultation, no wheezing or crackles. ABDOMEN: Soft, tender, non-distended, Hypoactive bowel sounds. No palpable organomegaly. MUSCULOSKELETAL: No joint swelling or deformity. EXTREMITIES: No cyanosis, clubbing, no pedal edema. NEUROLOGICAL: Gross neurological examination did not reveal any focal deficits. SKIN: No rashes. Assessment: Intractable abdominal pain most likely from ileus sigmoid colon wall thickening, possible colitis as noted on ct, possibly related to decompression of the colon and constipation. Diverticulitis colitis suspicion is low per surgery Fevers possibly secondary to above, resolved Hyponatremia, hypovolemic with poor oral intake Mild leukocytosis Anemia Diabetes mellitus Diabetic neuropathy Hypertension Depression/anxiety Former tobacco use Former EtOH use History of pancreatitis alcohol-induced History of abdominal aortic aneurysm post grafting stable 1.7 cm bilateral common iliac aortic aneurysm GI prophylaxis DVT prophylaxis Plan: Pain management with oral pain meds, patient continues to report 10/10 pain in abdomen, pain management following and has added hydrocodone and discontinued percocet Diet ok to advance per GI with continued miralax scheduled and may do miralax bid. Recommend outpatient colonoscopy Surgery following as well and feels is due to decompression and constipation rather than diverticulitis Recommend repeat labs ID has requested ct abdomen with contrast although KUB still shows some barium in the colon and recommending CT be done tomorrow. Continue IV fluids, gentle and continue Zosyn Continue holding oral diabetic agents and continue with sliding scale for now Treating for possible colitis as noted on the previous ct scan Patient becomes extremely agitated at times and reports his pain is still not managed. Possible discharge in [address] is performed Encouraged increased activity. Will need pain management follow up outpatient The impression and plan of care has been dictated by Aliya Quijano, Nurse Practitioner as directed. Dr. Giuliana MD I have performed a history and examination and MDM of this patient, discussed the same with the dictator, and agree with the dictator's assessment and plan as written ,documented as a scribe. Based on total visit time, I have performed more than 50% of the visit. Objective - Vital Signs Vital signs: Vital Signs Temp 97.9 F 04/09/22 11:39 Pulse 92 04/09/22 11:39 Resp 17 04/09/22 11:39 BP 147/88 04/09/22 11:39 Pulse Ox 97 04/09/22 11:39 FiO2 Intake & Output 04/08/22 04/09/22 04/09/22 18:59 06:59 18:59 Intake Total 236 300 Output Total 500 Balance -264 300 Weight 79.379 kg Intake: Oral 236 300 Output: Urine 500 Other: Voiding Method Toilet Toilet Toilet # Voids 1 2 1 - Labs CBC & Chem 7: 04/09/22 05:57 04/09/22 05:57 Labs: Abnormal Lab Results - Last 24 Hours (Table) 04/08/22 04/08/22 04/09/22 Range/Units 17:19 19:30 05:57 WBC 11.25 H (4.50-10.00) X 10*3/uL RBC 3.36 L (4.40-5.60) X 10*6/uL Hgb 9.3 L (13.0-17.0) g/dL Hct 28.7 L (39.6-50.0) % MPV 8.8 L (9.5-12.2) fL Immature Gran # 0.05 H (0.00-0.04) X 10*3/uL Neutrophils # 9.12 H (1.80-7.70) X 10*3/uL Sodium (135-145) mmol/L Chloride (96-109) mmol/L BUN (9.0-27.0) mg/dL BUN/Creatinine Ratio (12.00-20.00) Ratio Glucose (70-110) mg/dL POC Glucose (mg/dL) 158 H 226 H (70-110) mg/dL 04/09/22 04/09/22 04/09/22 Range/Units 05:57 07:12 11:40 WBC (4.50-10.00) X 10*3/uL RBC (4.40-5.60) X 10*6/uL Hgb (13.0-17.0) g/dL Hct (39.6-50.0) % MPV (9.5-12.2) fL Immature Gran # (0.00-0.04) X 10*3/uL Neutrophils # (1.80-7.70) X 10*3/uL Sodium 131 L (135-145) mmol/L Chloride 91 L (96-109) mmol/L BUN 6.4 L (9.0-27.0) mg/dL BUN/Creatinine Ratio 9.14 L (12.00-20.00) Ratio Glucose 184 H (70-110) mg/dL POC Glucose (mg/dL) 178 H 161 H (70-110) mg/dL Microbiology - Last 24 Hours (Table) 04/07/22 14:19 Blood Culture Gram Stain - Preliminary Blood Blood Culture - Preliminary Coagulase Negative Staph 04/08/22 04:58 Blood Culture - Preliminary Blood No Growth after 24 hours 04/06/22 20:47 Blood Culture - Preliminary Blood No Growth after 48 hours
[2022-04-10] MEDS: PIPERACILLIN-TAZOBACTAM 3.375 GM in SODIUM CHLORIDE 0.9% 100 ML IVPB SCH ×3 (06:18→21:46)
[2022-04-10 07:05] LABS: Basophils % (A) 0 %; Eosinophils # (A) 0.1 k/uL (0-0.7); Eosinophils % (A) 1 %; HCT 32.5 % (39.0-53.0); HGB 9.9 gm/dL (13.0-17.5); Hypochromasia Slight; Lymphocytes % (A) 10 %; MCH 26.6 pg (25.0-35.0); MCHC 30.5 g/dL (31.0-37.0); MCV 87.2 fL (80.0-100.0); Mean Platelet Volume 6.8; Monocytes # (A) 0.5 k/uL (0-1.0); Monocytes % (A) 5 %; Neutrophils % (A) 83 %; Platelet Count 391 k/uL (150-450); RBC 3.72 m/uL (4.30-5.90); RDW 13.1 % (11.5-15.5); WBC 9.6 k/uL (3.8-10.6)
[2022-04-10 07:15] LABS: African American GFR (CKD) >90 (>60 ml/min/1.73 sqM); Anion Gap 13 mmol/L; Blood Urea Nitrogen 9 mg/dL (9-20); Calcium 8.9 mg/dL (8.4-10.2); Carbon Dioxide 28 mmol/L (22-30); Chloride 91 mmol/L (98-107); Glucose 175 mg/dL (74-99); Non-African American GFR(CKD) >90 (>60 ml/min/1.73 sqM); Potassium 3.8 mmol/L (3.5-5.1); Sodium 132 mmol/L (137-145)
[2022-04-10 07:15] LABS: Glucose,Whole Blood 161 mg/dL (70-110)
[2022-04-10] MEDS: INSULIN ASPART (NovoLOG) 100 UNIT/ML VIAL SQ SCH ×4 (07:28→21:47)
[2022-04-10] MEDS: HEPARIN SODIUM,PORCINE/PF 5,000 UNIT/0.5 ML SYRINGE SQ SCH ×2 (07:29→17:37)
[2022-04-10] MEDS: PANTOPRAZOLE 40 MG/10 ML VIAL IVP SCH (07:30)
[2022-04-10] MEDS: TAMSULOSIN 0.4 MG CAP.ER.24H PO SCH (07:31)
[2022-04-10] MEDS: BACLOFEN 10 MG TAB PO SCH ×2 (07:31→21:46)
[2022-04-10] MEDS: GABAPENTIN 300 MG CAP PO SCH ×3 (07:32→21:46)
[2022-04-10] MEDS: lisinopriL 10 MG TAB PO SCH (07:32)
[2022-04-10] MEDS: oxyCODONE ER 10 MG TAB.ER.12H PO PRN ×2 (07:38→20:02)
[2022-04-10] MEDS: amLODIPine 5 MG TAB PO SCH (07:38)
[2022-04-10] MEDS: polyethylene glycoL 3350 17 GM POWD.PACK PO SCH (09:00)
[2022-04-10 11:54] LABS: Glucose,Whole Blood 212 mg/dL (70-110)
--- NOTE | 2022-04-10 14:02 | XR ---
EXAMINATION TYPE: XR KUB portable DATE OF EXAM: 04/10/2022 1:50 PM INDICATION: Patient age:Male; 57 years old; Reason for study: reassess for barium; COMPARISON: 03/26/2022 CT, barium enema 04/04/2022. TECHNIQUE: One radiographic view of the abdomen was obtained. FINDINGS: No definitive evidence for retained barium. Extensive endovascular repair changes with mult iple stent grafts identified. Embolization coils are also present over the mid abdomen. There is gase ous dilation of the cecum. Multilevel disc degeneration changes of the spine. IMPRESSION: 1. No retained barium definitively visualized. 2. Gaseous distention of the colon
[2022-04-10] MEDS: IOPAMIDOL CONTRAST (ORAL USE) VIAL PO PRN ×2 (14:38→15:38)
[2022-04-10 16:56] LABS: Glucose,Whole Blood 170 mg/dL (70-110)
--- NOTE | 2022-04-10 16:59 | CT ---
EXAMINATION TYPE: CT abdomen pelvis w con DATE OF EXAM: 04/10/2022 COMPARISON: 04/01/2022 HISTORY: abdominal pain CT DLP: 668.80 mGycm Automated exposure control for dose reduction was used. CONTRAST: Performed with IV Contrast, patient injected with 100 mL of Isovue 300. Images obtained from the diaphragm to the floor the pelvis with oral and IV contrast. There is some infiltrate and atelectasis at the lung bases. There is some pulmonary emphysema. There is bullous disease at the lung bases. Heart size is normal. No pericardial effusion. There is coronar y artery calcification. No pleural effusion. Liver and spleen are intact. The bile ducts are not dilated. There is no pancreatic mass. Gallbladder is intact. The stomach is intact. There is no adrenal mass. Kidneys of normal size. No hydronephrosis. Ureters are not dilated. No retr operitoneal adenopathy. There is aneurysm of the lower abdominal aorta with stent. The maximum diamet er is 6.7 cm. There is increased density on the posterior aspect of the aneurysm along the left psoas muscle that measures up to 3 cm in thickness. Delayed images show normal renal excretion. There is no retroperitoneal adenopathy. Bladder distends smoothly. No inguinal hernia. No free fluid in the pelvis. No pelvic mass. There are a few sigmoid di verticula. No diverticulitis. There is no evidence of free air. No ascites. No sign of a bowel obstru ction. The lumbar vertebrae have normal alignment. Posterior elements are intact. No compression fracture. T he hip joints are intact IMPRESSION: There is a large lower abdominal aortic aneurysm. There is increased density in the posterior aspect of the aneurysm suggestive of periaortic hemorrhage and hematoma which is a change compared to recent exam of 04/01/2022. Aneurysm not changed in size. Exam was discussed with attending staff on the floor in the hospital at 5:00 PM. There is bullous pulmonary emphysema with fibrotic changes and scarring at the lung bases which is fa irly stable compared to last exam.
--- NOTE | 2022-04-10 17:45 | P.PN ---
Subjective Progress Note Date: 04/10/22 57-year-old male who presents emergency Department stating he has had pain for a week in his abdomen he describes in the lower abdomen area. Patient states she was here week ago and had a CAT scan with IV contrast and they did not find anything and he was sent home. Patient states she's not followed up with anybody this whole week. Patient states he woke up this morning the pain continued so he came in to be seen. Patient states she's been nauseated but has only vomited once per patient states he did have some diarrhea but that was after taking some mag citrate. Patient state after he had bowel movements he stated he did feel little better but the pain is back. Patient denies any fever chills. Patient states he did have an aortic aneurysm repair in January. Workup in ED includes blood work with a WBC of 10.7, hemoglobin of 10.6 and platelet count of 525, sodium 127, potassium 4.5, BUN/creatinine of 11/0.66 and blood glucose of 217 CT of the abdomen completed on previous visit to ED did not show anything acute Given recent history of surgery for type II and repeat urine leak from the aorta in mid-January, patient was admitted to the hospital for further evaluation by vascular surgery 03/31/2022 Patient is seen and evaluated in room at bedside with nursing staff present in the room; patient is quite agitated reporting he is not getting optimal pain control; per nursing staff "patient's senior patient account representative, Thelma" called with quite disruptive conversation with case management when she was yelling and became hostile; she had to be escorted by security and is not permitted on the floor; this represented was demanding better pain control for patient and was demanding patient to be transferred to [facility] for pain management -- CT of the abdomen and pelvis was ordered yesterday which patient refused -- Vascular surgery spoke with RN and reviewed CT of the abdomen and did not think they had any further input - Gen. surgery was consulted; abdominal x-ray was done which showed gaseous distention of large bowel likely colonic ileus; surgery has recommended Dulcolax suppository - Patient has been requesting to increase Dilaudid up to 2 mg and has been taking Dilaudid and [place] around the clock; I did detailed discussion with patient indicating that ileus might be related to overuse off narcotics; did recommend CT of the abdomen instead of just relying on narcotics; CT abdomen with oral contrast has been suggested by surgery also if symptoms fail to resolve with relief and constipation; patient remains very irritable and states he needs extra dose of Dilaudid to help with pain - We will discontinue Dilaudid and place patient on home dose of Percocet; I did suggest palliative care for pain control 04/01/2022 Patient is resting in bed reports abdominal pain rating 8/10 to his lower abdomen he states he is unable to describe. Reports having this pain and also u rinary frequency with decreased amount and dysuria over the last week as well. He sates he has not had a normal BM for the last week also. He had initially refused repeat CT but agreed to having done today. Abdominal pelvis CT w con showing possible colonic ileus, stable aaa with graft and also stable bilat common iliac artery aneurysm. He is being followed by general surgery. Continues on norco for pain management. White count today 12.69, hgb 10.0, sodium 128, chloride 90. Blood glucose in the 180s his oral diabetic medications are currently on hold. ALT remains stable, AST is now 37. Blood pressure 123/70. 04/05/2022 Patient seen this morning in follow up and has been cleared by surgery Dr. Garcia for discharge and outpatient follow up with colonoscopy. Patient was unable to complete the prep and colonoscopy was cancelled. Patient underwent barium enema eval with no signs of obstruction and patient is having bowel movements. Patient was scheduled for discharge and reports he tolerated breakfast and then later reported he was not feeling well enough to go home, continues with abdominal pain and reports his feet and legs have pain and are "puffy". Will hold the discharge for now, decrease the diet, and order LS spine ct. 04/06/2022 Patient was seen and continues to report abdominal pain. General surgery following and reports stable for discharge. LS spine ct was done showing m ultilevel disc degenerative joint changes and some spinal canal stenosis with some of the colon noted to have some evidence of colitis and will initiate IV zosyn. Patient reports to having temps and increase in blood pressure. Blood sugars elevated and have added sliding scale. Recommend to decrease the diet if not tolerating. 04/07/2022 Patient is seen today and per nursing staff, ate all of breakfast with no reports of intolerance. Patient is continuing to have abdominal pain and suggest clear liquid or full liquid diet although patient was upset of not having real fool. Patient is continued on IV zosyn for colitis and no further fevers since last night. ID consulted and pending and will consult GI in the am for further recommendations. WBC is mildly increased at 11 and recommend repeat labs. BP is slightly elevated and recommend to continue with norvasc. 04/08/2022 Patient is seen in follow up today with multiple medical consultations following including surgery, now GI, pain management, and ID and is continuing to report uncontrolled pain. Patient is currently on unasyn and daptomycin with ID following and treating for possible colitis as well as positive blood cultures which are showing coag neg staph likely contaminant and will discuss further with ID about abx and discharge planning. Patient is being placed on scheduled miralax per GI with no plans for surgical interventions. Patient will need outpatient colonoscopy. Recommend to await pain management consult and will need pain management outpatient due to heavy use of narcotics. Patient reports decrease in urine output due to not maintaining a steady stream and is continued of flomax. Will obtain US kidneys and await reports. Patient is afebrile. 04/09/2022 Patient is seen in follow up and extremely irritated and agitated as he feels his pain is unmanaged and feels worse than when he came in. Patient continues to report severe abdominal pain. Patient is being maintained on Zosyn with ID following and has requested ct abdomen to assess for diverticulitis/colitis. Surgery and GI following recommending miralax and outpatient colonoscopy. Patient is afebrile and denies chest pain or shortness of breath. Patient is on clears for now and will consider advancing. warehouse technician requested KUB to assess for prexisting barium prior to ct abdomen with contrast which does show barium retained in the end of the colon and will perform CT tomorrow. Possible discharge in 24 hours. 04/10/2022 Patient is seen and evaluated in follow-up today reports continued abdominal pain almost some improvement asking for an advancing his diet and will advance to low fiber and monitor for tolerance. Patient was scheduled to receive a CT abdomen although given he had no bowel movement after the KUB yesterday would likely still be retaining some barium and warehouse technician requesting another KUB to assess and have ordered soapsuds enema and this was discussed with the patient in detail and he is agreeable. Infectious disease is following and patient is maintaining on IV antibiotics. Patient remains afebrile. Review of Systems Constitutional: Denied any fatigue, reports fever. Cardio vascular: denied any chest pain, palpitations Gastrointestinal: denied any nausea, vomiting, diarrhea. Reports continued abdominal pain. Pulmonary: Denied any shortness of breath cough Neurologic denied any new focal deficits All inpatient medications were reviewed and appropriate changes in these medications as dictated in the interval history and assessment and plan. PHYSICAL EXAMINATION: GENERAL: The patient is alert and oriented x3, not in any acute distress. Well developed, well nourished. HEENT: Pupils are round and equally reacting to light. EOMI. No scleral icterus. No conjunctival pallor. Normocephalic, atraumatic. No pharyngeal erythema. No thyromegaly. CARDIOVASCULAR: S1 and S2 present. No murmurs, rubs, or gallops. PULMONARY: Chest is clear to auscultation, no wheezing or crackles. ABDOMEN: Soft, tender, non-distended, Hypoactive bowel sounds. No palpable organomegaly. MUSCULOSKELETAL: No joint swelling or deformity. EXTREMITIES: No cyanosis, clubbing, no pedal edema. NEUROLOGICAL: Gross neurological examination did not reveal any focal deficits. SKIN: No rashes. Assessment: Intractable abdominal pain most likely from ileus sigmoid colon wall thickening, possible colitis as noted on ct, possibly related to decompression of the colon and constipation. Diverticulitis colitis suspicion is low per surgery Fevers possibly secondary to above, resolved Hyponatremia, hypovolemic with poor oral intake Mild leukocytosis Anemia Diabetes mellitus Diabetic neuropathy Hypertension Depression/anxiety Former tobacco use Former EtOH use History of pancreatitis alcohol-induced History of abdominal aortic aneurysm post grafting in January 2022, stable 1.7 cm bilateral common iliac aortic aneurysm GI prophylaxis DVT prophylaxis Plan: Pain management with oral pain meds, patient continues to report 10/10 pain in abdomen, pain management following and has added hydrocodone and discontinued percocet Diet ok to advance per GI with continued miralax scheduled and may do miralax bid. Recommend outpatient colonoscopy Surgery following as well and feels is due to decompression and constipation rather than diverticulitis Recommend repeat labs ID has requested ct abdomen with contrast although KUB still shows some barium in the colon and recommending CT be done which was done after an enema and barium has been passed and is now revealing an increased density in the posterior aspect of the aneurysm suggestive of periaortic hemorrhage or hematoma which is a change compared to recent exam on 95 aneurysm has not changed in size and there is also a bullous pulmonary emphysema with fibrotic changes and scarring at the lung bases which is fairly stable compared to last exam. This was discussed with vascular surgery who performed the procedure in January 2022 suggesting transfer to tertiary treatment center for evaluation by vascular surgery and possible intervention. Recommend transferring to 3 S. stepdown unit for now as patient's vitals are stable and there is no active bleeding noted. Continue IV fluids, gentle and continue Zosyn Continue holding oral diabetic agents and continue with sliding scale for now Treating for possible colitis as noted on the previous ct scan Encouraged increased activity. Will need pain management follow up outpatient supervisor wall mirror department notified of possible transfer and initiating the process to [facility], or [facility] [place] as an accepting bed and provider. Mindy Danielle contacted and unable to accept. The impression and plan of care has been dictated by Aliya Quijano, Nurse Practitioner as directed. Dr. Giuliana MD I have performed a history and examination and MDM of this patient, discussed the same with the dictator, and agree with the dictator's assessment and plan as written ,documented as a scribe. Based on total visit time, I have performed more than 50% of the visit. Objective - Vital Signs Vital signs: Vital Signs Temp 98.3 F 04/10/22 07:33 Pulse 83 04/10/22 07:33 Resp 14 04/10/22 07:33 BP 139/72 04/10/22 07:33 Pulse Ox 97 04/10/22 07:33 FiO2 Intake & Output 04/09/22 04/10/22 04/10/22 18:59 06:59 18:59 Intake Total 500 Balance 500 Weight 79.379 kg Intake: Oral 500 Other: Voiding Method Toilet Toilet Toilet # Voids 2 2 - Labs CBC & Chem 7: 04/10/22 06:42 04/10/22 06:42 Labs: Abnormal Lab Results - Last 24 Hours (Table) 04/09/22 04/09/22 04/09/22 Range/Units 05:57 11:40 17:22 RBC (4.30-5.90) m/uL Hgb (13.0-17.5) gm/dL Hct (39.0-53.0) % MCHC (31.0-37.0) g/dL Neutrophils # (1.3-7.7) k/uL Sodium 131 L (135-145) mmol/L Chloride 91 L (96-109) mmol/L BUN 6.4 L (9.0-27.0) mg/dL Creatinine (0.66-1.25) mg/dL BUN/Creatinine Ratio 9.14 L (12.00-20.00) Ratio Glucose 184 H (70-110) mg/dL POC Glucose (mg/dL) 161 H 196 H (70-110) mg/dL 04/09/22 04/10/22 04/10/22 Range/Units 20:33 06:42 06:42 RBC 3.72 L (4.30-5.90) m/uL Hgb 9.9 L (13.0-17.5) gm/dL Hct 32.5 L (39.0-53.0) % MCHC 30.5 L (31.0-37.0) g/dL Neutrophils # 8.0 H (1.3-7.7) k/uL Sodium 132 L (135-145) mmol/L Chloride 91 L (96-109) mmol/L BUN (9.0-27.0) mg/dL Creatinine 0.61 L (0.66-1.25) mg/dL BUN/Creatinine Ratio (12.00-20.00) Ratio Glucose 175 H (70-110) mg/dL POC Glucose (mg/dL) 191 H (70-110) mg/dL 04/10/22 Range/Units 07:13 RBC (4.30-5.90) m/uL Hgb (13.0-17.5) gm/dL Hct (39.0-53.0) % MCHC (31.0-37.0) g/dL Neutrophils # (1.3-7.7) k/uL Sodium (135-145) mmol/L Chloride (96-109) mmol/L BUN (9.0-27.0) mg/dL Creatinine (0.66-1.25) mg/dL BUN/Creatinine Ratio (12.00-20.00) Ratio Glucose (70-110) mg/dL POC Glucose (mg/dL) 161 H (70-110) mg/dL Microbiology - Last 24 Hours (Table) 04/08/22 04:58 Blood Culture - Preliminary Blood No Growth after 48 hours 04/06/22 20:47 Blood Culture - Preliminary Blood No Growth after 72 hours 04/07/22 14:19 Blood Culture Gram Stain - Preliminary Blood Blood Culture - Preliminary Coagulase Negative Staph
[2022-04-10] MEDS: SODIUM CHLORIDE 0.9% 1,000 ML IV SCH (18:43)
[2022-04-10 18:59] LABS: Basophils % (A) 0 %; Eosinophils # (A) 0.1 k/uL (0-0.7); Eosinophils % (A) 1 %; HCT 30.3 % (39.0-53.0); HGB 9.5 gm/dL (13.0-17.5); Hypochromasia Slight; Lymphocytes # (A) 0.9 k/uL (1.0-4.8); Lymphocytes % (A) 9 %; MCH 27.3 pg (25.0-35.0); MCHC 31.3 g/dL (31.0-37.0); MCV 87.1 fL (80.0-100.0); Mean Platelet Volume 6.6; Monocytes # (A) 0.5 k/uL (0-1.0); Monocytes % (A) 5 %; Neutrophils # (A) 7.8 k/uL (1.3-7.7); Neutrophils % (A) 83 %; Platelet Count 379 k/uL (150-450); RBC 3.47 m/uL (4.30-5.90); RDW 13.3 % (11.5-15.5); WBC 9.3 k/uL (3.8-10.6)
--- NOTE | 2022-04-10 19:25 | P.DS ---
Providers Date of admission: 04/03/22 09:40 Expected date of discharge: 04/10/22 Attending physician: Kishore Ragsdale MD Consults: 04/06/22 19:43 Consult Physician Urgent Consulting Provider: Jeannette Osuna Consult Reason/Comments: fever with suspected sepsis Do you want consulting provider notified?: Yes, Notify in am 04/08/22 09:26 Consult Physician Urgent Consulting Provider: Urvashi Roberts Consult Reason/Comments: colitis Do you want consulting provider notified?: Yes 04/10/22 17:12 Consult Physician Stat Consulting Provider: Shon Fairbanks Consult Reason/Comments: CT SCAN Do you want consulting provider notified?: Yes Primary care physician: [facility] Course: Final Diagnosis Intractable abdominal pain most likely from ileus possible hemorrhage and hematoma at the posterior aneurysm on CT 04/10/2022 sigmoid colon wall thickening, possible colitis as noted on ct, possibly related to decompression of the colon and constipation. Diverticulitis colitis suspicion is low per surgery Fevers possibly secondary to above, resolved Hyponatremia, hypovolemic with poor oral intake Mild leukocytosis Anemia Diabetes mellitus Diabetic neuropathy Hypertension Depression/anxiety Former tobacco use Former EtOH use History of pancreatitis alcohol-induced History of abdominal aortic aneurysm post grafting in January 2022, stable 1.7 cm bilateral common iliac aortic aneurysm GI prophylaxis DVT prophylaxis Discharge disposition Patient is being transferred in a stable condition with guarded prognosis to [facility] for tertiary treatment center Vascular surgery evaluation. Patient was accepted by Dr. Perez for the transfer. Total time taken is greater than 35 minutes. Hospital course 57-year-old male who presents emergency Department stating he has had pain for a week in his abdomen he describes in the lower abdomen area. Patient states she was here week ago and had a CAT scan with IV contrast and they did not find anything and he was sent home. Patient states she's not followed up with anybody this whole week. Patient states he woke up this morning the pain continued so he came in to be seen. Patient states she's been nauseated but has only vomited once per patient states he did have some diarrhea but that was after taking some mag citrate. Patient state after he had bowel movements he stated he did feel little better but the pain is back. Patient denies any fever chills. Patient states he did have an aortic aneurysm repair in January. Workup in ED includes blood work with a WBC of 10.7, hemoglobin of 10.6 and platelet count of 525, sodium 127, potassium 4.5, BUN/creatinine of 11/0.66 and blood glucose of 217 CT of the abdomen completed on previous visit to ED did not show anything acute Given recent history of surgery for type II aneurysmal leak from the aorta in mid-January, 04/10/2022 Patient is seen and evaluated in follow-up today reports continued abdominal pain almost some improvement asking for an advancing his diet and will advance to low fiber and monitor for tolerance. Patient was scheduled to receive a CT abdomen although given he had no bowel movement after the KUB yesterday would likely still be retaining some barium and sound technician requesting another KUB to assess and have ordered soapsuds enema and this was discussed with the patient in detail and he is agreeable. Infectious disease is following and patient is maintaining on IV antibiotics. Patient remains afebrile. CT was done and suggestive of increased density in the posterior aneurysm suggestive of periaortic hemorrhage and hematoma which is new from previous CT abdomen on 04/01/2022. Vascular surgery who performed the surgery here is out of t own and recommending transfer to tertiary treatment center for vascular surgery evaaluation and possible surgical intervention. Patient is accepted by Dr. Perez at [facility] and awaiting on bed assignment. Disc with all imaging being processed for transfer. Currently no reports of chest pain, shortness of breath, or palpitations. Patient is afebrile. No reports of nausea or vomiting and patient is tolerating diet. Patient will be discharged home today. Guarded prognosis. High risk for readmissions. On exam vital signs are stable. Cardio S1, S2 are muffled. Respiratory system shows diminished breath sounds at the bases with no wheezing or rhonchi noted. Abdomen is soft and mildly tender although no changes from previous. Nervous system shows no focal deficit. Please refer to medication reconciliation sheet for a list of medications. The impression and plan of care has been dictated by Aliya Quijano, Nurse Practitioner as directed. Dr. Giuliana MD I have performed a history and examination and MDM of this patient, discussed the same with the dictator, and agree with the dictator's assessment and plan as written ,documented as a scribe. Based on total visit time, I have performed more than 50% of the visit. Patient Condition at Discharge: Stable Plan - Discharge Summary New Discharge Prescriptions: New Magnesium Hydroxide [Milk of Magnesia Concentrate] 2,400 mg PO ONCE PRN ml PRN Reason: Constipation Continue glyBURIDE/METFORMIN HCL [Glucovance 5-500 mg] 1 tab PO BID-W/MEALS Baclofen [Lioresal] 5 mg PO BID Venlafaxine HCl ER [Effexor XR] 75 mg PO HS lisinopriL [Zestril] 30 mg PO DAILY Omeprazole 40 mg PO DAILY Gabapentin 600 mg PO TID Butalb/APAP/Caff 50-325-40Mg [Fioricet 50-325-40] 1 - 2 tab PO Q6H PRN PRN Reason: Migraine Headache ALPRAZolam [Xanax] 0.5 mg PO BID PRN PRN Reason: Anxiety Pregabalin [Lyrica] 150 mg PO BID oxyCODONE HCL/ACETAMINOPHEN [Percocet 7.5-325 mg] 1 tab PO TID PRN PRN Reason: Pain Discharge Medication List Baclofen [Lioresal] 5 mg PO BID 04/27/18 [History] glyBURIDE/METFORMIN HCL [Glucovance 5-500 mg] 1 tab PO BID-W/MEALS 04/27/18 [History] Venlafaxine HCl ER [Effexor XR] 75 mg PO HS 07/07/18 [History] ALPRAZolam [Xanax] 0.5 mg PO BID PRN 06/19/21 [History] Butalb/APAP/Caff 50-325-40Mg [Fioricet 50-325-40] 1 - 2 tab PO Q6H PRN 06/19/21 [History] Gabapentin 600 mg PO TID 06/19/21 [History] lisinopriL [Zestril] 30 mg PO DAILY 02/07/22 [History] Omeprazole 40 mg PO DAILY 03/30/22 [History] Pregabalin [Lyrica] 150 mg PO BID 03/30/22 [History] oxyCODONE HCL/ACETAMINOPHEN [Percocet 7.5-325 mg] 1 tab PO TID PRN 03/30/22 [History] Magnesium Hydroxide [Milk of Magnesia Concentrate] 2,400 mg PO ONCE PRN ml 09/09/22 [Rx] Follow up Appointment(s)/Referral(s): Abhijit Garcia MD [Medical Doctor] - 04/11/22 10:15 am Gene Perera MD [Primary Care Provider] - 04/16/22 11:00 am (Appointment is with TESSA Mohr) Patient Instructions/Handouts: Acute Abdominal Pain (DC), Type 2 Diabetes Management for Adults (DC) Activity/Diet/Wound Care/Special Instructions: Activity Limited until follow-up Follow-up primary care provider on discharge Follow-up Gen. surgery is discussed and possible outpatient colonoscopy Continue current diet Continue medications as prescribed Continue monitoring blood sugars before meals and at bedtime and keep a diary of readings for primary care follow-up Discharge Disposition: HOME SELF-CARE
[2022-04-10 19:33] LABS: INR 1.1 (<1.2); Prothrombin Time 11.9 sec (9.0-12.0)
[2022-04-10 20:55] LABS: Glucose,Whole Blood 208 mg/dL (70-110)
[2022-04-10] MEDS: VENLAFAXINE HCL ER 75 MG CAP PO SCH (21:55)
[2022-04-10] MEDS: ALPRAZolam 0.5 MG TAB PO PRN (23:38)
[2022-04-11 00:17] VITALS: BP 143/73; PULSE 108; RESP 16; TEMP 99.8
--- NOTE | 2022-04-13 14:04 | CDI ---
Documentation Clarification Form Date: 04/13/2022 01:12:41 PM From: Elise Pisano Phone: Admit Date: 04/03/2022 09:40:00 AM Patient Name: Andrea Madrid Visit Number: [id number] Discharge Date: 04/11/2022 03:03:00 AM ATTENTION: The Clinical Documentation Specialists (CDI) and [facility] Coding Staff appreciate your assistance in clarifying documentation. Please respond to the clarification below the line at the bottom and electronically sign. The CDI & [facility] Coding staff will review the response and follow-up if needed. Please note: Queries are made part of the Legal Health Record. If you have any questions, please contact the author of this message via ITS. Dr. Kishore Ragsdale Unspecified anemia is documented per H&P. Additional specificity regarding the type & acuity of anemia is requested. History/Risk Factors: 57yo M, Ileus, possiblehemorrhageandhematomaat the posterioraneurysm, colitis, constipation, hyponatremia,hypovolemic, mildleukocytosis, Anemia, Diabetic neuropathy, HTN, Depression/anxiety, former tobaccouse, occasional vap, FormerETOH dep, Hx pancreatitisalcohol-induced, Hx AAA s/pgrafting, bilateral common iliacaortic aneurysm Clinical indicators: possiblehemorrhageandhematomaat the posterioraneurysm Hemoglobin: 10.6 Hematocrit: 33.3 Treatment: CT angiography the abdomen was negative on 03/25/2022; we will monitor H H closely. Vascular surgery who performed the surgery here is out of town and [facility] evaluation and possible surgical intervention. Patient is accepted byDr. Jam crowder and awaiting on bed assignment. Please clarify the type and acuity of anemia: [ ] Acute blood loss anemia [ ] Acute on chronic blood loss anemia [ ] Chronic blood loss anemia [ ] Iron deficiency anemia [ x] Unable to determine [ ] Other, please specify (Template Last Revised: August 2020) MTDD
--- NOTE | 2022-04-18 22:19 | P.PN ---
Subjective Progress Note Date: 04/10/22 Principal diagnosis: Diverticulitis and bacteremia Patient is a 57 year old male presenting to the hospital admission with lower abdominal pain with initial concern for possible ileus subsequently he did have a CT of the lumbar spine with concern for possible colitis and the patient did spike a fever. On today's evaluation and that is 04/10/2022, the patient continues to be afebrile, the patient is still complaining of lower abdominal pain and constipation however denies any vomiting and did not have a good bowel movement, the patient denies chest pain shortness of breath or cough and no urinary symptoms Objective - Vital Signs Vital signs: Vital Signs Temp 98.1 F 04/10/22 12:04 Pulse 94 04/10/22 12:04 Resp 15 04/10/22 12:04 BP 124/68 04/10/22 12:04 Pulse Ox 97 04/10/22 12:04 FiO2 Intake & Output 04/09/22 04/10/22 04/10/22 18:59 06:59 18:59 Intake Total 500 Balance 500 Weight 79.379 kg Intake: Oral 500 Other: Voiding Method Toilet Toilet Toilet # Voids 2 2 - Exam GENERAL DESCRIPTION: Middle-age male lying in bed in no distress RESPIRATORY SYSTEM: Unlabored breathing , decreased breath sounds at bases HEART: S1 S2 regular rate and rhythm , ABDOMEN: Soft , no tenderness EXTREMITIES: No edema feet - Labs CBC & Chem 7: 04/10/22 18:16 04/10/22 06:42 Labs: Abnormal Lab Results - Last 24 Hours (Table) 04/09/22 04/09/22 04/10/22 Range/Units 17:22 20:33 06:42 RBC (4.30-5.90) m/uL Hgb (13.0-17.5) gm/dL Hct (39.0-53.0) % MCHC (31.0-37.0) g/dL Neutrophils # (1.3-7.7) k/uL ESR 46 H (0-20) mm/Hr Sodium (137-145) mmol/L Chloride (98-107) mmol/L Creatinine (0.66-1.25) mg/dL Glucose (74-99) mg/dL POC Glucose (mg/dL) 196 H 191 H (70-110) mg/dL C-Reactive Protein (0.00-0.80) mg/dL 04/10/22 04/10/22 04/10/22 Range/Units 06:42 06:42 06:42 RBC 3.72 L (4.30-5.90) m/uL Hgb 9.9 L (13.0-17.5) gm/dL Hct 32.5 L (39.0-53.0) % MCHC 30.5 L (31.0-37.0) g/dL Neutrophils # 8.0 H (1.3-7.7) k/uL ESR (0-20) mm/Hr Sodium 132 L (137-145) mmol/L Chloride 91 L (98-107) mmol/L Creatinine 0.61 L (0.66-1.25) mg/dL Glucose 175 H (74-99) mg/dL POC Glucose (mg/dL) (70-110) mg/dL C-Reactive Protein 20.40 H (0.00-0.80) mg/dL 04/10/22 04/10/22 Range/Units 07:13 11:53 RBC (4.30-5.90) m/uL Hgb (13.0-17.5) gm/dL Hct (39.0-53.0) % MCHC (31.0-37.0) g/dL Neutrophils # (1.3-7.7) k/uL ESR (0-20) mm/Hr Sodium (137-145) mmol/L Chloride (98-107) mmol/L Creatinine (0.66-1.25) mg/dL Glucose (74-99) mg/dL POC Glucose (mg/dL) 161 H 212 H (70-110) mg/dL C-Reactive Protein (0.00-0.80) mg/dL Microbiology - Last 24 Hours (Table) 04/08/22 04:58 Blood Culture - Preliminary Blood No Growth after 48 hours 04/06/22 20:47 Blood Culture - Preliminary Blood No Growth after 72 hours 04/07/22 14:19 Blood Culture Gram Stain - Preliminary Blood Blood Culture - Preliminary Coagulase Negative Staph Assessment and Plan (1) Bacteremia Status: Acute Code(s): R78.81 - BACTEREMIA SNOMED Code(s): 2667612 (2) Fever Status: Acute Code(s): R50.9 - FEVER, UNSPECIFIED SNOMED Code(s): 444178197 Plan: 1patient with sepsis in this patient who did have a fever elevated white count has been complaining of lower abdominal pain also with constipation and CT suggestive of colitis possible diverticulitis and will need to cover for the enteric gram-negative both aerobes and anaerobes. 2patient with a positive blood culture with with staph epi which could be likely skin contaminant, repeat blood culture has been negative discontinue daptomycin 3patient will benefit from repeat CT abdomen and pelvis with contrast to better define underlying pathology that would help determine his discharge antibiotics for now continue with the Zosyn while CT is pending Time with Patient: Less than 30
== END 2022-04-11 03:03 | disposition other institution (70) | DRG 871 ==
LOC: EC 09:38 → 6NMEDSUR 13:40 → OBSVTOIN 04-03 09:40 → 3SCARD 04-10 18:41
PROVIDERS: ADMIT Internal Medicine; ATTEND Internal Medicine
DX: A41.4 Sepsis due to anaerobes (principal); I71.02 Dissection of abdominal aorta; K56.7 Ileus, unspecified; E87.1 Hypo-osmolality and hyponatremia; I72.3 Aneurysm of iliac artery; E11.40 Type 2 diabetes mellitus with diabetic neuropathy, unspecified; F32.A Depression, unspecified; I10 Essential (primary) hypertension; Z95.828 Presence of other vascular implants and grafts; I71.4 Abdominal aortic aneurysm, without rupture; F10.21 Alcohol dependence, in remission; J43.9 Emphysema, unspecified; Z86.74 Personal history of sudden cardiac arrest; R58 Hemorrhage, not elsewhere classified; J98.4 Other disorders of lung; E78.5 Hyperlipidemia, unspecified; M53.3 Sacrococcygeal disorders, not elsewhere classified; F41.9 Anxiety disorder, unspecified; K44.9 Diaphragmatic hernia without obstruction or gangrene; G47.30 Sleep apnea, unspecified; G89.4 Chronic pain syndrome; R33.8 Other retention of urine; K52.9 Noninfective gastroenteritis and colitis, unspecified; M54.50 Low back pain, unspecified; M51.36 Other intervertebral disc degeneration, lumbar region; M48.061 Spinal stenosis, lumbar region without neurogenic claudication; M47.816 Spondylosis without myelopathy or radiculopathy, lumbar region; M47.817 Spondylosis without myelopathy or radiculopathy, lumbosacral region; E86.1 Hypovolemia; R35.0 Frequency of micturition; R30.0 Dysuria; T40.2X1A Poisoning by other opioids, accidental (unintentional), initial encounter; R00.0 Tachycardia, unspecified; Z72.0 Tobacco use; Z79.899 Other long term (current) drug therapy; Z79.84 Long term (current) use of oral hypoglycemic drugs; Z87.19 Personal history of other diseases of the digestive system; Z86.79 Personal history of other diseases of the circulatory system; Z86.010 Personal history of colon polyps; Z83.3 Family history of diabetes mellitus; Z80.3 Family history of malignant neoplasm of breast; Z82.5 Family history of asthma and other chronic lower respiratory diseases; Z82.0 Family history of epilepsy and other diseases of the nervous system; Z82.61 Family history of arthritis; Z82.49 Family history of ischemic heart disease and other diseases of the circulatory system; D64.9 Anemia, unspecified
CPT/HCPCS: 36415; 71045; 72131; 74018; 74019; 74177; 74270; 76770; 80048; 80053; 80076; 81003; 82150; 83690; 84145; 85025; 85610; 85652; 86140; 87040; 87077; 87186; 87635; 96361; 96374; 96375; 96376; 99285

== ENCOUNTER 2022-12-15 13:52 | Emergency (ER) | payer OTHER ==
[2022-12-15] MEDS ORDERED: SODIUM CHLORIDE 0.9% 500 ML 500 ML IV STA (14:02)
--- NOTE | 2022-12-15 14:29 | ED ---
General Adult HPI - General Source: patient, EMS, RN notes reviewed, old records reviewed Mode of arrival: EMS Limitations: no limitations <Thanh Dias - Last Filed: 12/15/22 15:26> <Thanh Chaney - Last Filed: 12/15/22 22:21> - General Chief complaint: Abdominal Pain Stated complaint: Abd pain Time Seen by Provider: 12/15/22 14:00 - History of Present Illness Initial comments: This is a 57-year-old male who presents emergency department with past medical history significant for abdominal aortic aneurysm repair and subsequent to that he had and endoleak and he states he had an infection after that. Patient states last 3 months she's been having left-sided abdominal pain he believes there is something is pressing on nerves which is giving him internal tremors throughout his body even though there is no external tremors. Patient states he only thing that calms his tremors down is Dilaudid. Patient states he is going to a pain clinic currently but he states are not doing anything for him. Patient has not brought these complaints to his primary medical care doctor however the patient states she's been to the ER at least 5 times for this and had multiple CAT scans. Patient asked me for Dilaudid on 3 occasions during the initial interview. Patient does not appear to be in any distress (Thanh Dias) - Related Data Home Medications Medication Instructions Recorded Confirmed Baclofen [Lioresal] 5 mg PO BID 04/27/18 03/30/22 Venlafaxine HCl ER [Effexor XR] 75 mg PO HS 07/07/18 03/30/22 ALPRAZolam [Xanax] 0.5 mg PO BID PRN 06/19/21 03/30/22 Butalb/APAP/Caff 50-325-40Mg 1 - 2 tab PO Q6H PRN 06/19/21 03/30/22 [Fioricet 50-325-40] Gabapentin 600 mg PO TID 06/19/21 03/30/22 lisinopriL [Zestril] 30 mg PO DAILY 02/07/22 03/30/22 Omeprazole 40 mg PO DAILY 03/30/22 03/30/22 Pregabalin [Lyrica] 150 mg PO BID 03/30/22 03/30/22 Previous Rx's Medication Instructions Recorded Magnesium Hydroxide [Milk of 2,400 mg PO ONCE PRN ml 04/05/22 Magnesia Concentrate] INSULIN ASPART (NovoLOG) [NovoLOG 0 unit SQ ACHS each 04/10/22 (formulary)] Piperacillin-Tazobactam [Zosyn] 3.375 gm IVPB Q8H each 04/10/22 Tamsulosin [Flomax] 0.4 mg PO PC-BRKFST cap 04/10/22 amLODIPine [Norvasc] 5 mg PO DAILY tab 04/10/22 oxyCODONE ER [OxyCONTIN] 10 mg PO Q12HR PRN tab 04/10/22 polyethylene glycoL 3350 [Miralax] 17 gm PO DAILY packet 04/10/22 Allergies Allergy/AdvReac Type Severity Reaction Status Date / Time No Known Allergies Allergy Verified 03/30/22 13:51 Review of Systems ROS Other: All systems not noted in ROS Statement are negative. <Thanh Dias - Last Filed: 12/15/22 15:26> ROS Other: All systems not noted in ROS Statement are negative. <Thanh Chaney - Last Filed: 12/15/22 22:21> ROS Statement: Those systems with pertinent positive or pertinent negative responses have been documented in the HPI. 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 Past Anesthesia/Blood Transfusion Reactions: Previous Problems w/ Anesthesia, Motion Sickness Additional Past Anesthesia/Blood Transfusion Reaction / Comment(s): Aneurysm danna winifred 10/04/17- "cardiac arrest" at [facility], [place] -pt not sure of cause Past Psychological History: Anxiety, Depression Smoking Status: Former smoker, Vaper Past Alcohol Use History: None Reported Past Drug Use History: None Reported - Past Family History Father Family Medical History: Deep Vein Thrombosis (DVT) Additional Family Medical History / Comment(s): Father is alive at age 83 with history of diabetes, osteoarthritis, dementia. Sister(s) Family Medical History: Cancer Additional Family Medical History / Comment(s): 2 sisters-breast cancer Brother(s) Family Medical History: COPD Additional Family Medical History / Comment(s): Patient has one brother with COPD. <Thanh Dias - Last Filed: 12/15/22 15:26> General Exam Limitations: no limitations <Thanh Dias - Last Filed: 12/15/22 15:26> General appearance: alert, in no apparent distress Head exam: Present: atraumatic, normocephalic, normal inspection Eye exam: Present: normal appearance, PERRL, EOMI. Absent: scleral icterus, conjunctival injection, periorbital swelling ENT exam: Present: normal exam, mucous membranes moist Neck exam: Present: normal inspection. Absent: tenderness, meningismus, lymphadenopathy Respiratory exam: Present: normal lung sounds bilaterally. Absent: respiratory distress, wheezes, rales, rhonchi, stridor Cardiovascular Exam: Present: regular rate, normal rhythm, normal heart sounds. Absent: systolic murmur, diastolic murmur, rubs, gallop, clicks GI/Abdominal exam: Present: soft, normal bowel sounds. Absent: distended, tenderness, guarding, rebound, rigid Extremities exam: Present: normal inspection, full ROM, normal capillary refill. Absent: tenderness, pedal edema, joint swelling, calf tenderness Back exam: Present: normal inspection Neurological exam: Present: alert, oriented X3, CN II-XII intact Psychiatric exam: Present: normal affect, normal mood Skin exam: Present: warm, dry, intact, normal color. Absent: rash <Thanh Chaney - Last Filed: 12/15/22 22:21> - General Exam Comments Initial Comments: GENERAL: Patient is well-developed and well-nourished. Patient is nontoxic and well-h ydrated and is in no acute distress. ENT: Neck is soft and supple. No significant lymphadenopathy is noted. Oropharynx is clear. Moist mucous membranes. Neck has full range of motion without elic iting any pain. EYES: The sclera were anicteric and conjunctiva were pink and moist. Extraocular movements were intact and pupils were equal round and reactive to light. Eyelids were unremarkable. PULMONARY: Unlabored respirations. Good breath sounds bilaterally. No audible rales rhonchi or wheezing was noted. CARDIOVASCULAR: There is a regular rate and rhythm without any murmurs gallops or rubs. ABDOMEN: Soft and nontender with normal bowel sounds. Patient has no tenderness no mass es even on deep palpation SKIN: Skin is clear with no lesions or rashes and otherwise unremarkable. NEUROLOGIC: Patient is alert and oriented x3. Cranial nerves II through XII are grossly intact. Motor and sensory are also intact. Normal speech, volume and content. Symmetrical smile. MUSCULOSKELETAL: Normal extremities with adequate strength and full range of motion. LYMPHATICS: No significant lymphadenopathy is noted PSYCHIATRIC: Normal psychiatric evaluation. (Thanh Dias) Course <Thanh Chaney - Last Filed: 12/15/22 22:21> Vital Signs 12/15/22 12/15/22 12/15/22 14:00 17:55 18:34 Temperature 98.3 F 98.6 F Pulse Rate 117 H 75 78 Respiratory 20 20 18 Rate Blood Pressure 151/99 130/91 130/82 O2 Sat by Pulse 99 98 98 Oximetry - Reevaluation(s) Reevaluation #1: 12/15/22 22:21 Medical records reviewed (Thanh Chaney) Reevaluation #2: 12/15/22 22:21 Patient informed results questions answered (Thanh Chaney) Reevaluation #3: 12/15/22 22:21 Patient symptoms are resolved (Thanh Chaney) Medical Decision Making <Thanh Dias - Last Filed: 12/15/22 15:26> - Lab Data Result diagrams: 12/15/22 15:09 12/15/22 15:09 <Thanh Chaney - Last Filed: 12/15/22 22:21> - Medical Decision Making EKG was interpreted by myself shows a sinus rhythm at 96 bpm NC interval 105 QRS is under QT interval 345 QTC is 399. There is no ST segment elevation Was pt. sent in by a medical professional or institution (JENNIFER Nixon, [employer] DEVEL[employer], urgent care, hospital, or assisted...) When possible be specific @ -[No] Did you speak to anyone other than the patient for history (EMS, parent, family, police, friend...)? What history was obtained from this source @ -[No] Did you review nursing and triage notes (agree or disagree)? Why? @ -[I reviewed and agree with nursing and triage notes] Were old charts reviewed (outside hosp., previous admission, EMS record, old EKG, old radiological studies, urgent care reports/EKG's, assisted records)? Report findings @ -[No old charts were reviewed] Differential Diagnosis (chest pain, altered mental status, abdominal pain women, abdominal pain men, vaginal bleeding, weakness, fever, dyspnea, syncope, headache, dizziness, GI bleed, back pain, seizure, CVA, palpatations, mental health, musculoskeletal)? @ -Differential Abdominal Pain Men: Appendicitis, cholecystitis, diverticulosis, ischemic bowel, pancreatitis, hepatitis, UTI, gastroenteritis, AAA, incarcerated hernia, bowel obstruction, constipation, inflammatory bowel, hepatitis, peptic ulcer disease, splenic infarction, perforated viscus, testicular torsion, this is not meant to be an all-inclusive list EKG interpreted by me (3pts min.). @ -[As above] X-rays interpreted by me (1pt min.). @ -[None done] CT interpreted by me (1pt min.). @ -[None done] U/S interpreted by me (1pt. min.). @ -[None done] What testing was considered but not performed or refused? (CT, X-rays, U/S, labs)? Why? @ -[None] What meds were considered but not given or refused? Why? @ -[None] Did you discuss the management of the patient with other professionals (professionals i.e. JENNIFER Nixon, [employer] DEVELOPER, lab, RT, psych nurse, social worker assistant, python engineer, teacher, customer service security officer, case reviewer)? Give summary @ -[No] Was smoking cessation discussed for >3mins.? @ -[No] Was critical care preformed (if so, how long)? @ -[No] Were there social determinants of health that impacted care today? How? (Homelessness, low income, unemployed, alcoholism, drug addiction, transportation, low edu. Level, literacy, decrease access to med. care, assisted, rehab)? @ -[No] Was there de-escalation of care discussed even if they declined (Discuss DNR or withdrawal of care, Hospice)? DNR status @ -[No] What co-morbidities impacted this encounter? (DM, HTN, Smoking, COPD, CAD, Cancer, CVA, ARF, Chemo, Hep., AIDS, mental health diagnosis, sleep apnea, morbid obesity)? @ -[None] Was patient admitted / discharged? Hospital course, mention meds given and route, prescriptions, significant lab abnormalities, going to OR and other pertinent info. @ -I was awaiting lab work. Patient consistently ask for Dilaudid. I received 5 previous CAT scans done since June of his abdomen and pelvis that showed no acute abnormalities the most recent was done on 12/09/2022. Dr. Chaney will be taking over the patient's care at 4 PM (Thanh Dias) 57 male to the emergency department for evaluation, patient feels good here in the ER does not want a computed tomography scan of his belly here in the emergency room. Patient feels better with symptom management here and can be discharged home (Thanh Chaney) - Lab Data Lab Results 12/15/22 12/15/22 12/15/22 Range/Units 15:09 15:09 15:09 WBC 7.8 (3.8-10.6) k/uL RBC 4.73 (4.30-5.90) m/uL Hgb 13.8 (13.0-17.5) gm/dL Hct 41.1 (39.0-53.0) % MCV 86.8 (80.0-100.0) fL MCH 29.2 (25.0-35.0) pg MCHC 33.7 (31.0-37.0) g/dL RDW 12.4 (11.5-15.5) % Plt Count 218 (150-450) k/uL MPV 7.4 Neutrophils % 64 % Lymphocytes % 24 % Monocytes % 7 % Eosinophils % 2 % Basophils % 0 % Neutrophils # 5.0 (1.3-7.7) k/uL Lymphocytes # 1.9 (1.0-4.8) k/uL Monocytes # 0.5 (0-1.0) k/uL Eosinophils # 0.2 (0-0.7) k/uL Basophils # 0.0 (0-0.2) k/uL ESR (0-15) mm/hr Sodium 136 L (137-145) mmol/L Potassium 4.0 (3.5-5.1) mmol/L Chloride 97 L (98-107) mmol/L Carbon Dioxide 28 (22-30) mmol/L Anion Gap 11 mmol/L BUN 15 (9-20) mg/dL Creatinine 0.90 (0.66-1.25) mg/dL Est GFR (CKD-EPI)AfAm >90 (>60 ml/min/1.73 sqM) Est GFR (CKD-EPI)NonAf >90 (>60 ml/min/1.73 sqM) Glucose 208 H (74-99) mg/dL Plasma Lactic Acid Gadiel 1.2 (0.7-2.0) mmol/L Calcium 9.5 (8.4-10.2) mg/dL Total Bilirubin 0.3 (0.2-1.3) mg/dL AST 21 (17-59) U/L ALT 23 (4-49) U/L Alkaline Phosphatase 65 (38-126) U/L C-Reactive Protein (<1.0) mg/dL Total Protein 7.6 (6.3-8.2) g/dL Albumin 4.8 (3.5-5.0) g/dL Amylase 61 (30-110) U/L Lipase 119 (23-300) U/L 12/15/22 12/15/22 Range/Units 15:09 17:28 WBC (3.8-10.6) k/uL RBC (4.30-5.90) m/uL Hgb (13.0-17.5) gm/dL Hct (39.0-53.0) % MCV (80.0-100.0) fL MCH (25.0-35.0) pg MCHC (31.0-37.0) g/dL RDW (11.5-15.5) % Plt Count (150-450) k/uL MPV Neutrophils % % Lymphocytes % % Monocytes % % Eosinophils % % Basophils % % Neutrophils # (1.3-7.7) k/uL Lymphocytes # (1.0-4.8) k/uL Monocytes # (0-1.0) k/uL Eosinophils # (0-0.7) k/uL Basophils # (0-0.2) k/uL ESR 10 (0-15) mm/hr Sodium (137-145) mmol/L Potassium (3.5-5.1) mmol/L Chloride (98-107) mmol/L Carbon Dioxide (22-30) mmol/L Anion Gap mmol/L BUN (9-20) mg/dL Creatinine (0.66-1.25) mg/dL Est GFR (CKD-EPI)AfAm (>60 ml/min/1.73 sqM) Est GFR (CKD-EPI)NonAf (>60 ml/min/1.73 sqM) Glucose (74-99) mg/dL Plasma Lactic Acid Gadiel (0.7-2.0) mmol/L Calcium (8.4-10.2) mg/dL Total Bilirubin (0.2-1.3) mg/dL AST (17-59) U/L ALT (4-49) U/L Alkaline Phosphatase (38-126) U/L C-Reactive Protein <0.5 (<1.0) mg/dL Total Protein (6.3-8.2) g/dL Albumin (3.5-5.0) g/dL Amylase (30-110) U/L Lipase (23-300) U/L Disposition <Thanh Dias - Last Filed: 12/15/22 15:26> Is patient prescribed a controlled substance at d/c from ED?: No Time of Disposition: 17:30 <Thanh Chaney - Last Filed: 12/15/22 22:21> Clinical Impression: Abdominal pain, Neuralgia Disposition: HOME SELF-CARE Condition: Good Instructions (If sedation given, give patient instructions): Paresthesia (ED), Abdominal Pain (ED) Referrals: Gene Perera MD [Primary Care Provider] - 1-2 days
[2022-12-15 15:49] LABS: Basophils % (A) 0 %; Eosinophils # (A) 0.2 k/uL (0-0.7); Eosinophils % (A) 2 %; HCT 41.1 % (39.0-53.0); HGB 13.8 gm/dL (13.0-17.5); Lymphocytes # (A) 1.9 k/uL (1.0-4.8); Lymphocytes % (A) 24 %; MCH 29.2 pg (25.0-35.0); MCHC 33.7 g/dL (31.0-37.0); MCV 86.8 fL (80.0-100.0); Mean Platelet Volume 7.4; Monocytes # (A) 0.5 k/uL (0-1.0); Monocytes % (A) 7 %; Neutrophils % (A) 64 %; Platelet Count 218 k/uL (150-450); RBC 4.73 m/uL (4.30-5.90); RDW 12.4 % (11.5-15.5); WBC 7.8 k/uL (3.8-10.6)
[2022-12-15 15:51] LABS: ALT 23 U/L (4-49); AST 21 U/L (17-59); African American GFR (CKD) >90 (>60 ml/min/1.73 sqM); Albumin 4.8 g/dL (3.5-5.0); Alkaline Phosphatase 65 U/L (38-126); Amylase 61 U/L (30-110); Anion Gap 11 mmol/L; Blood Urea Nitrogen 15 mg/dL (9-20); Calcium 9.5 mg/dL (8.4-10.2); Carbon Dioxide 28 mmol/L (22-30); Chloride 97 mmol/L (98-107); Glucose 208 mg/dL (74-99); Lipase 119 U/L (23-300); Non-African American GFR(CKD) >90 (>60 ml/min/1.73 sqM); Sodium 136 mmol/L (137-145); Total Bilirubin 0.3 mg/dL (0.2-1.3); Total Protein 7.6 g/dL (6.3-8.2)
[2022-12-15] MEDS ORDERED: HYDROmorphone 1 MG/ML 1 ML SYRINGE IVP STA (17:10)
[2022-12-15] MEDS ORDERED: LORazepam 2 MG/ML INJ IV STA (17:10)
[2022-12-15] MEDS ORDERED: diphenhydrAMINE 50 MG/ML 1 ML VIAL IVP STA (17:10)
[2022-12-15 18:36] VITALS: BP 130/82; PULSE 78; RESP 18; TEMP 98.6
== END 2022-12-15 18:37 | disposition home or self-care (01) ==
LOC: EC 13:52
DX: M79.2 Neuralgia and neuritis, unspecified (principal); R10.9 Unspecified abdominal pain; E11.9 Type 2 diabetes mellitus without complications; E78.5 Hyperlipidemia, unspecified; F32.A Depression, unspecified; F41.9 Anxiety disorder, unspecified; G47.30 Sleep apnea, unspecified; I10 Essential (primary) hypertension; K21.9 Gastro-esophageal reflux disease without esophagitis; F17.290 Nicotine dependence, other tobacco product, uncomplicated; Z79.899 Other long term (current) drug therapy
CPT/HCPCS: 36415; 93005; 80053; 85652; 82150; 83605; 83690; 85025; 86140; 99284; 96374; 96375 ×2; J2060; J1200; J1170

== ENCOUNTER 2023-01-29 19:30 | Emergency (ER) | payer OTHER ==
[2023-01-29 19:39] VITALS: RESP 16; TEMP 97.9
[2023-01-29 20:12] LABS: Basophils % (A) 0 %; Eosinophils # (A) 0.2 k/uL (0-0.7); Eosinophils % (A) 4 %; HCT 36.6 % (39.0-53.0); HGB 12.6 gm/dL (13.0-17.5); Lymphocytes # (A) 1.7 k/uL (1.0-4.8); Lymphocytes % (A) 31 %; MCH 30.5 pg (25.0-35.0); MCHC 34.4 g/dL (31.0-37.0); MCV 88.7 fL (80.0-100.0); Mean Platelet Volume 7.5; Monocytes # (A) 0.5 k/uL (0-1.0); Monocytes % (A) 9 %; Neutrophils % (A) 55 %; Platelet Count 165 k/uL (150-450); RBC 4.12 m/uL (4.30-5.90); WBC 5.6 k/uL (3.8-10.6)
[2023-01-29] MEDS ORDERED: HYDROmorphone 0.5 MG/0.5 ML SYRINGE IVP STA ×2 (20:24→22:25)
[2023-01-29 20:25] LABS: ALT 19 U/L (4-49); AST 22 U/L (17-59); African American GFR (CKD) >90 (>60 ml/min/1.73 sqM); Albumin 4.1 g/dL (3.5-5.0); Alkaline Phosphatase 52 U/L (38-126); Amylase 69 U/L (30-110); Anion Gap 9 mmol/L; Blood Urea Nitrogen 16 mg/dL (9-20); Calcium 8.9 mg/dL (8.4-10.2); Carbon Dioxide 25 mmol/L (22-30); Chloride 100 mmol/L (98-107); Glucose 129 mg/dL (74-99); Lipase 70 U/L (23-300); Non-African American GFR(CKD) 88 (>60 ml/min/1.73 sqM); Potassium 4.2 mmol/L (3.5-5.1); Sodium 134 mmol/L (137-145); Total Bilirubin 0.2 mg/dL (0.2-1.3); Total Protein 6.6 g/dL (6.3-8.2)
--- NOTE | 2023-01-29 20:30 | ED ---
General Adult HPI - General Source: patient, RN notes reviewed, old records reviewed Mode of arrival: EMS Limitations: no limitations <Thanh Dias - Last Filed: 01/29/23 20:36> <Michael Augustin - Last Filed: 02/05/23 05:59> - General Chief complaint: Abdominal Pain Stated complaint: Abd Pain Time Seen by Provider: 01/29/23 19:45 - History of Present Illness Initial comments: This is a 57-year-old male who presents emergency Department complaining of left lower quadrant abdominal fullness and some pain. Patient states in the past she's had a abdominal aortic aneurysm repair and then he had an endoleak which was then attempted to be repaired and eventually got infected so he had to go back down to [facility] to have it cleaned out and re-done according to the patient. Patient comes in today because he started having some left lower quadrant fullness and a little bit of tenderness in the area. Patient denies any fever chills per patient denies any new numbness or weakness. Patient denies any vomiting or diarrhea. (Thanh Dias) - Related Data Home Medications Medication Instructions Recorded Confirmed Baclofen [Lioresal] 5 mg PO BID 04/27/18 03/30/22 Venlafaxine HCl ER [Effexor XR] 75 mg PO HS 07/07/18 03/30/22 ALPRAZolam [Xanax] 0.5 mg PO BID PRN 06/19/21 03/30/22 Butalb/APAP/Caff 50-325-40Mg 1 - 2 tab PO Q6H PRN 06/19/21 03/30/22 [Fioricet 50-325-40] Gabapentin 600 mg PO TID 06/19/21 03/30/22 lisinopriL [Zestril] 30 mg PO DAILY 02/07/22 03/30/22 Omeprazole 40 mg PO DAILY 03/30/22 03/30/22 Pregabalin [Lyrica] 150 mg PO BID 03/30/22 03/30/22 Previous Rx's Medication Instructions Recorded Magnesium Hydroxide [Milk of 2,400 mg PO ONCE PRN ml 04/05/22 Magnesia Concentrate] INSULIN ASPART (NovoLOG) [NovoLOG 0 unit SQ ACHS each 04/10/22 (formulary)] Piperacillin-Tazobactam [Zosyn] 3.375 gm IVPB Q8H each 04/10/22 Tamsulosin [Flomax] 0.4 mg PO PC-BRKFST cap 04/10/22 amLODIPine [Norvasc] 5 mg PO DAILY tab 04/10/22 oxyCODONE ER [OxyCONTIN] 10 mg PO Q12HR PRN tab 04/10/22 polyethylene glycoL 3350 [Miralax] 17 gm PO DAILY packet 04/10/22 Allergies Allergy/AdvReac Type Severity Reaction Status Date / Time No Known Allergies Allergy Verified 01/29/23 19:34 Review of Systems ROS Other: All systems not noted in ROS Statement are negative. <Thanh Dias - Last Filed: 01/29/23 20:36> ROS Other: All systems not noted in ROS Statement are negative. <Michael Augustin - Last Filed: 02/05/23 05:59> ROS Statement: Those systems with pertinent positive or pertinent negative responses have been documented in the HPI. 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 Past Anesthesia/Blood Transfusion Reactions: Previous Problems w/ Anesthesia, Motion Sickness Additional Past Anesthesia/Blood Transfusion Reaction / Comment(s): Aneurysm surgery 10/04/17- "cardiac arrest" at [facility] -pt not sure of cause Past Psychological History: Anxiety, Depression Smoking Status: Former smoker, Vaper Past Alcohol Use History: None Reported Past Drug Use History: None Reported - Past Family History Father Family Medical History: Deep Vein Thrombosis (DVT) Additional Family Medical History / Comment(s): Father is alive at age 83 with history of diabetes, osteoarthritis, dementia. Sister(s) Family Medical History: Cancer Additional Family Medical History / Comment(s): 2 sisters-breast cancer Brother(s) Family Medical History: COPD Additional Family Medical History / Comment(s): Patient has one brother with COPD. <Thanh Dias - Last Filed: 01/29/23 20:36> General Exam Limitations: no limitations <Thanh Dias - Last Filed: 01/29/23 20:36> - General Exam Comments Initial Comments: GENERAL: Patient is well-developed and well-nourished. Patient is nontoxic and well-hydrated and is in no acute distress. ENT: Neck is soft and supple. No significant lymphadenopathy is noted. Oropharynx is clear. Moist mucous membranes. Neck has full range of motion without eliciting any pain. EYES: The sclera were anicteric and conjunctiva were pink and moist. Extraocular movements were intact and pupils were equal round and reactive to light. Eyelids were unremarkable. PULMONARY: Unlabored respirations. Good breath sounds bilaterally. No audible rales rhonchi or wheezing was noted. CARDIOVASCULAR: There is a regular rate and rhythm without any murmurs gallops or rubs. ABDOMEN: Patient has slight left lower quadrant abdominal tenderness no palpable mass was noted no pulsatile mass was noted SKIN: Skin is clear with no lesions or rashes and otherwise unremarkable. NEUROLOGIC: Patient is alert and oriented x3. Cranial nerves II through XII are grossly intact. Motor and sensory are also intact. Normal speech, volume and content. Symmetrical smile. MUSCULOSKELETAL: Normal extremities with adequate strength and full range of motion. No lower extremity swelling or edema. No calf tenderness. LYMPHATICS: No significant lymphadenopathy is noted PSYCHIATRIC: Normal psychiatric evaluation. (Thanh Dias) Course Vital Signs 01/29/23 01/29/23 01/29/23 19:34 21:05 22:56 Temperature 97.9 F Pulse Rate 63 55 L 55 L Respiratory 16 16 16 Rate Blood Pressure 132/74 125/79 147/88 O2 Sat by Pulse 97 95 98 Oximetry Medical Decision Making - Lab Data Result diagrams: 01/29/23 19:55 01/29/23 19:55 <Thanh Dias - Last Filed: 01/29/23 20:36> - Lab Data Result diagrams: 01/29/23 19:55 01/29/23 19:55 <Michael Augustin - Last Filed: 02/05/23 05:59> - Medical Decision Making EKG was interpreted by myself shows a sinus bradycardia 57 bpm SC interval is 70 QRS 4 Q-T intervals 431 QTC is 426. Patient's EKG shows no ST segment elevation or depression Was pt. sent in by a medical professional or institution (, JENNIFER, MOVIE THEATER USHER, urgent care, hospital, or skilled nursing...) When possible be specific @ -[No] Did you speak to anyone other than the patient for history (EMS, parent, family, police, friend...)? What history was obtained from this source @ -[No] Did you review nursing and triage notes (agree or disagree)? Why? @ -[I reviewed and agree with nursing and triage notes] Were old charts reviewed (outside hosp., previous admission, EMS record, old EKG, old radiological studies, urgent care reports/EKG's, skilled nursing records)? Report findings @ -I reviewed prior charts prior labwork on this patient. Differential Diagnosis (chest pain, altered mental status, abdominal pain women, abdominal pain men, vaginal bleeding, weakness, fever, dyspnea, syncope, headache, dizziness, GI bleed, back pain, seizure, CVA, palpatations, mental health, musculoskeletal)? @ -Differential Abdominal Pain Men: Appendicitis, cholecystitis, diverticulosis, ischemic bowel, pancreatitis, hepatitis, UTI, gastroenteritis, AAA, incarcerated hernia, bowel obstruction, constipation, inflammatory bowel, hepatitis, peptic ulcer disease, splenic infarction, perforated viscus, testicular torsion, this is not meant to be an all-inclusive list EKG interpreted by me (3pts min.). @ -[As above] X-rays interpreted by me (1pt min.). @ -[None done] CT interpreted by me (1pt min.). @ -[None done] U/S interpreted by me (1pt. min.). @ -[None done] What testing was considered but not performed or refused? (CT, X-rays, U/S, labs)? Why? @ -[None] What meds were considered but not given or refused? Why? @ -[None] Did you discuss the management of the patient with other professionals (professionals i.e. Dr., PA, MOVIE THEATER USHER, lab, RT, psych nurse, social media strategist, carding machine operator, teacher, corporate ethics officer, telephonic nurse case manager)? Give summary @ -[No] Was smoking cessation discussed for >3mins.? @ -[No] Was critical care preformed (if so, how long)? @ -[No] Were there social determinants of health that impacted care today? How? (Homelessness, low income, unemployed, alcoholism, drug addiction, transportation, low edu. Level, literacy, decrease access to med. care, usp, rehab)? @ -[No] Was there de-escalation of care discussed even if they declined (Discuss DNR or withdrawal of care, Hospice)? DNR status @ -[No] What co-morbidities impacted this encounter? (DM, HTN, Smoking, COPD, CAD, Cancer, CVA, ARF, Chemo, Hep., AIDS, mental health diagnosis, sleep apnea, morbid obesity)? @ -[None] Was patient admitted / discharged? Hospital course, mention meds given and route, prescriptions, significant lab abnormalities, going to OR and other pertinent info. @ -CT angiogram of the abdomen and pelvis was ordered before the patient could go we are waiting for lab work. Patient be signed out to Dr. Augustin at 9 PM (Thanh Dias) Was patient admitted / discharged? Hospital course, mention meds given and route, prescriptions, significant lab abnormalities, going to OR and other pertinent info. @ -[I reevaluated the patient after the computed tomography scan was back and he did have some relief with the dictation here and is feeling well and would like to go home. Undiagnosed new problem with uncertain prognosis? @ -[No] Drug Therapy requiring intensive monitoring for toxicity (Heparin, Nitro, Insulin, Cardizem)? @ -[No] Were any procedures done? @ -[No] Diagnosis/symptom? @ -Acute abdominal pain Acute, or Chronic, or Acute on Chronic? @ -[Acute on chronic Uncomplicated (without systemic symptoms) or Complicated (systemic symptoms)? @ -[Uncomplicated Side effects of treatment? @ -[No] Exacerbation, Progression, or Severe Exacerbation? @ -[No] Poses a threat to life or bodily function? How? (Chest pain, [place], [place], pneumonia, PE, COPD, DKA, ARF, appy, cholecystitis, CVA, Diverticulitis, Homicidal, S uicidal, threat to staff... and all critical care pts) @ -[No] (Michael Augustin) - Lab Data Lab Results 01/29/23 01/29/23 01/29/23 Range/Units 19:55 19:55 19:55 WBC 5.6 (3.8-10.6) k/uL RBC 4.12 L (4.30-5.90) m/uL Hgb 12.6 L (13.0-17.5) gm/dL Hct 36.6 L (39.0-53.0) % MCV 88.7 (80.0-100.0) fL MCH 30.5 (25.0-35.0) pg MCHC 34.4 (31.0-37.0) g/dL RDW 12.0 (11.5-15.5) % Plt Count 165 (150-450) k/uL MPV 7.5 Neutrophils % 55 % Lymphocytes % 31 % Monocytes % 9 % Eosinophils % 4 % Basophils % 0 % Neutrophils # 3.0 (1.3-7.7) k/uL Lymphocytes # 1.7 (1.0-4.8) k/uL Monocytes # 0.5 (0-1.0) k/uL Eosinophils # 0.2 (0-0.7) k/uL Basophils # 0.0 (0-0.2) k/uL PT 9.9 (9.0-12.0) sec INR 0.9 (<1.2) APTT 26.3 (22.0-30.0) sec Sodium 134 L (137-145) mmol/L Potassium 4.2 (3.5-5.1) mmol/L Chloride 100 (98-107) mmol/L Carbon Dioxide 25 (22-30) mmol/L Anion Gap 9 mmol/L BUN 16 (9-20) mg/dL Creatinine 0.95 (0.66-1.25) mg/dL Est GFR (CKD-EPI)AfAm >90 (>60 ml/min/1.73 sqM) Est GFR (CKD-EPI)NonAf 88 (>60 ml/min/1.73 sqM) Glucose 129 H (74-99) mg/dL Calcium 8.9 (8.4-10.2) mg/dL Total Bilirubin 0.2 (0.2-1.3) mg/dL AST 22 (17-59) U/L ALT 19 (4-49) U/L Alkaline Phosphatase 52 (38-126) U/L Total Protein 6.6 (6.3-8.2) g/dL Albumin 4.1 (3.5-5.0) g/dL Amylase 69 (30-110) U/L Lipase 70 (23-300) U/L Disposition <Thanh Dias - Last Filed: 01/29/23 20:36> Is patient prescribed a controlled substance at d/c from ED?: No <Michael Augustin - Last Filed: 02/05/23 05:59> Clinical Impression: Abdominal pain Disposition: HOME SELF-CARE Condition: Good Instructions (If sedation given, give patient instructions): Abdominal Pain (ED) Referrals: Gene Perera MD [Primary Care Provider] - 1-2 days
--- NOTE | 2023-01-29 21:26 | CT ---
EXAMINATION TYPE: CT angio abdomen pelvis CT DLP: 1311.5 mGycm, Automated exposure control for dose reduction was used. DATE OF EXAM: 01/29/2023 9:08 PM COMPARISON: CT abdomen pelvis 04/10/2022. . CLINICAL INDICATION:Male, 57 years old with history of Abdominal pain; RLQ abdominal pain. Hx of AAA with complications. TECHNIQUE: Multiple thin slice sub-millimeter images were obtained through the abdomen and pelvis bef ore and after administration of contrast. Patient was given Isovue 370, 100 cc intravenously. 3-D r econstructed images and maximum intensity projection images were obtained of the aorta. FINDINGS: CTA Abdomen and pelvis: Post surgical changes from patent aortobiiliac stents. The napaimute infrarenal abdominal aortic aneurysm measures up to 3.1 cm. 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 Ectasia of the bilateral common iliac arteries. No evidence for endoleak . Atherosclerotic plaquing is identified within the abdominal aorta. The origins of the superior mes enteric artery, renal arteries, and celiac axis are patent. . The inferior mesenteric artery is not v isualized. Atherosclerotic plaquing with some mural thrombus formation is identified in the common i liac arteries. VISCERA: The liver, spleen, adrenal glands, kidneys, pancreas, and gallbladder are not optimally enha nced due the arterial phase utilized. LIVER: Unremarkable GALLBLADDER AND BILE DUCTS: Unremarkable. PANCREAS: Unremarkable. SPLEEN: Subcentimeter hypodense focus within the spleen which is too small characterize but likely re presents a cyst. ADRENAL GLANDS: Unremarkable. KIDNEYS AND URETERS: No evidence of hydronephrosis or renal calculus. Nonspecific bilateral perinephr ic fat stranding. Cyst measuring up to 1.3 cm. PELVIS BLADDER: Unremarkable REPRODUCTIVE: Unremarkable. ABDOMEN & PELVIS STOMACH AND BOWEL: Stomach and duodenum are unremarkable. Distal colonic diverticulosis without evide nce for acute diverticulitis. No evidence of bowel obstruction. The appendix is not identified. There is no surrounding inflammatory changes within the right lower quadrant. No pneumatosis. PERITONEUM: No evidence of pneumoperitoneum or free fluid. VASCULATURE: No evidence of aortic aneurysm. MUSCULOSKELETAL: No acute osseous abnormalities. No aggressive osseous lesion. Mild multilevel degene rative disc disease most pronounced at L5-S1.Posterior left 12th rib healing fracture. LYMPH NODES: No gross evidence for lymphadenopathy. SOFT TISSUE/ABDOMINAL WALL: Unremarkable LOWER CHEST: Bibasilar subpleural cystic emphysematous changes redemonstrated. Coronary artery calcif ications. IMPRESSION 1. No acute intra-abdominal/pelvic process. 2. Post surgical changes from aortobiiliac stent graft. 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 3. Colonic diverticulosis without evidence for acute diverticulitis.
[2023-01-29 22:32] LABS: INR 0.9 (<1.2); Partial Thromboplastin Time 26.3 sec (22.0-30.0); Prothrombin Time 9.9 sec (9.0-12.0)
[2023-01-29 22:58] VITALS: PULSE 55
[2023-01-29 22:59] VITALS: BP 147/88
== END 2023-01-29 22:56 | disposition home or self-care (01) ==
LOC: EC 19:30
DX: R10.32 Left lower quadrant pain (principal); E11.9 Type 2 diabetes mellitus without complications; I10 Essential (primary) hypertension; F41.9 Anxiety disorder, unspecified; F32.A Depression, unspecified; K21.9 Gastro-esophageal reflux disease without esophagitis; F17.290 Nicotine dependence, other tobacco product, uncomplicated; Z79.899 Other long term (current) drug therapy
CPT/HCPCS: 36415; 93005; 80053; 82150; 83690; 85025; 85610; 85730; 74174; 99285; 96374; 96376; J1170; Q9967

== ENCOUNTER 2023-02-07 18:28 | Emergency (ER) | payer OTHER ==
[2023-02-07 18:36] VITALS: TEMP 98.2
[2023-02-07] MEDS ORDERED: SODIUM CHLORIDE 0.9% 1,000 ML IV STA (19:45)
[2023-02-07] MEDS ORDERED: HYDROcodone/APAP 7.5-325MG 1 EACH TAB PO ONE (20:11)
--- NOTE | 2023-02-07 20:12 | ED ---
Abdominal Pain HPI - General Chief Complaint: Abdominal Pain Stated Complaint: Abd Pain, poss Post Op Com, Surgery in Apr 18' Time Seen by Provider: 02/07/23 19:32 Source: patient Mode of arrival: ambulatory Limitations: no limitations - History of Present Illness Initial Comments: 57-year-old male presenting with chief complaint of abdominal pain. Pain is located primarily in the left lower quadrant. States that he has had ongoing recurring episodes of this pain since July. This flareup started this morning. States that it feels like a pressure. Patient has been seen in our ER repeatedly for the same complaint. He does have history of abdominal aortic aneurysm which required repair. No nausea, vomiting, chest pain, difficulty breathing, diarrhea, dysuria, hematuria, fever, chills, palpitations. - Related Data Home Medications Medication Instructions Recorded Confirmed Baclofen [Lioresal] 10 mg PO HS 04/27/18 02/07/23 Venlafaxine HCl ER [Effexor XR] 75 mg PO DAILY 07/07/18 02/07/23 ALPRAZolam [Xanax] 0.5 mg PO BID 06/19/21 02/07/23 Gabapentin 300 mg PO Q4H 06/19/21 02/07/23 lisinopriL [Zestril] 15 mg PO BID 02/07/22 02/07/23 Amoxic-Pot Clav 875-125Mg 1 tab PO Q12HR 02/07/23 02/07/23 [Augmentin 875-125] Atorvastatin [Lipitor] 20 mg PO HS 02/07/23 02/07/23 Tamsulosin [Flomax] 0.4 mg PO DAILY 02/07/23 02/07/23 glyBURIDE/METFORMIN HCL 1 tab PO BID 02/07/23 02/07/23 [Glucovance 5-500 mg] oxyCODONE-APAP 10-325MG [Percocet 1 tab PO TID 02/07/23 02/07/23 10-325 mg] Allergies Allergy/AdvReac Type Severity Reaction Status Date / Time No Known Allergies Allergy Verified 02/07/23 22:16 Review of Systems ROS Statement: Those systems with pertinent positive or pertinent negative responses have been documented in the HPI. ROS Other: All systems not noted in ROS Statement are negative. 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 Past Anesthesia/Blood Transfusion Reactions: Previous Problems w/ Anesthesia, Motion Sickness Additional Past Anesthesia/Blood Transfusion Reaction / Comment(s): Aneurysm surgery 10/04/17- "cardiac arrest" at [facility] -pt not sure of cause Past Psychological History: Anxiety, Depression Smoking Status: Former smoker, Vaper Past Alcohol Use History: None Reported Past Drug Use History: None Reported - Past Family History Father Family Medical History: Deep Vein Thrombosis (DVT) Additional Family Medical History / Comment(s): Father is alive at age 83 with history of diabetes, osteoarthritis, dementia. Sister(s) Family Medical History: Cancer Additional Family Medical History / Comment(s): 2 sisters-breast cancer Brother(s) Family Medical History: COPD Additional Family Medical History / Comment(s): Patient has one brother with COPD. General Exam Limitations: no limitations General appearance: alert, in no apparent distress Head exam: Present: atraumatic, normocephalic, normal inspection Eye exam: Present: normal appearance Neck exam: Present: normal inspection, full ROM Respiratory exam: Present: normal lung sounds bilaterally. Absent: respiratory distress, wheezes, rales, rhonchi, stridor Cardiovascular Exam: Present: regular rate, normal rhythm, normal heart sounds. Absent: systolic murmur, diastolic murmur, rubs, gallop, clicks GI/Abdominal exam: Present: soft. Absent: distended, tenderness, guarding, rebound, rigid Neurological exam: Present: alert, oriented X3, CN II-XII intact Psychiatric exam: Present: normal affect, normal mood Skin exam: Present: warm, dry, intact, normal color. Absent: rash Course Vital Signs 02/07/23 02/07/23 02/07/23 18:33 18:45 19:54 Temperature 98.2 F Pulse Rate 82 66 65 Respiratory 20 18 18 Rate Blood Pressure 164/96 158/100 145/85 O2 Sat by Pulse 97 97 97 Oximetry 02/08/23 00:00 Temperature Pulse Rate 68 Respiratory 16 Rate Blood Pressure 138/68 O2 Sat by Pulse 96 Oximetry Medical Decision Making - Medical Decision Making Was pt. sent in by a medical professional or institution (, PA, LINE RUNNER, urgent care, hospital, or halfway...) When possible be specific @ -No Did you speak to anyone other than the patient for history (EMS, parent, family, police, friend...)? What history was obtained from this source @ -No Did you review nursing and triage notes (agree or disagree)? Why? @ -I reviewed and agree with nursing and triage notes Were old charts reviewed (outside hosp., previous admission, EMS record, old EKG, old radiological studies, urgent care reports/EKG's, halfway records)? Report findings @ -No old charts were reviewed Differential Diagnosis (chest pain, altered mental status, abdominal pain women, abdominal pain men, vaginal bleeding, weakness, fever, dyspnea, syncope, headache, dizziness, GI bleed, back pain, seizure, CVA, palpatations, mental health, musculoskeletal)? @ -MDM Differential Abdominal Pain Men: Appendicitis, cholecystitis, diverticulosis, ischemic bowel, pancreatitis, hepatitis, UTI, gastroenteritis, AAA, incarcerated hernia, bowel obstruction, constipation, inflammatory bowel, hepatitis, peptic ulcer disease, splenic infarction, perforated viscus, testicular torsion... This is not meant to be an all-inclusive list EKG interpreted by me (3pts min.). @ -As above X-rays interpreted by me (1pt min.). @ -None done CT interpreted by me (1pt min.). @ -CT shows revised stent grafting of the aorta and iliac arteries without evidence of complication. No acute intra-abdominal findings. No acute findings of the chest. U/S interpreted by me (1pt. min.). @ -None done What testing was considered but not performed or refused? (CT, X-rays, U/S, raisa bs)? Why? @ -None What meds were considered but not given or refused? Why? @ -None Did you discuss the management of the patient with other professionals (professionals i.e. , PA, LINE RUNNER, lab, RT, psych nurse, social worker school, wood floor refinisher, teacher, attendance officer, telehealth case manager)? Give summary @ -No Was smoking cessation discussed for >3mins.? @ -No Was critical care preformed (if so, how long)? @ -No Were there social determinants of health that impacted care today? How? (Homelessness, low income, unemployed, alcoholism, drug addiction, transportation, low edu. Level, literacy, decrease access to med. care, detention, rehab)? @ -No Was there de-escalation of care discussed even if they declined (Discuss DNR or withdrawal of care, Hospice)? DNR status @ -No What co-morbidities impacted this encounter? (DM, HTN, Smoking, COPD, CAD, Cancer, CVA, ARF, Chemo, Hep., AIDS, mental health diagnosis, sleep apnea, morbid obesity)? @ -History of AAA Was patient admitted / discharged? Hospital course, mention meds given and route, prescriptions, significant lab abnormalities, going to OR and other pertinent info. @ -57-year-old male presenting with chief complaint of left lower quadrant pain. Patient has history of AAA repair and type II endoleak repair. Physical examination is unremarkable. Lab work shows a dimer of 2.68. CT shows no acute process. Patient eloped prior to CT results. He should follow-up with his PCP and report back to ER with any new or worsening symptoms. Undiagnosed new problem with uncertain prognosis? @ -No Drug Therapy requiring intensive monitoring for toxicity (Heparin, Nitro, Insulin, Cardizem)? @ -No Were any procedures done? @ -No Diagnosis/symptom? @ -Abdominal pain Acute, or Chronic, or Acute on Chronic? @ -Acute on chronic Uncomplicated (without systemic symptoms) or Complicated (systemic symptoms)? @ -Uncomplicated Side effects of treatment? @ -No Exacerbation, Progression, or Severe Exacerbation? @ -No Poses a threat to life or bodily function? How? (Chest pain, USA, NC, pneumonia, PE, COPD, DKA, ARF, appy, cholecystitis, CVA, Diverticulitis, Homicidal, Suicidal, threat to staff... and all critical care pts) @ -No - Lab Data Result diagrams: 02/07/23:50 02/07/23 19:50 Lab Results 02/07/23 02/07/23 02/07/23 Range/Units 19:50 19:50 19:50 WBC 5.8 (3.8-10.6) k/uL RBC 4.47 (4.30-5.90) m/uL Hgb 13.7 (13.0-17.5) gm/dL Hct 39.2 (39.0-53.0) % MCV 87.6 (80.0-100.0) fL MCH 30.7 (25.0-35.0) pg MCHC 35.0 (31.0-37.0) g/dL RDW 12.0 (11.5-15.5) % Plt Count 162 (150-450) k/uL MPV 7.8 Neutrophils % 54 % Lymphocytes % 34 % Monocytes % 8 % Eosinophils % 2 % Basophils % 0 % Neutrophils # 3.1 (1.3-7.7) k/uL Lymphocytes # 2.0 (1.0-4.8) k/uL Monocytes # 0.5 (0-1.0) k/uL Eosinophils # 0.1 (0-0.7) k/uL Basophils # 0.0 (0-0.2) k/uL D-Dimer (<0.60) mg/L FEU Sodium 137 (137-145) mmol/L Potassium 4.0 (3.5-5.1) mmol/L Chloride 100 (98-107) mmol/L Carbon Dioxide 27 (22-30) mmol/L Anion Gap 10 mmol/L BUN 7 L (9-20) mg/dL Creatinine 0.81 (0.66-1.25) mg/dL Est GFR (CKD-EPI)AfAm >90 (>60 ml/min/1.73 sqM) Est GFR (CKD-EPI)NonAf >90 (>60 ml/min/1.73 sqM) Glucose 126 H (74-99) mg/dL Plasma Lactic Acid Gadiel (0.7-2.0) mmol/L Calcium 9.7 (8.4-10.2) mg/dL Total Bilirubin 0.5 (0.2-1.3) mg/dL AST 22 (17-59) U/L ALT 17 (4-49) U/L Alkaline Phosphatase 60 (38-126) U/L Total Protein 7.9 (6.3-8.2) g/dL Albumin 4.8 (3.5-5.0) g/dL Amylase 118 H (30-110) U/L Lipase 506 H (23-300) U/L Urine Color Colorless Urine Appearance Clear (Clear) Urine pH 7.0 (5.0-8.0) Ur Specific [place] 1.004 (1.001-1.035) Urine Protein Negative (Negative) Urine Glucose (UA) Negative (Negative) Urine Ketones Negative (Negative) Urine Blood Negative (Negative) Urine Nitrite Negative (Negative) Urine Bilirubin Negative (Negative) Urine Urobilinogen <2.0 (<2.0) mg/dL Ur Leukocyte Esterase Negative (Negative) 02/07/23 02/07/23 Range/Units 19:50 20:31 WBC (3.8-10.6) k/uL RBC (4.30-5.90) m/uL Hgb (13.0-17.5) gm/dL Hct (39.0-53.0) % MCV (80.0-100.0) fL MCH (25.0-35.0) pg MCHC (31.0-37.0) g/dL RDW (11.5-15.5) % Plt Count (150-450) k/uL MPV Neutrophils % % Lymphocytes % % Monocytes % % Eosinophils % % Basophils % % Neutrophils # (1.3-7.7) k/uL Lymphocytes # (1.0-4.8) k/uL Monocytes # (0-1.0) k/uL Eosinophils # (0-0.7) k/uL Basophils # (0-0.2) k/uL D-Dimer 2.68 H (<0.60) mg/L FEU Sodium (137-145) mmol/L Potassium (3.5-5.1) mmol/L Chloride (98-107) mmol/L Carbon Dioxide (22-30) mmol/L Anion Gap mmol/L BUN (9-20) mg/dL Creatinine (0.66-1.25) mg/dL Est GFR (CKD-EPI)AfAm (>60 ml/min/1.73 sqM) Est GFR (CKD-EPI)NonAf (>60 ml/min/1.73 sqM) Glucose (74-99) mg/dL Plasma Lactic Acid Gadiel 1.3 (0.7-2.0) mmol/L Calcium (8.4-10.2) mg/dL Total Bilirubin (0.2-1.3) mg/dL AST (17-59) U/L ALT (4-49) U/L Alkaline Phosphatase (38-126) U/L Total Protein (6.3-8.2) g/dL Albumin (3.5-5.0) g/dL Amylase (30-110) U/L Lipase (23-300) U/L Urine Color Urine Appearance (Clear) Urine pH (5.0-8.0) Ur Specific [place] (1.001-1.035) Urine Protein (Negative) Urine Glucose (UA) (Negative) Urine Ketones (Negative) Urine Blood (Negative) Urine Nitrite (Negative) Urine Bilirubin (Negative) Urine Urobilinogen (<2.0) mg/dL Ur Leukocyte Esterase (Negative) Disposition Clinical Impression: Abdominal pain Narrative: eloped Disposition: LEFT AGAINST MEDICAL ADVICE Condition: Stable Referrals: Gene Perera MD [Primary Care Provider] - 1-2 days Time of Disposition: 01:19
[2023-02-07 20:18] LABS: Basophils % (A) 0 %; Eosinophils # (A) 0.1 k/uL (0-0.7); Eosinophils % (A) 2 %; HCT 39.2 % (39.0-53.0); HGB 13.7 gm/dL (13.0-17.5); Lymphocytes % (A) 34 %; MCH 30.7 pg (25.0-35.0); MCV 87.6 fL (80.0-100.0); Mean Platelet Volume 7.8; Monocytes # (A) 0.5 k/uL (0-1.0); Monocytes % (A) 8 %; Neutrophils # (A) 3.1 k/uL (1.3-7.7); Neutrophils % (A) 54 %; Platelet Count 162 k/uL (150-450); RBC 4.47 m/uL (4.30-5.90); WBC 5.8 k/uL (3.8-10.6)
[2023-02-07 20:19] LABS: Appearance,Urine Clear (Clear); Bilirubin,Urine Negative (Negative); Blood,Urine Negative (Negative); Color,Urine Colorless; Glucose,Urine (UA) Negative (Negative); Ketones,Urine Negative (Negative); Leukocyte Esterase,Urine Negative (Negative); Nitrite,Urine Negative (Negative); Protein,Urine Negative (Negative); Specific Gravity,Urine 1.004 (1.001-1.035); Urobilinogen,Urine <2.0 mg/dL (<2.0)
--- NOTE | 2023-02-07 20:19 | XR ---
EXAMINATION TYPE: XR KUB DATE OF EXAM: 02/07/2023 8:11 PM INDICATION: Patient age:Male; 57 years old; Reason for study: abdominal pain; COMPARISON: CT 01/29/2023 TECHNIQUE: One radiographic view of the abdomen was obtained. FINDINGS: The bowel gas pattern is nonspecific without dilated loops of small or large bowel. There i s no evidence for organomegaly or pneumoperitoneum. The osseous structures are intact. No abnormal calcifications are present. Fecal material and gas are demonstrated throughout the colon and rectum. Postsurgical change projecting over L4 vertebral body. IMPRESSION: Nonspecific bowel gas pattern without radiographic evidence for acute process.
[2023-02-07 20:31] LABS: ALT 17 U/L (4-49); AST 22 U/L (17-59); African American GFR (CKD) >90 (>60 ml/min/1.73 sqM); Albumin 4.8 g/dL (3.5-5.0); Alkaline Phosphatase 60 U/L (38-126); Amylase 118 U/L (30-110); Anion Gap 10 mmol/L; Blood Urea Nitrogen 7 mg/dL (9-20); Calcium 9.7 mg/dL (8.4-10.2); Carbon Dioxide 27 mmol/L (22-30); Chloride 100 mmol/L (98-107); Glucose 126 mg/dL (74-99); Lipase 506 U/L (23-300); Non-African American GFR(CKD) >90 (>60 ml/min/1.73 sqM); Sodium 137 mmol/L (137-145); Total Bilirubin 0.5 mg/dL (0.2-1.3); Total Protein 7.9 g/dL (6.3-8.2)
--- NOTE | 2023-02-08 00:47 | CT ---
EXAM: CT Angiography Chest Without and With Intravenous Contrast CLINICAL HISTORY: ITS.REASON CT Reason: LLQ abd pain, hx AAA, elevated dimer TECHNIQUE: Axial computed tomographic angiography images of the chest without and with intravenous contrast. CTDI is 8.2 mGy and DLP is 714.8 mGy-cm. This CT exam was performed using one or more of the following dose reduction techniques: automated exposure control, adjustment of the mA and/or kV according to patient size, and/or use of iterative reconstruction technique. 3D and MIP reconstructed images were created and reviewed. COMPARISON: CT chest 07/24/19 FINDINGS: Thyroid gland is normal. There is no mediastinal, hilar, or axillary lymphadenopathy. There is no thoracic aortic aneurysm or dissection. Great vessels of the aortic arch are adequately patent. There is adequate pulmonary artery opacification. Main pulmonary artery is normal in caliber. There is no pulmonary embolism. Heart size is normal. There is no pericardial effusion or right ventricular strain. There is 3 vessel coronary artery atherosclerosis. Right hemidiaphragm is elevated. There is subpleural cystic changes within the lungs extending from the apices to the lung bases which may represent paraseptal emphysema and/or fibrotic change. There is additional centrilobular emphysema. These findings are stable from prior exam. There is no consolidation, mass, pleural effusion, or pneumothorax. There is no acute fracture or dislocation. IMPRESSION: No acute findings. EXAM: CT Angiography Abdomen and Pelvis Without and With Intravenous Contrast CLINICAL HISTORY: ITS.REASON CT Reason: LLQ abd pain, hx AAA, elevated dimer TECHNIQUE: Axial computed tomographic angiography images of the abdomen and pelvis without and with intravenous contrast. CTDI is 8.2 mGy and DLP is 714.8 mGy-cm. This CT exam was performed using one or more of the following dose reduction techniques: automated exposure control, adjustment of the mA and/or kV according to patient size, and/or use of iterative reconstruction technique. 3D and MIP reconstructed images were created and reviewed. COMPARISON: CT abdomen and pelvis 04/01/22 FINDINGS: There is a background of atherosclerotic vascular disease. When compared to prior exam, previously seen bifurcated stent graft has been removed. There is a new graft extending from the suprarenal aorta through the bilateral common iliac arteries, adequately patent. There is fusiform ectasia of the infrarenal aorta measuring 2.9 cm. Aneurysmal dilatation of the bilateral common iliac arteries is present measuring 1.7 cm on the right and 2.0 cm on the left. Celiac artery, SMA, bilateral renal arteries, and bilateral common, internal, and external iliac arteries are adequately patent. LIZA is not visualized and may be occluded. There is no adenopathy, free fluid, or free air. Liver, gallbladder, spleen, pancreas, and adrenal glands are unremarkable. Kidneys enhance symmetrically, without hydronephrosis or perinephric stranding. Small simple cortical cyst at the upper pole of the right kidney is noted; no further follow-up is required. Appendix is not identified. There is no pericecal inflammation. There is no bowel obstruction or inflammatory change. There is diverticulosis of the sigmoid colon without diverticulitis. Urinary bladder is incompletely distended. Prostate is unremarkable. There are no acute osseous findings. 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 IMPRESSION: 1. Revised stent-grafting of the aorta and iliac arteries without evidence of complication. 2. No acute intra-abdominal findings.
[2023-02-08 01:39] VITALS: BP 138/68; PULSE 68; RESP 16
== END 2023-02-08 01:12 | disposition left against medical advice (07) ==
LOC: EC 18:28
DX: R10.32 Left lower quadrant pain (principal); E11.9 Type 2 diabetes mellitus without complications; E78.5 Hyperlipidemia, unspecified; I10 Essential (primary) hypertension; K21.9 Gastro-esophageal reflux disease without esophagitis; F41.9 Anxiety disorder, unspecified; F32.A Depression, unspecified; F17.290 Nicotine dependence, other tobacco product, uncomplicated; Z79.84 Long term (current) use of oral hypoglycemic drugs; Z79.899 Other long term (current) drug therapy; Z53.29 Procedure and treatment not carried out because of patient's decision for other reasons
CPT/HCPCS: 36415; 85379; 80053; 82150; 83605; 83690; 85025; 81003; 74018; 71275; 74174; 99284; 96360; Q9967

== ENCOUNTER → 2023-02-10 | Outpatient (CLI) | payer OTHER ==
[2023-02-10 21:28] LABS: Basophils # (A) 0.02 X 10*3/uL (0.00-0.10); Basophils % (A) 0.3 %; Eosinophils # (A) 0.04 X 10*3/uL (0.04-0.35); Eosinophils % (A) 0.7 %; HCT 40.6 % (39.6-50.0); HGB 13.4 d/dL (12.0-15.0); Lymphocytes # (A) 1.29 X 10*3/uL (0.90-5.00); Lymphocytes % (A) 21.3 %; MCH 29.2 pg (27.0-32.0); MCV 88.5 FL (80.0-97.0); Mean Platelet Volume 10.2 FL (9.5-12.2); Monocytes # (A) 0.47 X 10*3/uL (0.20-1.00); Monocytes % (A) 7.8 %; NRBC Per 100 WBC 0 X 10*3/uL (0.00-0.01); Neutrophils # (A) 4.22 X 10*3/uL (1.80-7.70); Neutrophils % (A) 69.7 %; Platelet Count 198 X 10*3/uL (140-440); RBC 4.59 X 10*6/uL (4.40-5.60); RDW 11.9 % (11.5-14.5); WBC 6.05 X 10*3/uL (4.50-10.00)
[2023-02-10 21:35] LABS: Erythrocyte Sedimentation Rate 4 mm/Hr (0-20)
[2023-02-10 22:15] LABS: ALT 13 U/L (10-49); AST 18 U/L (14-35); Albumin 5.2 d/dL (3.8-4.9); Albumin/Globulin Ratio 2.26 Ratio (1.60-3.17); Alkaline Phosphatase 61 U/L (41-126); BUN/Creat Ratio 8.44 Ratio (12.00-20.00); Blood Urea Nitrogen 7.6 mg/dL (9.0-27.0); C Reactive Protein <0.30 mg/dL (0.00-0.80); Calcium 10.2 mg/dL (8.7-10.3); Carbon Dioxide 26.4 mmol/L (21.6-31.8); Chloride 100 mmol/L (96-109); Globulin 2.3 d/dL (1.6-3.3); Glucose 138 mg/dL (70-110); Potassium 4.9 mmol/L (3.5-5.5); Sodium 137 mmol/L (135-145); Total Bilirubin 0.4 mg/dL (0.3-1.2); Total Protein 7.5 d/dL (6.2-8.2)
== END | disposition home or self-care (01) ==
LOC: LABWHC1 14:00
PROVIDERS: ATTEND Internal Medicine Infectious Disease
DX: E55.9 Vitamin D deficiency, unspecified (principal); A09 Infectious gastroenteritis and colitis, unspecified
CPT/HCPCS: 36415; 80053; 82306; 85025; 85652; 86140

== ENCOUNTER 2023-02-12 04:44 | Emergency (ER) | payer OTHER ==
--- NOTE | 2023-02-12 05:20 | ED ---
General Adult HPI - General Chief complaint: Abdominal Pain Stated complaint: Abd pain Time Seen by Provider: 02/12/23 04:58 Source: EMS Mode of arrival: EMS Limitations: no limitations - History of Present Illness Initial comments: Dictation was produced using [employer] dictation software. please excuse any grammatical, word or spelling errors. Chief Complaint: 57-year-old male past medical history of abdominal aortic aneurysm repair and revision presents to the ER for abdominal pain History of Present Illness: Patient's 57-year-old male who has past medical history of chronic pain. Patient also has history of abdominal aortic aneurysm repair along with revision. Most recently reports that in March he had abdominal surgery done at [facility] or his abdominal aortic aneurysm repair was advised. Patient was seen here in emergency department 5 days ago for same issue. Normal computed tomography scan at that time. Patient complains of pain to the left lower quadrant of the abdomen. Patient is brought in by EMS. EMS reports the patient has stable vital signs. The ROS documented in this emergency department record has been reviewed and confirmed by me. Those systems with pertinent positive or negative responses have been documented in the HPI. All other systems are other negative and/or noncontributory. - Related Data Home Medications Medication Instructions Recorded Confirmed Baclofen [Lioresal] 10 mg PO HS 04/27/18 02/07/23 Venlafaxine HCl ER [Effexor XR] 75 mg PO DAILY 07/07/18 02/07/23 ALPRAZolam [Xanax] 0.5 mg PO BID 06/19/21 02/07/23 Gabapentin 300 mg PO Q4H 06/19/21 02/07/23 lisinopriL [Zestril] 15 mg PO BID 02/07/22 02/07/23 Amoxic-Pot Clav 875-125Mg 1 tab PO Q12HR 02/07/23 02/07/23 [Augmentin 875-125] Atorvastatin [Lipitor] 20 mg PO HS 02/07/23 02/07/23 Tamsulosin [Flomax] 0.4 mg PO DAILY 02/07/23 02/07/23 glyBURIDE/METFORMIN HCL 1 tab PO BID 02/07/23 02/07/23 [Glucovance 5-500 mg] oxyCODONE-APAP 10-325MG [Percocet 1 tab PO TID 02/07/23 02/07/23 10-325 mg] Allergies Allergy/AdvReac Type Severity Reaction Status Date / Time No Known Allergies Allergy Verified 02/07/23 22:16 Review of Systems ROS Statement: Those systems with pertinent positive or pertinent negative responses have been documented in the HPI. ROS Other: All systems not noted in ROS Statement are negative. 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 Past Anesthesia/Blood Transfusion Reactions: Previous Problems w/ Anesthesia, Motion Sickness Additional Past Anesthesia/Blood Transfusion Reaction / Comment(s): [place]m [place] [facility] [place] Past Psychological History: Anxiety, Depression Smoking Status: Former smoker, Vaper Past Alcohol Use History: None Reported Past Drug Use History: None Reported - Past Family History Father Family Medical History: Deep Vein Thrombosis (DVT) Additional Family Medical History / Comment(s): Father is alive at age 83 with history of diabetes, osteoarthritis, dementia. Sister(s) Family Medical History: Cancer Additional Family Medical History / Comment(s): 2 sisters-breast cancer Brother(s) Family Medical History: COPD Additional Family Medical History / Comment(s): Patient has one brother with COPD. General Exam - General Exam Comments Initial Comments: PHYSICAL EXAM: General Impression: Alert and oriented x3, groaning in pain HEENT: Normocephalic atraumatic, extra-ocular movements intact, pupils equal and reactive to light bilaterally, mucous membranes moist. Cardiovascular: Heart regular rate and rhythm Chest: Able to complete full sentences, no retractions, no tachypnea Abdomen: abdomen soft, non-tender when patient is distracted, non-distended, no organomegaly Musculoskeletal: Pulses present and equal in all extremities, no peripheral edema Motor: no focal deficits noted Neurological: CN II-XII grossly intact, no focal motor or sensory deficits noted Skin: Intact with no visualized rashes Limitations: no limitations Course Vital Signs 02/12/23 02/12/23 04:49 06:17 Temperature 98.2 F Pulse Rate 129 H 114 H Respiratory 20 20 Rate Blood Pressure 138/105 160/90 O2 Sat by Pulse 99 97 Oximetry EKG Findings - EKG Comments: EKG Findings:: My EKG interpretation: Ventricular rate 127, sinus tachycardia,. 151, QRS 104, QTc 388. No WI prolongation, no QTC prolongation, no ST or T-wave changes noted. EKG compared to 01/29/2023 showing no changes. Overall, this EKG is unremarkable Medical Decision Making - Medical Decision Making Was pt. sent in by a medical professional or institution (, PA, [employer], urgent care, hospital, or shelter...) When possible be specific @ -No Did you speak to anyone other than the patient for history (EMS, parent, family, police, friend...)? What history was obtained from this source @ -No Did you review nursing and triage notes (agree or disagree)? Why? @ -I reviewed and agree with nursing and triage notes Were old charts reviewed (outside hosp., previous admission, EMS record, old EKG, old radiological studies, urgent care reports/EKG's, shelter records)? Report findings @ -No old charts were reviewed Differential Diagnosis (chest pain, altered mental status, abdominal pain women, abdominal pain men, vaginal bleeding, musculoskeletal, weakness, fever, dyspnea, syncope, headache, dizziness, GI bleed, back pain, seizure, CVA, palpatations, mental health)? @ -Differential Abdominal Pain Men: Appendicitis, cholecystitis, diverticulosis, ischemic bowel, pancreatitis, hepatitis, UTI, gastroenteritis, AAA, incarcerated hernia, bowel obstruction, constipation, inflammatory bowel, hepatitis, peptic ulcer disease, splenic infarction, perforated viscus, testicular torsion, this is not meant to be an a ll-inclusive list EKG interpreted by me (3pts min.). @ -None done X-rays interpreted by me (1pt min.). @ -None done CT interpreted by me (1pt min.). @ -Computed tomography scan of the abdomen and pelvis with contrast shows no acute processes U/S interpreted by me (1pt. min.). @ -None done What testing was considered but not performed or refused? (CT, X-rays, U/S, labs)? Why? @ -None What meds were considered but not given or refused? Why? @ -None Did you discuss the management of the patient with other professionals (professionals i.e. Dr., PA, [employer], lab, RT, psych nurse, high school social studies teacher, residential subcontractor, teacher, special skills officer, telehealth case manager)? Give summary @ -No Was smoking cessation discussed for >3mins.? @ -No Was critical care preformed (if so, how long)? @ -No Were there social determinants of health that impacted care today? How? (Kika elessness, low income, unemployed, alcoholism, drug addiction, transportation, low edu. Level, literacy, decrease access to med. care, [facility], rehab)? @ -No Was there de-escalation of care discussed even if they declined (Discuss DNR or withdrawal of care, Hospice)? DNR status @ -No What co-morbidities impacted this encounter? (DM, HTN, Smoking, COPD, CAD, Cancer, CVA, ARF, Chemo, Hep., AIDS, mental health diagnosis, sleep apnea, morbid obesity)? @ -None Was patient admitted / discharged? Hospital course, mention meds given and route, prescriptions, significant lab abnormalities, going to OR and other pertinent info. @ -57-year-old male presents emergency department for acute on chronic abdominal pain. Vital signs are stable. Patient scans are negative. Labs are unremarkable. Patient displaying behavior of opiate dependence. Patient was to be discharged over he began yelling obscenities at me and staff stating that we are incompetent. Patient would like to be transferred to [facility]. Discussed with patient that there is no need for him to be transferred given that he has benign labs and benign imaging. Case discussed with Dr. Tanner at [facility]. Patient transferred. Undiagnosed new problem with uncertain prognosis? @ -No Drug Therapy requiring intensive monitoring for toxicity (Heparin, Nitro, Insulin, Cardizem)? @ -No Were any procedures done? @ -No Diagnosis/symptom? Acute, or Chronic, or Acute on Chronic? Uncomplicated (without systemic symptoms) or Complicated (systemic symptoms)? @ -1. Acute on chronic abdominal pain Side effects of treatment? @ -No Exacerbation, Progression, or Severe Exacerbation? @ -No Poses a threat to life or bodily function? How? (Chest pain, USA, SD, pneumonia, PE, COPD, DKA, ARF, appy, cholecystitis, CVA, Diverticulitis, Homicidal, Suicidal, threat to staff... and all critical care pts) @ -No - Lab Data Result diagrams: 02/12/23 05:14 02/12/23 05:14 Lab Results 02/12/23 02/12/23 02/12/23 Range/Units 05:14 05:14 05:14 WBC 8.0 (3.8-10.6) k/uL RBC 4.62 (4.30-5.90) m/uL Hgb 13.5 (13.0-17.5) gm/dL Hct 39.9 (39.0-53.0) % MCV 86.3 (80.0-100.0) fL MCH 29.3 (25.0-35.0) pg MCHC 34.0 (31.0-37.0) g/dL RDW 12.3 (11.5-15.5) % Plt Count 175 (150-450) k/uL MPV 7.7 Neutrophils % 65 % Lymphocytes % 24 % Monocytes % 6 % Eosinophils % 1 % Basophils % 0 % Neutrophils # 5.2 (1.3-7.7) k/uL Lymphocytes # 1.9 (1.0-4.8) k/uL Monocytes # 0.5 (0-1.0) k/uL Eosinophils # 0.1 (0-0.7) k/uL Basophils # 0.0 (0-0.2) k/uL Sodium 135 L (137-145) mmol/L Potassium 3.8 (3.5-5.1) mmol/L Chloride 101 (98-107) mmol/L Carbon Dioxide 20 L (22-30) mmol/L Anion Gap 14 mmol/L BUN 7 L (9-20) mg/dL Creatinine 0.96 (0.66-1.25) mg/dL Est GFR (CKD-EPI)AfAm >90 (>60 ml/min/1.73 sqM) Est GFR (CKD-EPI)NonAf 87 (>60 ml/min/1.73 sqM) Glucose 134 H (74-99) mg/dL Plasma Lactic Acid Gadiel 1.3 (0.7-2.0) mmol/L Calcium 9.5 (8.4-10.2) mg/dL Magnesium 2.0 (1.6-2.3) mg/dL Total Bilirubin 0.7 (0.2-1.3) mg/dL AST 24 (17-59) U/L ALT 17 (4-49) U/L Alkaline Phosphatase 62 (38-126) U/L Total Protein 7.6 (6.3-8.2) g/dL Albumin 4.8 (3.5-5.0) g/dL Lipase 533 H (23-300) U/L Disposition Clinical Impression: Abdominal pain Disposition: OTHER INSTITUTION NOT DEFINED Referrals: Gene Perera MD [Primary Care Provider] - 1-2 days Time of Disposition: 07:54 - Out of Hospital Transfer - Req. Specs Out of Hospital Transfer - Requested Specifics: Other Emergency Center ([facility])
[2023-02-12 05:28] LABS: Basophils % (A) 0 %; Eosinophils # (A) 0.1 k/uL (0-0.7); Eosinophils % (A) 1 %; HCT 39.9 % (39.0-53.0); HGB 13.5 gm/dL (13.0-17.5); Lymphocytes # (A) 1.9 k/uL (1.0-4.8); Lymphocytes % (A) 24 %; MCH 29.3 pg (25.0-35.0); MCV 86.3 fL (80.0-100.0); Mean Platelet Volume 7.7; Monocytes # (A) 0.5 k/uL (0-1.0); Monocytes % (A) 6 %; Neutrophils # (A) 5.2 k/uL (1.3-7.7); Neutrophils % (A) 65 %; Platelet Count 175 k/uL (150-450); RBC 4.62 m/uL (4.30-5.90); RDW 12.3 % (11.5-15.5)
[2023-02-12 05:37] LABS: ALT 17 U/L (4-49); AST 24 U/L (17-59); African American GFR (CKD) >90 (>60 ml/min/1.73 sqM); Albumin 4.8 g/dL (3.5-5.0); Alkaline Phosphatase 62 U/L (38-126); Anion Gap 14 mmol/L; Blood Urea Nitrogen 7 mg/dL (9-20); Calcium 9.5 mg/dL (8.4-10.2); Carbon Dioxide 20 mmol/L (22-30); Chloride 101 mmol/L (98-107); Glucose 134 mg/dL (74-99); Lipase 533 U/L (23-300); Non-African American GFR(CKD) 87 (>60 ml/min/1.73 sqM); Potassium 3.8 mmol/L (3.5-5.1); Sodium 135 mmol/L (137-145); Total Bilirubin 0.7 mg/dL (0.2-1.3); Total Protein 7.6 g/dL (6.3-8.2)
--- NOTE | 2023-02-12 06:35 | CT ---
EXAM: CT Abdomen and Pelvis With Intravenous Contrast CLINICAL HISTORY: ITS.REASON CT Reason: abdominal pain TECHNIQUE: Axial computed tomography images of the abdomen and pelvis with intravenous contrast. CTDI is 16.7 mGy and DLP is 914.3 mGy-cm. This CT exam was performed using one or more of the following dose reduction techniques: automated exposure control, adjustment of the mA and/or kV according to patient size, and/or use of iterative reconstruction technique. COMPARISON: 07/24/2019 FINDINGS: Lung bases: Unremarkable. No mass. No consolidation. ABDOMEN: Liver: Unremarkable. No mass. Gallbladder and bile ducts: Gallbladder is mildly distended. No calcified stones. No ductal dilation. Pancreas: Unremarkable. No mass. No ductal dilation. Spleen: Unremarkable. No splenomegaly. Adrenals: Unremarkable. No mass. Kidneys and ureters: Unremarkable. No solid mass. No hydronephrosis. Stomach and bowel: Unremarkable. No obstruction. No mucosal thickening. PELVIS: Appendix: No findings to suggest acute appendicitis. Bladder: Unremarkable. No mass. Reproductive: Unremarkable as visualized. ABDOMEN and PELVIS: Intraperitoneal space: Unremarkable. No free air. No significant fluid collection. Bones/joints: No acute fracture. No dislocation. Soft tissues: Unremarkable. Vasculature: 3.1 x 3.1 cm infrarenal abdominal aortic aneurysm. Since the prior exam there has been interval resection of the endograft with open abdominal aortic aneurysm repair with a bifurcated graft. Both limbs of the graft are patent. Lymph nodes: Unremarkable. No enlarged lymph nodes. IMPRESSION: No acute findings in the abdomen or pelvis.
[2023-02-12 14:31] LABS: Glucose,Whole Blood 73 mg/dL (70-110)
[2023-02-12] MEDS: GABAPENTIN 300 MG CAP PO SCH ×2 (15:11→21:17)
[2023-02-12] MEDS: oxyCODONE-APAP 10-325MG 1 EACH TAB PO SCH ×2 (15:11→21:18)
[2023-02-12] MEDS: ATORVASTATIN 20 MG TAB PO SCH (21:17)
[2023-02-12] MEDS: lisinopriL 10 MG TAB PO SCH (21:18)
[2023-02-12] MEDS: BACLOFEN 10 MG TAB PO SCH (21:18)
[2023-02-12] MEDS: glipiZIDE 10 MG TAB PO SCH (21:18)
[2023-02-12] MEDS: metFORMIN 500 MG TAB PO SCH (21:18)
[2023-02-12] MEDS: ALPRAZolam 0.5 MG TAB PO SCH (21:18)
[2023-02-12 21:26] LABS: Glucose,Whole Blood 101 mg/dL (70-110)
[2023-02-13] MEDS: GABAPENTIN 300 MG CAP PO SCH ×5 (02:18→22:45)
[2023-02-13] MEDS: metFORMIN 500 MG TAB PO SCH ×4 (06:41→22:44)
[2023-02-13] MEDS: glipiZIDE 10 MG TAB PO SCH ×4 (06:41→22:44)
[2023-02-13] MEDS: ATORVASTATIN 20 MG TAB PO SCH ×2 (06:42→22:43)
[2023-02-13] MEDS: oxyCODONE-APAP 10-325MG 1 EACH TAB PO SCH ×3 (08:26→22:45)
[2023-02-13] MEDS: lisinopriL 10 MG TAB PO SCH ×2 (08:27→22:44)
[2023-02-13] MEDS: ALPRAZolam 0.5 MG TAB PO SCH (08:28)
[2023-02-13 08:36] LABS: Glucose,Whole Blood 107 mg/dL (70-110)
[2023-02-13] MEDS ORDERED: VENLAFAXINE HCL ER 75 MG CAP PO SCH (09:00)
[2023-02-13] MEDS ORDERED: TAMSULOSIN 0.4 MG CAP.ER.24H PO SCH (09:00)
[2023-02-13] MEDS: BACLOFEN 10 MG TAB PO SCH (22:43)
[2023-02-13 22:48] VITALS: RESP 14
[2023-02-14] MEDS: ALPRAZolam 0.5 MG TAB PO SCH (00:40)
[2023-02-14 01:31] VITALS: BP 102/73; PULSE 90; TEMP 98
== END 2023-02-14 02:00 | disposition other institution (70) ==
LOC: EC 04:44
DX: R10.32 Left lower quadrant pain (principal); E11.9 Type 2 diabetes mellitus without complications; E78.5 Hyperlipidemia, unspecified; I10 Essential (primary) hypertension; F41.9 Anxiety disorder, unspecified; F32.A Depression, unspecified; F17.290 Nicotine dependence, other tobacco product, uncomplicated; Z79.84 Long term (current) use of oral hypoglycemic drugs; Z79.899 Other long term (current) drug therapy
CPT/HCPCS: 99285; 36415 ×2; 93005; 80053; 83605; 83690; 83735; 85025; 74177; Q9967

== ENCOUNTER 2023-07-13 20:14 | Emergency (ER) | payer OTHER ==
--- NOTE | 2023-07-13 20:33 | ED ---
Abdominal Pain HPI - General Source: patient, EMS, RN notes reviewed Mode of arrival: EMS Limitations: no limitations <Jaquelin Brady - Last Filed: 07/13/23 23:12> <Padma Pradhan - Last Filed: 07/14/23 07:14> - General Chief Complaint: Abdominal Pain Stated Complaint: Abdominal Pain Time Seen by Provider: 07/13/23 20:25 - History of Present Illness Initial Comments: Patient is a 58-year-old male presented ER with the EMS with chief complaint of abdominal pain. Patient endorses that most of his pain started on his left side and is now suprapubic. Patient states he is having difficulty having bowel movements and they are not normal. He states his last bowel movement was liquidy and about half hour before calling EMS. Patient states he took Warren oil about 2 days ago which has not helped. Patient has had numerous abdominal surgeries in the past. Patient reports that his pain as a 9 out of 10. Patient states he has been having nightsweats. Patient denies any chest pain, shortness of breath, fevers, chills, dysuria or increasing frequency. (Jaquelin Brady) - Related Data Home Medications Medication Instructions Recorded Confirmed Baclofen [Lioresal] 10 mg PO HS 04/27/18 02/12/23 Venlafaxine HCl ER [Effexor XR] 75 mg PO DAILY 07/07/18 02/12/23 ALPRAZolam [Xanax] 0.5 mg PO BID 06/19/21 02/12/23 Gabapentin 300 mg PO Q4H 06/19/21 02/12/23 lisinopriL [Zestril] 15 mg PO BID 02/07/22 02/12/23 Amoxic-Pot Clav 875-125Mg 1 tab PO Q12HR 02/07/23 02/12/23 [Augmentin 875-125] Atorvastatin [Lipitor] 20 mg PO HS 02/07/23 02/12/23 Tamsulosin [Flomax] 0.4 mg PO DAILY 02/07/23 02/12/23 glyBURIDE/METFORMIN HCL 1 tab PO BID 02/07/23 02/12/23 [Glucovance 5-500 mg] oxyCODONE-APAP 10-325MG [Percocet 1 tab PO TID 02/07/23 02/12/23 10-325 mg] Previous Rx's Medication Instructions Recorded Levofloxacin [Levaquin] 750 mg PO DAILY #10 tab 07/14/23 metroNIDAZOLE [Flagyl] 500 mg PO TID #30 tab 07/14/23 Allergies Allergy/AdvReac Type Severity Reaction Status Date / Time No Known Allergies Allergy Verified 07/13/23 20:21 Review of Systems ROS Other: All systems not noted in ROS Statement are negative. <Jaquelin Brady - Last Filed: 07/13/23 23:12> ROS Other: All systems not noted in ROS Statement are negative. <Padma Pradhan - Last Filed: 07/14/23 07:14> ROS Statement: Those systems with pertinent positive or pertinent negative responses have been documented in the HPI. 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 Past Anesthesia/Blood Transfusion Reactions: Previous Problems w/ Anesthesia, Motion Sickness Additional Past Anesthesia/Blood Transfusion Reaction / Comment(s): Aneurysm surgery 10/04/17- "cardiac arrest" at [facility] -pt not sure of cause Past Psychological History: Anxiety, Depression Smoking Status: Former smoker, Vaper Past Alcohol Use History: None Reported Past Drug Use History: None Reported - Past Family History Father Family Medical History: Deep Vein Thrombosis (DVT) Additional Family Medical History / Comment(s): Father is alive at age 83 with history of diabetes, osteoarthritis, dementia. Sister(s) Family Medical History: Cancer Additional Family Medical History / Comment(s): 2 sisters-breast cancer Brother(s) Family Medical History: COPD Additional Family Medical History / Comment(s): Patient has one brother with COPD. <Jaquelin Brady - Last Filed: 07/13/23 23:12> General Exam Limitations: no limitations General appearance: alert, in no apparent distress Respiratory exam: Present: normal lung sounds bilaterally. Absent: respiratory distress, wheezes, rales, rhonchi, stridor Cardiovascular Exam: Present: regular rate, normal rhythm, normal heart sounds. Absent: systolic murmur, diastolic murmur, rubs, gallop, clicks GI/Abdominal exam: Present: soft, tenderness (LLQ and suprapubic), normal bowel sounds. Absent: distended, guarding, rebound, rigid Extremities exam: Present: normal inspection, full ROM, normal capillary refill. Absent: tenderness, pedal edema, joint swelling, calf tenderness Neurological exam: Present: alert, oriented X3, CN II-XII intact Psychiatric exam: Present: normal affect, normal mood <Jaquelin Brady - Last Filed: 07/13/23 23:12> Course Vital Signs 07/13/23 07/14/23 20:16 03:01 Temperature 98.0 F 97.8 F Pulse Rate 98 68 Respiratory 18 16 Rate Blood Pressure 143/89 108/68 O2 Sat by Pulse 100 96 Oximetry Medical Decision Making - Lab Data Result diagrams: 07/13/23 21:41 - EKG Data -: EKG Interpreted by Me <Jaquelin Brady - Last Filed: 07/13/23 23:12> - Lab Data Result diagrams: 07/13/23 21:41 07/13/23 21:41 <Padma Pradhan - Last Filed: 07/14/23 07:14> - Medical Decision Making Was pt. sent in by a medical professional or institution (, PA, WATCH ENGINEER, urgent care, hospital, or group home...) When possible be specific @ -[No] Did you speak to anyone other than the patient for history (EMS, parent, family, police, friend...)? What history was obtained from this source @ -[EMS] Did you review nursing and triage notes (agree or disagree)? Why? @ -[I reviewed and agree with nursing and triage notes] Were old charts reviewed (outside hosp., previous admission, EMS record, old EKG, old radiological studies, urgent care reports/EKG's, group home records)? Report findings @ -[No old charts were reviewed] Differential Diagnosis (chest pain, altered mental status, abdominal pain women, abdominal pain men, vaginal bleeding, weakness, fever, dyspnea, syncope, headache, dizziness, GI bleed, back pain, seizure, CVA, palpatations, mental health, musculoskeletal)? @ -[Differential Abdominal Pain Men: Appendicitis, cholecystitis, diverticulosis, ischemic bowel, pancreatitis, hepatitis, UTI, gastroenteritis, AAA, incarcerated hernia, bowel obstruction, constipation, inflammatory bowel, hepatitis, peptic ulcer disease, splenic infarction, perforated viscus, testicular torsion, this is not meant to be an all-inclusive list] EKG interpreted by me (3pts min.). @ -[As above] X-rays interpreted by me (1pt min.). @ -[Pending ] CT interpreted by me (1pt min.). @ -[None done] U/S interpreted by me (1pt. min.). @ -[None done] What testing was considered but not performed or refused? (CT, X-rays, U/S, labs)? Why? @ -[None] What meds were considered but not given or refused? Why? @ -[None] Did you discuss the management of the patient with other professionals (lisa hancock i.e. , PA, WATCH ENGINEER, lab, RT, psych nurse, social psychologist, meteorologist in charge, teacher, guest services officer, home health care case manager)? Give summary @ -[No] Was smoking cessation discussed for >3mins.? @ -[No] Was critical care preformed (if so, how long)? @ -[No] Were there social determinants of health that impacted care today? How? (Homelessness, low income, unemployed, alcoholism, drug addiction, transport ation, low edu. Level, literacy, decrease access to med. care, [facility], rehab)? @ -[No] Was there de-escalation of care discussed even if they declined (Discuss DNR or withdrawal of care, Hospice)? DNR status @ -[No] What co-morbidities impacted this encounter? (DM, HTN, Smoking, COPD, CAD, Cancer, CVA, ARF, Chemo, Hep., AIDS, mental health diagnosis, sleep apnea, morbid obesity)? @ -[None] Was patient admitted / discharged? Hospital course, mention meds given and route, prescriptions, significant lab abnormalities, going to OR and other pertinent info. @ -[Patient is a 58-year-old male presented ER with chief complaint abdominal pain. On examination, patient's vital signs are stable. Physical exam was significant for left lower quadrant and suprapubic tenderness to palpation. Labs obtained in the ER were unimpressive. This case was signed over to Dr. Steff martell pending x-ray results and disposition. (Jaquelin Brady) Patient signed out to me awaiting CT read. CT does demonstrate acute diverticulitis. Discussed results with patient. He was given a dose of Rocephin and Flagyl in the emergency room. He'll be discharged home on an and Flagyl. Patient is to follow-up with his GI doctor, Dr. Westbrook at [facility]. He will require colonoscopy. Return for any worsening symptoms (Padma rPadhan) - Lab Data Lab Results 07/13/23 07/13/23 07/13/23 Range/Units 21:41 21:41 21:41 WBC 5.1 (3.8-10.6) k/uL RBC 4.16 L (4.30-5.90) m/uL Hgb 12.6 L (13.0-17.5) gm/dL Hct 35.9 L (39.0-53.0) % MCV 86.3 (80.0-100.0) fL MCH 30.3 (25.0-35.0) pg MCHC 35.1 (31.0-37.0) g/dL RDW 12.1 (11.5-15.5) % Plt Count 141 L (150-450) k/uL MPV 7.8 Sodium 135 L (137-145) mmol/L Potassium 4.5 (3.5-5.1) mmol/L Chloride 96 L (98-107) mmol/L Carbon Dioxide 29 (22-30) mmol/L Anion Gap 10 mmol/L BUN 6 L (9-20) mg/dL Creatinine 0.68 (0.66-1.25) mg/dL Est GFR (CKD-EPI)AfAm >90 (>60 ml/min/1.73 sqM) Est GFR (CKD-EPI)NonAf >90 (>60 ml/min/1.73 sqM) Glucose 90 (74-99) mg/dL Plasma Lactic Acid Gadiel 1.2 (0.7-2.0) mmol/L Calcium 9.5 (8.4-10.2) mg/dL Total Bilirubin 0.6 (0.2-1.3) mg/dL AST 26 (17-59) U/L ALT 14 (4-49) U/L Alkaline Phosphatase 53 (38-126) U/L Total Protein 7.7 (6.3-8.2) g/dL Albumin 4.8 (3.5-5.0) g/dL Amylase 58 (30-110) U/L Lipase 35 (23-300) U/L Urine Color Urine Appearance (Clear) Urine pH (5.0-8.0) Ur Specific [place] (1.001-1.035) Urine Protein (Negative) Urine Glucose (UA) (Negative) Urine Ketones (Negative) Urine Blood (Negative) Urine Nitrite (Negative) Urine Bilirubin (Negative) Urine Urobilinogen (<2.0) mg/dL Ur Leukocyte Esterase (Negative) 07/13/23 Range/Units 23:57 WBC (3.8-10.6) k/uL RBC (4.30-5.90) m/uL Hgb (13.0-17.5) gm/dL Hct (39.0-53.0) % MCV (80.0-100.0) fL MCH (25.0-35.0) pg MCHC (31.0-37.0) g/dL RDW (11.5-15.5) % Plt Count (150-450) k/uL MPV Sodium (137-145) mmol/L Potassium (3.5-5.1) mmol/L Chloride (98-107) mmol/L Carbon Dioxide (22-30) mmol/L Anion Gap mmol/L BUN (9-20) mg/dL Creatinine (0.66-1.25) mg/dL Est GFR (CKD-EPI)AfAm (>60 ml/min/1.73 sqM) Est GFR (CKD-EPI)NonAf (>60 ml/min/1.73 sqM) Glucose (74-99) mg/dL Plasma Lactic Acid Gadiel (0.7-2.0) mmol/L Calcium (8.4-10.2) mg/dL Total Bilirubin (0.2-1.3) mg/dL AST (17-59) U/L ALT (4-49) U/L Alkaline Phosphatase (38-126) U/L Total Protein (6.3-8.2) g/dL Albumin (3.5-5.0) g/dL Amylase (30-110) U/L Lipase (23-300) U/L Urine Color Colorless Urine Appearance Clear (Clear) Urine pH 7.5 (5.0-8.0) Ur Specific [place] 1.005 (1.001-1.035) Urine Protein Negative (Negative) Urine Glucose (UA) Negative (Negative) Urine Ketones Negative (Negative) Urine Blood Negative (Negative) Urine Nitrite Negative (Negative) Urine Bilirubin Negative (Negative) Urine Urobilinogen <2.0 (<2.0) mg/dL Ur Leukocyte Esterase Negative (Negative) - EKG Data EKG Comments: EKG taken at 20:21 shows sinus rhythm with no acute ST segment or T-wave abnormalities present. Ventricular rate 75, MD interval 175, QRS duration 105, QT/QTC 374/403. (Jaquelin Brady) Disposition <Jaquelin Brady - Last Filed: 07/13/23 23:12> Is patient prescribed a controlled substance at d/c from ED?: No Time of Disposition: 02:30 <Padma Pradhan - Last Filed: 07/14/23 07:14> Clinical Impression: Abdominal pain, Diverticulitis Disposition: HOME SELF-CARE Condition: Stable Instructions (If sedation given, give patient instructions): Diverticulitis (ED) Additional Instructions: Please take the antibiotic as directed. Follow-up with your GI doctor. Return for any new or worsening symptoms Prescriptions: metroNIDAZOLE [Flagyl] 500 mg PO TID #30 tab Levofloxacin [Levaquin] 750 mg PO DAILY #10 tab Referrals: Gene Perera MD [Primary Care Provider] - 1-2 days
[2023-07-13 21:54] LABS: HCT 35.9 % (39.0-53.0); HGB 12.6 gm/dL (13.0-17.5); MCH 30.3 pg (25.0-35.0); MCHC 35.1 g/dL (31.0-37.0); MCV 86.3 fL (80.0-100.0); Mean Platelet Volume 7.8; Platelet Count 141 k/uL (150-450); RBC 4.16 m/uL (4.30-5.90); RDW 12.1 % (11.5-15.5); WBC 5.1 k/uL (3.8-10.6)
[2023-07-13 22:15] LABS: ALT 14 U/L (4-49); AST 26 U/L (17-59); African American GFR (CKD) >90 (>60 ml/min/1.73 sqM); Albumin 4.8 g/dL (3.5-5.0); Alkaline Phosphatase 53 U/L (38-126); Amylase 58 U/L (30-110); Anion Gap 10 mmol/L; Blood Urea Nitrogen 6 mg/dL (9-20); Calcium 9.5 mg/dL (8.4-10.2); Carbon Dioxide 29 mmol/L (22-30); Chloride 96 mmol/L (98-107); Glucose 90 mg/dL (74-99); Lipase 35 U/L (23-300); Non-African American GFR(CKD) >90 (>60 ml/min/1.73 sqM); Potassium 4.5 mmol/L (3.5-5.1); Sodium 135 mmol/L (137-145); Total Bilirubin 0.6 mg/dL (0.2-1.3); Total Protein 7.7 g/dL (6.3-8.2)
--- NOTE | 2023-07-13 23:44 | XR ---
EXAMINATION TYPE: XR KUB DATE OF EXAM: 07/13/2023 8:45 PM CLINICAL INDICATION:Male, 58 years old with history of pain; [facility] COMPARISON: None. TECHNIQUE: Upright radiographic views of the abdomen/pelvis obtained. FINDINGS: Multiple gaseous and mildly distended loops of bowel are seen, as well as what seems to be a dilated segment of bowel beneath the diaphragm on the right which measures up to 5.5 cm. Multiple air-fluid l evels are seen, mostly in the right abdomen. There is probably some gas in the proximal portions of t he colon, but there is a relative dearth of gas distally. No clear-cut pneumoperitoneum is identified . There is an upper abdominal aortic stent present and a few surgical selina. Other radiodensities p rojecting over the L4 level likely represent jewelry. Mild diffuse degenerative changes. Mild apex ri ght scoliosis in the upper lumbar spine. IMPRESSION: Nonspecific bowel gas pattern, may represent evolving obstruction, versus severe ileus. CT may be considered for further evaluation as clinically warranted.
[2023-07-13] MEDS ORDERED: SODIUM CHLORIDE 0.9% 500 ML 500 ML IV ONE (23:57)
[2023-07-13] MEDS ORDERED: HYDROmorphone 1 MG/ML 1 ML SYRINGE IVP STA (23:57)
[2023-07-14 01:00] LABS: Appearance,Urine Clear (Clear); Bilirubin,Urine Negative (Negative); Blood,Urine Negative (Negative); Color,Urine Colorless; Glucose,Urine (UA) Negative (Negative); Ketones,Urine Negative (Negative); Leukocyte Esterase,Urine Negative (Negative); Nitrite,Urine Negative (Negative); PH, Urine 7.5 (5.0-8.0); Protein,Urine Negative (Negative); Specific Gravity,Urine 1.005 (1.001-1.035); Urobilinogen,Urine <2.0 mg/dL (<2.0)
--- NOTE | 2023-07-14 01:42 | CT ---
EXAM: CT Abdomen and Pelvis With Intravenous Contrast CLINICAL HISTORY: ITS.REASON CT Reason: ab pain TECHNIQUE: Axial computed tomography images of the abdomen and pelvis with intravenous contrast. CTDI is 13.5 mGy and DLP is 681.2 mGy-cm. This CT exam was performed using one or more of the following dose reduction techniques: automated exposure control, adjustment of the mA and/or kV according to patient size, and/or use of iterative reconstruction technique. COMPARISON: 02/12/2023 FINDINGS: Lung bases: Unremarkable. No mass. No consolidation. ABDOMEN: Liver: Unremarkable. No mass. Gallbladder and bile ducts: Unremarkable. No calcified stones. No ductal dilation. Pancreas: Unremarkable. No mass. No ductal dilation. Spleen: Unremarkable. No splenomegaly. Adrenals: Unremarkable. No mass. Kidneys and ureters: Unremarkable. No solid mass. No hydronephrosis. Stomach and bowel: Diverticulosis with wall thickening and inflammatory change involving a short segment of sigmoid colon the left lower quadrant with trace pericolonic fluid. No obstruction. PELVIS: Appendix: No findings to suggest acute appendicitis. Bladder: Unremarkable. No mass. Reproductive: Unremarkable as visualized. ABDOMEN and PELVIS: Intraperitoneal space: Unremarkable. No free air. No significant fluid collection. Bones/joints: No acute fracture. No dislocation. Soft tissues: Unremarkable. Vasculature: Postoperative changes explant of an endovascular stent graft with open aortic aneurysm repair both limbs of the graft are patent. Lymph nodes: Unremarkable. No enlarged lymph nodes. IMPRESSION: Sigmoid diverticulitis
[2023-07-14] MEDS ORDERED: cefTRIAXone IN SWFI 1,000 MG/10 ML SYRINGE IVP STA (02:27)
[2023-07-14] MEDS ORDERED: metroNIDAZOLE 500 MG TAB PO STA (02:28)
[2023-07-14 03:10] VITALS: BP 108/68; PULSE 68; RESP 16; TEMP 97.8
== END 2023-07-14 03:06 | disposition home or self-care (01) ==
LOC: EC 20:14
DX: K57.32 Diverticulitis of large intestine without perforation or abscess without bleeding (principal); E11.9 Type 2 diabetes mellitus without complications; E78.5 Hyperlipidemia, unspecified; K21.9 Gastro-esophageal reflux disease without esophagitis; I10 Essential (primary) hypertension; F41.9 Anxiety disorder, unspecified; F32.A Depression, unspecified; F17.290 Nicotine dependence, other tobacco product, uncomplicated; Z79.84 Long term (current) use of oral hypoglycemic drugs; Z79.899 Other long term (current) drug therapy
CPT/HCPCS: 36415; 80053; 82150; 83605; 83690; 85027; 81003; 74018; 74177; 99285; 96374; 96375; 96361; J0696; J1170; Q9967

== ENCOUNTER 2023-07-26 21:30 | Emergency (ER) | payer OTHER ==
[2023-07-26 22:13] VITALS: TEMP 98.6
[2023-07-26] MEDS ORDERED: PANTOPRAZOLE 40 MG/10 ML VIAL IVP STA (22:17)
[2023-07-26] MEDS ORDERED: SODIUM CHLORIDE 0.9% 1,000 ML IV STA (22:17)
[2023-07-26] MEDS ORDERED: ONDANSETRON 4 MG/2 ML VIAL IVP STA (22:17)
[2023-07-26] MEDS ORDERED: HYDROmorphone 1 MG/ML 1 ML SYRINGE IVP STA (22:19)
[2023-07-26 22:39] LABS: Basophils % (A) 0 %; Eosinophils # (A) 0.1 k/uL (0-0.7); Eosinophils % (A) 3 %; HCT 37.8 % (39.0-53.0); HGB 12.8 gm/dL (13.0-17.5); Lymphocytes # (A) 1.1 k/uL (1.0-4.8); Lymphocytes % (A) 30 %; MCH 29.5 pg (25.0-35.0); MCHC 33.9 g/dL (31.0-37.0); MCV 86.8 fL (80.0-100.0); Monocytes # (A) 0.2 k/uL (0-1.0); Monocytes % (A) 6 %; Neutrophils # (A) 2.2 k/uL (1.3-7.7); Neutrophils % (A) 58 %; Platelet Count 157 k/uL (150-450); RBC 4.36 m/uL (4.30-5.90); RDW 12.4 % (11.5-15.5); WBC 3.8 k/uL (3.8-10.6)
[2023-07-26 22:49] LABS: INR 1.1 (<1.2); Partial Thromboplastin Time 28.8 sec (22.0-30.0); Prothrombin Time 11.6 sec (10.0-12.5)
[2023-07-26 22:54] LABS: ALT 15 U/L (4-49); African American GFR (CKD) >90 (>60 ml/min/1.73 sqM); Albumin 4.5 g/dL (3.5-5.0); Amylase 54 U/L (30-110); Anion Gap 9 mmol/L; Blood Urea Nitrogen 7 mg/dL (9-20); Calcium 9.4 mg/dL (8.4-10.2); Carbon Dioxide 28 mmol/L (22-30); Chloride 99 mmol/L (98-107); Glucose 125 mg/dL (74-99); Lipase 34 U/L (23-300); Non-African American GFR(CKD) >90 (>60 ml/min/1.73 sqM); Sodium 136 mmol/L (137-145); Total Bilirubin 0.5 mg/dL (0.2-1.3)
[2023-07-26 22:57] LABS: AST 29 U/L (17-59); Alkaline Phosphatase 41 U/L (38-126); Potassium 4.1 mmol/L (3.5-5.1)
--- NOTE | 2023-07-26 23:29 | ED ---
General Adult HPI - General Chief complaint: Abdominal Pain Stated complaint: constipation Time Seen by Provider: 07/26/23 21:52 Source: patient, RN notes reviewed, old records reviewed Mode of arrival: wheelchair Limitations: no limitations - History of Present Illness Initial comments: Patient is a 58-year-old male who presents emergency Department complaining of generalized. has a history of chronic abdominal pain. States he endorses a history of generalized body pain. Is concerned he may have a bowel obstruction. Is concerned his diverticulitis may be causing the pain. He states he does not have the pain. Had some diarrhea. Is on Suboxone and states it does not help with this pain. Presents for further evaluation at this time. Denies any chest pain or shortness breath. Denies any nausea, vomiting. His no acute complaints at this time. Is on the final day of his antibiotics for diverticulitis. States he thinks he is constipated however he had a normal bowel movement last night. - Related Data Home Medications Medication Instructions Recorded Confirmed Baclofen [Lioresal] 10 mg PO HS 04/27/18 02/12/23 Venlafaxine HCl ER [Effexor XR] 75 mg PO DAILY 07/07/18 02/12/23 ALPRAZolam [Xanax] 0.5 mg PO BID 06/19/21 02/12/23 Gabapentin 300 mg PO Q4H 06/19/21 02/12/23 lisinopriL [Zestril] 15 mg PO BID 02/07/22 02/12/23 Amoxic-Pot Clav 875-125Mg 1 tab PO Q12HR 02/07/23 02/12/23 [Augmentin 875-125] Atorvastatin [Lipitor] 20 mg PO HS 02/07/23 02/12/23 Tamsulosin [Flomax] 0.4 mg PO DAILY 02/07/23 02/12/23 glyBURIDE/METFORMIN HCL 1 tab PO BID 02/07/23 02/12/23 [Glucovance 5-500 mg] oxyCODONE-APAP 10-325MG [Percocet 1 tab PO TID 02/07/23 02/12/23 10-325 mg] Previous Rx's Medication Instructions Recorded Levofloxacin [Levaquin] 750 mg PO DAILY #10 tab 07/14/23 metroNIDAZOLE [Flagyl] 500 mg PO TID #30 tab 07/14/23 Allergies Allergy/AdvReac Type Severity Reaction Status Date / Time No Known Allergies Allergy Verified 07/26/23 21:49 Review of Systems ROS Statement: Those systems with pertinent positive or pertinent negative responses have been documented in the HPI. Review of Systems: CONST: Denies fever EYES: Denies blurry vision ENT: Denies nasal congestion C/V: Denies Chest pain RESP: Denies shortness of breath GI: Endorses Abdominal pain : Denies dysuria SKIN: Denies rash. MSK: Denies joint pain. NEURO: Denies headache ROS Other: All systems not noted in ROS Statement are negative. 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 Past Anesthesia/Blood Transfusion Reactions: Previous Problems w/ Anesthesia, Motion Sickness Additional Past Anesthesia/Blood Transfusion Reaction / Comment(s): Aneurysm surgery 10/04/17- "cardiac arrest" at [facility] -pt not sure of cause Past Psychological History: Anxiety, Depression Smoking Status: Former smoker, Vaper Past Alcohol Use History: None Reported Past Drug Use History: None Reported - Past Family History Father Family Medical History: Deep Vein Thrombosis (DVT) Additional Family Medical History / Comment(s): Father is alive at age 83 with history of diabetes, osteoarthritis, dementia. Sister(s) Family Medical History: Cancer Additional Family Medical History / Comment(s): 2 sisters-breast cancer Brother(s) Family Medical History: COPD Additional Family Medical History / Comment(s): Patient has one brother with COPD. General Exam - General Exam Comments Initial Comments: General: Appears in no acute distress. HEAD: Normal with no signs of head trauma. EYES: PERRLA, EOMI, conjunctiva normal, no discharge. ENT: Hearing grossly intact, normal oropharynx. RESPIRATORY: Clear breath sounds bilaterally. No wheezes, rales, or rhonchi. C/V: Regular rate and rhythm. S1 and S2 auscultated, no edema, peripheral pulses 2+ and intact throughout ABD: Abd is soft, no obvious acute tenderness to palpation, very mild left lower quadrant if anything., nondistended, no guarding. No rebound tenderness. No Peritoneal signs. EXT: Normal range of motion, no obvious deformity SKIN: No rashes or lesions observed on exposed skin. NEURO: Alert and oriented x 4. Limitations: no limitations Course Vital Signs 07/26/23 07/26/23 07/27/23 21:47 23:29 00:37 Temperature 98.6 F Pulse Rate 114 H 65 95 Respiratory 18 18 18 Rate Blood Pressure 128/56 140/93 149/98 O2 Sat by Pulse 99 99 99 Oximetry 07/27/23 01:18 Temperature Pulse Rate 74 Respiratory 20 Rate Blood Pressure 140/97 O2 Sat by Pulse 94 L Oximetry Medical Decision Making - Medical Decision Making Was pt. sent in by a medical professional or institution (, PA, [employer], urgent care, hospital, or long-term...) When possible be specific @ -No Did you speak to anyone other than the patient for history (EMS, parent, family, police, friend...)? What history was obtained from this source @ -No Did you review nursing and triage notes (agree or disagree)? Why? @ -I reviewed and agree with nursing and triage notes Were old charts reviewed (outside hosp., previous admission, EMS record, old EKG, old radiological studies, urgent care reports/EKG's, long-term records)? Report findings @ -Old charts reviewed Differential Diagnosis (chest pain, altered mental status, abdominal pain women, abdominal pain men, vaginal bleeding, weakness, fever, dyspnea, syncope, headac he, dizziness, GI bleed, back pain, seizure, CVA, palpatations, mental health, musculoskeletal)? @ -Differential Abdominal Pain Men: Appendicitis, cholecystitis, diverticulosis, ischemic bowel, pancreatitis, hepatitis, UTI, gastroenteritis, AAA, incarcerated hernia, bowel obstruction, constipation, inflammatory bowel, hepatitis, peptic ulcer disease, splenic infarction, perforated viscus, testicular torsion, this is not meant to be an all-inclusive list EKG interpreted by me (3pts min.). @ -None done X-rays interpreted by me (1pt min.). @ -None done CT interpreted by me (1pt min.). @ -After Prolonged delay, CT imaging revealed no obvious acute intra-abdominal process. There is liquid stool throughout the colon. Diverticulosis without diverticulitis. U/S interpreted by me (1pt. min.). @ -None done What testing was considered but not performed or refused? (CT, X-rays, U/S, labs)? Why? @ -None What meds were considered but not given or refused? Why? @ -None Did you discuss the management of the patient with other professionals (professionals i.e. , PA, [employer], lab, RT, psych nurse, social services assistant, shuttle route vehicle operator, teacher, financial aid officer, caser)? Give summary @ -No Was smoking cessation discussed for >3mins.? @ -No Was critical care preformed (if so, how long)? @ -No Were there social determinants of health that impacted care today? How? (Homelessness, low income, unemployed, alcoholism, drug addiction, transportation, low edu. Level, literacy, decrease access to med. care, senior living, rehab)? @ -No Was there de-escalation of care discussed even if they declined (Discuss DNR or withdrawal of care, Hospice)? DNR status @ -No What co-morbidities impacted this encounter? (DM, HTN, Smoking, COPD, CAD, Cancer, CVA, ARF, Chemo, Hep., AIDS, mental health diagnosis, sleep apnea, morbid obesity)? @ -None Was patient admitted / discharged? Hospital course, mention meds given and route, prescriptions, significant lab abnormalities, going to OR and other pertinent info. @ -Patient presents with acute on chronic abdominal pain. Diagnosed with diverticulitis 10 days ago. Exam is relatively unremarkable. We will obtain abdominal labs, CT imaging of the abdomen. We will also administer symptomatic treatment IV fluids, Zofran, Dilaudid. Patient in agreement this plan. Vital signs are within acceptable limits. Patient's labs unremarkable. CT imaging interpretation by radiology took quite some time as it is the middle the night. We did finally return after I also evaluated the CT, it showed liquid stool but no other obvious process. I discussed results of the patient, and states he has increased his oral magnesium, stool softener regimen and has been on a liquid diet as he is concerned he is constipated. This could explain all the symptoms as well as the findings. Recommended colonoscopy which is scheduling with his GI physician. Recommended she complete the course of antibiotics. He was in agreement this plan. He will be discharged home at this time. I instructed the patient to follow up with their PCP in the next 1-3 days. I explained that the patient should return to the emergency department if they experience any worsening symptoms. Strict return precautions were discussed with the patient. The patient expressed understanding of these instructions. I answered all questions that the patient had. The patient was discharged home in good condition with their prescriptions and follow up information. Undiagnosed new problem with uncertain prognosis? @ -No Drug Therapy requiring intensive monitoring for toxicity (Heparin, Nitro, Insulin, Cardizem)? @ -No Were any procedures done? @ -No Diagnosis/symptom? @ -Abdominal pain of unknown etiology Acute, or Chronic, or Acute on Chronic? @ -Acute Uncomplicated (without systemic symptoms) or Complicated (systemic symptoms)? @ -Complicated Side effects of treatment? @ -none Exacerbation, Progression, or Severe Exacerbation] @ -no Poses a threat to life or bodily function? @ -no - Lab Data Result diagrams: 07/26/23 22:29 07/26/23 22:29 Lab Results 07/26/23 07/26/23 07/26/23 Range/Units 22:29 22:29 22:29 WBC 3.8 (3.8-10.6) k/uL RBC 4.36 (4.30-5.90) m/uL Hgb 12.8 L (13.0-17.5) gm/dL Hct 37.8 L (39.0-53.0) % MCV 86.8 (80.0-100.0) fL MCH 29.5 (25.0-35.0) pg MCHC 33.9 (31.0-37.0) g/dL RDW 12.4 (11.5-15.5) % Plt Count 157 (150-450) k/uL MPV 8.0 Neutrophils % 58 % Lymphocytes % 30 % Monocytes % 6 % Eosinophils % 3 % Basophils % 0 % Neutrophils # 2.2 (1.3-7.7) k/uL Lymphocytes # 1.1 (1.0-4.8) k/uL Monocytes # 0.2 (0-1.0) k/uL Eosinophils # 0.1 (0-0.7) k/uL Basophils # 0.0 (0-0.2) k/uL PT 11.6 (10.0-12.5) sec INR 1.1 (<1.2) APTT 28.8 (22.0-30.0) sec Sodium 136 L (137-145) mmol/L Potassium 4.1 (3.5-5.1) mmol/L Chloride 99 (98-107) mmol/L Carbon Dioxide 28 (22-30) mmol/L Anion Gap 9 mmol/L BUN 7 L (9-20) mg/dL Creatinine 0.66 (0.66-1.25) mg/dL Est GFR (CKD-EPI)AfAm >90 (>60 ml/min/1.73 sqM) Est GFR (CKD-EPI)NonAf >90 (>60 ml/min/1.73 sqM) Glucose 125 H (74-99) mg/dL Plasma Lactic Acid Gadiel (0.7-2.0) mmol/L Calcium 9.4 (8.4-10.2) mg/dL Total Bilirubin 0.5 (0.2-1.3) mg/dL AST 29 (17-59) U/L ALT 15 (4-49) U/L Alkaline Phosphatase 41 (38-126) U/L Total Protein 7.0 (6.3-8.2) g/dL Albumin 4.5 (3.5-5.0) g/dL Amylase 54 (30-110) U/L Lipase 34 (23-300) U/L Urine Color Urine Appearance (Clear) Urine pH (5.0-8.0) Ur Specific [place] (1.001-1.035) Urine Protein (Negative) Urine Glucose (UA) (Negative) Urine Ketones (Negative) Urine Blood (Negative) Urine Nitrite (Negative) Urine Bilirubin (Negative) Urine Urobilinogen (<2.0) mg/dL Ur Leukocyte Esterase (Negative) 07/26/23 07/27/23 Range/Units 22:29 01:18 WBC (3.8-10.6) k/uL RBC (4.30-5.90) m/uL Hgb (13.0-17.5) gm/dL Hct (39.0-53.0) % MCV (80.0-100.0) fL MCH (25.0-35.0) pg MCHC (31.0-37.0) g/dL RDW (11.5-15.5) % Plt Count (150-450) k/uL MPV Neutrophils % % Lymphocytes % % Monocytes % % Eosinophils % % Basophils % % Neutrophils # (1.3-7.7) k/uL Lymphocytes # (1.0-4.8) k/uL Monocytes # (0-1.0) k/uL Eosinophils # (0-0.7) k/uL Basophils # (0-0.2) k/uL PT (10.0-12.5) sec INR (<1.2) APTT (22.0-30.0) sec Sodium (137-145) mmol/L Potassium (3.5-5.1) mmol/L Chloride (98-107) mmol/L Carbon Dioxide (22-30) mmol/L Anion Gap mmol/L BUN (9-20) mg/dL Creatinine (0.66-1.25) mg/dL Est GFR (CKD-EPI)AfAm (>60 ml/min/1.73 sqM) Est GFR (CKD-EPI)NonAf (>60 ml/min/1.73 sqM) Glucose (74-99) mg/dL Plasma Lactic Acid Gadiel 0.8 (0.7-2.0) mmol/L Calcium (8.4-10.2) mg/dL Total Bilirubin (0.2-1.3) mg/dL AST (17-59) U/L ALT (4-49) U/L Alkaline Phosphatase (38-126) U/L Total Protein (6.3-8.2) g/dL Albumin (3.5-5.0) g/dL Amylase (30-110) U/L Lipase (23-300) U/L Urine Color Colorless Urine Appearance Clear (Clear) Urine pH 7.0 (5.0-8.0) Ur Specific [place] 1.037 H (1.001-1.035) Urine Protein Negative (Negative) Urine Glucose (UA) Negative (Negative) Urine Ketones Negative (Negative) Urine Blood Negative (Negative) Urine Nitrite Negative (Negative) Urine Bilirubin Negative (Negative) Urine Urobilinogen <2.0 (<2.0) mg/dL Ur Leukocyte Esterase Negative (Negative) Disposition Clinical Impression: Abdominal pain of unknown etiology Disposition: HOME SELF-CARE Condition: Good Instructions (If sedation given, give patient instructions): Abdominal Pain (ED) Is patient prescribed a controlled substance at d/c from ED?: No Referrals: Gene Perera MD [Primary Care Provider] - 1-2 days Time of Disposition: 03:10
[2023-07-27] MEDS ORDERED: HYDROmorphone 1 MG/ML 1 ML SYRINGE IVP STA (00:11)
[2023-07-27 01:36] VITALS: BP 140/97; PULSE 74; RESP 20
[2023-07-27 01:41] LABS: Appearance,Urine Clear (Clear); Bilirubin,Urine Negative (Negative); Blood,Urine Negative (Negative); Color,Urine Colorless; Glucose,Urine (UA) Negative (Negative); Ketones,Urine Negative (Negative); Leukocyte Esterase,Urine Negative (Negative); Nitrite,Urine Negative (Negative); Protein,Urine Negative (Negative); Specific Gravity,Urine 1.037 (1.001-1.035); Urobilinogen,Urine <2.0 mg/dL (<2.0)
--- NOTE | 2023-07-27 02:50 | CT ---
EXAM: CT Abdomen and Pelvis With Intravenous Contrast CLINICAL HISTORY: ITS.REASON CT Reason: abdominal pain, llq TECHNIQUE: Axial computed tomography images of the abdomen and pelvis with intravenous contrast. CTDI is 6.5, 6.8 mGy and DLP is 697.4 mGy-cm. This CT exam was performed using one or more of the following dose reduction techniques: automated exposure control, adjustment of the mA and/or kV according to patient size, and/or use of iterative reconstruction technique. COMPARISON: CT abdomen pelvis 07/14/2023 FINDINGS: ABDOMEN: Liver: Unremarkable. Gallbladder and bile ducts: Unremarkable. Pancreas: Unremarkable. Spleen: Unremarkable. Adrenals: Unremarkable. Kidneys and ureters: Unremarkable. No obstructing stones. No hydronephrosis. Stomach and bowel: Liquid stool throughout the colon consistent with a nonspecific diarrheal illness. Sigmoid diverticulosis without diverticulitis. PELVIS: Appendix: No findings to suggest acute appendicitis. Bladder: Unremarkable. Reproductive: Unremarkable as visualized. ABDOMEN and PELVIS: Intraperitoneal space: Unremarkable. No free air. No significant fluid collection. Bones/joints: No acute fracture. Soft tissues: Unremarkable. Vasculature: Postsurgical changes in the aorta. No dissection. Lymph nodes: Unremarkable. IMPRESSION: 1. Liquid stool throughout the colon consistent with a nonspecific diarrheal illness. 2. Sigmoid diverticulosis without diverticulitis.
== END 2023-07-27 04:04 | disposition home or self-care (01) ==
LOC: EC 21:30
DX: K57.30 Diverticulosis of large intestine without perforation or abscess without bleeding (principal); E11.9 Type 2 diabetes mellitus without complications; E78.5 Hyperlipidemia, unspecified; F32.A Depression, unspecified; F41.9 Anxiety disorder, unspecified; G47.30 Sleep apnea, unspecified; I10 Essential (primary) hypertension; F17.290 Nicotine dependence, other tobacco product, uncomplicated; Z79.84 Long term (current) use of oral hypoglycemic drugs; Z79.899 Other long term (current) drug therapy
CPT/HCPCS: 36415; 80053; 82150; 83605; 83690; 85025; 85610; 85730; 81003; 74177; 99285; 96374; 96375 ×2; 96361 ×3; 96376; J2405; J1170 ×2; C9113; Q9967

== ENCOUNTER → 2023-08-04 | Outpatient (CLI) | payer OTHER ==
[2023-08-05 02:20] LABS: Basophils # (A) 0.03 X 10*3/uL (0.00-0.10); Basophils % (A) 0.6 %; Eosinophils # (A) 0.18 X 10*3/uL (0.04-0.35); Eosinophils % (A) 3.8 %; HCT 37.4 % (39.6-50.0); HGB 12.7 g/dL (13.0-17.0); Lymphocytes # (A) 1.69 X 10*3/uL (0.90-5.00); Lymphocytes % (A) 35.6 %; MCH 28.9 pg (27.0-32.0); MCV 85.2 FL (80.0-97.0); Mean Platelet Volume 10.3 FL (9.5-12.2); Monocytes # (A) 0.47 X 10*3/uL (0.20-1.00); Monocytes % (A) 9.9 %; NRBC Per 100 WBC 0 X 10*3/uL (0.00-0.01); Neutrophils # (A) 2.37 X 10*3/uL (1.80-7.70); Neutrophils % (A) 49.9 %; Platelet Count 165 X 10*3/uL (140-440); RBC 4.39 X 10*6/uL (4.40-5.60); RDW 12.2 % (11.5-14.5); WBC 4.75 X 10*3/uL (4.50-10.00)
[2023-08-05 02:33] LABS: ALT 17 U/L (10-49); AST 20 U/L (14-35); Albumin 4.8 g/dL (3.8-4.9); Alkaline Phosphatase 48 U/L (41-126); BUN/Creat Ratio 9.88 Ratio (12.00-20.00); Blood Urea Nitrogen 7.9 mg/dL (9.0-27.0); C Reactive Protein <0.30 mg/dL (0.00-0.80); Calcium 9.9 mg/dL (8.7-10.3); Carbon Dioxide 26.8 mmol/L (21.6-31.8); Chloride 99 mmol/L (96-109); Globulin 2.4 g/dL (1.6-3.3); Glucose 110 mg/dL (70-110); Potassium 3.9 mmol/L (3.5-5.5); Sodium 137 mmol/L (135-145); Total Bilirubin 0.4 mg/dL (0.3-1.2); Total Protein 7.2 g/dL (6.2-8.2)
[2023-08-05 02:38] LABS: Erythrocyte Sedimentation Rate 7 mm/Hr (0-20)
== END | disposition home or self-care (01) ==
LOC: LABWHC1 15:40
PROVIDERS: ATTEND Internal Medicine Infectious Disease
DX: R19.7 Diarrhea, unspecified (principal); T86.822 Skin graft (allograft) (autograft) infection
CPT/HCPCS: 36415; 80053; 85025; 85652; 86140

== ENCOUNTER 2023-08-16 03:27 | Emergency (ER) | payer OTHER ==
--- NOTE | 2023-08-16 03:48 | ED ---
Abdominal Pain HPI - General Source: patient Mode of arrival: EMS Limitations: no limitations <Lashell Sexton - Last Filed: 08/16/23 03:47> <Jerson Washington - Last Filed: 08/16/23 08:11> <Thanh Dias - Last Filed: 08/16/23 09:11> - General Chief Complaint: Abdominal Pain Stated Complaint: ABD PAIN Time Seen by Provider: 08/16/23 03:47 - History of Present Illness Initial Comments: 58-year-old male presenting with chief complaint of abdominal pain. Patient has been seen here previously for the same complaint. (Lashell Sexton) Dictation was produced using [employer] dictation software. please excuse any grammatical, word or spelling errors. Chief Complaint: 58-year-old male presents with total body pain History of Present Illness: This 58-year-old male has a history of diverticulitis. liquid diet for the last 6 weeks states that he's been on liquid diet because he was instructed to do that for treatment of his diverticulitis. Patient states that he's been constipated. His vision passing hard stools. Please of some nausea but no vomiting. Has a fever, chills or night sweats. Patient has history of chronic pain. The ROS documented in this emergency department record has been reviewed and confirmed by me. Those systems with pertinent positive or negative responses have been documented in the HPI. All other systems are other negative and/or noncontributory. (Jerson Washington) - Related Data Home Medications Medication Instructions Recorded Confirmed Baclofen [Lioresal] 10 mg PO HS 04/27/18 02/12/23 Venlafaxine HCl ER [Effexor XR] 75 mg PO DAILY 07/07/18 02/12/23 ALPRAZolam [Xanax] 0.5 mg PO BID 06/19/21 02/12/23 Gabapentin 300 mg PO Q4H 06/19/21 02/12/23 lisinopriL [Zestril] 15 mg PO BID 02/07/22 02/12/23 Amoxic-Pot Clav 875-125Mg 1 tab PO Q12HR 02/07/23 02/12/23 [Augmentin 875-125] Atorvastatin [Lipitor] 20 mg PO HS 02/07/23 02/12/23 Tamsulosin [Flomax] 0.4 mg PO DAILY 02/07/23 02/12/23 glyBURIDE/METFORMIN HCL 1 tab PO BID 02/07/23 02/12/23 [Glucovance 5-500 mg] oxyCODONE-APAP 10-325MG [Percocet 1 tab PO TID 02/07/23 02/12/23 10-325 mg] Previous Rx's Medication Instructions Recorded Levofloxacin [Levaquin] 750 mg PO DAILY #10 tab 07/14/23 metroNIDAZOLE [Flagyl] 500 mg PO TID #30 tab 07/14/23 Allergies Allergy/AdvReac Type Severity Reaction Status Date / Time No Known Allergies Allergy Verified 08/16/23 03:46 Review of Systems ROS Other: All systems not noted in ROS Statement are negative. <Lashell Sexton - Last Filed: 08/16/23 03:47> ROS Other: All systems not noted in ROS Statement are negative. <Jerson Washington - Last Filed: 08/16/23 08:11> ROS Other: All systems not noted in ROS Statement are negative. <Thanh Dias - Last Filed: 08/16/23 09:11> ROS Statement: Those systems with pertinent positive or pertinent negative responses have been documented in the HPI. 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 Past Anesthesia/Blood Transfusion Reactions: Previous Problems w/ Anesthesia, Motion Sickness Additional Past Anesthesia/Blood Transfusion Reaction / Comment(s): Aneurysm surgery 10/04/17- "cardiac arrest" at [facility] -pt not sure of cause Past Psychological History: Anxiety, Depression Smoking Status: Former smoker, Vaper Past Alcohol Use History: None Reported Past Drug Use History: None Reported - Past Family History Father Family Medical History: Deep Vein Thrombosis (DVT) Additional Family Medical History / Comment(s): Father is alive at age 83 with history of diabetes, osteoarthritis, dementia. Sister(s) Family Medical History: Cancer Additional Family Medical History / Comment(s): 2 sisters-breast cancer Brother(s) Family Medical History: COPD Additional Family Medical History / Comment(s): Patient has one brother with COPD. <Lashell Sexton - Last Filed: 08/16/23 03:47> General Exam Limitations: no limitations <Lashell Sexton - Last Filed: 08/16/23 03:47> <Jerson Washington - Last Filed: 08/16/23 08:11> - General Exam Comments Initial Comments: Visual Physical Exam Vital signs reviewed General: Well-appearing, nontoxic, no acute distress. Head: Normocephalic, atraumatic Eyes: PERRLA, EOMI ENT: Airway patent Chest: Nonlabored breathing Skin: No visual rash, normal skin tone Neuro: Alert and oriented 3 Musculoskeletal: No gross abnormalities (Lashell Sexton) PHYSICAL EXAM: General Impression: Alert and oriented x3, not in acute distress HEENT: Normocephalic atraumatic, extra-ocular movements intact, pupils equal and reactive to light bilaterally, mucous membranes moist. Cardiovascular: Heart regular rate and rhythm Chest: Able to complete full sentences, no retractions, no tachypnea Abdomen: abdomen soft, non-tender, non-distended, no organomegaly Musculoskeletal: Pulses present and equal in all extremities, no peripheral edema Motor: no focal deficits noted Neurological: CN II-XII grossly intact, no focal motor or sensory deficits noted Skin: Intact with no visualized rashes Psych: Normal affect and mood (Jerson Washington) Course Vital Signs 08/16/23 08/16/23 03:43 06:15 Temperature 98.2 F 97.9 F Pulse Rate 89 60 Respiratory 20 18 Rate Blood Pressure 134/87 111/79 O2 Sat by Pulse 99 100 Oximetry Medical Decision Making - Lab Data Result diagrams: 08/16/23 03:49 08/16/23 03:49 <PadminiJerson D - Last Filed: 08/16/23 08:11> - Lab Data Result diagrams: 08/16/23 03:49 08/16/23 03:49 <Jose Diase - Last Filed: 08/16/23 09:11> - Medical Decision Making Was pt. sent in by a medical professional or institution (, JENNIFER, MAINTENANCE SUPERVISOR, urgent care, hospital, or fci...) When possible be specific @ -No Did you speak to anyone other than the patient for history (EMS, parent, family, police, friend...)? What history was obtained from this source @ -No Did you review nursing and triage notes (agree or disagree)? Why? @ -I reviewed and agree with nursing and triage notes Were old charts reviewed (outside hosp., previous admission, EMS record, old EKG, old radiological studies, urgent care reports/EKG's, fci records)? Report findings @ -No old charts were reviewed Differential Diagnosis (chest pain, altered mental status, abdominal pain women, abdominal pain men, vaginal bleeding, musculoskeletal, weakness, fever, dyspnea, syncope, headache, dizziness, GI bleed, back pain, seizure, CVA, palpatations, mental health)? @ -Differential Abdominal Pain Men: Appendicitis, cholecystitis, diverticulosis, ischemic bowel, pancreatitis, hepatitis, UTI, gastroenteritis, AAA, incarcerated hernia, bowel obstruction, constipation, inflammatory bowel, hepatitis, peptic ulcer disease, splenic infarction, perforated viscus, testicular torsion, this is not meant to be an all-inclusive list EKG interpreted by me (3pts min.). @ -None done X-rays interpreted by me (1pt min.). @ -X-ray shows nonobstructive bowel gas pattern with minimal air-fluid levels CT interpreted by me (1pt min.). @ -None done U/S interpreted by me (1pt. min.). @ -None done What testing was considered but not performed or refused? (CT, X-rays, U/S, labs)? Why? @ -None What meds were considered but not given or refused? Why? @ -None Did you discuss the management of the patient with other professionals (professionals i.e. , JENNIFER, MAINTENANCE SUPERVISOR, lab, RT, psych nurse, social services analyst, agriculture instructor, teacher, space operations officer, manager case)? Give summary @ -No Was smoking cessation discussed for >3mins.? @ -No Was critical care preformed (if so, how long)? @ -No Were there social determinants of health that impacted care today? How? (Homelessness, low income, unemployed, alcoholism, drug addiction, transportation, low edu. Level, literacy, decrease access to med. care, care home, rehab)? @ -No Was there de-escalation of care discussed even if they declined (Discuss DNR or withdrawal of care, Hospice)? DNR status @ -No What co-morbidities impacted this encounter? (DM, HTN, Smoking, COPD, CAD, C ancer, CVA, ARF, Chemo, Hep., AIDS, mental health diagnosis, sleep apnea, morbid obesity)? @ -None Was patient admitted / discharged? Hospital course, mention meds given and route, prescriptions, significant lab abnormalities, going to OR and other pertinent info. @ -58-year-old male presents to the ER for abdominal pain. He has history of chronic abdominal pain. Vital signs stable. Patient is soft abdomen. Laboratory evaluation is unremarkable. X-ray reviewed by me shows no acute processes. Pending final radiology read patient cares signed out to to Dr. Dias 8:00 AM Undiagnosed new problem with uncertain prognosis? @ -No Drug Therapy requiring intensive monitoring for toxicity (Heparin, Nitro, Insulin, Cardizem)? @ -No Were any procedures done? @ -No Diagnosis/symptom? Acute, or Chronic, or Acute on Chronic? Uncomplicated (without systemic symptoms) or Complicated (systemic symptoms)? @ -Abdominal pain Side effects of treatment? @ -No Exacerbation, Progression, or Severe Exacerbation? @ -No Poses a threat to life or bodily function? How? (Chest pain, USA, PA, pneumonia, PE, COPD, DKA, ARF, appy, cholecystitis, CVA, Diverticulitis, Homicidal, Suicidal, threat to staff... and all critical care pts) @ -No (Jerson Washington) Was patient admitted / discharged? Hospital course, mention meds given and route, prescriptions, significant lab abnormalities, going to OR and other pertinent info. @ -Patient was signed out to me by Dr. Washington at 7 AM. Patient's KUB came back showed no acute abnormality. Patient was resting comfortably. I went in the room he stated he still had some pain overall is lab work was normal limits had 5 CAT scans in the last 7 months. Patient will be instructed to follow-up with the primary medical care doctor or surgeon . I reexamined the patient's abdomen he was nontender Undiagnosed new problem with uncertain prognosis? @ -No Drug Therapy requiring intensive monitoring for toxicity (Heparin, Nitro, Insulin, Cardizem)? @ -No Were any procedures done? @ -No Diagnosis/symptom? @ -Abdominal pain Acute, or Chronic, or Acute on Chronic? @ -Acute Uncomplicated (without systemic symptoms) or Complicated (systemic symptoms)? @ -default Side effects of treatment? @ -No Exacerbation, Progression, or Severe Exacerbation? @ -No Poses a threat to life or bodily function? How? (Chest pain, USA, PA, pneumonia, PE, COPD, DKA, ARF, appy, cholecystitis, CVA, Diverticulitis, Homicidal, Suicidal, threat to staff... and all critical care pts) @ -No (Thanh Dias) - Lab Data Lab Results 08/16/23 08/16/23 Range/Units 03:49 03:49 WBC 5.3 (3.8-10.6) k/uL RBC 4.44 (4.30-5.90) m/uL Hgb 13.2 (13.0-17.5) gm/dL Hct 38.2 L (39.0-53.0) % MCV 86.1 (80.0-100.0) fL MCH 29.8 (25.0-35.0) pg MCHC 34.6 (31.0-37.0) g/dL RDW 12.3 (11.5-15.5) % Plt Count 130 L (150-450) k/uL MPV 7.7 Neutrophils % 56 % Lymphocytes % 32 % Monocytes % 6 % Eosinophils % 4 % Basophils % 0 % Neutrophils # 3.0 (1.3-7.7) k/uL Lymphocytes # 1.7 (1.0-4.8) k/uL Monocytes # 0.3 (0-1.0) k/uL Eosinophils # 0.2 (0-0.7) k/uL Basophils # 0.0 (0-0.2) k/uL Sodium 135 L (137-145) mmol/L Potassium 3.7 (3.5-5.1) mmol/L Chloride 99 (98-107) mmol/L Carbon Dioxide 28 (22-30) mmol/L Anion Gap 8 mmol/L BUN 8 L (9-20) mg/dL Creatinine 0.67 (0.66-1.25) mg/dL Est GFR (CKD-EPI)AfAm >90 (>60 ml/min/1.73 sqM) Est GFR (CKD-EPI)NonAf >90 (>60 ml/min/1.73 sqM) Glucose 109 H (74-99) mg/dL Calcium 9.6 (8.4-10.2) mg/dL Total Bilirubin 0.6 (0.2-1.3) mg/dL AST 21 (17-59) U/L ALT 18 (4-49) U/L Alkaline Phosphatase 53 (38-126) U/L Total Protein 7.5 (6.3-8.2) g/dL Albumin 4.7 (3.5-5.0) g/dL Amylase 55 (30-110) U/L Lipase 33 (23-300) U/L Disposition <Lashell Sexton - Last Filed: 08/16/23 03:47> <Jerson Washington - Last Filed: 08/16/23 08:11> Is patient prescribed a controlled substance at d/c from ED?: No Time of Disposition: 09:00 <Thanh Dias - Last Filed: 08/16/23 09:11> Clinical Impression: Abdominal pain Disposition: HOME SELF-CARE Instructions (If sedation given, give patient instructions): Abdominal Pain (ED) Referrals: None,Stated [REFERRING] - 1-2 days
[2023-08-16 04:05] LABS: Basophils % (A) 0 %; Eosinophils # (A) 0.2 k/uL (0-0.7); Eosinophils % (A) 4 %; HCT 38.2 % (39.0-53.0); HGB 13.2 gm/dL (13.0-17.5); Lymphocytes # (A) 1.7 k/uL (1.0-4.8); Lymphocytes % (A) 32 %; MCH 29.8 pg (25.0-35.0); MCHC 34.6 g/dL (31.0-37.0); MCV 86.1 fL (80.0-100.0); Mean Platelet Volume 7.7; Monocytes # (A) 0.3 k/uL (0-1.0); Monocytes % (A) 6 %; Neutrophils % (A) 56 %; Platelet Count 130 k/uL (150-450); RBC 4.44 m/uL (4.30-5.90); RDW 12.3 % (11.5-15.5); WBC 5.3 k/uL (3.8-10.6)
[2023-08-16 04:24] LABS: ALT 18 U/L (4-49); AST 21 U/L (17-59); African American GFR (CKD) >90 (>60 ml/min/1.73 sqM); Albumin 4.7 g/dL (3.5-5.0); Alkaline Phosphatase 53 U/L (38-126); Amylase 55 U/L (30-110); Anion Gap 8 mmol/L; Blood Urea Nitrogen 8 mg/dL (9-20); Calcium 9.6 mg/dL (8.4-10.2); Carbon Dioxide 28 mmol/L (22-30); Chloride 99 mmol/L (98-107); Glucose 109 mg/dL (74-99); Lipase 33 U/L (23-300); Non-African American GFR(CKD) >90 (>60 ml/min/1.73 sqM); Potassium 3.7 mmol/L (3.5-5.1); Sodium 135 mmol/L (137-145); Total Bilirubin 0.6 mg/dL (0.2-1.3); Total Protein 7.5 g/dL (6.3-8.2)
[2023-08-16 06:20] VITALS: TEMP 97.9
[2023-08-16] MEDS ORDERED: MORPHINE SULFATE 4 MG/ML SYRINGE IV STA (07:44)
--- NOTE | 2023-08-16 08:05 | XR ---
KUB. HISTORY: Abdominal pain. COMPARISON: 07/13/2023. TECHNIQUE: 2 upright views of the abdomen were obtained. FINDINGS: Visualized lung bases are clear and there is no free intraperitoneal air. There is colonic interposit ion between the right hemidiaphragm and liver. There are multiple fluid levels within small bowel and colon. The small bowel is not grossly dilated There are postsurgical changes with aortic stent in the proximal abdominal aorta. There are surgical sutures in the mid abdomen. The osseous structures are intact. There is no suspicious abdominal or pelvic calcification. IMPRESSION: Bowel gas pattern similar to that seen on prior KUB and CT abdomen and pelvis the same date. Consiste nt with nonspecific diarrheal disease. The possibility of early or small partial bowel obstruction is not excluded but felt to be less likely.
[2023-08-16 09:44] VITALS: BP 140/90; PULSE 68; RESP 16
== END 2023-08-16 09:30 | disposition home or self-care (01) ==
LOC: EC 03:27
DX: R10.9 Unspecified abdominal pain (principal); E11.9 Type 2 diabetes mellitus without complications; E78.5 Hyperlipidemia, unspecified; I10 Essential (primary) hypertension; G47.30 Sleep apnea, unspecified; F41.9 Anxiety disorder, unspecified; F32.A Depression, unspecified; F17.290 Nicotine dependence, other tobacco product, uncomplicated; Z79.84 Long term (current) use of oral hypoglycemic drugs; Z79.899 Other long term (current) drug therapy
CPT/HCPCS: 36415; 74018; 80053; 82150; 83690; 85025; 99285

== ENCOUNTER 2023-09-02 17:11 | Emergency (ER) | payer OTHER ==
[2023-09-02 17:23] VITALS: PULSE 78; RESP 18; TEMP 98
--- NOTE | 2023-09-02 17:37 | ED ---
General Adult HPI - General Chief complaint: Abdominal Pain Stated complaint: pain,constipation Time Seen by Provider: 09/02/23 17:19 Source: patient, EMS, RN notes reviewed Mode of arrival: EMS Limitations: no limitations - History of Present Illness Initial comments: 58-year-old male presents to the emergency department for evaluation of diffuse abdominal pain. He states that this has been going on for months and has had multiple evaluations at our emergency department and has been at [facility] for the same thing. Patient states that he was at [facility] for 31 days. Patient has had multiple CT scans for this issue. Patient reports that he had a bowel movement yesterday. He is passing gas. He denies fever, chills. Admits to nausea without vomiting. He does have a GI doctor but he has not followed with him recently. - Related Data Home Medications Medication Instructions Recorded Confirmed Baclofen [Lioresal] 10 mg PO HS 04/27/18 02/12/23 Venlafaxine HCl ER [Effexor XR] 75 mg PO DAILY 07/07/18 02/12/23 ALPRAZolam [Xanax] 0.5 mg PO BID 06/19/21 02/12/23 Gabapentin 300 mg PO Q4H 06/19/21 02/12/23 lisinopriL [Zestril] 15 mg PO BID 02/07/22 02/12/23 Amoxic-Pot Clav 875-125Mg 1 tab PO Q12HR 02/07/23 02/12/23 [Augmentin 875-125] Atorvastatin [Lipitor] 20 mg PO HS 02/07/23 02/12/23 Tamsulosin [Flomax] 0.4 mg PO DAILY 02/07/23 02/12/23 glyBURIDE/METFORMIN HCL 1 tab PO BID 02/07/23 02/12/23 [Glucovance 5-500 mg] oxyCODONE-APAP 10-325MG [Percocet 1 tab PO TID 02/07/23 02/12/23 10-325 mg] Previous Rx's Medication Instructions Recorded Levofloxacin [Levaquin] 750 mg PO DAILY #10 tab 07/14/23 metroNIDAZOLE [Flagyl] 500 mg PO TID #30 tab 07/14/23 Allergies Allergy/AdvReac Type Severity Reaction Status Date / Time No Known Allergies Allergy Verified 09/02/23 17:18 Review of Systems ROS Statement: Those systems with pertinent positive or pertinent negative responses have been documented in the HPI. ROS Other: All systems not noted in ROS Statement are negative. 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 Past Anesthesia/Blood Transfusion Reactions: Previous Problems w/ Anesthesia, Motion Sickness Additional Past Anesthesia/Blood Transfusion Reaction / Comment(s): Aneurysm surgery 10/04/17- "cardiac arrest" at [facility] -pt not sure of cause Past Psychological History: Anxiety, Depression Smoking Status: Former smoker, Vaper Past Alcohol Use History: None Reported Past Drug Use History: None Reported - Past Family History Father Family Medical History: Deep Vein Thrombosis (DVT) Additional Family Medical History / Comment(s): Father is alive at age 83 with history of diabetes, osteoarthritis, dementia. Sister(s) Family Medical History: Cancer Additional Family Medical History / Comment(s): 2 sisters-breast cancer Brother(s) Family Medical History: COPD Additional Family Medical History / Comment(s): Patient has one brother with COPD. General Exam Limitations: no limitations General appearance: alert, in no apparent distress Head exam: Present: atraumatic, normocephalic, normal inspection Eye exam: Present: normal appearance, PERRL, EOMI. Absent: scleral icterus, conjunctival injection, periorbital swelling ENT exam: Present: normal exam, mucous membranes moist Respiratory exam: Present: normal lung sounds bilaterally. Absent: respiratory distress, wheezes, rales, rhonchi, stridor Cardiovascular Exam: Present: regular rate, normal rhythm, normal heart sounds. Absent: systolic murmur, diastolic murmur, rubs, gallop, clicks GI/Abdominal exam: Present: soft, normal bowel sounds. Absent: distended, tenderness, guarding, rebound, rigid Extremities exam: Present: normal inspection, full ROM, normal capillary refill. Absent: tenderness, pedal edema, joint swelling, calf tenderness Back exam: Present: normal inspection Neurological exam: Present: alert, oriented X3 Psychiatric exam: Present: normal affect, normal mood Skin exam: Present: warm, dry, intact, normal color. Absent: rash Course Vital Signs 09/02/23 09/02/23 17:15 18:00 Temperature 98 F Pulse Rate 78 Respiratory 18 Rate Blood Pressure 148/93 163/85 O2 Sat by Pulse 99 99 Oximetry Medical Decision Making - Medical Decision Making Was pt. sent in by a medical professional or institution ([facility] Nixon, [facility], urgent care, hospital, or [facility]...) When possible be specific @ -No Did you speak to anyone other than the patient for history (EMS, parent, family, police, friend...)? What history was obtained from this source @ -No Did you review nursing and triage notes (agree or disagree)? Why? @ -I reviewed and agree with nursing and triage notes Were old charts reviewed (outside hosp., previous admission, EMS record, old EKG, old radiological studies, urgent care reports/EKG's, [facility] records)? Report findings @ -No old charts were reviewed Differential Diagnosis (chest pain, altered mental status, abdominal pain women, abdominal pain men, vaginal bleeding, weakness, fever, dyspnea, syncope, headache, dizziness, GI bleed, back pain, seizure, CVA, palpatations, mental h ealth, musculoskeletal)? @ -Differential Abdominal Pain Men: Appendicitis, cholecystitis, diverticulosis, ischemic bowel, pancreatitis, hepatitis, UTI, gastroenteritis, AAA, incarcerated hernia, bowel obstruction, constipation, inflammatory bowel, hepatitis, peptic ulcer disease, splenic infarction, perforated viscus, testicular torsion, this is not meant to be an all-inclusive list EKG interpreted by me (3pts min.). @ -None X-rays interpreted by me (1pt min.). @ -KUB x-ray shows nonobstructive bowel gas pattern CT interpreted by me (1pt min.). @ -None done U/S interpreted by me (1pt. min.). @ -None done What testing was considered but not performed or refused? (CT, X-rays, U/S, labs)? Why? @ -None What meds were considered but not given or refused? Why? @ -None Did you discuss the management of the patient with other professionals (professionals i.e. , JENNIFER, [employer], lab, RT, psych nurse, drug abuse social worker, bicycle fitter, teacher, truant officer, geriatric case manager)? Give summary @ -No Was smoking cessation discussed for >3mins.? @ -No Was critical care preformed (if so, how long)? @ -No Were there social determinants of health that impacted care today? How? (Homelessness, low income, unemployed, alcoholism, drug addiction, transportation, low edu. Level, literacy, decrease access to med. care, snf, rehab)? @ -No Was there de-escalation of care discussed even if they declined (Discuss DNR or withdrawal of care, Hospice)? DNR status @ -No What co-morbidities impacted this encounter? (DM, HTN, Smoking, COPD, CAD, Cancer, CVA, ARF, Chemo, Hep., AIDS, mental health diagnosis, sleep apnea, morbid obesity)? @ -None Was patient admitted / discharged? Hospital course, mention meds given and route, prescriptions, significant lab abnormalities, going to OR and other pertinent info. @ -Discharged. Patient presented to the emergency department for evaluation of abdominal pain and constipation. He reports a normal bowel movement yesterday and is passing gas normally. On examination, patient is not significantly tender to palpation.Laboratory studies obtained. CBC showed WBC 3.6, hemoglobin 12.7; CMP shows sodium 138, potassium 4.2, creatinine 0.64; lactic acid 0.8; KUB x-ray shows nonobstructive bowel gas pattern. Patient advised of findings and to follow-up with his GI doctor. Patient understanding agreeable with plan. Patient stable at time of discharge. Case discussed with Dr. Washington Undiagnosed new problem with uncertain prognosis? @ -No Drug Therapy requiring intensive monitoring for toxicity (Heparin, Nitro, Insulin, Cardizem)? @ -No Were any procedures done? @ -No Diagnosis/symptom? @ -Abdominal pain Acute, or Chronic, or Acute on Chronic? @ -Acute on chronic Uncomplicated (without systemic symptoms) or Complicated (systemic symptoms)? @ -Uncomplicated Side effects of treatment? @ -No Exacerbation, Progression, or Severe Exacerbation? @ -No Poses a threat to life or bodily function? How? (Chest pain, USA, CO, pneumonia, PE, COPD, DKA, ARF, appy, cholecystitis, CVA, Diverticulitis, Homicidal, Suicidal, threat to staff... and all critical care pts) @ -No - Lab Data Result diagrams: 09/02/23 17:54 09/02/23 17:54 Lab Results 09/02/23 09/02/23 09/02/23 Range/Units 17:54 17:54 17:54 WBC 3.6 L (3.8-10.6) k/uL RBC 4.34 (4.30-5.90) m/uL Hgb 12.7 L (13.0-17.5) gm/dL Hct 37.6 L (39.0-53.0) % MCV 86.6 (80.0-100.0) fL MCH 29.3 (25.0-35.0) pg MCHC 33.8 (31.0-37.0) g/dL RDW 12.6 (11.5-15.5) % Plt Count 144 L (150-450) k/uL MPV 7.7 Neutrophils % 59 % Lymphocytes % 28 % Monocytes % 6 % Eosinophils % 5 % Basophils % 0 % Neutrophils # 2.1 (1.3-7.7) k/uL Lymphocytes # 1.0 (1.0-4.8) k/uL Monocytes # 0.2 (0-1.0) k/uL Eosinophils # 0.2 (0-0.7) k/uL Basophils # 0.0 (0-0.2) k/uL Sodium 138 (137-145) mmol/L Potassium 4.2 (3.5-5.1) mmol/L Chloride 101 (98-107) mmol/L Carbon Dioxide 31 H (22-30) mmol/L Anion Gap 6 mmol/L BUN 9 (9-20) mg/dL Creatinine 0.64 L (0.66-1.25) mg/dL Est GFR (CKD-EPI)AfAm >90 (>60 ml/min/1.73 sqM) Est GFR (CKD-EPI)NonAf >90 (>60 ml/min/1.73 sqM) Glucose 121 H (74-99) mg/dL Plasma Lactic Acid Gadiel 0.8 (0.7-2.0) mmol/L Calcium 9.7 (8.4-10.2) mg/dL Total Bilirubin 0.6 (0.2-1.3) mg/dL AST 20 (17-59) U/L ALT 14 (4-49) U/L Alkaline Phosphatase 64 (38-126) U/L Total Protein 7.6 (6.3-8.2) g/dL Albumin 4.8 (3.5-5.0) g/dL Amylase 64 (30-110) U/L Lipase 25 (23-300) U/L Disposition Clinical Impression: Abdominal pain Disposition: HOME SELF-CARE Condition: Stable Instructions (If sedation given, give patient instructions): Abdominal Pain (ED) Additional Instructions: Please follow up with your GI doctor. Return to the emergency department for new or worsening symptoms. Is patient prescribed a controlled substance at d/c from ED?: No Referrals: Gene Perera MD [Primary Care Provider] - 1-2 days
--- NOTE | 2023-09-02 17:52 | XR ---
EXAMINATION TYPE: XR KUB DATE OF EXAM: 09/02/2023 COMPARISON: NONE HISTORY: Pain TECHNIQUE: Single supine KUB image of the abdomen is obtained FINDINGS: Small bowel demonstrates no evidence for dilatation or air fluid levels. Gas and fecal material is seen in non-distended colon. No convincing evidence for pneumoperitoneum. No unusual calcifications. The lung bases are clear. The osseous structures are intact. IMPRESSION: 1. Overall nonobstructive bowel gas pattern.
[2023-09-02 18:03] LABS: Basophils % (A) 0 %; Eosinophils # (A) 0.2 k/uL (0-0.7); Eosinophils % (A) 5 %; HCT 37.6 % (39.0-53.0); HGB 12.7 gm/dL (13.0-17.5); Lymphocytes % (A) 28 %; MCH 29.3 pg (25.0-35.0); MCHC 33.8 g/dL (31.0-37.0); MCV 86.6 fL (80.0-100.0); Mean Platelet Volume 7.7; Monocytes # (A) 0.2 k/uL (0-1.0); Monocytes % (A) 6 %; Neutrophils # (A) 2.1 k/uL (1.3-7.7); Neutrophils % (A) 59 %; Platelet Count 144 k/uL (150-450); RBC 4.34 m/uL (4.30-5.90); RDW 12.6 % (11.5-15.5); WBC 3.6 k/uL (3.8-10.6)
[2023-09-02 18:19] LABS: ALT 14 U/L (4-49); AST 20 U/L (17-59); African American GFR (CKD) >90 (>60 ml/min/1.73 sqM); Albumin 4.8 g/dL (3.5-5.0); Alkaline Phosphatase 64 U/L (38-126); Amylase 64 U/L (30-110); Anion Gap 6 mmol/L; Blood Urea Nitrogen 9 mg/dL (9-20); Calcium 9.7 mg/dL (8.4-10.2); Carbon Dioxide 31 mmol/L (22-30); Chloride 101 mmol/L (98-107); Glucose 121 mg/dL (74-99); Lipase 25 U/L (23-300); Non-African American GFR(CKD) >90 (>60 ml/min/1.73 sqM); Potassium 4.2 mmol/L (3.5-5.1); Sodium 138 mmol/L (137-145); Total Bilirubin 0.6 mg/dL (0.2-1.3); Total Protein 7.6 g/dL (6.3-8.2)
[2023-09-02 19:33] VITALS: BP 163/85
== END 2023-09-02 19:17 | disposition home or self-care (01) ==
LOC: EC 17:11
DX: K59.00 Constipation, unspecified (principal); I10 Essential (primary) hypertension; E11.9 Type 2 diabetes mellitus without complications; E78.5 Hyperlipidemia, unspecified; F32.A Depression, unspecified; F41.9 Anxiety disorder, unspecified; G47.30 Sleep apnea, unspecified; K21.9 Gastro-esophageal reflux disease without esophagitis; F17.290 Nicotine dependence, other tobacco product, uncomplicated; Z79.84 Long term (current) use of oral hypoglycemic drugs; Z79.899 Other long term (current) drug therapy
CPT/HCPCS: 36415; 74018; 80053; 82150; 83605; 83690; 85025; 99284

== ENCOUNTER 2023-09-16 23:47 | Emergency (ER) | payer OTHER ==
[2023-09-17 00:16] VITALS: TEMP 97.7
[2023-09-17] MEDS: SODIUM CHLORIDE 0.9% 500 ML 500 ML IV STA (00:23)
[2023-09-17 00:35] LABS: Basophils % (A) 0 %; Eosinophils # (A) 0.2 k/uL (0-0.7); Eosinophils % (A) 5 %; HCT 27.9 % (39.0-53.0); Lymphocytes # (A) 1.5 k/uL (1.0-4.8); Lymphocytes % (A) 42 %; MCV 85.6 fL (80.0-100.0); Mean Platelet Volume 7.4; Monocytes # (A) 0.3 k/uL (0-1.0); Monocytes % (A) 8 %; Neutrophils # (A) 1.5 k/uL (1.3-7.7); Neutrophils % (A) 42 %; Platelet Count 163 k/uL (150-450); RBC 3.26 m/uL (4.30-5.90); RDW 12.7 % (11.5-15.5); WBC 3.7 k/uL (3.8-10.6)
[2023-09-17 00:49] LABS: HGB 9.8 gm/dL (13.0-17.5)
[2023-09-17 01:14] LABS: ALT 12 U/L (4-49); AST 20 U/L (17-59); African American GFR (CKD) >90 (>60 ml/min/1.73 sqM); Alkaline Phosphatase 56 U/L (38-126); Amylase 60 U/L (30-110); Anion Gap 6 mmol/L; Blood Urea Nitrogen 9 mg/dL (9-20); Calcium 9.2 mg/dL (8.4-10.2); Carbon Dioxide 31 mmol/L (22-30); Chloride 99 mmol/L (98-107); Glucose 121 mg/dL (74-99); Lipase 106 U/L (23-300); Non-African American GFR(CKD) >90 (>60 ml/min/1.73 sqM); Potassium 3.8 mmol/L (3.5-5.1); Sodium 136 mmol/L (137-145); Total Bilirubin 0.4 mg/dL (0.2-1.3); Total Protein 6.4 g/dL (6.3-8.2)
--- NOTE | 2023-09-17 01:45 | CT ---
EXAMINATION TYPE: CT abdomen pelvis w con DATE OF EXAM: 09/17/2023 COMPARISON: Prior CT July 26, 2023 HISTORY: Severe abd pain n/v. History of hernia repair and AAA. CT DLP: 608.2 mGycm, Automated Exposure Control for Dose Reduction was Utilized. CONTRAST: CT scan of the abdomen and pelvis is performed without oral and with IV Contrast, patient injected wi th 100 mL of Isovue 300. FINDINGS: LUNG BASES: Emphysematous change in the lung bases with mild to moderate scarring is redemonstrated. LIVER/GB: Liver remains diffusely low dense consistent with fatty infiltrative hepatocellular disease . PANCREAS: No significant abnormality is seen. SPLEEN: No significant abnormality is seen. ADRENALS: No significant abnormality is seen. KIDNEYS: Symmetric cortical medullary uptake and excretion without hydronephrosis is seen bilaterally . BOWEL: Distal colonic diverticula. No CT evidence for acute diverticulitis. No abnormal small or larg e bowel dilatation. PROSTATE/SEMINAL VESICLES: Mildly enlarged prostate gland consistent with BPH redemonstrated. LYMPH NODES: No greater than 1cm abdominal or pelvic lymph nodes are appreciated. OSSEOUS STRUCTURES: [id number] disc space narrowing and lumbosacral junction redemonstrated. OTHER: Patent Aortobiiliac stent graft is redemonstrated. IMPRESSION: No significant new or acute finding is seen to account for patient's clinical symptoms.
[2023-09-17] MEDS: KETOROLAC 15 MG/ML 1 ML VIAL IVP STA (01:53)
[2023-09-17] MEDS: ONDANSETRON 4 MG/2 ML VIAL IVP STA (01:54)
[2023-09-17 02:25] LABS: Appearance,Urine Clear (Clear); Bilirubin,Urine Negative (Negative); Blood,Urine Negative (Negative); Color,Urine Colorless; Glucose,Urine (UA) Negative (Negative); Ketones,Urine Negative (Negative); Leukocyte Esterase,Urine Negative (Negative); Nitrite,Urine Negative (Negative); PH, Urine 6.5 (5.0-8.0); Protein,Urine Negative (Negative); Specific Gravity,Urine 1.039 (1.001-1.035); Urobilinogen,Urine <2.0 mg/dL (<2.0)
--- NOTE | 2023-09-17 02:34 | ED ---
Abdominal Pain HPI - General Chief Complaint: Abdominal Pain Stated Complaint: Abdominal Pain Time Seen by Provider: 09/16/23 23:58 Source: patient, EMS Mode of arrival: EMS - History of Present Illness Initial Comments: 58-year-old male presenting with chief complaint of abdominal pain. Patient states that pain started about an hour ago. He was brought in by EMS. This pain is diffuse with some worsening on the left side. Patient has history of abdominal pain and currently follows with GI at [facility]. States that he has a colonoscopy scheduled for this Friday. He has been seen here multiple occasions for abdominal pain. He admits to nausea with no vomiting. No diarrhea, hematochezia, melena. No dysuria or hematuria. No fevers or chills. No chest pain or difficulty breathing. No injury or trauma. - Related Data Home Medications Medication Instructions Recorded Confirmed Baclofen [Lioresal] 10 mg PO HS 04/27/18 02/12/23 Venlafaxine HCl ER [Effexor XR] 75 mg PO DAILY 07/07/18 02/12/23 ALPRAZolam [Xanax] 0.5 mg PO BID 06/19/21 02/12/23 Gabapentin 300 mg PO Q4H 06/19/21 02/12/23 lisinopriL [Zestril] 15 mg PO BID 02/07/22 02/12/23 Amoxic-Pot Clav 875-125Mg 1 tab PO Q12HR 02/07/23 02/12/23 [Augmentin 875-125] Atorvastatin [Lipitor] 20 mg PO HS 02/07/23 02/12/23 Tamsulosin [Flomax] 0.4 mg PO DAILY 02/07/23 02/12/23 glyBURIDE/METFORMIN HCL 1 tab PO BID 02/07/23 02/12/23 [Glucovance 5-500 mg] oxyCODONE-APAP 10-325MG [Percocet 1 tab PO TID 02/07/23 02/12/23 10-325 mg] Previous Rx's Medication Instructions Recorded Levofloxacin [Levaquin] 750 mg PO DAILY #10 tab 07/14/23 metroNIDAZOLE [Flagyl] 500 mg PO TID #30 tab 07/14/23 Allergies Allergy/AdvReac Type Severity Reaction Status Date / Time No Known Allergies Allergy Verified 09/16/23 23:55 Review of Systems ROS Statement: Those systems with pertinent positive or pertinent negative responses have been documented in the HPI. ROS Other: All systems not noted in ROS Statement are negative. 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 Past Anesthesia/Blood Transfusion Reactions: Previous Problems w/ Anesthesia, Motion Sickness Additional Past Anesthesia/Blood Transfusion Reaction / Comment(s): Aneurysm surgery 10/04/17- "cardiac arrest" at [facility] -pt not sure of cause Past Psychological History: Anxiety, Depression Smoking Status: Former smoker, Vaper Past Alcohol Use History: None Reported Past Drug Use History: None Reported - Past Family History Father Family Medical History: Deep Vein Thrombosis (DVT) Additional Family Medical History / Comment(s): Father is alive at age 83 with history of diabetes, osteoarthritis, dementia. Sister(s) Family Medical History: Cancer Additional Family Medical History / Comment(s): 2 sisters-breast cancer Brother(s) Family Medical History: COPD Additional Family Medical History / Comment(s): Patient has one brother with COPD. General Exam Limitations: no limitations General appearance: alert, in no apparent distress Head exam: Present: atraumatic, normocephalic Eye exam: Present: normal appearance Neck exam: Present: normal inspection Respiratory exam: Present: normal lung sounds bilaterally. Absent: respiratory distress, wheezes, rales, rhonchi, stridor Cardiovascular Exam: Present: regular rate, normal rhythm, normal heart sounds. Absent: systolic murmur, diastolic murmur, rubs, gallop, clicks GI/Abdominal exam: Present: soft. Absent: distended, tenderness, guarding, rebound, rigid Neurological exam: Present: alert, oriented X3 Psychiatric exam: Present: normal affect, normal mood Skin exam: Present: warm, dry Course Vital Signs 09/16/23 09/17/23 23:48 03:23 Temperature 97.7 F Pulse Rate 71 72 Respiratory 19 16 Rate Blood Pressure 134/86 131/80 O2 Sat by Pulse 95 95 Oximetry Medical Decision Making - Medical Decision Making Was pt. sent in by a medical professional or institution (, PA, CERTIFICATION TECHNICIAN, urgent care, hospital, or senior living...) When possible be specific @ -No Did you speak to anyone other than the patient for history (EMS, parent, family, police, friend...)? What history was obtained from this source @ -No Did you review nursing and triage notes (agree or disagree)? Why? @ -I reviewed and agree with nursing and triage notes Were old charts reviewed (outside hosp., previous admission, EMS record, old EKG, old radiological studies, urgent care reports/EKG's, senior living records)? Report findings @ -Several previous visits are reviewed Differential Diagnosis (chest pain, altered mental status, abdominal pain women, abdominal pain men, vaginal bleeding, weakness, fever, dyspnea, syncope, headache, dizziness, GI bleed, back pain, seizure, CVA, palpatations, mental health, musculoskeletal)? @ -[facility] Differential Abdominal Pain Men: Appendicitis, cholecystitis, diverticulosis, ischemic bowel, pancreatitis, hepatitis, UTI, gastroenteritis, AAA, incarcerated hernia, bowel obstruction, co nstipation, inflammatory bowel, hepatitis, peptic ulcer disease, splenic infarction, perforated viscus, testicular torsion... This is not meant to be an all-inclusive list EKG interpreted by me (3pts min.). @ -As above X-rays interpreted by me (1pt min.). @ -None done CT interpreted by me (1pt min.). @ -CT shows no significant new or acute finding to account for the patient's clinical symptoms U/S interpreted by me (1pt. min.). @ -None done What testing was considered but not performed or refused? (CT, X-rays, U/S, labs)? Why? @ -None What meds were considered but not given or refused? Why? @ -None Did you discuss the management of the patient with other professionals (professionals i.e. , PA, CERTIFICATION TECHNICIAN, lab, RT, psych nurse, social services designee, corporate financial analyst, teacher, bank operations officer, piano case and bench assembler)? Give summary @ -No Was smoking cessation discussed for >3mins.? @ -No Was critical care preformed (if so, how long)? @ -No Were there social determinants of health that impacted care today? How? (Homelessness, low income, unemployed, alcoholism, drug addiction, transportation, low edu. Level, literacy, decrease access to med. care, detention, rehab)? @ -No Was there de-escalation of care discussed even if they declined (Discuss DNR or withdrawal of care, Hospice)? DNR status @ -No What co-morbidities impacted this encounter? (DM, HTN, Smoking, COPD, CAD, Cancer, CVA, ARF, Chemo, Hep., AIDS, mental health diagnosis, sleep apnea, morbid obesity)? @ -None Was patient admitted / discharged? Hospital course, mention meds given and route, prescriptions, significant lab abnormalities, going to OR and other pertinent info. @ -58-year-old male presenting with chief complaint of abdominal pain. Patient has been seen here on multiple occasions for abdominal pain. He states that this pain feels similar to when he had diverticulitis. History and physical exam are conducted. Hemoglobin is noted to have dropped from 12.7 on 09/02/2019 4-9.8 today. Patient takes no blood thinners. Denies any dark stools or bleeding. Urine shows no infectious process or bleeding. Negative stool occult blood. CT shows no acute findings to account for the patient's symptoms. He is resting comfortably showing no acute signs of distress. Vital signs have remained within normal limits. Patient had a colonoscopy scheduled for this Friday. He is educated on today's findings and instructed to follow-up with his PCP and GI. Discharged home. Follow-up with PCP. Report back to ER with any new or worsening symptoms. Discussed return parameters and answered all questions. Patient conveyed verbal understanding and agreed to the plan. I discussed this case in detail with my attending Dr. Chaney Undiagnosed new problem with uncertain prognosis? @ -No Drug Therapy requiring intensive monitoring for toxicity (Heparin, Nitro, Insulin, Cardizem)? @ -No Were any procedures done? @ -No Diagnosis/symptom? @ -Abdominal pain Acute, or Chronic, or Acute on Chronic? @ -Acute Uncomplicated (without systemic symptoms) or Complicated (systemic symptoms)? @ -Uncomplicated Side effects of treatment? @ -No Exacerbation, Progression, or Severe Exacerbation? @ -No - Lab Data Result diagrams: 09/17/23 00:14 09/17/23 00:14 Lab Results 09/17/23 09/17/23 09/17/23 Range/Units 00:14 00:14 00:14 WBC 3.7 L (3.8-10.6) k/uL RBC 3.26 L (4.30-5.90) m/uL Hgb 9.8 L D (13.0-17.5) gm/dL Hct 27.9 L (39.0-53.0) % MCV 85.6 (80.0-100.0) fL MCH 30.0 (25.0-35.0) pg MCHC 35.0 (31.0-37.0) g/dL RDW 12.7 (11.5-15.5) % Plt Count 163 (150-450) k/uL MPV 7.4 Neutrophils % 42 % Lymphocytes % 42 % Monocytes % 8 % Eosinophils % 5 % Basophils % 0 % Neutrophils # 1.5 (1.3-7.7) k/uL Lymphocytes # 1.5 (1.0-4.8) k/uL Monocytes # 0.3 (0-1.0) k/uL Eosinophils # 0.2 (0-0.7) k/uL Basophils # 0.0 (0-0.2) k/uL Sodium 136 L (137-145) mmol/L Potassium 3.8 (3.5-5.1) mmol/L Chloride 99 (98-107) mmol/L Carbon Dioxide 31 H (22-30) mmol/L Anion Gap 6 mmol/L BUN 9 (9-20) mg/dL Creatinine 0.65 L (0.66-1.25) mg/dL Est GFR (CKD-EPI)AfAm >90 (>60 ml/min/1.73 sqM) Est GFR (CKD-EPI)NonAf >90 (>60 ml/min/1.73 sqM) Glucose 121 H (74-99) mg/dL Plasma Lactic Acid Gadiel (0.7-2.0) mmol/L Calcium 9.2 (8.4-10.2) mg/dL Total Bilirubin 0.4 (0.2-1.3) mg/dL AST 20 (17-59) U/L ALT 12 (4-49) U/L Alkaline Phosphatase 56 (38-126) U/L Total Protein 6.4 (6.3-8.2) g/dL Albumin 4.0 (3.5-5.0) g/dL Amylase 60 (30-110) U/L Lipase 106 (23-300) U/L Urine Color Colorless Urine Appearance Clear (Clear) Urine pH 6.5 (5.0-8.0) Ur Specific [place] 1.039 H (1.001-1.035) Urine Protein Negative (Negative) Urine Glucose (UA) Negative (Negative) Urine Ketones Negative (Negative) Urine Blood Negative (Negative) Urine Nitrite Negative (Negative) Urine Bilirubin Negative (Negative) Urine Urobilinogen <2.0 (<2.0) mg/dL Ur Leukocyte Esterase Negative (Negative) Stool Occult Blood (Negative) 09/17/23 09/17/23 Range/Units 00:14 01:59 WBC (3.8-10.6) k/uL RBC (4.30-5.90) m/uL Hgb (13.0-17.5) gm/dL Hct (39.0-53.0) % MCV (80.0-100.0) fL MCH (25.0-35.0) pg MCHC (31.0-37.0) g/dL RDW (11.5-15.5) % Plt Count (150-450) k/uL MPV Neutrophils % % Lymphocytes % % Monocytes % % Eosinophils % % Basophils % % Neutrophils # (1.3-7.7) k/uL Lymphocytes # (1.0-4.8) k/uL Monocytes # (0-1.0) k/uL Eosinophils # (0-0.7) k/uL Basophils # (0-0.2) k/uL Sodium (137-145) mmol/L Potassium (3.5-5.1) mmol/L Chloride (98-107) mmol/L Carbon Dioxide (22-30) mmol/L Anion Gap mmol/L BUN (9-20) mg/dL Creatinine (0.66-1.25) mg/dL Est GFR (CKD-EPI)AfAm (>60 ml/min/1.73 sqM) Est GFR (CKD-EPI)NonAf (>60 ml/min/1.73 sqM) Glucose (74-99) mg/dL Plasma Lactic Acid Gadiel 1.1 (0.7-2.0) mmol/L Calcium (8.4-10.2) mg/dL Total Bilirubin (0.2-1.3) mg/dL AST (17-59) U/L ALT (4-49) U/L Alkaline Phosphatase (38-126) U/L Total Protein (6.3-8.2) g/dL Albumin (3.5-5.0) g/dL Amylase (30-110) U/L Lipase (23-300) U/L Urine Color Urine Appearance (Clear) Urine pH (5.0-8.0) Ur Specific [place] (1.001-1.035) Urine Protein (Negative) Urine Glucose (UA) (Negative) Urine Ketones (Negative) Urine Blood (Negative) Urine Nitrite (Negative) Urine Bilirubin (Negative) Urine Urobilinogen (<2.0) mg/dL Ur Leukocyte Esterase (Negative) Stool Occult Blood Negative (Negative) Disposition Clinical Impression: Abdominal pain Disposition: HOME SELF-CARE Condition: Good Instructions (If sedation given, give patient instructions): Abdominal Pain (ED) Additional Instructions: Follow-up with your PCP and GI specialist. Report back to ER with any new or worsening symptoms. Is patient prescribed a controlled substance at d/c from ED?: No Referrals: Gene Perera MD [Primary Care Provider] - 1-2 days Time of Disposition: 02:34
[2023-09-17 03:27] VITALS: BP 131/80; PULSE 72; RESP 16
== END 2023-09-17 03:24 | disposition home or self-care (01) ==
LOC: EC 23:47
DX: R10.9 Unspecified abdominal pain (principal); I10 Essential (primary) hypertension; F32.A Depression, unspecified; E11.9 Type 2 diabetes mellitus without complications; E78.5 Hyperlipidemia, unspecified; F41.9 Anxiety disorder, unspecified; G47.30 Sleep apnea, unspecified; F17.290 Nicotine dependence, other tobacco product, uncomplicated; Z79.84 Long term (current) use of oral hypoglycemic drugs; Z79.899 Other long term (current) drug therapy
CPT/HCPCS: 36415; 80053; 82150; 83605; 83690; 85025; 82272; 81003; 74177; 99285; 96374; 96361 ×3; J1885; Q9967

== ENCOUNTER 2023-11-28 09:39 | Emergency (ER) | payer OTHER ==
[2023-11-28 10:24] VITALS: RESP 18; TEMP 98.3
[2023-11-28 10:30] LABS: Basophils % (A) 0 %; Eosinophils # (A) 0.2 k/uL (0-0.7); Eosinophils % (A) 3 %; HCT 33.9 % (39.0-53.0); HGB 11.4 gm/dL (13.0-17.5); Lymphocytes % (A) 20 %; MCH 29.7 pg (25.0-35.0); MCHC 33.7 g/dL (31.0-37.0); MCV 88.2 fL (80.0-100.0); Mean Platelet Volume 7.5; Monocytes # (A) 0.2 k/uL (0-1.0); Monocytes % (A) 4 %; Neutrophils # (A) 3.8 k/uL (1.3-7.7); Neutrophils % (A) 71 %; Platelet Count 139 k/uL (150-450); RBC 3.85 m/uL (4.30-5.90); RDW 12.6 % (11.5-15.5); WBC 5.3 k/uL (3.8-10.6)
[2023-11-28] MEDS: KETOROLAC 15 MG/ML 1 ML VIAL IVP STA (10:30)
--- NOTE | 2023-11-28 10:30 | XR ---
EXAMINATION TYPE: XR KUB DATE OF EXAM: 11/28/2023 10:12 AM CLINICAL INDICATION:Male, 58 years old with history of abdominal pain; [facility] COMPARISON: None. TECHNIQUE: One radiographic view of the abdomen was obtained. FINDINGS: The bowel gas pattern is nonspecific without dilated loops of small or large bowel. There i s no evidence for organomegaly or pneumoperitoneum. The osseous structures are intact. No abnormal calcifications are present. Fecal material and gas are demonstrated throughout the colon and rectum. Embolization material project over the mid abdomen. Stent graft and upper abdomen. Large amount stoo l in the rectum. IMPRESSION: Large amount stool in the rectum. Nonspecific Bowel gas pattern without radiographic evidence for acu te process.
[2023-11-28] MEDS: MAG HYDROX/AL HYDROX/SIMETH 30 ML, HYOSCYAMINE ELIXIR 10 ML, LIDOCAINE VISCOUS 2% 10 ML PO STA (10:31)
--- NOTE | 2023-11-28 10:31 | ED ---
Abdominal Pain HPI - General Chief Complaint: Abdominal Pain Stated Complaint: colon issues Time Seen by Provider: 11/28/23 09:47 Source: patient, RN notes reviewed Mode of arrival: ambulatory Limitations: no limitations - History of Present Illness Initial Comments: This is a 58-year-old male who presents to the emergency department for abdominal pain. Patient has a longstanding history of abdominal pain over the last several months. Currently follows with GI at the [facility]. States that about a month ago he went to [facility] and received an injection of Relistor for his abdominal pain related to constipation. States that since then he has continued to have small but frequent bowel movements as well as feelings of gas buildup in his abdomen. Currently takes Suboxone for pain management. States that he feels nauseous as well. Denies any fevers/chills. He gave himself a milk molasses enema 2 nights ago, which he states was effective. He did a regular Fleet enema yesterday, but did not get much relief from that. States that he has weak rectal muscles, and has difficulty pushing out stool. MD Complaint: abdominal pain - Related Data Home Medications Medication Instructions Recorded Confirmed Baclofen [Lioresal] 10 mg PO HS 04/27/18 11/28/23 Venlafaxine HCl ER [Effexor XR] 150 mg PO DAILY 07/07/18 11/28/23 ALPRAZolam [Xanax] 0.5 mg PO BID PRN 06/19/21 11/28/23 lisinopriL [Zestril] 30 mg PO DAILY PRN 02/07/22 11/28/23 Tamsulosin [Flomax] 0.8 mg PO DAILY 02/07/23 11/28/23 Buprenorphine HCl/Naloxone HCl 0.5 film SL 5XD 11/28/23 11/28/23 [Suboxone 2 mg-0.5 mg Sl Film] Magnesium Oxide [Mag-Ox] 400 mg PO BID 11/28/23 11/28/23 polyethylene glycoL 3350 [Miralax] 17 gm PO BID 11/28/23 11/28/23 Previous Rx's Medication Instructions Recorded Lactulose 10 - 20 gm PO DAILY #473 ml 11/28/23 Ondansetron Odt [Zofran Odt] 4 mg PO Q8HR PRN #20 tab 11/28/23 Simethicone [Gas-X] 125 mg PO QID PRN #30 capsule 11/28/23 Allergies Allergy/AdvReac Type Severity Reaction Status Date / Time No Known Allergies Allergy Verified 11/28/23 10:12 Review of Systems ROS Statement: Those systems with pertinent positive or pertinent negative responses have been documented in the HPI. ROS Other: All systems not noted in ROS Statement are negative. 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 Past Anesthesia/Blood Transfusion Reactions: Previous Problems w/ Anesthesia, Motion Sickness Additional Past Anesthesia/Blood Transfusion Reaction / Comment(s): Aneurysm surgery 10/04/17- "cardiac arrest" at [facility] -pt not sure of cause Past Psychological History: Anxiety, Depression Smoking Status: Former smoker, Vaper Past Alcohol Use History: None Reported Past Drug Use History: None Reported - Past Family History Father Family Medical History: Deep Vein Thrombosis (DVT) Additional Family Medical History / Comment(s): Father is alive at age 83 with history of diabetes, osteoarthritis, dementia. Sister(s) Family Medical History: Cancer Additional Family Medical History / Comment(s): 2 sisters-breast cancer Brother(s) Family Medical History: COPD Additional Family Medical History / Comment(s): Patient has one brother with COPD. General Exam Limitations: no limitations General appearance: alert, in no apparent distress Head exam: Present: atraumatic, normocephalic, normal inspection Respiratory exam: Present: normal lung sounds bilaterally. Absent: respiratory distress, wheezes, rales, rhonchi, stridor Cardiovascular Exam: Present: regular rate, normal rhythm, normal heart sounds. Absent: systolic murmur, diastolic murmur, rubs, gallop, clicks GI/Abdominal exam: Present: soft, normal bowel sounds. Absent: distended, tenderness, guarding, rebound, rigid Neurological exam: Present: alert, oriented X3, CN II-XII intact Psychiatric exam: Present: normal affect, normal mood Skin exam: Present: warm, dry, intact, normal color. Absent: rash Course Vital Signs 11/28/23 11/28/23 09:41 12:59 Temperature 98.3 F Pulse Rate 101 H 98 Respiratory 18 18 Rate Blood Pressure 162/91 164/84 O2 Sat by Pulse 99 97 Oximetry Medical Decision Making - Medical Decision Making This is a 58 year old male who presents to the emergency department for abdomina l pain. Was pt. sent in by a medical professional or institution? @ -No Did you speak to anyone other than the patient for history? @ -No Did you review nursing and triage notes? @ -Yes, and I agree, it is accurate with regards to the patient's symptoms. Were old charts reviewed? @ -No Differential Diagnosis? @ -Differential Abdominal Pain Men: Appendicitis, cholecystitis, diverticulosis, ischemic bowel, pancreatitis, hepatitis, UTI, gastroenteritis, AAA, incarcerated hernia, bowel obstruction, constipation, inflammatory bowel, hepatitis, peptic ulcer disease, splenic infarction, perforated viscus, testicular torsion, this is not meant to be an all-inclusive list EKG interpreted by me (3pts min.)? @ EKG interpreted by me demonstrating the following: Sinus bradycardia. Ventricular rate 56 bpm, WI interval 165 ms, QRS duration 106 ms, QTc 422 ms. X-rays interpreted by me (1pt min.)? @ -KUB x-ray obtained. My interpretation identifies no dilation of large or small bowel loops. CT interpreted by me (1pt min.)? @ -Not obtained U/S interpreted by me (1pt. min.)? @ -Not obtained What testing was considered but not performed? (CT, X-rays, U/S, labs)? Why? @ -None What meds were considered but not given? Why? @ -None Did you discuss the management of the patient with other professionals? @ -No Did you reconcile home meds? @ -No Was smoking cessation discussed for >3mins.? @ -No Was critical care preformed (if so, how long)? @ -No Were there social determinants of health that impacted care today? How? (Homelessness, low income, unemployed, alcoholism, drug addiction, tra nsportation, low edu. Level, literacy, decrease access to med. care, [facility], rehab)? @ -No Was there de-escalation of care discussed even if they declined? (Discuss DNR or withdrawal of care, Hospice)? @ -No What co-morbidities impacted this encounter? (DM, HTN, Smoking, COPD, CAD, Cancer, CVA, Hep., AIDS, mental health diagnosis, sleep apnea, morbid obesity)? @ -GI problems Was patient admitted / discharged? @ -Discharged. Lab work unremarkable. KUB x-ray obtained demonstrating a large amount of stool in the rectum. There is no radiographic evidence for acute process. Milk molasses enema administered and the patient had some improvement in symptoms. Advised that if the problem is related to his weak anal sphincter muscle, he needs to discuss this with the [facility] to see if other treatment options are available. Prescription for lactulose, simethicone, and Zofran provided with dosing instructions reviewed. Patient discharged home in stable condition and advised to follow-up with GI. Undiagnosed new problem with uncertain prognosis? @ -None Drug Therapy requiring intensive monitoring for toxicity (Heparin, Nitro, Insulin, Cardizem)? @ -None Were any procedures done? @ -None Diagnosis/symptom? @ -Abdominal pain Acute, or Chronic, or Acute on Chronic? @ -Acute Uncomplicated (without systemic symptoms) or Complicated (systemic symptoms)? @ -Uncomplicated Side effects of treatment? @ -None Exacerbation, Progression, or Severe Exacerbation] @ -Not applicable Poses a threat to life or bodily function? @ -No Return precautions reviewed in depth, the patient is instructed to return to the emergency department with any new, worsening, or concerning symptoms. Patient verbalized understanding. This case was discussed in detail with the attending ED physician, Dr. Dias. Presentation, findings, and treatment plan discussed in detail as well. - Lab Data Result diagrams: 11/28/23 10:17 11/28/23 10:17 Lab Results 11/28/23 11/28/23 11/28/23 Range/Units 10:17 10:17 10:17 WBC 5.3 (3.8-10.6) k/uL RBC 3.85 L (4.30-5.90) m/uL Hgb 11.4 L (13.0-17.5) gm/dL Hct 33.9 L (39.0-53.0) % MCV 88.2 (80.0-100.0) fL MCH 29.7 (25.0-35.0) pg MCHC 33.7 (31.0-37.0) g/dL RDW 12.6 (11.5-15.5) % Plt Count 139 L (150-450) k/uL MPV 7.5 Neutrophils % 71 % Lymphocytes % 20 % Monocytes % 4 % Eosinophils % 3 % Basophils % 0 % Neutrophils # 3.8 (1.3-7.7) k/uL Lymphocytes # 1.0 (1.0-4.8) k/uL Monocytes # 0.2 (0-1.0) k/uL Eosinophils # 0.2 (0-0.7) k/uL Basophils # 0.0 (0-0.2) k/uL Sodium 137 (137-145) mmol/L Potassium 3.8 (3.5-5.1) mmol/L Chloride 101 (98-107) mmol/L Carbon Dioxide 28 (22-30) mmol/L Anion Gap 8 mmol/L BUN 11 (9-20) mg/dL Creatinine 0.62 L (0.66-1.25) mg/dL Est GFR (CKD-EPI)AfAm >90 (>60 ml/min/1.73 sqM) Est GFR (CKD-EPI)NonAf >90 (>60 ml/min/1.73 sqM) Glucose 105 H (74-99) mg/dL Plasma Lactic Acid Gadiel 0.7 (0.7-2.0) mmol/L Calcium 9.2 (8.4-10.2) mg/dL Magnesium 1.9 (1.6-2.3) mg/dL Total Bilirubin 0.6 (0.2-1.3) mg/dL AST 21 (17-59) U/L ALT 11 (4-49) U/L Alkaline Phosphatase 64 (38-126) U/L Total Protein 6.6 (6.3-8.2) g/dL Albumin 4.1 (3.5-5.0) g/dL Amylase 76 (30-110) U/L Lipase 201 (23-300) U/L - Radiology Data Radiology results: report reviewed, image reviewed Disposition Clinical Impression: Abdominal pain Disposition: HOME SELF-CARE Instructions (If sedation given, give patient instructions): Abdominal Pain (ED) Additional Instructions: Return to the emergency department with any new, worsening, or concerning symptoms. Try taking the lactulose daily to see if this helps you with bowel movements. It may require a couple of days to notice improvement. You can take the simethicone up to 4 times daily to help with feeling of gas and discomfort in the abdomen. You can purchase this [id number] if you run out of it. You can take the Zofran up to every 8 hours as needed for nausea and vomiting. Follow-up with the [facility] regarding your symptoms to see if they have additional treatment options. Follow up with your primary care provider in 1-2 days. Prescriptions: Simethicone [Gas-X] 125 mg PO QID PRN #30 capsule PRN Reason: Gi Upset Lactulose 10 - 20 gm PO DAILY #473 ml Ondansetron Odt [Zofran Odt] 4 mg PO Q8HR PRN #20 tab PRN Reason: Nausea And Vomiting Is patient prescribed a controlled substance at d/c from ED?: No Referrals: Gene Perera MD [Primary Care Provider] - 1-2 days Time of Disposition: 12:51
[2023-11-28] MEDS: METOCLOPRAMIDE 5 MG/ML 2 ML VIAL IVP STA (10:32)
[2023-11-28] MEDS ORDERED: NA PHOS,M-B/NA PHOS,DI-BA 133 ML ENEMA RECTAL STA (10:33)
[2023-11-28 10:50] LABS: ALT 11 U/L (4-49); AST 21 U/L (17-59); African American GFR (CKD) >90 (>60 ml/min/1.73 sqM); Albumin 4.1 g/dL (3.5-5.0); Alkaline Phosphatase 64 U/L (38-126); Amylase 76 U/L (30-110); Anion Gap 8 mmol/L; Blood Urea Nitrogen 11 mg/dL (9-20); Calcium 9.2 mg/dL (8.4-10.2); Carbon Dioxide 28 mmol/L (22-30); Chloride 101 mmol/L (98-107); Glucose 105 mg/dL (74-99); Lipase 201 U/L (23-300); Magnesium 1.9 mg/dL (1.6-2.3); Non-African American GFR(CKD) >90 (>60 ml/min/1.73 sqM); Potassium 3.8 mmol/L (3.5-5.1); Sodium 137 mmol/L (137-145); Total Bilirubin 0.6 mg/dL (0.2-1.3); Total Protein 6.6 g/dL (6.3-8.2)
[2023-11-28 13:17] VITALS: BP 164/84; PULSE 98
== END 2023-11-28 13:03 | disposition home or self-care (01) ==
LOC: EC 09:39
DX: R10.9 Unspecified abdominal pain (principal); R00.1 Bradycardia, unspecified; F17.290 Nicotine dependence, other tobacco product, uncomplicated
CPT/HCPCS: 36415; 93005; 80053; 82150; 83605; 83690; 83735; 85025; 74018; 99284; 96374; 96375; J2765; J1885

== ENCOUNTER 2023-11-29 11:30 | Emergency (ER) | payer OTHER ==
--- NOTE | 2023-11-29 14:38 | ED ---
General Adult HPI - General Chief complaint: Back Pain/Injury Stated complaint: GI Issues Time Seen by Provider: 11/29/23 11:55 Source: patient Mode of arrival: wheelchair Limitations: no limitations - History of Present Illness Initial comments: 58-year-old male presents the emergency department reporting gas pain. Patient states that this is a chronic issue for him. He is currently following with [facility] He recently had a defecating rectogram because of his complaints. States he is awaiting the results. He was seen yesterday in emergency department for the gas pain. Was instructed to take Gas-X. He was also given lactulose to help move his bowels. Patient did not sampler pickup these medications from the pharmacy. He states that he already takes Gas-X as well as activated charcoal for his gas. He did use a milk of molasses enema yesterday and had a bowel movement therefore he did not sampler pickup the lactulose. He presents today requesting further medications for the gas. He denies any fevers. No black or bloody stools. No vomiting. Denies any worsening of his condition. No other alleviating, precipitating or modifying factors - Related Data Home Medications Medication Instructions Recorded Confirmed Baclofen [Lioresal] 10 mg PO HS 04/27/18 11/29/23 Venlafaxine HCl ER [Effexor XR] 150 mg PO DAILY 07/07/18 11/29/23 ALPRAZolam [Xanax] 0.5 mg PO BID PRN 06/19/21 11/29/23 lisinopriL [Zestril] 30 mg PO DAILY PRN 02/07/22 11/29/23 Tamsulosin [Flomax] 0.8 mg PO DAILY 02/07/23 11/29/23 Buprenorphine HCl/Naloxone HCl 0.5 film SL 5XD 11/28/23 11/29/23 [Suboxone 2 mg-0.5 mg Sl Film] Magnesium Oxide [Mag-Ox] 400 mg PO BID 11/28/23 11/29/23 polyethylene glycoL 3350 [Miralax] 17 gm PO BID 11/28/23 11/29/23 Lactulose 10 - 20 gm PO DIRECTED 11/29/23 11/29/23 bisacodyL [Dulcolax] 10 mg RECTAL DAILY PRN 11/29/23 11/29/23 Previous Rx's Medication Instructions Recorded Ondansetron Odt [Zofran Odt] 4 mg PO Q8HR PRN #20 tab 11/28/23 Simethicone [Gas-X] 125 mg PO QID PRN #30 capsule 11/28/23 Allergies Allergy/AdvReac Type Severity Reaction Status Date / Time No Known Allergies Allergy Verified 11/29/23 15:19 Review of Systems ROS Statement: Those systems with pertinent positive or pertinent negative responses have been documented in the HPI. ROS Other: All systems not noted in ROS Statement are negative. 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 Past Anesthesia/Blood Transfusion Reactions: Previous Problems w/ Anesthesia, Motion Sickness Additional Past Anesthesia/Blood Transfusion Reaction / Comment(s): Aneurysm surgery 10/04/17- "cardiac arrest" at [facility] -pt not sure of cause Past Psychological History: Anxiety, Depression Smoking Status: Former smoker, Vaper Past Alcohol Use History: None Reported Past Drug Use History: None Reported - Past Family History Father Family Medical History: Deep Vein Thrombosis (DVT) Additional Family Medical History / Comment(s): Father is alive at age 83 with history of diabetes, osteoarthritis, dementia. Sister(s) Family Medical History: Cancer Additional Family Medical History / Comment(s): 2 sisters-breast cancer Brother(s) Family Medical History: COPD Additional Family Medical History / Comment(s): Patient has one brother with COPD. General Exam Limitations: no limitations General appearance: alert, in no apparent distress Head exam: Present: atraumatic, normocephalic, normal inspection Eye exam: Present: normal appearance, PERRL, EOMI. Absent: scleral icterus, conjunctival injection, periorbital swelling ENT exam: Present: normal exam, mucous membranes moist Neck exam: Present: normal inspection. Absent: tenderness, meningismus, lymphadenopathy Respiratory exam: Present: normal lung sounds bilaterally. Absent: respiratory distress, wheezes, rales, rhonchi, stridor Cardiovascular Exam: Present: regular rate, normal rhythm, normal heart sounds. Absent: systolic murmur, diastolic murmur, rubs, gallop, clicks GI/Abdominal exam: Present: soft, normal bowel sounds. Absent: distended, tenderness, guarding, rebound, rigid Extremities exam: Present: normal inspection, full ROM, normal capillary refill. Absent: tenderness, pedal edema, joint swelling, calf tenderness Back exam: Present: normal inspection Neurological exam: Present: alert, oriented X3, CN II-XII intact Psychiatric exam: Present: normal affect, normal mood Skin exam: Present: warm, dry, intact, normal color. Absent: rash Course Vital Signs 11/29/23 11/29/23 11:51 15:39 Temperature 98.6 F 98.1 F Pulse Rate 98 58 L Respiratory 20 18 Rate Blood Pressure 145/46 144/82 O2 Sat by Pulse 99 100 Oximetry Medical Decision Making - Medical Decision Making Was pt. sent in by a medical professional or institution (JENNIFER Nixon, VULCANIZED FIBER UNIT OPERATOR, urgent care, hospital, or halfway...) When possible be specific @ -No Did you speak to anyone other than the patient for history (EMS, parent, family, police, friend...)? What history was obtained from this source @ -No Did you review nursing and triage notes (agree or disagree)? Why? @ -I reviewed and agree with nursing and triage notes Were old charts reviewed (outside hosp., previous admission, EMS record, old EKG, old radiological studies, urgent care reports/EKG's, halfway records)? Report findings @ -I reviewed patient's ED visit from yesterday which included a KUB Differential Diagnosis (chest pain, altered mental status, abdominal pain women, abdominal pain men, vaginal bleeding, weakness, fever, dyspnea, syncope, headache, dizziness, GI bleed, back pain, seizure, CVA, palpatations, mental health, musculoskeletal)? @ -Differential Abdominal Pain Men: Appendicitis, cholecystitis, diverticulosis, ischemic bowel, pancreatitis, hepatitis, UTI, gastroenteritis, AAA, incarcerated hernia, bowel obstruction, constipation, inflammatory bowel, hepatitis, peptic ulcer disease, splenic infarction, perforated viscus, testicular torsion, this is not meant to be an all-inclusive list EKG interpreted by me (3pts min.). @ -Not done X-rays interpreted by me (1pt min.). @ -Yes and demonstrates that there is no longer stool burden within the rectum CT interpreted by me (1pt min.). @ -None done U/S interpreted by me (1pt. min.). @ -None done What testing was considered but not performed or refused? (CT, X-rays, U/S, labs)? Why? @ -CT however patient states he has had many of these throughout the years because of his workup for abdominal pain What meds were considered but not given or refused? Why? @ -None Did you discuss the management of the patient with other professionals (professionals i.e. , PA, VULCANIZED FIBER UNIT OPERATOR, lab, RT, psych nurse, social contact worker, director online marketing, teacher, international first officer, family caseworker)? Give summary @ -No Was smoking cessation discussed for >3mins.? @ -No Was critical care preformed (if so, how long)? @ -No Were there social determinants of health that impacted care today? How? (Homelessness, low income, unemployed, alcoholism, drug addiction, transportation, low edu. Level, literacy, decrease access to med. care, senior care, rehab)? @ -No Was there de-escalation of care discussed even if they declined (Discuss DNR or withdrawal of care, Hospice)? DNR status @ -No What co-morbidities impacted this encounter? (DM, HTN, Smoking, COPD, CAD, Cancer, CVA, ARF, Chemo, Hep., AIDS, mental health diagnosis, sleep apnea, morbid obesity)? @ -Chronic abdominal pain, AAA with repair, chronic back pain Was patient admitted / discharged? Hospital course, mention meds given and route, prescriptions, significant lab abnormalities, going to OR and other pertinent info. @ -Upon arrival patient was seen and evaluated in room 6. Thorough history and physical exam was performed. Patient presents complaining of chronic issues. He is being [facility] at [facility] for this. Patient has no new complaints. I did recommend repeating a KUB which demonstrates that he has moved to the stool that has been in his rectum. Patient's abdomen is soft without peritoneal signs. At this time I feel that the patient should continue taking simethicone and activated charcoal for his gas. Continue his workup through [facility]. May need laparoscopy to evaluate for adhesions. Return for any new or worsening symptoms. Patient agreeable plan he was discharged in stable condition] Undiagnosed new problem with uncertain prognosis? @ -No Drug Therapy requiring intensive monitoring for toxicity (Heparin, Nitro, Insulin, Cardizem)? @ -No Were any procedures done? @ -No Diagnosis/symptom? @ -Acute exacerbation of chronic abdominal pain Acute, or Chronic, or Acute on Chronic? @ -Acute on chronic Uncomplicated (without systemic symptoms) or Complicated (systemic symptoms)? @ -Complicated Side effects of treatment? @ -No Exacerbation, Progression, or Severe Exacerbation? @ -Yes Poses a threat to life or bodily function? How? (Chest pain, [place], [place], pneumonia, PE, COPD, DKA, ARF, appy, cholecystitis, CVA, Diverticulitis, Homicidal, Suicidal, threat to staff... and all critical care pts) @ -No Disposition Clinical Impression: Intractable abdominal pain Disposition: HOME SELF-CARE Condition: Stable Instructions (If sedation given, give patient instructions): Abdominal Pain (ED) Additional Instructions: Please call your GI doctor. Let them know that you have had to come to the emergency department for your pain and see if you can get a sooner follow-up appointment. Continue your regimen as directed and return for any new or worsening symptoms Is patient prescribed a controlled substance at d/c from ED?: No Referrals: Gene Perera MD [Primary Care Provider] - 1-2 days Time of Disposition: 15:26
--- NOTE | 2023-11-29 15:16 | XR ---
EXAMINATION TYPE: XR KUB DATE OF EXAM: 11/29/2023 COMPARISON: 11/28/2023 INDICATION: Abdominal pain, gas TECHNIQUE: Single view abdomen upright view FINDINGS: There is a normal bowel gas pattern. No suspicious air-fluid levels or differential air-fluid levels are present. No free air is identified. No mass effect is evident. Psoas margins are normal. No organomegaly is present. Previous fecal debris within the pelvis is resolved. No suspicious changes to suggest obstruction. IMPRESSION: 1. Nonspecific abdomen similar to prior study
[2023-11-29 15:46] VITALS: BP 144/82; PULSE 58; RESP 18; TEMP 98.1
== END 2023-11-29 15:44 | disposition home or self-care (01) ==
LOC: EC 11:30
DX: R10.9 Unspecified abdominal pain (principal); F17.290 Nicotine dependence, other tobacco product, uncomplicated
CPT/HCPCS: 74018; 99284

== ENCOUNTER 2023-12-07 14:53 | Emergency (ER) | payer OTHER ==
[2023-12-07 15:38] VITALS: TEMP 98.4
[2023-12-07 15:54] LABS: Basophils % (A) 0 %; Eosinophils # (A) 0.1 k/uL (0-0.7); Eosinophils % (A) 2 %; HCT 36.7 % (39.0-53.0); HGB 12.1 gm/dL (13.0-17.5); Lymphocytes # (A) 0.7 k/uL (1.0-4.8); Lymphocytes % (A) 22 %; MCH 28.9 pg (25.0-35.0); MCV 87.5 fL (80.0-100.0); Mean Platelet Volume 7.6; Monocytes # (A) 0.2 k/uL (0-1.0); Monocytes % (A) 6 %; Neutrophils # (A) 2.2 k/uL (1.3-7.7); Neutrophils % (A) 68 %; Platelet Count 162 k/uL (150-450); RBC 4.19 m/uL (4.30-5.90); RDW 12.5 % (11.5-15.5); WBC 3.2 k/uL (3.8-10.6)
[2023-12-07 16:12] LABS: ALT 11 U/L (4-49); AST 17 U/L (17-59); African American GFR (CKD) >90 (>60 ml/min/1.73 sqM); Albumin 4.4 g/dL (3.5-5.0); Alkaline Phosphatase 57 U/L (38-126); Amylase 93 U/L (30-110); Anion Gap 6 mmol/L; Blood Urea Nitrogen 11 mg/dL (9-20); Calcium 9.4 mg/dL (8.4-10.2); Carbon Dioxide 31 mmol/L (22-30); Chloride 99 mmol/L (98-107); Glucose 105 mg/dL (74-99); Lipase 194 U/L (23-300); Non-African American GFR(CKD) >90 (>60 ml/min/1.73 sqM); Potassium 4.7 mmol/L (3.5-5.1); Sodium 136 mmol/L (137-145); Total Bilirubin 0.3 mg/dL (0.2-1.3)
--- NOTE | 2023-12-07 16:39 | XR ---
EXAMINATION TYPE: XR KUB DATE OF EXAM: 12/07/2023 4:28 PM CLINICAL INDICATION:Male, 58 years old with history of abdominal pain; [facility] COMPARISON: None. TECHNIQUE: One radiographic view of the abdomen was obtained. FINDINGS: Large amount of stool throughout the abdomen. Aortic stent grafts noted. Embolization mater ial noted projecting over the L4 vertebrae. Left upper quadrant surgical clips. Multilevel degenerati on changes of the shoulders with mild degeneration changes of the hips. IMPRESSION: Nonspecific bowel gas pattern without radiographic evidence for acute process.
[2023-12-07] MEDS: SODIUM CHLORIDE 0.9% 1,000 ML IV STA (16:57)
[2023-12-07] MEDS: ONDANSETRON 4 MG/2 ML VIAL IVP STA (16:59)
[2023-12-07] MEDS: PANTOPRAZOLE 40 MG/10 ML VIAL IVP STA (17:00)
[2023-12-07] MEDS: MORPHINE SULFATE 4 MG/ML SYRINGE IVP STA (17:05)
--- NOTE | 2023-12-07 17:26 | ED ---
General Adult HPI - General Chief complaint: Abdominal Pain Stated complaint: Abd pain Time Seen by Provider: 12/07/23 15:08 Source: patient, RN notes reviewed, old records reviewed Mode of arrival: EMS Limitations: no limitations - History of Present Illness Initial comments: Patient is a 58-year-old male with history of chronic abdominal pain. Has a history of hypertension, diabetes. States he has been having on again off again abdominal pain for months. This is typical of his pain describes as gaseous pain. Has a history of a AAA repair. He has no other acute complaints at this time. He is asking for pain medications and evaluation. Recent CT in August. - Related Data Home Medications Medication Instructions Recorded Confirmed Baclofen [Lioresal] 10 mg PO HS 04/27/18 11/29/23 Venlafaxine HCl ER [Effexor XR] 150 mg PO DAILY 07/07/18 11/29/23 ALPRAZolam [Xanax] 0.5 mg PO BID PRN 06/19/21 11/29/23 lisinopriL [Zestril] 30 mg PO DAILY PRN 02/07/22 11/29/23 Tamsulosin [Flomax] 0.8 mg PO DAILY 02/07/23 11/29/23 Buprenorphine HCl/Naloxone HCl 0.5 film SL 5XD 11/28/23 11/29/23 [Suboxone 2 mg-0.5 mg Sl Film] Magnesium Oxide [Mag-Ox] 400 mg PO BID 11/28/23 11/29/23 polyethylene glycoL 3350 [Miralax] 17 gm PO BID 11/28/23 11/29/23 Lactulose 10 - 20 gm PO DIRECTED 11/29/23 11/29/23 bisacodyL [Dulcolax] 10 mg RECTAL DAILY PRN 11/29/23 11/29/23 Previous Rx's Medication Instructions Recorded Ondansetron Odt [Zofran Odt] 4 mg PO Q8HR PRN #20 tab 11/28/23 Simethicone [Gas-X] 125 mg PO QID PRN #30 capsule 11/28/23 Dicyclomine [Bentyl] 10 mg PO TID PRN 7 Days #21 capsule 12/07/23 Allergies Allergy/AdvReac Type Severity Reaction Status Date / Time No Known Allergies Allergy Verified 12/07/23 15:13 Review of Systems ROS Statement: Those systems with pertinent positive or pertinent negative responses have been documented in the HPI. Review of Systems: CONST: Denies fever EYES: Denies blurry vision ENT: Denies nasal congestion C/V: Denies Chest pain RESP: Denies shortness of breath GI: Endorses abdominal pain : Denies dysuria SKIN: Denies rash. MSK: Denies joint pain. NEURO: Denies headache ROS Other: All systems not noted in ROS Statement are negative. 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 Past Anesthesia/Blood Transfusion Reactions: Previous Problems w/ Anesthesia, Motion Sickness Additional Past Anesthesia/Blood Transfusion Reaction / Comment(s): Aneurysm surgery 10/04/17- "cardiac arrest" at [facility] -pt not sure of cause Past Psychological History: Anxiety, Depression Smoking Status: Former smoker, Vaper Past Alcohol Use History: None Reported Past Drug Use History: None Reported - Past Family History Father Family Medical History: Deep Vein Thrombosis (DVT) Additional Family Medical History / Comment(s): Father is alive at age 83 with history of diabetes, osteoarthritis, dementia. Sister(s) Family Medical History: Cancer Additional Family Medical History / Comment(s): 2 sisters-breast cancer Brother(s) Family Medical History: COPD Additional Family Medical History / Comment(s): Patient has one brother with COPD. General Exam - General Exam Comments Initial Comments: General: Appears in no acute distress. HEAD: Normal with no signs of head trauma. EYES: PERRLA, EOMI, conjunctiva normal, no discharge. ENT: Hearing grossly intact, normal oropharynx. RESPIRATORY: Clear breath sounds bilaterally. No wheezes, rales, or rhonchi. C/V: Regular rate and rhythm. S1 and S2 auscultated, no edema, peripheral pulses 2+ and intact throughout ABD: Abd is soft, nontender, nondistended. No focal tenderness to palpation. No guarding. No rebound tenderness. EXT: Normal range of motion, no obvious deformity SKIN: No rashes or lesions observed on exposed skin. NEURO: Alert and oriented x 4. Limitations: no limitations Course Vital Signs 12/07/23 12/07/23 15:08 17:09 Temperature 98.4 F Pulse Rate 72 86 Respiratory 15 18 Rate Blood Pressure 129/83 140/92 O2 Sat by Pulse 100 98 Oximetry Medical Decision Making - Medical Decision Making Was pt. sent in by a medical professional or institution (, PA, TIER OVER, urgent care, hospital, or fdc...) When possible be specific @ -No Did you speak to anyone other than the patient for history (EMS, parent, family, police, friend...)? What history was obtained from this source @ -No Did you review nursing and triage notes (agree or disagree)? Why? @ -I reviewed and agree with nursing and triage notes Were old charts reviewed (outside hosp., previous admission, EMS record, old EKG, old radiological studies, urgent care reports/EKG's, fdc records)? Report findings @ -Old charts reviewed including imaging from CT in August 2023 which showed no obvious acute intra-abdominal process. Differential Diagnosis (chest pain, altered mental status, abdominal pain women, abdominal pain men, vaginal bleeding, weakness, fever, dyspnea, syncope, headache, dizziness, GI bleed, back pain, seizure, CVA, palpatations, mental health, musculoskeletal)? @ -Differential Abdominal Pain Men: Appendicitis, cholecystitis, diverticulosis, ischemic bowel, pancreatitis, he patitis, UTI, gastroenteritis, AAA, incarcerated hernia, bowel obstruction, constipation, inflammatory bowel, hepatitis, peptic ulcer disease, splenic infarction, perforated viscus, testicular torsion, this is not meant to be an all-inclusive list EKG interpreted by me (3pts min.). @ -As above X-rays interpreted by me (1pt min.). @ -KUB x-ray shows no evidence of acute intra-abdominal process. CT interpreted by me (1pt min.). @ -None done U/S interpreted by me (1pt. min.). @ -None done What testing was considered but not performed or refused? (CT, X-rays, U/S, labs)? Why? @ -I offered CT imaging of the abdomen pelvis, however patient declines at this time. He is feeling improved following analgesia medications. What meds were considered but not given or refused? Why? @ -None Did you discuss the management of the patient with other professionals (professionals i.e. , PA, TIER OVER, lab, RT, psych nurse, social media community manager, puppy trainer, teacher, school services officer, case management director)? Give summary @ -No Was smoking cessation discussed for >3mins.? @ -No Was critical care preformed (if so, how long)? @ -No Were there social determinants of health that impacted care today? How? (Homelessness, low income, unemployed, alcoholism, drug addiction, transportation, low edu. Level, literacy, decrease access to med. care, half-way, rehab)? @ -No Was there de-escalation of care discussed even if they declined (Discuss DNR or withdrawal of care, Hospice)? DNR status @ -No What co-morbidities impacted this encounter? (DM, HTN, Smoking, COPD, CAD, Cancer, CVA, ARF, Chemo, Hep., AIDS, mental health diagnosis, sleep apnea, morbid obesity)? @ -None Was patient admitted / discharged? Hospital course, mention meds given and route, prescriptions, significant lab abnormalities, going to OR and other perti nent info. @ -Presents with chronic abdominal pain. We will obtain abdominal labs as well as CT imaging of the abdomen pelvis. Patient in agreement this plan. He will be symptomatically treated with IV fluids, analgesia medications, Protonix and Zofran. Vital signs are within acceptable limits. Laboratory studies are unremarkable and at his current baseline. KUB x-ray unremarkable. Screening EKG unremarkable. Discussed with the patient the results. He is feeling improved. He is asking what is causing this gaseous distention I did recommend follow-up with GI which she has not done recently. I did offer him CT imaging due to his history with the AAA however patient declines at this time. Strict return precautions discussed. He will be discharged home at this time. I instructed the patient to follow up with their PCP in the next 1-3 days. I explained that the patient should return to the emergency department if they experience any worsening symptoms. Strict return precautions were discussed with the patient. The patient expressed understanding of these instructions. I an swered all questions that the patient had. The patient was discharged home in good condition with their prescriptions and follow up information. Undiagnosed new problem with uncertain prognosis? @ -No Drug Therapy requiring intensive monitoring for toxicity (Heparin, Nitro, Insulin, Cardizem)? @ -No Were any procedures done? @ -No Diagnosis/symptom? @ -Abdominal pain, Abdominal pain of unknown etiology Acute, or Chronic, or Acute on Chronic? @ -Chronic Uncomplicated (without systemic symptoms) or Complicated (systemic symptoms)? @ -Uncomplicated Side effects of treatment? @ -No Exacerbation, Progression, or Severe Exacerbation? @ -No Poses a threat to life or bodily function? How? (Chest pain, USA, VA, pneumonia, PE, COPD, DKA, ARF, appy, cholecystitis, CVA, Diverticulitis, Homicidal, Suicidal, threat to staff... and all critical care pts) @ -Unlikely - Lab Data Result diagrams: 12/07/23 15:41 12/07/23 15:41 Lab Results 12/07/23 12/07/23 12/07/23 Range/Units 15:41 15:41 15:41 WBC 3.2 L (3.8-10.6) k/uL RBC 4.19 L (4.30-5.90) m/uL Hgb 12.1 L (13.0-17.5) gm/dL Hct 36.7 L (39.0-53.0) % MCV 87.5 (80.0-100.0) fL MCH 28.9 (25.0-35.0) pg MCHC 33.0 (31.0-37.0) g/dL RDW 12.5 (11.5-15.5) % Plt Count 162 (150-450) k/uL MPV 7.6 Neutrophils % 68 % Lymphocytes % 22 % Monocytes % 6 % Eosinophils % 2 % Basophils % 0 % Neutrophils # 2.2 (1.3-7.7) k/uL Lymphocytes # 0.7 L (1.0-4.8) k/uL Monocytes # 0.2 (0-1.0) k/uL Eosinophils # 0.1 (0-0.7) k/uL Basophils # 0.0 (0-0.2) k/uL Sodium 136 L (137-145) mmol/L Potassium 4.7 (3.5-5.1) mmol/L Chloride 99 (98-107) mmol/L Carbon Dioxide 31 H (22-30) mmol/L Anion Gap 6 mmol/L BUN 11 (9-20) mg/dL Creatinine 0.67 (0.66-1.25) mg/dL Est GFR (CKD-EPI)AfAm >90 (>60 ml/min/1.73 sqM) Est GFR (CKD-EPI)NonAf >90 (>60 ml/min/1.73 sqM) Glucose 105 H (74-99) mg/dL Plasma Lactic Acid Gadiel 0.9 (0.7-2.0) mmol/L Calcium 9.4 (8.4-10.2) mg/dL Total Bilirubin 0.3 (0.2-1.3) mg/dL AST 17 (17-59) U/L ALT 11 (4-49) U/L Alkaline Phosphatase 57 (38-126) U/L Total Protein 7.0 (6.3-8.2) g/dL Albumin 4.4 (3.5-5.0) g/dL Amylase 93 (30-110) U/L Lipase 194 (23-300) U/L - EKG Data -: EKG Interpreted by Me EKG Comments: 12-lead Electrocardiogram Interpretation Note EKG was reviewed and interpreted by myself. 12-lead ECG performed at 1549 is interpreted by me as revealing normal sinus rhythm at a rate of 67 beats per m inute. Left axis deviation. LA interval is 159 ms, QRS duration is 98 ms, QTc is 402 ms. There were no ST or T wave abnormalities to suggest myocardial ischemia or injury. R wave progression across the precordium was satisfactory. By my interpretation this EKG is non-diagnostic for acute ischemia. Disposition Clinical Impression: Chronic abdominal pain, Abdominal pain of unknown etiology Disposition: HOME SELF-CARE Condition: Good Instructions (If sedation given, give patient instructions): Abdominal Pain (ED) Prescriptions: Dicyclomine [Bentyl] 10 mg PO TID PRN 7 Days #21 capsule PRN Reason: Pain Is patient prescribed a controlled substance at d/c from ED?: No Referrals: Gene Perera MD [Primary Care Provider] - 1-2 days Urvashi Roberts MD [STAFF PHYSICIAN] - 1-2 days Time of Disposition: 17:26
[2023-12-07 17:35] VITALS: BP 140/92; PULSE 86; RESP 18
[2023-12-07] MEDS: ACET/COD 300 MG/30 MG STARTER PACK 6 TAB BTL PO STA (17:43)
== END 2023-12-07 17:54 | disposition home or self-care (01) ==
LOC: EC 14:53
DX: G89.29 Other chronic pain (principal); R10.9 Unspecified abdominal pain; F17.290 Nicotine dependence, other tobacco product, uncomplicated
CPT/HCPCS: 36415; 93005; 80053; 82150; 83605; 83690; 85025; 74018; 99285; 96374; 96375 ×2; 96361; J2270; J2405; C9113

== ENCOUNTER 2023-12-17 14:28 | Emergency (ER) | payer OTHER ==
[2023-12-17 14:38] VITALS: RESP 18; TEMP 97.7
--- NOTE | 2023-12-17 15:49 | ED ---
General Adult HPI - General Chief complaint: Abdominal Pain Stated complaint: Bowel issue Time Seen by Provider: 12/17/23 15:15 Source: patient Mode of arrival: ambulatory Limitations: no limitations - History of Present Illness Initial comments: Dictation was produced using [employer] dictation software. please excuse any grammatical, word or spelling errors. Chief Complaint: 58-year-old male presents with mother for nerve pain History of Present Illness: Patient 58-year-old male he is disgruntled and difficult to communicate with. States that he is here today for total body nerve pain. States his nerve pain is triggered by gas pain in his belly. He has had gas pain ever since she had aortic procedure done by one of our vascular surgeons. Patient has allegedly had extensive abdominal workup with no apparent cause for why he is producing some his flatulence. Patient states that he has 50 movements of passing gas. Denies any fever. Does report chills. States that he thinks his bowels are can explode. The ROS documented in this emergency department record has been reviewed and confirmed by me. Those systems with pertinent positive or negative responses have been documented in the HPI. All other systems are other negative and/or noncontributory. - Related Data Home Medications Medication Instructions Recorded Confirmed Baclofen [Lioresal] 10 mg PO HS 04/27/18 11/29/23 Venlafaxine HCl ER [Effexor XR] 150 mg PO DAILY 07/07/18 11/29/23 ALPRAZolam [Xanax] 0.5 mg PO BID PRN 06/19/21 11/29/23 lisinopriL [Zestril] 30 mg PO DAILY PRN 02/07/22 11/29/23 Tamsulosin [Flomax] 0.8 mg PO DAILY 02/07/23 11/29/23 Buprenorphine HCl/Naloxone HCl 0.5 film SL 5XD 11/28/23 11/29/23 [Suboxone 2 mg-0.5 mg Sl Film] Magnesium Oxide [Mag-Ox] 400 mg PO BID 11/28/23 11/29/23 polyethylene glycoL 3350 [Miralax] 17 gm PO BID 11/28/23 11/29/23 Lactulose 10 - 20 gm PO DIRECTED 11/29/23 11/29/23 bisacodyL [Dulcolax] 10 mg RECTAL DAILY PRN 11/29/23 11/29/23 Previous Rx's Medication Instructions Recorded Ondansetron Odt [Zofran Odt] 4 mg PO Q8HR PRN #20 tab 11/28/23 Simethicone [Gas-X] 125 mg PO QID PRN #30 capsule 11/28/23 Dicyclomine [Bentyl] 10 mg PO TID PRN 7 Days #21 capsule 12/07/23 Allergies Allergy/AdvReac Type Severity Reaction Status Date / Time methylnaltrexone AdvReac Nausea Verified 12/17/23 14:37 [From Relistor] Review of Systems ROS Statement: Those systems with pertinent positive or pertinent negative responses have been documented in the HPI. ROS Other: All systems not noted in ROS Statement are negative. 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 Past Anesthesia/Blood Transfusion Reactions: Previous Problems w/ Anesthesia, Motion Sickness Additional Past Anesthesia/Blood Transfusion Reaction / Comment(s): Aneurysm surgery 10/04/17- "cardiac arrest" at [facility] -pt not sure of cause Past Psychological History: Anxiety, Depression Smoking Status: Former smoker, Vaper Past Alcohol Use History: None Reported Past Drug Use History: None Reported - Past Family History Father Family Medical History: Deep Vein Thrombosis (DVT) Additional Family Medical History / Comment(s): Father is alive at age 83 with history of diabetes, osteoarthritis, dementia. Sister(s) Family Medical History: Cancer Additional Family Medical History / Comment(s): 2 sisters-breast cancer Brother(s) Family Medical History: COPD Additional Family Medical History / Comment(s): Patient has one brother with COPD. General Exam - General Exam Comments Initial Comments: PHYSICAL EXAM: General Impression: Alert and oriented x3, upset, mildly aggressive HEENT: Normocephalic atraumatic, extra-ocular movements intact, pupils equal and reactive to light bilaterally, mucous membranes moist. Cardiovascular: Heart regular rate and rhythm Chest: Able to complete full sentences, no retractions, no tachypnea Abdomen: abdomen soft, non-tender, non-distended, no organomegaly Musculoskeletal: Pulses present and equal in all extremities, no peripheral edema Motor: no focal deficits noted Neurological: CN II-XII grossly intact, no focal motor or sensory deficits noted Skin: Intact with no visualized rashes Psych: Verbally aggressive and accusatory Limitations: no limitations Course Vital Signs 12/17/23 14:35 Temperature 97.7 F Pulse Rate 97 Respiratory 18 Rate Blood Pressure 151/95 O2 Sat by Pulse 99 Oximetry Medical Decision Making - Medical Decision Making Was pt. sent in by a medical professional or institution (, PA, LAMINATION SPINNER, urgent care, hospital, or penitentiary...) When possible be specific @ -No Did you speak to anyone other than the patient for history (EMS, parent, family, police, friend...)? What history was obtained from this source @ -No Did you review nursing and triage notes (agree or disagree)? Why? @ -I reviewed and agree with nursing and triage notes Were old charts reviewed (outside hosp., previous admission, EMS record, old EKG, old radiological studies, urgent care reports/EKG's, penitentiary records)? Report findings @ -Previous imaging was reviewed showing that there had been no apparent processes for his chronic abdominal pain Differential Diagnosis (chest pain, altered mental status, abdominal pain women, abdominal pain men, vaginal bleeding, musculoskeletal, weakness, fever, dyspnea, syncope, headache, dizziness, GI bleed, back pain, seizure, CVA, palpatations, mental health)? @ -Differential Abdominal Pain Men: Appendicitis, cholecystitis, diverticulosis, ischemic bowel, pancreatitis, hepatitis, UTI, gastroenteritis, AAA, incarcerated hernia, bowel obstruction, constipation, inflammatory bowel, hepatitis, peptic ulcer disease, splenic infarction, perforated viscus, testicular torsion, this is not meant to be an all-inclusive list EKG interpreted by me (3pts min.). @ -None done X-rays interpreted by me (1pt min.). @ -KUB x-ray shows no acute processes CT interpreted by me (1pt min.). @ -None done U/S interpreted by me (1pt. min.). @ -None done What testing was considered but not performed or refused? (CT, X-rays, U/S, labs)? Why? @ -None What meds were considered but not given or refused? Why? @ -None Did you discuss the management of the patient with other professionals (professionals i.e. , PA, LAMINATION SPINNER, lab, RT, psych nurse, 7th grade social studies teacher, user experience lead, t eacher, animal services officer, family caseworker)? Give summary @ -No Was smoking cessation discussed for >3mins.? @ -No Was critical care preformed (if so, how long)? @ -No Were there social determinants of health that impacted care today? How? (Homelessness, low income, unemployed, alcoholism, drug addiction, transportation, low edu. Level, literacy, decrease access to med. care, fpc, rehab)? @ -No Was there de-escalation of care discussed even if they declined (Discuss DNR or withdrawal of care, Hospice)? DNR status @ -No What co-morbidities impacted this encounter? (DM, HTN, Smoking, COPD, CAD, Cancer, CVA, ARF, Chemo, Hep., AIDS, mental health diagnosis, sleep apnea, morbid obesity)? @ -None Was patient admitted / discharged? Hospital course, mention meds given and route, prescriptions, significant lab abnormalities, going to OR and other pertinent info. @ -58-year-old male presents to the ER for acute on chronic abdominal pain. Patient has undergone multiple abdominal workups in the past for his chronic abdominal pain. Vital signs stable. Patient well-appearing at the bedside. He is resting comfortably. Physical examination shows soft abdomen. Labs and x- rays unremarkable. Patient discharged told to follow-up with a specialist. Undiagnosed new problem with uncertain prognosis? @ -No Drug Therapy requiring intensive monitoring for toxicity (Heparin, Nitro, Insulin, Cardizem)? @ -No Were any procedures done? @ -No Diagnosis/symptom? Acute, or Chronic, or Acute on Chronic? Uncomplicated (without systemic symptoms) or Complicated (systemic symptoms)? @ -Chronic abdominal pain Side effects of treatment? @ -No Exacerbation, Progression, or Severe Exacerbation? @ -No Poses a threat to life or bodily function? How? (Chest pain, USA, MS, pneumonia, PE, COPD, DKA, ARF, appy, cholecystitis, CVA, Diverticulitis, Homicidal, Suicidal, threat to staff... and all critical care pts) @ -No - Lab Data Result diagrams: 12/17/23 16:54 12/17/23 16:54 Lab Results 12/17/23 12/17/23 Range/Units 16:54 16:54 WBC 4.1 (3.8-10.6) k/uL RBC 4.12 L (4.30-5.90) m/uL Hgb 11.8 L (13.0-17.5) gm/dL Hct 36.1 L (39.0-53.0) % MCV 87.7 (80.0-100.0) fL MCH 28.7 (25.0-35.0) pg MCHC 32.7 (31.0-37.0) g/dL RDW 12.6 (11.5-15.5) % Plt Count 128 L (150-450) k/uL MPV 8.0 Neutrophils % 69 % Lymphocytes % 20 % Monocytes % 6 % Eosinophils % 2 % Basophils % 0 % Neutrophils # 2.8 (1.3-7.7) k/uL Lymphocytes # 0.8 L (1.0-4.8) k/uL Monocytes # 0.3 (0-1.0) k/uL Eosinophils # 0.1 (0-0.7) k/uL Basophils # 0.0 (0-0.2) k/uL Sodium 136 L (137-145) mmol/L Potassium 3.9 (3.5-5.1) mmol/L Chloride 101 (98-107) mmol/L Carbon Dioxide 30 (22-30) mmol/L Anion Gap 5 mmol/L BUN 11 (9-20) mg/dL Creatinine 0.64 L (0.66-1.25) mg/dL Est GFR (CKD-EPI)AfAm >90 (>60 ml/min/1.73 sqM) Est GFR (CKD-EPI)NonAf >90 (>60 ml/min/1.73 sqM) Glucose 135 H (74-99) mg/dL Calcium 9.1 (8.4-10.2) mg/dL Magnesium 1.9 (1.6-2.3) mg/dL Total Bilirubin 0.5 (0.2-1.3) mg/dL AST 18 (17-59) U/L ALT 14 (4-49) U/L Alkaline Phosphatase 73 (38-126) U/L Total Protein 6.7 (6.3-8.2) g/dL Albumin 4.1 (3.5-5.0) g/dL Disposition Clinical Impression: Abdominal pain Disposition: HOME SELF-CARE Condition: Good Instructions (If sedation given, give patient instructions): Abdominal Pain (ED) Is patient prescribed a controlled substance at d/c from ED?: No Referrals: Gene Perera MD [Primary Care Provider] - 1-2 days Time of Disposition: 17:46
--- NOTE | 2023-12-17 16:40 | XR ---
EXAMINATION TYPE: XR abdomen 1V DATE OF EXAM: 12/17/2023 COMPARISON: 12/07/2023 HISTORY: Gas pain TECHNIQUE: AP upright abdomen FINDINGS: Metallic areas overlying L4 region. Nonspecific bowel gas is present. Small bowel loops con taining air-fluid levels are within the left mid abdomen. Colonic bowel gas is present. Amount of fec al debris is diminished in the interval. No free air is under the diaphragm. Small right pleural effu janusz may be present. IMPRESSION: 1. Nonspecific abdomen. 2. There are some small bowel loops with air-fluid levels in the left mid abdomen. Finding is nonspec ific but could include ileus and minimal obstruction. Consider follow-up.
[2023-12-17 17:01] LABS: Basophils % (A) 0 %; Eosinophils # (A) 0.1 k/uL (0-0.7); Eosinophils % (A) 2 %; HCT 36.1 % (39.0-53.0); HGB 11.8 gm/dL (13.0-17.5); Lymphocytes # (A) 0.8 k/uL (1.0-4.8); Lymphocytes % (A) 20 %; MCH 28.7 pg (25.0-35.0); MCHC 32.7 g/dL (31.0-37.0); MCV 87.7 fL (80.0-100.0); Monocytes # (A) 0.3 k/uL (0-1.0); Monocytes % (A) 6 %; Neutrophils # (A) 2.8 k/uL (1.3-7.7); Neutrophils % (A) 69 %; Platelet Count 128 k/uL (150-450); RBC 4.12 m/uL (4.30-5.90); RDW 12.6 % (11.5-15.5); WBC 4.1 k/uL (3.8-10.6)
[2023-12-17 17:14] LABS: ALT 14 U/L (4-49); AST 18 U/L (17-59); African American GFR (CKD) >90 (>60 ml/min/1.73 sqM); Albumin 4.1 g/dL (3.5-5.0); Alkaline Phosphatase 73 U/L (38-126); Anion Gap 5 mmol/L; Blood Urea Nitrogen 11 mg/dL (9-20); Calcium 9.1 mg/dL (8.4-10.2); Carbon Dioxide 30 mmol/L (22-30); Chloride 101 mmol/L (98-107); Glucose 135 mg/dL (74-99); Magnesium 1.9 mg/dL (1.6-2.3); Non-African American GFR(CKD) >90 (>60 ml/min/1.73 sqM); Potassium 3.9 mmol/L (3.5-5.1); Sodium 136 mmol/L (137-145); Total Bilirubin 0.5 mg/dL (0.2-1.3); Total Protein 6.7 g/dL (6.3-8.2)
[2023-12-17] MEDS: HYDROmorphone 1 MG/ML 1 ML SYRINGE IVP STA (17:48)
[2023-12-17 18:50] VITALS: BP 147/84; PULSE 65
== END 2023-12-17 18:09 | disposition home or self-care (01) ==
LOC: EC 14:28
DX: G89.29 Other chronic pain (principal); R10.9 Unspecified abdominal pain; F17.290 Nicotine dependence, other tobacco product, uncomplicated; Z88.8 Allergy status to other drugs, medicaments and biological substances
CPT/HCPCS: 36415; 80053; 83735; 85025; 74018; 99284; 96374; J1170

== ENCOUNTER 2023-12-29 18:04 | Emergency (ER) | payer OTHER ==
--- NOTE | 2023-12-29 18:56 | ED ---
Abdominal Pain HPI - General Source: patient, RN notes reviewed Mode of arrival: wheelchair Limitations: no limitations <Jaquelin Brady - Last Filed: 12/29/23 18:55> <Benjamín Ibarra - Last Filed: 12/29/23 23:40> - General Chief Complaint: Abdominal Pain Stated Complaint: GI Issues Time Seen by Provider: 12/29/23 18:55 - History of Present Illness Initial Comments: Quick note: 58-year-old male presented to ER with a chief complaint of abdominal pain. He reports approximately 9 weeks ago he was started on a medication and since then has been experiencing abdominal pain and distention. He states most of his abdomen is "gas". He states he is only relieving himself approximately "5 to 10%". Denies any fevers, chills, nausea, vomiting. (Jaquelin Brady) 58-year-old male with known GI issues follows with Dr. Lazaro of [facility] gastroenterology presented to the ED with complaints of abdominal pain. Patient reports for the past 9 months has had issues with constipation and abdominal pains. States over the past 2 months has had increasing flatus with some associated diffuse abdominal pains. No chest pain shortness of breath. No fever or chills. Some associated nausea as well. No other complaints at this time. (Benjamín Ibarra) - Related Data Home Medications Medication Instructions Recorded Confirmed Baclofen [Lioresal] 10 mg PO HS 04/27/18 11/29/23 Venlafaxine HCl ER [Effexor XR] 150 mg PO DAILY 07/07/18 11/29/23 ALPRAZolam [Xanax] 0.5 mg PO BID PRN 06/19/21 11/29/23 lisinopriL [Zestril] 30 mg PO DAILY PRN 02/07/22 11/29/23 Tamsulosin [Flomax] 0.8 mg PO DAILY 02/07/23 11/29/23 Buprenorphine HCl/Naloxone HCl 0.5 film SL 5XD 11/28/23 11/29/23 [Suboxone 2 mg-0.5 mg Sl Film] Magnesium Oxide [Mag-Ox] 400 mg PO BID 11/28/23 11/29/23 polyethylene glycoL 3350 [Miralax] 17 gm PO BID 11/28/23 11/29/23 Lactulose 10 - 20 gm PO DIRECTED 11/29/23 11/29/23 bisacodyL [Dulcolax] 10 mg RECTAL DAILY PRN 11/29/23 11/29/23 Previous Rx's Medication Instructions Recorded Ondansetron Odt [Zofran Odt] 4 mg PO Q8HR PRN #20 tab 11/28/23 Simethicone [Gas-X] 125 mg PO QID PRN #30 capsule 11/28/23 Dicyclomine [Bentyl] 10 mg PO TID PRN 7 Days #21 capsule 12/07/23 Allergies Allergy/AdvReac Type Severity Reaction Status Date / Time methylnaltrexone AdvReac Nausea Verified 12/29/23 18:23 [From Relistor] Review of Systems ROS Other: All systems not noted in ROS Statement are negative. <Jaquelin Brayd - Last Filed: 12/29/23 18:55> ROS Other: All systems not noted in ROS Statement are negative. <Benjamín Ibarra - Last Filed: 12/29/23 23:40> ROS Statement: Those systems with pertinent positive or pertinent negative responses have been documented in the HPI. 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 Past Anesthesia/Blood Transfusion Reactions: Previous Problems w/ Anesthesia, Motion Sickness Additional Past Anesthesia/Blood Transfusion Reaction / Comment(s): Aneurysm surgery 10/04/17- "cardiac arrest" at [facility] -pt not sure of cause Past Psychological History: Anxiety, Depression Smoking Status: Former smoker, Vaper Past Alcohol Use History: None Reported Past Drug Use History: None Reported - Past Family History Father Family Medical History: Deep Vein Thrombosis (DVT) Additional Family Medical History / Comment(s): Father is alive at age 83 with history of diabetes, osteoarthritis, dementia. Sister(s) Family Medical History: Cancer Additional Family Medical History / Comment(s): 2 sisters-breast cancer Brother(s) Family Medical History: COPD Additional Family Medical History / Comment(s): Patient has one brother with COPD. <Jaquelin Brady - Last Filed: 12/29/23 18:55> General Exam Limitations: no limitations <Jaquelin Brady - Last Filed: 12/29/23 18:55> General appearance: alert, in no apparent distress Eye exam: Present: normal appearance Neck exam: Present: normal inspection Respiratory exam: Present: normal lung sounds bilaterally Cardiovascular Exam: Present: regular rate GI/Abdominal exam: Present: soft, normal bowel sounds. Absent: distended, ten derness, guarding, rebound, rigid Extremities exam: Present: normal inspection Back exam: Present: normal inspection Neurological exam: Present: alert, oriented X3 Skin exam: Present: warm, dry <Benjamín Ibarra - Last Filed: 12/29/23 23:40> - General Exam Comments Initial Comments: Visual Physical Exam Vital signs reviewed General: Well-appearing, nontoxic, no acute distress. Head: Normocephalic, atraumatic Eyes: PERRLA, EOMI ENT: Airway patent Chest: Nonlabored breathing Skin: No visual rash, normal skin tone Neuro: Alert and oriented 3 Musculoskeletal: No gross abnormalities (Jaquelin Brady) Course Vital Signs 12/29/23 18:20 Temperature 98.3 F Pulse Rate 123 H Respiratory 18 Rate Blood Pressure 132/96 O2 Sat by Pulse 99 Oximetry Medical Decision Making <Jaquelin Brady - Last Filed: 12/29/23 18:55> - Lab Data Result diagrams: 12/29/23 20:26 12/29/23 20:26 <Benjamín Ibarra - Last Filed: 12/29/23 23:40> - Medical Decision Making I performed the quick note portion of this chart. Electronically signed by Jaquelin Brady PA-C (Jaquelin Brady) Was pt. sent in by a medical professional or institution ([facility], MAT SEWER, urgent care, hospital, or fci...) When possible be specific @ -No Did you speak to anyone other than the patient for history (EMS, parent, family, police, friend...)? What history was obtained from this source @ -No Did you review nursing and triage notes (agree or disagree)? Why? @ -I reviewed and agree with nursing and triage notes Were old charts reviewed (outside hosp., previous admission, EMS record, old EKG, old radiological studies, urgent care reports/EKG's, fci records)? Report findings @ -No old charts were reviewed Differential Diagnosis (chest pain, altered mental status, abdominal pain women, abdominal pain men, vaginal bleeding, weakness, fever, dyspnea, syncope, headache, dizziness, GI bleed, back pain, seizure, CVA, palpatations, mental health, musculoskeletal)? @ -Differential Abdominal Pain Men: Appendicitis, cholecystitis, diverticulosis, ischemic bowel, pancreatitis, hepatitis, UTI, gastroenteritis, AAA, incarcerated hernia, bowel obstruction, constipation, inflammatory bowel, hepatitis, peptic ulcer disease, splenic infarction, perforated viscus, testicular torsion, this is not meant to be an all-inclusive list EKG interpreted by me (3pts min.). @ -None X-rays interpreted by me (1pt min.). @ -KUB interpreted me which revealed no evidence of acute process CT interpreted by me (1pt min.). @ -CT abdomen pelvis with contrast interpreted me which does show some findings suggestive of proctitis however no evidence of other acute finding. U/S interpreted by me (1pt. min.). @ -None done What testing was considered but not performed or refused? (CT, X-rays, U/S, labs)? Why? @ -None What meds were considered but not given or refused? Why? @ -None Did you discuss the management of the patient with other professionals (professionals i.e. JENNIFER Nixon, MAT SEWER, lab, RT, psych nurse, secondary social studies teacher, last marker, teacher, chief strategy officer, counseling case manager)? Give summary @ -No Was smoking cessation discussed for >3mins.? @ -No Was critical care preformed (if so, how long)? @ -No Were there social determinants of health that impacted care today? How? (Homelessness, low income, unemployed, alcoholism, drug addiction, transport ation, low edu. Level, literacy, decrease access to med. care, alf, rehab)? @ -No Was there de-escalation of care discussed even if they declined (Discuss DNR or withdrawal of care, Hospice)? DNR status @ -No What co-morbidities impacted this encounter? (DM, HTN, Smoking, COPD, CAD, Cancer, CVA, ARF, Chemo, Hep., AIDS, mental health diagnosis, sleep apnea, morbid obesity)? @ -None Was patient admitted / discharged? Hospital course, mention meds given and route, prescriptions, significant lab abnormalities, going to OR and other pertinent info. @ -Discharge 58-year-old male presenting to the ED with complaints of difficulty with constipation for the past 9 months and increasing flatus for the past 2 months with associated diffuse abdominal pains. Laboratory studies reviewed. Labs including CBC CMP UA largely unremarkable. KUB revealed no evidence of acute finding. CT abdomen pelvis did show findings concerning for proctitis however patient denies rectal pain at this time and only notes abdominal pain and flatus. Discharged home in stable condition. 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 Discussed return precautions with patient. Undiagnosed new problem with uncertain prognosis? @ -No Drug Therapy requiring intensive monitoring for toxicity (Heparin, Nitro, Insulin, Cardizem)? @ -No Were any procedures done? @ -No Diagnosis/symptom? @ -Abdominal pain Acute, or Chronic, or Acute on Chronic? @ -Acute on chronic Uncomplicated (without systemic symptoms) or Complicated (systemic symptoms)? @ -Uncomplicated Side effects of treatment? @ -No Exacerbation, Progression, or Severe Exacerbation? @ -No Poses a threat to life or bodily function? How? (Chest pain, USA, NM, pneumonia, PE, COPD, DKA, ARF, appy, cholecystitis, CVA, Diverticulitis, Homicidal, Suicidal, threat to staff... and all critical care pts) @ -No (Benjamín Ibarra) - Lab Data Lab Results 12/29/23 12/29/23 12/29/23 Range/Units 20:26 20:26 20:26 WBC 6.1 (3.8-10.6) k/uL RBC 4.16 L (4.30-5.90) m/uL Hgb 12.0 L (13.0-17.5) gm/dL Hct 36.3 L (39.0-53.0) % MCV 87.3 (80.0-100.0) fL MCH 28.9 (25.0-35.0) pg MCHC 33.1 (31.0-37.0) g/dL RDW 12.7 (11.5-15.5) % Plt Count 156 (150-450) k/uL MPV 7.6 Neutrophils % 72 % Lymphocytes % 19 % Monocytes % 5 % Eosinophils % 1 % Basophils % 0 % Neutrophils # 4.4 (1.3-7.7) k/uL Lymphocytes # 1.2 (1.0-4.8) k/uL Monocytes # 0.3 (0-1.0) k/uL Eosinophils # 0.1 (0-0.7) k/uL Basophils # 0.0 (0-0.2) k/uL Sodium 135 L (137-145) mmol/L Potassium 4.4 (3.5-5.1) mmol/L Chloride 101 (98-107) mmol/L Carbon Dioxide 29 (22-30) mmol/L Anion Gap 5 mmol/L BUN 12 (9-20) mg/dL Creatinine 0.61 L (0.66-1.25) mg/dL Est GFR (CKD-EPI)AfAm >90 (>60 ml/min/1.73 sqM) Est GFR (CKD-EPI)NonAf >90 (>60 ml/min/1.73 sqM) Glucose 105 H (74-99) mg/dL Plasma Lactic Acid Gadiel 0.7 (0.7-2.0) mmol/L Calcium 9.2 (8.4-10.2) mg/dL Total Bilirubin 0.7 (0.2-1.3) mg/dL AST 19 (17-59) U/L ALT 13 (4-49) U/L Alkaline Phosphatase 63 (38-126) U/L Total Protein 6.9 (6.3-8.2) g/dL Albumin 4.4 (3.5-5.0) g/dL Amylase 67 (30-110) U/L Lipase 54 (23-300) U/L Urine Color Urine Appearance (Clear) Urine pH (5.0-8.0) Ur Specific [place] (1.001-1.035) Urine Protein (Negative) Urine Glucose (UA) (Negative) Urine Ketones (Negative) Urine Blood (Negative) Urine Nitrite (Negative) Urine Bilirubin (Negative) Urine Urobilinogen (<2.0) mg/dL Ur Leukocyte Esterase (Negative) 12/29/23 Range/Units 21:42 WBC (3.8-10.6) k/uL RBC (4.30-5.90) m/uL Hgb (13.0-17.5) gm/dL Hct (39.0-53.0) % MCV (80.0-100.0) fL MCH (25.0-35.0) pg MCHC (31.0-37.0) g/dL RDW (11.5-15.5) % Plt Count (150-450) k/uL MPV Neutrophils % % Lymphocytes % % Monocytes % % Eosinophils % % Basophils % % Neutrophils # (1.3-7.7) k/uL Lymphocytes # (1.0-4.8) k/uL Monocytes # (0-1.0) k/uL Eosinophils # (0-0.7) k/uL Basophils # (0-0.2) k/uL Sodium (137-145) mmol/L Potassium (3.5-5.1) mmol/L Chloride (98-107) mmol/L Carbon Dioxide (22-30) mmol/L Anion Gap mmol/L BUN (9-20) mg/dL Creatinine (0.66-1.25) mg/dL Est GFR (CKD-EPI)AfAm (>60 ml/min/1.73 sqM) Est GFR (CKD-EPI)NonAf (>60 ml/min/1.73 sqM) Glucose (74-99) mg/dL Plasma Lactic Acid Gadiel (0.7-2.0) mmol/L Calcium (8.4-10.2) mg/dL Total Bilirubin (0.2-1.3) mg/dL AST (17-59) U/L ALT (4-49) U/L Alkaline Phosphatase (38-126) U/L Total Protein (6.3-8.2) g/dL Albumin (3.5-5.0) g/dL Amylase (30-110) U/L Lipase (23-300) U/L Urine Color Yellow Urine Appearance Clear (Clear) Urine pH 6.5 (5.0-8.0) Ur Specific [place] 1.025 (1.001-1.035) Urine Protein Trace H (Negative) Urine Glucose (UA) Negative (Negative) Urine Ketones 1+ H (Negative) Urine Blood Negative (Negative) Urine Nitrite Negative (Negative) Urine Bilirubin Negative (Negative) Urine Urobilinogen 2.0 (<2.0) mg/dL Ur Leukocyte Esterase Negative (Negative) Disposition <Jaquelin Brady - Last Filed: 12/29/23 18:55> Is patient prescribed a controlled substance at d/c from ED?: No Time of Disposition: 23:15 <Benjamín Ibarra - Last Filed: 12/29/23 23:40> Clinical Impression: Abdominal pain Disposition: HOME SELF-CARE Condition: Good Instructions (If sedation given, give patient instructions): Constipation (ED) Additional Instructions: Please return to the Emergency Department if symptoms worsen or any other concerns. Please follow-up with your primary care provider and your gastr oenterologist. Referrals: Gene Perera MD [Primary Care Provider] - 1-2 days
--- NOTE | 2023-12-29 19:36 | XR ---
EXAMINATION TYPE: XR KUB DATE OF EXAM: 12/29/2023 7:20 PM CLINICAL INDICATION:Male, 58 years old with history of abdominal pain; [facility] COMPARISON: 12/07/2023. TECHNIQUE: One radiographic view of the abdomen was obtained. FINDINGS: The bowel gas pattern is nonspecific without dilated loops of small or large bowel. There i s no evidence for organomegaly or pneumoperitoneum. The osseous structures are intact. No abnormal calcifications are present. Fecal material and gas are demonstrated throughout the colon and rectum. Embolization material projects over L4 vertebrae. Aortic stent graft noted. Mild scoliosis changes s pine. Mild degeneration changes of the hypervascular formation and joint space narrowing. IMPRESSION: Nonspecific bowel gas pattern without radiographic evidence for acute process.
[2023-12-29 20:50] LABS: ALT 13 U/L (4-49); AST 19 U/L (17-59); African American GFR (CKD) >90 (>60 ml/min/1.73 sqM); Albumin 4.4 g/dL (3.5-5.0); Alkaline Phosphatase 63 U/L (38-126); Amylase 67 U/L (30-110); Anion Gap 5 mmol/L; Blood Urea Nitrogen 12 mg/dL (9-20); Calcium 9.2 mg/dL (8.4-10.2); Carbon Dioxide 29 mmol/L (22-30); Chloride 101 mmol/L (98-107); Glucose 105 mg/dL (74-99); Lipase 54 U/L (23-300); Non-African American GFR(CKD) >90 (>60 ml/min/1.73 sqM); Potassium 4.4 mmol/L (3.5-5.1); Sodium 135 mmol/L (137-145); Total Bilirubin 0.7 mg/dL (0.2-1.3); Total Protein 6.9 g/dL (6.3-8.2)
[2023-12-29 21:06] LABS: Basophils % (A) 0 %; Eosinophils # (A) 0.1 k/uL (0-0.7); Eosinophils % (A) 1 %; HCT 36.3 % (39.0-53.0); Lymphocytes # (A) 1.2 k/uL (1.0-4.8); Lymphocytes % (A) 19 %; MCH 28.9 pg (25.0-35.0); MCHC 33.1 g/dL (31.0-37.0); MCV 87.3 fL (80.0-100.0); Mean Platelet Volume 7.6; Monocytes # (A) 0.3 k/uL (0-1.0); Monocytes % (A) 5 %; Neutrophils # (A) 4.4 k/uL (1.3-7.7); Neutrophils % (A) 72 %; Platelet Count 156 k/uL (150-450); RBC 4.16 m/uL (4.30-5.90); RDW 12.7 % (11.5-15.5); WBC 6.1 k/uL (3.8-10.6)
[2023-12-29] MEDS: KETOROLAC 15 MG/ML 1 ML VIAL IVP STA (21:33)
--- NOTE | 2023-12-29 22:00 | CT ---
EXAMINATION TYPE: CT abdomen pelvis w con CT DLP: 534.1 mGycm, Automated exposure control for dose reduction was used. DATE OF EXAM: 12/29/2023 9:37 PM COMPARISON: CT abdomen pelvis most recent from CLINICAL INDICATION:Male, 58 years old with history of abdominal pain, difficulty with bowel movement s; Abdominal pain TECHNIQUE: Axial CT abdomen pelvis w con;Sagittal and coronal reformats were created on a separate w orkstation. Contrast used:100 ml mL of Isovue 300 with IV Contrast, (none if empty) Oral contrast used: without Oral Contrast (none if empty) FINDINGS: LOWER CHEST: Moderate to severe paraseptal emphysema changes. Remote sided left rib fractures. There are severe coronary artery atherosclerosis. ABDOMEN LIVER: Unremarkable GALLBLADDER AND BILE DUCTS: Unremarkable. PANCREAS: Unremarkable. SPLEEN: At least 2 hypodense areas probably representing cysts. ADRENAL GLANDS: Unremarkable. KIDNEYS AND URETERS: No evidence of hydronephrosis or renal calculus. The ureters are unremarkable. PELVIS BLADDER: Unremarkable REPRODUCTIVE: Unremarkable. ABDOMEN & PELVIS STOMACH AND BOWEL: No evidence of bowel obstruction. Large amount of stool seen throughout the large bowel courses anterior to the above the liver and and underneath the diaphragm. Circumferential wall thickening and hyperemia of the rectum. PERITONEUM/RETROPERITONEUM: No evidence of pneumoperitoneum or free fluid. Embolization coil seen at the level of L4. VASCULATURE: Stent graft in the upper abdomen appears patent. The major vessels of the abdominal aort a are patent. Moderate to severe atherosclerotic plaque along the course of the arterial vasculature. Biiliac stent graft appears patent. MUSCULOSKELETAL: No acute osseous abnormalities LYMPH NODES: No gross evidence for lymphadenopathy. SOFT TISSUE/ABDOMINAL WALL: Unremarkable IMPRESSION: 1. Hyperemia of the rectum correlate for proctitis. 2. Moderate to large amount stool throughout the colon. 3. Aortic stent graft as well as bilateral common iliac artery stent grafts are patent. 4. Moderate to severe coronary artery atherosclerosis.
[2023-12-29] MEDS: ASPIRIN 325 MG TAB PO STA (22:43)
[2023-12-29 22:54] LABS: Appearance,Urine Clear (Clear); Bilirubin,Urine Negative (Negative); Blood,Urine Negative (Negative); Color,Urine Yellow; Glucose,Urine (UA) Negative (Negative); Ketones,Urine 1+ (Negative); Leukocyte Esterase,Urine Negative (Negative); Nitrite,Urine Negative (Negative); PH, Urine 6.5 (5.0-8.0); Protein,Urine Trace (Negative); Specific Gravity,Urine 1.025 (1.001-1.035)
[2023-12-29 23:51] VITALS: RESP 16
[2023-12-29 23:52] VITALS: BP 130/82; PULSE 75; TEMP 97.8
== END 2023-12-29 23:53 | disposition home or self-care (01) ==
LOC: EC 18:04
DX: R10.84 Generalized abdominal pain (principal); Z88.8 Allergy status to other drugs, medicaments and biological substances; F17.290 Nicotine dependence, other tobacco product, uncomplicated
CPT/HCPCS: 99284 ×2; 96374 ×2; 36415; 80053; 82150; 83605; 83690; 85025; 81003; 74018; 74177; J1885; Q9967